=== PATIENT | female | born 1940 | race Two or more races ===

== ENCOUNTER 2020-09-21 07:25 | Outpatient (REF) | payer MEDICARE, SELFPAY ==
[2020-09-21 13:43] LABS: Estimated Average Glucose 189 mg/dL; Hemoglobin A1c % 8.2 %
[2020-09-21 14:14] LABS: Alanine Aminotransferase 15 U/L (0-31); Anion Gap 12 (12-20); Aspartate Amino Transferase 20 U/L (5-31); Blood Urea Nitrogen 10 mg/dL (9-16); Carbon Dioxide 26 mmol/L (22-29); Chloride 103 mmol/L (96-108); Cholesterol 149 mg/dL; Estimated Glomerular Filt Rate > 60; Glucose Fasting 242 mg/dL (60-99); HDL Cholesterol 47 mg/dL; LDL Cholesterol Calculated 88 mg/dl; Potassium 4.1 mmol/l (3.3-5.1); Sodium 137 mmol/L (135-145); Triglycerides 70 mg/dL
[2020-09-21 14:24] LABS: Creatinine Urine 169.16 mg/dL
== END 2020-09-21 07:26 | disposition home or self-care (01) ==
LOC: HO.HMGCLDS 07:25
PROVIDERS: PCP Internal Medicine; Visit Provider Internal Medicine
DX: E11.3293 Type 2 diabetes mellitus with mild nonproliferative diabetic retinopathy without macular edema, bilateral (principal); E78.5 Hyperlipidemia, unspecified; I10 Essential (primary) hypertension
CPT/HCPCS: 80048; 80061; 82043; 83036; 84450; 84460

== ENCOUNTER 2021-01-30 06:21 | Outpatient (REF) | payer MEDICARE, SELFPAY ==
[2021-01-30 11:17] LABS: Estimated Average Glucose 183 mg/dL
[2021-01-30 11:51] LABS: Alanine Aminotransferase 14 U/L (0-31); Anion Gap 10 (12-20); Aspartate Amino Transferase 19 U/L (5-31); Blood Urea Nitrogen 13 mg/dL (9-16); Carbon Dioxide 30 mmol/L (22-29); Chloride 106 mmol/L (96-108); Cholesterol 186 mg/dL; Estimated Glomerular Filt Rate > 60; Glucose Fasting 166 mg/dL (60-99); HDL Cholesterol 68 mg/dL; LDL Cholesterol Calculated 97 mg/dl; Potassium 4.1 mmol/L (3.3-5.1); Sodium 142 mmol/L (135-145); Triglycerides 106 mg/dL
[2021-01-30 11:54] LABS: Creatinine Urine 85.53 mg/dL; Microalbum/Creatinine Ratio Ur 12.8 ug/mg cr
[2021-01-30 11:57] LABS: TSH reflex Free T4 2.41 uIU/mL (0.32-4.0); Vitamin D 25-OH Total 41.9 ng/mL (>30)
[2021-01-30 12:35] LABS: Folate > 20.0 ng/mL (> or = 4.0); Vitamin B12 734 pg/mL (200-900)
== END 2021-01-30 06:22 | disposition home or self-care (01) ==
LOC: HO.HMGCLDS 06:21
PROVIDERS: PCP Internal Medicine; Visit Provider Internal Medicine
DX: M81.0 Age-related osteoporosis without current pathological fracture (principal); E11.65 Type 2 diabetes mellitus with hyperglycemia; E11.3299 Type 2 diabetes mellitus with mild nonproliferative diabetic retinopathy without macular edema, unspecified eye; E11.29 Type 2 diabetes mellitus with other diabetic kidney complication; R80.9 Proteinuria, unspecified; I10 Essential (primary) hypertension; E78.5 Hyperlipidemia, unspecified; G31.84 Mild cognitive impairment of uncertain or unknown etiology; Z78.0 Asymptomatic menopausal state
CPT/HCPCS: 36415; 80048; 80061; 82043; 82306; 82607; 82746; 83036; 84443; 84450; 84460

== ENCOUNTER 2021-01-30 14:35 | Outpatient (REF) | payer MEDICARE, SELFPAY | END 2021-01-30 14:36 | disposition home or self-care (01) | LOC: HO.LAB 14:35 | PROVIDERS: Visit Provider Internal Medicine | DX: Z20.822 Contact with and (suspected) exposure to COVID-19 (principal) | CPT/HCPCS: 36415; C9803; U0003; U0005 ==

== ENCOUNTER 2021-06-05 06:21 | Outpatient (REF) | payer OTHER, SELFPAY ==
[2021-06-05 11:31] LABS: Alanine Aminotransferase 12 U/L (0-31); Anion Gap 12 (12-20); Aspartate Amino Transferase 17 U/L (5-31); Blood Urea Nitrogen 15 mg/dL (9-16); Calcium 9.5 mg/dL (8.4-10.2); Carbon Dioxide 27 mmol/L (22-29); Chloride 107 mmol/L (96-108); Cholesterol 182 mg/dL; Estimated Glomerular Filt Rate > 60; Glucose Fasting 189 mg/dL (60-99); HDL Cholesterol 66 mg/dL; LDL Cholesterol Calculated 95 mg/dl; Potassium 4.7 mmol/L (3.3-5.1); Sodium 141 mmol/L (135-145); Triglycerides 108 mg/dL
[2021-06-05 11:39] LABS: Estimated Average Glucose 174 mg/dL; Hemoglobin A1c % 7.7 %
[2021-06-05 11:51] LABS: Creatinine Urine 108.51 mg/dL
== END 2021-06-05 06:22 | disposition home or self-care (01) ==
LOC: HO.HMGCLDS 06:21
PROVIDERS: PCP Internal Medicine; Visit Provider Internal Medicine
DX: E11.29 Type 2 diabetes mellitus with other diabetic kidney complication (principal); E11.3299 Type 2 diabetes mellitus with mild nonproliferative diabetic retinopathy without macular edema, unspecified eye; E11.65 Type 2 diabetes mellitus with hyperglycemia; E78.5 Hyperlipidemia, unspecified; I10 Essential (primary) hypertension; R80.9 Proteinuria, unspecified
CPT/HCPCS: 36415; 80048; 80061; 82043; 83036; 84450; 84460

== ENCOUNTER 2022-07-19 07:20 | Outpatient (REF) | payer OTHER, SELFPAY ==
[2022-07-19 11:38] LABS: Estimated Average Glucose 183 mg/dL
[2022-07-19 11:52] LABS: Alanine Aminotransferase 13 U/L (0-31); Anion Gap 18 (12-20); Aspartate Amino Transferase 18 U/L (5-31); Blood Urea Nitrogen 15 mg/dL (9-16); Calcium 9.1 mg/dL (8.4-10.2); Carbon Dioxide 21 mmol/L (22-29); Chloride 106 mmol/L (96-108); Cholesterol 185 mg/dL; Estimated Glomerular Filt Rate > 60; Glucose Fasting 205 mg/dL (60-99); HDL Cholesterol 65 mg/dL; LDL Cholesterol Calculated 100 mg/dl; Potassium 4.5 mmol/L (3.3-5.1); Sodium 140 mmol/L (135-145); Triglycerides 104 mg/dL
[2022-07-19 12:00] LABS: Creatinine Urine 109.29 mg/dL; Microalbum/Creatinine Ratio Ur 9.1 ug/mg cr
== END 2022-07-19 07:21 | disposition home or self-care (01) ==
LOC: HO.HMGCLDS 07:20
PROVIDERS: PCP Internal Medicine; Visit Provider Internal Medicine
DX: M81.0 Age-related osteoporosis without current pathological fracture (principal); I10 Essential (primary) hypertension; E78.5 Hyperlipidemia, unspecified; E11.29 Type 2 diabetes mellitus with other diabetic kidney complication; E11.3299 Type 2 diabetes mellitus with mild nonproliferative diabetic retinopathy without macular edema, unspecified eye; E11.65 Type 2 diabetes mellitus with hyperglycemia; R80.9 Proteinuria, unspecified
CPT/HCPCS: 36415; 80048; 80061; 82043; 83036; 84450; 84460

== ENCOUNTER 2022-10-25 08:02 | Outpatient (REF) | payer OTHER, SELFPAY ==
[2022-10-25 12:00] LABS: Estimated Average Glucose 223 mg/dL; Hemoglobin A1c % 9.4 %
[2022-10-25 12:05] LABS: Alanine Aminotransferase 17 U/L (0-31); Anion Gap 12 (12-20); Aspartate Amino Transferase 19 U/L (5-31); Blood Urea Nitrogen 13 mg/dL (9-16); Calcium 9.2 mg/dL (8.4-10.2); Carbon Dioxide 26 mmol/L (22-29); Chloride 106 mmol/L (96-108); Cholesterol 180 mg/dL; Estimated Glomerular Filt Rate > 60; Glucose Fasting 210 mg/dL (60-99); HDL Cholesterol 67 mg/dL; LDL Cholesterol Calculated 92 mg/dl; Potassium 4.1 mmol/L (3.3-5.1); Sodium 140 mmol/L (135-145); Triglycerides 107 mg/dL
== END 2022-10-25 08:03 | disposition home or self-care (01) ==
LOC: HO.HMGCLDS 08:02
PROVIDERS: PCP Internal Medicine; Visit Provider Internal Medicine
DX: E11.65 Type 2 diabetes mellitus with hyperglycemia (principal); E78.5 Hyperlipidemia, unspecified; M81.0 Age-related osteoporosis without current pathological fracture; K21.9 Gastro-esophageal reflux disease without esophagitis; N95.9 Unspecified menopausal and perimenopausal disorder
CPT/HCPCS: 36415; 80048; 80061; 82306; 83036; 84450; 84460

== ENCOUNTER 2023-02-28 06:30 | Outpatient (REF) | payer OTHER, SELFPAY ==
[2023-02-28 12:04] LABS: Estimated Average Glucose 174 mg/dL; Hemoglobin A1c % 7.7 %
[2023-02-28 12:08] LABS: Alanine Aminotransferase 15 U/L (0-31); Anion Gap 13 (12-20); Aspartate Amino Transferase 17 U/L (5-31); Blood Urea Nitrogen 19 mg/dL (9-16); Calcium 9.1 mg/dL (8.4-10.2); Carbon Dioxide 24 mmol/L (22-29); Chloride 108 mmol/L (96-108); Cholesterol 165 mg/dL; Estimated Glomerular Filt Rate > 60; Glucose Fasting 201 mg/dL (60-99); HDL Cholesterol 60 mg/dL; LDL Cholesterol Calculated 90 mg/dl; Potassium 4.1 mmol/L (3.3-5.1); Sodium 141 mmol/L (135-145); Triglycerides 76 mg/dL
[2023-02-28 12:10] LABS: Creatinine Urine 185.92 mg/dL; Microalbum/Creatinine Ratio Ur 11.2 ug/mg cr
== END 2023-02-28 06:31 | disposition home or self-care (01) ==
LOC: HO.HMGCLDS 06:30
PROVIDERS: PCP Internal Medicine; Visit Provider Internal Medicine
DX: E11.3299 Type 2 diabetes mellitus with mild nonproliferative diabetic retinopathy without macular edema, unspecified eye (principal); E11.65 Type 2 diabetes mellitus with hyperglycemia; I10 Essential (primary) hypertension; E78.5 Hyperlipidemia, unspecified
CPT/HCPCS: 36415; 80048; 80061; 82043; 83036; 84450; 84460

== ENCOUNTER 2023-07-25 07:21 | Outpatient (REF) | payer OTHER, SELFPAY ==
[2023-07-25 12:07] LABS: Alanine Aminotransferase 13 U/L (0-31); Anion Gap 12 (12-20); Aspartate Amino Transferase 17 U/L (5-31); Blood Urea Nitrogen 12 mg/dL (9-16); Calcium 9.7 mg/dL (8.4-10.2); Carbon Dioxide 26 mmol/L (22-29); Chloride 106 mmol/L (96-108); Cholesterol 180 mg/dL (<200); Estimated Glomerular Filt Rate > 60; Glucose Fasting 185 mg/dL (60-99); HDL Cholesterol 65 mg/dL (>40); LDL Cholesterol Calculated 96 mg/dL (<100); Potassium 4.3 mmol/L (3.3-5.1); Sodium 140 mmol/L (135-145); Triglycerides 95 mg/dL (<150)
[2023-07-25 12:08] LABS: Estimated Average Glucose 157 mg/dL; Hemoglobin A1c % 7.1 % (<6.0)
[2023-07-25 12:12] LABS: Vitamin D 25-OH Total 69.4 ng/mL (>30)
[2023-07-25 12:20] LABS: Microalbum/Creatinine Ratio Ur 6.4 ug/mg cr (<30)
== END 2023-07-25 07:22 | disposition home or self-care (01) ==
LOC: HO.HMGCLDS 07:21
PROVIDERS: PCP Internal Medicine; Visit Provider Internal Medicine
DX: M81.0 Age-related osteoporosis without current pathological fracture (principal); K21.9 Gastro-esophageal reflux disease without esophagitis; I10 Essential (primary) hypertension; E11.65 Type 2 diabetes mellitus with hyperglycemia; E11.3299 Type 2 diabetes mellitus with mild nonproliferative diabetic retinopathy without macular edema, unspecified eye; E78.5 Hyperlipidemia, unspecified
CPT/HCPCS: 36415; 80048; 80061; 82043; 82306; 82570; 83036; 84450; 84460

== ENCOUNTER 2023-07-30 13:39 | Outpatient (AMB) | payer OTHER, SELFPAY ==
[2023-07-30 13:59] VITALS: BP 158/90; PULSE 78; O2SAT 97; BMI 27.8
--- NOTE | 2023-07-30 13:59 | AM.OFFVISMDC ---
Intake Vital Signs 07/30/23 13:59 Height 4 ft 8 in Intake Visit Reasons: Annual PE Intake Note: pt is here for annual exam Allergies No Known Allergies Allergy (Verified 03/08/23 00:23) PFSH Medical History (Updated 03/08/23 @ 00:30 by Nara Louie MD) Urinary incontinence Muscle strain of left upper back Cough Mild cognitive impairment Tubular adenoma of colon Breast cancer, right Hearing loss Osteoporosis Osteoarthritis GERD (gastroesophageal reflux disease) Dyslipidemia Essential hypertension Type 2 diabetes mellitus with microalbuminuria, without long-term current use of insulin Type 2 diabetes mellitus with hyperglycemia, without long-term current use of insulin Type 2 diabetes mellitus with mild nonproliferative diabetic retinopathy without macular edema Surgical History Hx of mastectomy Family History Father Colon cancer Mother Essential hypertension Sister Pancreatic cancer Son Mental health disorder Substance use disorder Social History Housing: Apartment Alcohol intake: never Patient Tobacco Use Status: Never used Tobacco e-Cigarette/Vaping Use: Never Used Current occupational status: retired Cognitive needs: No Hearing needs: No Vision needs: Yes 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
--- NOTE | 2023-07-30 14:00 | A.OFFPC_ITS ---
Vital Signs 07/30/23 13:59 Height 4 ft 8 in Weight 124 lb 2 oz BMI 27.8 BP 158/90 H Blood Pressure Location Rt brachial Position Sitting Pulse 78 Pulse Source Pulse Oximeter Pulse Oximetry (%) 97 Intake Visit Reasons: Annual PE Intake Note: pt is here for annual exam, concern with memory, and concern with discomfort with right foot and shoulder Curve Cleaner Required: No Accompanied by: Self / Same As Patient Allergies No Known Allergies Allergy (Verified 07/30/23 14:30) Medication List - Last Reconciled 07/30/23 by Nara Louie MD aspirin (Adult Aspirin Regimen) 81 mg PO DAILY atorvastatin 20 mg PO DAILY [baby wipes As directed] blood sugar diagnostic As directed blood sugar diagnostic (FreeStyle Lite Strips) check fasting blood sugar 2 times a day; blood-glucose meter (FreeStyle Calvin Lite kit) As directed diaper,brief,adult,disposable Use as directed twice a day p.r.n. lancets check fasting blood sugar twice a day ac lisinopril 5 mg PO DAILY metformin 1,000 mg PO BIDWMEAL 3 months omega-3 acid ethyl esters 2 caps PO DAILY propylene glycol-glycerin 1-0.3 % 1 drp ophthalmic (eye) QID PRN Tobacco use date assessed: 03/06/23 Fall risk assessment: No Falls in past year Last assessed Fall Risk: 07/30/23 Dental Screening Dental Screen Date: 07/30/23 Did you have a dental visit in the last 12 months?: Yes Did you have a dental problem in the last 6 months where you did not have access to dental care?: No Was dental information given to patient?: Patient has dentist HPI Annual PE HPI Details 83-year-old lady with diabetes mellitus, hypertension, dyslipidemia, and osteoarthritis, presents today for physical exam. She has been feeling well, currently accompanied by daughter. Been compliant with taking her medications and has no complaints at present time. She no longer gets mammogram or colonoscopy ease she has had her COVID vaccine in the past, due for her booster, as well as her flu shot, up-to-date with her pneumonia vaccination and reminded to get Shingrix vaccination [facility] Medical History Urinary incontinence Muscle strain of left upper back Cough Mild cognitive impairment Tubular adenoma of colon Breast cancer, right Hearing loss Osteoporosis Osteoarthritis GERD (gastroesophageal reflux disease) Dyslipidemia Essential hypertension Type 2 diabetes mellitus with microalbuminuria, without long-term current use of insulin Type 2 diabetes mellitus with hyperglycemia, without long-term current use of insulin Type 2 diabetes mellitus with mild nonproliferative diabetic retinopathy without macular edema Surgical History Hx of mastectomy Family History Father Colon cancer Mother Essential hypertension Sister Pancreatic cancer Son Mental health disorder Substance use disorder Social History Housing: Apartment Alcohol intake: never Patient Tobacco Use Status: Never used Tobacco e-Cigarette/Vaping Use: Never Used Current occupational status: retired Cognitive needs: No Hearing needs: No Vision needs: Yes Questionnaire PHQ-9 Over the last 2 weeks, how often have you been bothered by any of the following problems? Depression Screening Interpretation: Negative Source: Developed by Drs. Devon Hatch, Kimi Corrales, Tin Dominguez and colleagues, with an educational darrius from [employer]. Thrive Questionnaire Date Thrive assessed: 07/28/22 CLARK-7 AMB Questionnaire CLARK-7 Date CLARK - 7 assessed: 07/28/22 Source: Developed by Drs. Devon Hatch, Kimi Corrales, Tin Dominguez and colleagues, with an educational darrius from [employer]. Review of Systems Const Denies fatigue, Denies fever(s), Denies headache(s), Denies lethargy, Denies malaise and Denies weakness Eyes Reports no additional complaints ENT Denies headache(s) Card Denies chest pain, Denies rapid heart rate and Denies dyspnea Resp Denies chest congestion, Denies cough and Denies dyspnea GI Denies abdominal pain, Denies melena, Denies bloating, Denies change in bowel habits, Denies GI cramping and Denies nausea Reports no additional complaints Musc Reports stiffness Skin/Breast Denies lesions and Denies rash Neuro Denies headache(s), Denies paresthesias and Denies weakness Psych Reports no additional complaints Endo Denies fatigue Rashawn/Lymph Reports no additional complaints Aller/Immun Reports no additional complaints Physical exam (Primary Care) Vital Signs: Last Vital Signs Pulse 78 07/30/23 13:59 BP 158/90 H 07/30/23 13:59 Pulse Ox 97 07/30/23 13:59 BMI result Body Mass Index 27.8 Tobacco/Smoking Status: Tobacco use Status Tobacco use date assessed 03/06/23 07/30/23 14:00 Patient Tobacco Use Status Never used Tobacco 07/30/23 14:00 e-Cigarette/Vaping Use Never Used 07/30/23 14:00 Depression Screening Interpretation: Negative Thrive Assessment: Date of Thrive Assessment Date Thrive assessed 07/28/22 07/30/23 14:00 Const Other: Alert oriented x3, no acute distress noted ambulatory with normal gait Nutritional Appearance: average body habitus Orientation/consciousness: patient oriented x3 HENMT Mouth: Normal oral and palatal mucosa present and moist mucous membranes Eyes General: appearance normal, both eyes and all related structures Neck Other: Supple no lymphadenopathy, thyroid gland nonpalpable, no carotid bruits Resp Effort & Inspection: normal respiratory effort and able to speak in complete sentences Auscultation: clear to auscultation bilaterally Cardio Other: S1-S2 present regular rate and rhythm GI Other: Normal bowel sounds, soft, nontender with no mass palpated no abdominal bruit Skin General skin exam: no rashes or lesions noted Neuro General: patient oriented x3, gait normal, moves all extremities, Normal light touch and pain sensation, no focal motor deficits, CN's II-XI intact bilaterally and normal sensation to monofilament Extrem Other: Intact. Pedal pulses bilaterally, no gross bone deformity or toe deformity or discoloration in both feet General: Yes full ROM, Yes no joint enlargement, Yes no pedal edema and Yes normal gait Psych Appearance: grossly normal and well kempt Mental Status: mental status grossly normal Speech and movement: Normal speech and movement present Affect: normal affect Attitude: cooperative Immunizations pneumoc 20-jeff conj-dip cr(PF) 0.5 mL IM syringe Performing Provider: Nara Louie MD Performing Location: [facility] Administered by: Derrell Echeverria CMA on 07/30/23 14:47 Dose Route Admin Location Dispensed Lot Number Expiration Date [place] Physical Integration Practitioner 0.5 mL IM Left Deltoid 0.5 mL [id number] 09/15/24 WYETH/PFIZER VIS Given Date VIS Provided VIS Publication Date 07/30/23 Single Vaccine 21 Eligibility Eligibility Date Funding Source Not VFC Eligible 07/30/23 Private Results Reviewed Results Reviewed: ENTERED: 07/25/23-730 ROMEO HELMS: ORDERED: Met Prof Fast, AST, ALT, Lipid Panel, Vitamin D 25-OH Test Result Flag Reference Site Sodium 140 135-145 mmol/L Potassium 4.3 3.3-5.1 mmol/L CL 106 96-108 mmol/L CO2 26 22-29 mmol/L Gap 12 12-20 BUN 12 9-16 mg/dL Creat 0.66 0.5-1.4 mg/dL EGFR > 60 NOTE: For -[place] individuals, multiply the result by 1.210. Chronic Kidney Disease: Estimated GFR < 60 mL/min/1.73m2 Severe Kidney Disease: Estimated GFR < 15 mL/min/1.73m2 FBS 185 H 60-99 mg/dL A fasting glucose of 126 mg/dl or greater on more than one occasion is considered diagnostic of diabetes. CA 9.7 # 8.4-10.2 mg/dL AST (GOT) 17 5-31 U/L ALT (GPT) 13 0-31 U/L Triglyceride 95 <150 mg/dL Desirable Triglyceride: less than 150 mg/dL Borderline High Triglyceride 150-199 mg/dL High Triglyceride: 200-499 mg/dL Very High Triglyceride: greater than or equal to 5OO mg/dL Cholesterol 180 <200 mg/dL Desirable Cholesterol: less than 200 mg/dL Borderline High Cholesterol: 200-239 mg/dL High Cholesterol: greater than 239 mg/dL LDL Calculated 96 <100 mg/dL Desirable LDL: less than 100 mg/dL Near Optimal/Above Optimal LDL: 110-129 mg/dL Borderline High LDL: 130-159 mg/dL High LDL: 160-189 mg/dL Very High LDL: greater than or equal to 190 mg/dL HDL 65 >40 mg/dL Desirable HDL: greater than 40 mg/dL Note: This HDL assay may give artificially low results in patients with liver disease. Vit D 25-OH Tot 69.4 >30 ng/mL Health Based Reference Values* < 20 ng/mL Deficient 20-30 ng/mL Insufficient > 30 ng/mL Sufficient Laboratory Tests 07/25/23 07:31 Estimat Average Glucose 157 Hemoglobin A1c % 7.1 H Assessment and Plan Assessment & Plan (1) Osteoporosis: Code(s): M81.0 - Age-related osteoporosis without current pathological fracture Qualifiers: Osteoporosis type: age-related Presence of current pathological fracture: without current pathological fracture Qualified Code(s): M81.0 - Age- related osteoporosis without current pathological fracture Plan: Ordered a repeat bone density scan, continue taking calcium through dietary sources and 3 2000 units daily, reinforced importance of staying active (2) Osteoarthritis: Code(s): M19.90 - Unspecified osteoarthritis, unspecified site Qualifiers: Laterality: right Osteoarthritis location: shoulder Osteoarthritis type: primary Qualified Code(s): M19.011 - Primary osteoarthritis, right shoulder Plan: Refill prescription sent for ibuprofen 400 as per tablet to take 1 every 12 hours as needed for severe joint pain. Always take with food, and use sparingly (3) Dyslipidemia: Code(s): E78.5 - Hyperlipidemia, unspecified Plan: Fasting lipids are within normal limits, continue with atorvastatin and [place] 3 fatty acid supplements. (4) Essential hypertension: Code(s): I10 - Essential (primary) hypertension Plan: Blood pressure at goal of less than 130/80. Continue with lisinopril . Reinforced importance of following a low sodium diet, getting regular exercise, and lowering stress levels. (5) Type 2 diabetes mellitus with hyperglycemia, without long-term current use of insulin: Code(s): E11.65 - Type 2 diabetes mellitus with hyperglycemia Plan: Hemoglobin A1c now is at 7.1%, improved from last check approximately 3 months ago, goal is to go less than 7%. Continue with metformin and reinforcing creased regular activity and following recommended diet. (6) Annual visit for general adult medical examination with abnormal findings: Code(s): Z00.01 - Encounter for general adult medical examination with abnormal findings Plan: Will check appropriate labs. Recommended dental visit every 6 months and regular eye exams, at least every 2 years. Take adequate calcium in diet and vitamin-D 3 at 2000 IU per cap once a day, in addition to weight-bearing exercises to help maintain good muscle tone and weight control. No longer gets screening mammograms colonoscopy 0 Pap smears but bone density scan ordered today reminded to get her COVID booster and flu shot, up-to-date with her pneumonia vaccination and Tdap. Reminded also to get her 2nd of Shingrix vaccine Orders: Orders XR DEXA axial skeleton 07/30/23 M81.0 - Age-related osteoporosis without current pathological fracture Hemoglobin A1c 01/15/24 E11.65 - Type 2 diabetes mellitus with hyperglycemia, E78.5 - Hyperlipidemia, unspecified, I10 - Essential (primary) hypertension, M81.0 - Age-related osteoporosis without current pathological fracture Alanine Aminotransferase 01/15/24 E11.65 - Type 2 diabetes mellitus with hyperglycemia, E78.5 - Hyperlipidemia, unspecified, I10 - Essential (primary) hypertension, M81.0 - Age-related osteoporosis without current pathological fracture Lipid Panel 01/15/24 E11.65 - Type 2 diabetes mellitus with hyperglycemia, E78.5 - Hyperlipidemia, unspecified, I10 - Essential (primary) hypertension, M81.0 - Age-related osteoporosis without current pathological fracture Pneumococcal 20 Immunization 07/30/23 Z23 - Encounter for immunization Aspartate Amino Transferase 01/15/24 E11.65 - Type 2 diabetes mellitus with hyperglycemia, E78.5 - Hyperlipidemia, unspecified, I10 - Essential (primary) hypertension, M81.0 - Age-related osteoporosis without current pathological fracture Basic Metabolic Panel Fasting 01/15/24 E11.65 - Type 2 diabetes mellitus with hyperglycemia, E78.5 - Hyperlipidemia, unspecified, I10 - Essential (primary) hypertension, M81.0 - Age-related osteoporosis without current pathological fracture Vitamin D 25-OH Total 01/15/24 E11.65 - Type 2 diabetes mellitus with hyperglycemia, E78.5 - Hyperlipidemia, unspecified, I10 - Essential (primary) hypertension, M81.0 - Age-related osteoporosis without current pathological fracture, Z78.0 - Asymptomatic menopausal state Microalbumin, Random (w Creat) 01/15/24 E11.65 - Type 2 diabetes mellitus with hyperglycemia, E78.5 - Hyperlipidemia, unspecified, I10 - Essential (primary) hypertension, M81.0 - Age-related osteoporosis without current pathological fracture Medications: New ibuprofen 400 mg PO Q12H PRN 40 tabs 0RF Right shoulder pain Coding Level of Care Code Est Pt Prev Care >65y(16631) Diagnoses Age-related osteoporosis without current pathological fracture M81.0 Osteoporosis type: age-related Presence of current pathological fracture: without current pathological fracture Primary osteoarthritis of right shoulder M19.011 Laterality: right Osteoarthritis location: shoulder Osteoarthritis type: primary Dyslipidemia E78.5 Essential hypertension I10 Type 2 diabetes mellitus with hyperglycemia, without long-term current use of insulin E11.65 Annual visit for general adult medical examination with abnormal findings Z00.01
== END 2023-07-30 14:49 | disposition home or self-care (01) ==
PROVIDERS: Visit Provider Internal Medicine
DX: Z23 Encounter for immunization (principal)
CPT/HCPCS: 90471; 90677; 99397

== ENCOUNTER 2024-02-16 14:11 | Outpatient (AMB) | payer OTHER, SELFPAY ==
[2024-02-16 14:16] VITALS: BP 138/78; PULSE 81; TEMP 36.6; O2SAT 95; BMI 28.0
--- NOTE | 2024-02-16 14:16 | AM.OFFWIN_ITS ---
Intake Vital Signs 02/16/24 14:16 Height 4 ft 8 in Weight 125 lb BMI 28.0 BP 138/78 Blood Pressure Location Lt brachial Position Sitting Pulse 81 Pulse Source Pulse Oximeter Temp 97.9 F Temp Source Temporal Artery Scan Pulse Oximetry (%) 95 Oxygen Delivery Method Room Air Intake Visit Reasons: EP fell Sat RT side pain (lobby) Intake Note: pt is here for right side pain on thursday she fell at home Patient Tobacco Use Status: Never used Tobacco Allergies No Known Allergies Allergy (Verified 02/16/24 14:17) Do you need a note to return to daycare/school/sports/work: No HPI HPI Comments History of Present Illness Details 84-year-old female fell into a seated po sition and struck her right ribs on her chair at home. She denies shortness breath denies head injury or loss of consciousness. Her only discomfort is in her right lower ribs. Seems as though she has mild pleuritic chest pain PFSH Medical History Urinary incontinence Muscle strain of left upper back Cough Mild cognitive impairment Tubular adenoma of colon Breast cancer, right Hearing loss Osteoporosis Osteoarthritis GERD (gastroesophageal reflux disease) Dyslipidemia Essential hypertension Type 2 diabetes mellitus with microalbuminuria, without long-term current use of insulin Type 2 diabetes mellitus with hyperglycemia, without long-term current use of i nsulin Type 2 diabetes mellitus with mild nonproliferative diabetic retinopathy without macular edema Surgical History Hx of mastectomy Family History Father Colon cancer Mother Essential hypertension Sister Pancreatic cancer Son Mental health disorder Substance use disorder Social History Housing: Apartment Alcohol intake: never Patient Tobacco Use Status: Never used Tobacco e-Cigarette/Vaping Use: Never Used Current occupational status: retired Cognitive needs: No Hearing needs: No Vision needs: Yes Review of Systems Const All systems reviewed & are unremarkable except as noted in HPI and below Eyes Reports no additional complaints ENT Reports no additional complaints Card Reports no additional complaints Resp Reports no additional complaints GI Reports no additional complaints Physical Exam Vital Signs: Last Vital Signs Temp 97.9 F 02/16/24 14:16 Pulse 81 02/16/24 14:16 BP 138/78 02/16/24 14:16 Pulse Ox 95 02/16/24 14:16 Oxygen Delivery Method Room Air 02/16/24 14:16 BMI result Body Mass Index 28.0 Const General: healthy appearing and acute distress mild HEENT Head: Yes normal to inspection, Yes normocephalic and Yes atraumatic Ears: hearing grossly normal bilaterally General nose exam: Normal external nose present Face and sinus: Yes normal facial exam Eyes General: appearance normal, both eyes and all related structures Chest Chest palpation & inspection: localized rib tenderness with anteroposterior compression Resp Effort & Inspection: normal respiratory effort and able to speak in complete sentences Auscultation: clear to auscultation bilaterally Cardio Rate: regular rate Rhythm: regular rhythm Results Reviewed Results Reviewed: Right rib and chest x-ray done today was negative which was reviewed with the patient Assessment & Plan Assessment & Plan (1) Acute costochondritis: Code(s): M94.0 - Chondrocostal junction syndrome [Tietze] Plan: The patient will use Tylenol for pain and activity to tolerance Plan See plan Orders: Orders XR ribs RT min 3V w CXR1V Today R07.81 - Pleurodynia Coding Level of Care Code Est Pt Level 3 (55520) Diagnoses Acute costochondritis M94.0
== END 2024-02-16 15:39 | disposition home or self-care (01) ==
PROVIDERS: PCP Internal Medicine; Visit Provider Physician Assistant Medical
DX: M94.0 Chondrocostal junction syndrome [Tietze] (principal)
CPT/HCPCS: 99213

== ENCOUNTER 2024-02-16 14:47 | Outpatient (REF) | payer OTHER, SELFPAY ==
--- NOTE | ~2024-02-16 | XR_ITS ---
EXAMINATION: XR RIBS, RIGHT and chest PA CLINICAL INFORMATION: Pleurodynia. Status post fall. COMPARISON: None available. TECHNIQUE: 3 views of the right ribs were obtained with a marker placed along the lower ribs. Chest one view FINDINGS: CHEST: Lungs are clear. No consolidation, pneumothorax, or pleural effusion. The cardiomediastinal silhouette and pulmonary vasculature are normal. RIGHT RIBS: Osseous structures are unremarkable. Bilateral ribs are intact with no visible fracture seen. The soft tissues are normal.. XR/XR ribs RT min 3V w CXR1V IMPRESSION: Unremarkable chest and right rib examination.
== END 2024-02-16 14:48 | disposition home or self-care (01) ==
LOC: HO.HMGCX 14:47
PROVIDERS: PCP Internal Medicine; Visit Provider Physician Assistant Medical
DX: R07.81 Pleurodynia (principal); Z91.81 History of falling
CPT/HCPCS: 71101

== ENCOUNTER 2024-03-05 07:13 | Outpatient (REF) | payer OTHER, SELFPAY ==
[2024-03-05 12:09] LABS: Estimated Average Glucose 171 mg/dL; Hemoglobin A1c % 7.6 % (<6.0)
[2024-03-05 12:34] LABS: Alanine Aminotransferase 17 U/L (0-31); Anion Gap 12 (12-20); Aspartate Amino Transferase 19 U/L (5-31); Blood Urea Nitrogen 13 mg/dL (9-16); Calcium 9.4 mg/dL (8.4-10.2); Carbon Dioxide 25 mmol/L (22-29); Chloride 107 mmol/L (96-108); Cholesterol 166 mg/dL (<200); Estimated Glomerular Filt Rate > 60; Glucose Fasting 171 mg/dL (60-99); HDL Cholesterol 56 mg/dL (>40); LDL Cholesterol Calculated 94 mg/dL (<100); Sodium 140 mmol/L (135-145); Triglycerides 83 mg/dL (<150)
[2024-03-05 12:37] LABS: Vitamin D 25-OH Total 82.6 ng/mL (>30)
[2024-03-05 12:51] LABS: Creatinine Urine 96.78 mg/dL; Microalbum/Creatinine Ratio Ur 10.3 ug/mg cr (<30)
== END 2024-03-05 07:14 | disposition home or self-care (01) ==
LOC: HO.HMGCLDS 07:13
PROVIDERS: PCP Internal Medicine; Visit Provider Internal Medicine
DX: M81.0 Age-related osteoporosis without current pathological fracture (principal); E78.5 Hyperlipidemia, unspecified; I10 Essential (primary) hypertension; E11.65 Type 2 diabetes mellitus with hyperglycemia; Z78.0 Asymptomatic menopausal state
CPT/HCPCS: 36415; 80048; 80061; 82043; 82306; 82570; 83036; 84450; 84460

== ENCOUNTER 2024-03-17 13:53 | Outpatient (AMB) | payer OTHER, SELFPAY ==
[2024-03-17 14:25] VITALS: BP 130/72; PULSE 80; O2SAT 97; BMI 27.5
--- NOTE | 2024-03-17 14:25 | MHC.PC.OV ---
Vital Signs 03/17/24 14:25 Height 4 ft 8 in Weight 122 lb 8 oz BMI 27.5 BP 130/72 Blood Pressure Location Lt brachial Position Sitting Pulse 80 Pulse Source Pulse Oximeter Pulse Oximetry (%) 97 Oxygen Delivery Method Room Air Intake Visit Reasons: 6 Month follow up Intake Note: Pt is here today for her 6 month follow up. Allergies No Known Allergies Allergy (Verified 03/21/24 02:37) Medication List - Last Reconciled 03/21/24 by Nara Louie MD alendronate 70 mg PO QWEEK 3 months aspirin (Adult Aspirin Regimen) 81 mg PO DAILY atorvastatin 20 mg PO DAILY [baby wipes As directed] blood sugar diagnostic As directed blood sugar diagnostic (FreeStyle Lite Strips) check fasting blood sugar 2 times a day; blood-glucose meter (FreeStyle [place] Lite kit) As directed diaper,brief,adult,disposable Use as directed twice a day p.r.n. ibuprofen 400 mg PO Q12H PRN lancets check fasting blood sugar twice a day ac lisinopril 5 mg PO DAILY [Medium size Poise Pads Use twice a day ] metformin 1,000 mg PO BIDWMEAL 3 months omega-3 acid ethyl esters 2 caps PO DAILY propylene glycol-glycerin 1-0.3 % 1 drp ophthalmic (eye) QID PRN Tobacco use date assessed: 03/17/24 Fall risk assessment: 1 Fall in past year Last assessed Fall Risk: 03/17/24 Dental Screening Dental Screen Date: 03/17/24 Did you have a dental visit in the last 12 months?: No Did you have a dental problem in the last 6 months where you did not have access to dental care?: No Was dental information given to patient?: Patient has dentist HPI 6 Month follow up HPI Details 84-year-old lady with diabetes mellitus, hypertension hyperlipidemia, here today for follow-up. She has been compliant with her medications, but has not been moving much due to pain on anterior aspect of her right knee which occurs on and off. She has had history of falls recently due to unstable gait. Has been taking Tylenol which affords only temporary relief. She also had a recent bone density scan done has January 2024 which showed presence of osteoporosis in lumbar spine and in her left femoral neck. Has no history of fractures. [facility] Medical History Osteoporosis of lumbar spine Gait instability History of recent fall Right anterior knee pain Urinary incontinence Mild cognitive impairment Tubular adenoma of colon Breast cancer, right Hearing loss Osteoporosis Osteoarthritis GERD (gastroesophageal reflux disease) Dyslipidemia Essential hypertension Type 2 diabetes mellitus with microalbuminuria, without long-term current use of insulin Type 2 diabetes mellitus with hyperglycemia, without long-term current use of insulin Type 2 diabetes mellitus with mild nonproliferative diabetic retinopathy without macular edema Surgical History Hx of mastectomy Family History Father Colon cancer Mother Essential hypertension Sister Pancreatic cancer Son Mental health disorder Substance use disorder Social History Housing: Apartment Alcohol intake: never Patient Tobacco Use Status: Never used Tobacco e-Cigarette/Vaping Use: Never Used service: No Current occupational status: retired Cognitive needs: No Hearing needs: No Vision needs: Yes Questionnaire PHQ-9 Over the last 2 weeks, how often have you been bothered by any of the following problems? 1. Little interest or pleasure in doing things: not at all 2. Feeling down, depressed, or hopeless: not at all 3. Trouble falling or staying asleep, or sleeping too much: not at all 4. Feeling tired or having little energy: not at all 5. Poor appetite or overeating: not at all 6. Feeling bad about yourself - or that you are a failure or have let yourself or your family down: not at all 7. Trouble concentrating on things, such as reading the newspaper or watching television: not at all 8. Moving or speaking so slowly that other people could have noticed. Or the opposite - being so fidgety or restless that you have been moving around a lot more than usual: not at all 9. Thoughts that you would be better off or of hurting yourself in some way: not at all Total score: 0 Depression Screening Interpretation: Negative Depression Screening Done: Yes 65806 - PHQ-9 Billing: Yes Source: Developed by Drs. Devon Hatch, Kimi B.WTin Raya and colleagues, with an educational darrius from [employer]. Thrive Questionnaire Date Thrive assessed: 03/17/24 I am a: Patient What is your living situation today?: I have a steady place to live Within the past 12 months, did the food you bought not last and you didn't have the money to get more?: Never true Within the past 12 months, did you worry whether your food would run out before you got money to buy more?: Never true Do you have trouble paying for medicines?: No Do you have trouble getting transportation to medical appointments?: No Do you have trouble paying your heating and electricity bill?: No Do you have trouble taking care of your child, family member or friend?: No Do you have trouble with day-to-day activities such as bathing, preparing meals, shopping, managing finances, etc.?: No Are you currently unemployed and looking for a job?: No Are you interested in more education?: No THRIVE Score: 0 AUDIT C Alcohol Use Questionnaire (AUDIT-C) 1. How often do you have a drink containing alcohol?: Never 3. How often do you have six or more drinks on one occasion?: Never Total Score: 0 Score Reviewed/Action Taken: Yes CLARK-7 AMB Questionnaire CLARK-7 Date CLARK - 7 assessed: 03/17/24 Feeling nervous, anxious, or on edge: 0 = Not at all Not being able to stop or control worryin = Not at all Worrying too much about different things: 0 = Not at all Trouble relaxin = Not at all Being so restless that it is hard to sit still: 0 = Not at all Becoming easily annoyed or irritable: 0 = Not at all Feeling afraid as if something awful might happen: 0 = Not at all Total CLARK-7 score (0-4 normal; 5-9 mild; 10-14 moderate; 15-21 severe): 0 Source: Developed by Drs. Devon Hatch, Tin Eden and colleagues, with an educational darrius from [employer]. CLARK-7 Assessment Billing CLARK-7 Assessment Tool: CLARK-7 Assessment 96675 Review of Systems Const Denies fatigue, Denies fever(s), Denies headache(s), Denies lethargy, Denies malaise and Denies weakness Eyes Reports no additional complaints ENT Denies headache(s) Card Denies chest pain, Denies rapid heart rate and Denies dyspnea Resp Denies chest congestion, Denies cough and Denies dyspnea GI Denies abdominal pain, Denies melena, Denies bloating, Denies change in bowel habits, Denies GI cramping and Denies nausea Reports no additional complaints Musc Reports as per HPI Skin/Breast Denies lesions and Denies rash Neuro Reports as per HPI, Denies headache(s), Denies paresthesias and Denies weakness Psych Reports no additional complaints Endo Denies fatigue Rashawn/Lymph Reports no additional complaints Aller/Immun Reports no additional complaints Physical exam (Primary Care) Vital Signs: Last Vital Signs Pulse 80 03/17/24 14:25 BP 130/72 03/17/24 14:25 Pulse Ox 97 03/17/24 14:25 Oxygen Delivery Method Room Air 03/17/24 14:25 BMI result Body Mass Index 27.5 Tobacco/Smoking Status: Tobacco use Status Tobacco use date assessed 03/17/24 03/17/24 14:28 Patient Tobacco Use Status Never used Tobacco 03/17/24 14:28 e-Cigarette/Vaping Use Never Used 03/17/24 14:28 Depression Screening Interpretation: Negative Thrive Assessment: Date of Thrive Assessment Date Thrive assessed 07/28/22 03/17/24 14:28 Const Other: Elderly female, ambulatory with assistance of a cane [facility] Mouth: Normal oral and palatal mucosa present and moist mucous membranes Eyes General: appearance normal, both eyes and all related structures Neck Other: Supple no lymphadenopathy, thyroid gland nonpalpable, no carotid bruits Resp Effort & Inspection: normal respiratory effort and able to speak in complete sentences Auscultation: clear to auscultation bilaterally Cardio Other: S1-S2 present regular rate and rhythm GI Other: Normal bowel sounds, soft, nontender with no mass palpated no abdominal bruit Back/Spine/Pelvis Back: No back tenderness Skin General skin exam: no rashes or lesions noted Neuro General: moves all extremities, Normal light touch and pain sensation, no focal motor deficits, CN's II-XI intact bilaterally and normal sensation to monofilament Gait exam (Neuro): Assisted gait required (Cane) Extrem Other: Joint swelling noted over anterior aspect of both knee right more than the left, decreased range of motion due to pain and stiffness Psych Appearance: grossly normal and well kempt Mental Status: mental status grossly normal Speech and movement: Normal speech and movement present Affect: normal affect Attitude: cooperative Results Reviewed Results Reviewed: Laboratory Tests 03/05/24 07:19 Estimat Average Glucose 171 Hemoglobin A1c % 7.6 H Name: Terrie Madden Age/Sex: 84/F : 1940 Unit#: [id number] Attend Dr: Nara Louie MD Re03/05/24 Status: DEP REF Location: [facility] Disch: SPEC : [id number] BOAZ: 03/05/24 STATUS: COMP REQ : [id number] RECD: 03/05/[address]: Nara Louie MD COMP: 03/05/24 ENTERED: 03/05/[address]: ORDERED: Met Prof Fast, AST, ALT, Lipid Panel, Vitamin D 25-OH Test Result Flag Reference Sodium 140 135-145 mmol/L Potassium 4.0 3.3-5.1 mmol/L CL 107 96-108 mmol/L CO2 25 22-29 mmol/L Gap 12 12-20 BUN 13 9-16 mg/dL Creat 0.59 0.5-1.4 mg/dL EGFR > 60 NOTE: For -[place] individuals, multiply the result by 1.210. Chronic Kidney Disease: Estimated GFR < 60 mL/min/1.73m2 Severe Kidney Disease: Estimated GFR < 15 mL/min/1.73m2 FBS 171 H 60-99 mg/dL A fasting glucose of 126 mg/dl or greater on more than one occasion is considered diagnostic of diabetes. CA 9.4 8.4-10.2 mg/dL AST (GOT) 19 5-31 U/L ALT (GPT) 17 0-31 U/L Triglyceride 83 <150 mg/dL Desirable Triglyceride: less than 150 mg/dL Borderline High Triglyceride 150-199 mg/dL High Triglyceride: 200-499 mg/dL Very High Triglyceride: greater than or equal to 5OO mg/dL Cholesterol 166 <200 mg/dL Desirable Cholesterol: less than 200 mg/dL Borderline High Cholesterol: 200-239 mg/dL High Cholesterol: greater than 239 mg/dL LDL Calculated 94 <100 mg/dL Desirable LDL: less than 100 mg/dL Near Optimal/Above Optimal LDL: 110-129 mg/dL Borderline High LDL: 130-159 mg/dL High LDL: 160-189 mg/dL Very High LDL: greater than or equal to 190 mg/dL HDL 56 >40 mg/dL Desirable HDL: greater than 40 mg/dL Note: This HDL assay may give artificially low results in patients with liver disease. Vit D 25-OH Tot 82.6 >30 ng/mL Health Based Reference Values* < 20 ng/mL Deficient 20-30 ng/mL Insufficient > 30 ng/mL Sufficient Assessment and Plan Assessment & Plan (1) Right anterior knee pain: Code(s): M25.561 - Pain in right knee Plan: X-ray of right knee ordered (2) History of recent fall: Code(s): Z91.81 - History of falling Plan: Referred for physical therapy (3) Gait instability: Code(s): R26.81 - Unsteadiness on feet Plan: Referral for physical therapy ordered (4) Osteoporosis of lumbar spine: Code(s): M81.0 - Age-related osteoporosis without current pathological fracture Plan: Reviewed results of recent DEXA scan done January 2024, which showed presence of osteoporosis in lumbar spine and in left femoral neck, no history of fractures, will started on alendronate 70 mg per capsule to take once a week for the next 3 months. Instructed on proper use of medication and possible side effects that may be encountered. Will repeat another bone density exam in a year (5) Type 2 diabetes mellitus with hyperglycemia, without long-term current use of insulin: Code(s): E11.65 - Type 2 diabetes mellitus with hyperglycemia Plan: Hemoglobin A1c on latest labs was higher at 7.6%. Will continue on current medication namely metformin at the same dose , and reinforced importance of following diabetic diet and getting regular exercise. (6) Essential hypertension: Code(s): I10 - Essential (primary) hypertension Plan: Blood pressure at goal of less than 130/80. Continue with current medication. Reinforced importance of following a low sodium diet, getting regular exercise, and lowering stress levels. (7) Dyslipidemia: Code(s): E78.5 - Hyperlipidemia, unspecified Plan: Fasting lipids are within normal limits, continue on atorvastatin 20 mg daily repeat fasting lipid panel in six-month Orders: Orders XR knee RT 4V 03/17/24 M25.561 - Pain in right knee PT Evaluation and Treatment 03/17/24 M25.561 - Pain in right knee, R26.81 - Unsteadiness on feet, Z91.81 - History of falling Basic Metabolic Panel Fasting 07/14/24 E11.65 - Type 2 diabetes mellitus with hyperglycemia, E78.5 - Hyperlipidemia, unspecified, I10 - Essential (primary) hypertension, M81.0 - Age-related osteoporosis without current pathological fracture Aspartate Amino Transferase 07/14/24 E11.65 - Type 2 diabetes mellitus with hyperglycemia, E78.5 - Hyperlipidemia, unspecified, I10 - Essential (primary) hypertension, M81.0 - Age-related osteoporosis without current pathological fracture Alanine Aminotransferase 07/14/24 E11.65 - Type 2 diabetes mellitus with hyperglycemia, E78.5 - Hyperlipidemia, unspecified, I10 - Essential (primary) hypertension, M81.0 - Age-related osteoporosis without current pathological fracture Hemoglobin A1c 07/14/24 E11.65 - Type 2 diabetes mellitus with hyperglycemia, E78.5 - Hyperlipidemia, unspecified, I10 - Essential (primary) hypertension, M81.0 - Age-related osteoporosis without current pathological fracture Lipid Panel 07/14/24 E11.65 - Type 2 diabetes mellitus with hyperglycemia, E78.5 - Hyperlipidemia, unspecified, I10 - Essential (primary) hypertension, M81.0 - Age-related osteoporosis without current pathological fracture Microalbumin, Random (w Creat) 07/14/24 E11.65 - Type 2 diabetes mellitus with hyperglycemia, E78.5 - Hyperlipidemia, unspecified, I10 - Essential (primary) hypertension, M81.0 - Age-related osteoporosis without current pathological fracture Vitamin D 25-OH Total 07/14/24 E11.65 - Type 2 diabetes mellitus with hyperglycemia, E78.5 - Hyperlipidemia, unspecified, I10 - Essential (primary) hypertension, M81.0 - Age-related osteoporosis without current pathological fracture Medications: New alendronate 70 mg PO QWEEK 3 months 13 tabs 3RF M81.0 - Age-related osteoporosis without current pathological fracture Coding Level of Care Code Est Pt Level 4 (35167) Diagnoses Right anterior knee pain M25.561 History of recent fall Z91.81 Gait instability R26.81 Osteoporosis of lumbar spine M81.0 Type 2 diabetes mellitus with hyperglycemia, without long-term current use of insulin E11.65 Essential hypertension I10 Dyslipidemia E78.5 Additional Codes CLARK-7 Assessment Billing - CLARK-7 Assessment Tool: CLARK-7 Assessment 43126 ([id number])
== END 2024-03-17 15:19 | disposition home or self-care (01) ==
LOC: HO.HMGC 13:53
PROVIDERS: PCP Internal Medicine; Visit Provider Internal Medicine
DX: E11.65 Type 2 diabetes mellitus with hyperglycemia (principal); M25.561 Pain in right knee; Z91.81 History of falling; R26.81 Unsteadiness on feet; M81.0 Age-related osteoporosis without current pathological fracture; I10 Essential (primary) hypertension; E78.5 Hyperlipidemia, unspecified
CPT/HCPCS: 99214

== ENCOUNTER 2024-03-17 15:21 | Outpatient (REF) | payer OTHER, SELFPAY ==
--- NOTE | ~2024-03-17 | XR_ITS ---
EXAMINATION: XR KNEE, RIGHT CLINICAL INFORMATION: Right-sided knee pain COMPARISON: None available. TECHNIQUE: Four views of the right knee. FINDINGS: There is advanced medial and lateral joint space meniscal calcification but no fracture, dislocation or destructive lesion or joint effusion. XR/XR knee RT 4V IMPRESSION: Degenerative change noted. No acute findings.
== END 2024-03-17 15:22 | disposition home or self-care (01) ==
LOC: HO.HMGCX 15:21
PROVIDERS: PCP Internal Medicine; Visit Provider Internal Medicine
DX: M25.561 Pain in right knee (principal)
CPT/HCPCS: 73564

== ENCOUNTER 2024-06-22 10:26 | Outpatient (AMB) | payer OTHER, SELFPAY ==
[2024-06-22 11:11] VITALS: BP 116/64; PULSE 77; O2SAT 99; BMI 25.6
--- NOTE | 2024-06-22 11:11 | A.OFFPC_ITS ---
Vital Signs 06/22/24 11:11 Height 4 ft 8 in Weight 114 lb BMI 25.6 BP 116/64 Blood Pressure Location Lt brachial Position Sitting Pulse 77 Pulse Source Pulse Oximeter Pulse Oximetry (%) 99 Oxygen Delivery Method Room Air Intake Visit Reasons: HDF Allergies No Known Allergies Allergy (Verified 06/23/24 16:12) Medication List - Last Reconciled 06/23/24 by Nara Louie MD alendronate 70 mg PO QWEEK 3 months aspirin (Adult Aspirin Regimen) 81 mg PO DAILY atorvastatin 20 mg PO DAILY [baby wipes As directed] blood sugar diagnostic As directed blood sugar diagnostic (FreeStyle Lite Strips) check fasting blood sugar 2 times a day; blood-glucose meter (FreeStyle [place] Lite kit) As directed diaper,brief,adult,disposable Use as directed twice a day p.r.n. ibuprofen 400 mg PO Q12H PRN lancets check fasting blood sugar twice a day ac lisinopril 5 mg PO DAILY [Medium size Poise Pads Use twice a day ] metformin 1,000 mg PO BIDWMEAL 3 months omega-3 acid ethyl esters 2 caps PO DAILY propylene glycol-glycerin 1-0.3 % 1 drp ophthalmic (eye) QID PRN tramadol 50 mg PO BEDTIME PRN Tobacco use date assessed: 06/22/24 Fall risk assessment: 2 + Falls in past year Last assessed Fall Risk: 06/22/24 Dental Screening Dental Screen Date: 06/22/24 Did you have a dental visit in the last 12 months?: Yes Did you have a dental problem in the last 6 months where you did not have access to dental care?: No Was dental information given to patient?: Patient has dentist HPI HDF HPI Details 84-year-old lady with history of diabete s mellitus, hypertension, anemia, here today for follow-up after a recent fall, and sustained a fracture in her right hip, underwent surgery 05/13/2024. She is now back home, ambulating with aid of a walker, receives home PT twice a week. Has been taking Tylenol 500 mg 1 tablet once or twice a day which has been helping but patient complaining of throbbing pain in her right hip when sleeping at night, would like to get something stronger than Tylenol or Motrin to help ease the pain [facility] Medical History Osteoporosis of lumbar spine Gait instability History of recent fall Right anterior knee pain Urinary incontinence Mild cognitive impairment Tubular adenoma of colon Breast cancer, right Hearing loss Osteoporosis Osteoarthritis GERD (gastroesophageal reflux disease) Dyslipidemia Essential hypertension Type 2 diabetes mellitus with microalbuminuria, without long-term current use of insulin Type 2 diabetes mellitus with hyperglycemia, without long-term current use of insulin Type 2 diabetes mellitus with mild nonproliferative diabetic retinopathy without macular edema Surgical History Hx of mastectomy Family History Father Colon cancer Mother Essential hypertension Sister Pancreatic cancer Son Mental health disorder Substance use disorder Social History Housing: Apartment Alcohol intake: never Patient Tobacco Use Status: Never used Tobacco e-Cigarette/Vaping Use: Never Used service: No Current occupational status: retired Cognitive needs: No Hearing needs: No Vision needs: Yes Questionnaire PHQ-9 Over the last 2 weeks, how often have you been bothered by any of the following problems? Depression Screening Interpretation: Negative Depression Screening Done: Yes Source: Developed by Drs. Devon Hatch, Kimi Corrales, Tin Dominguez and colleagues, with an educational darrius from [employer]. Thrive Questionnaire Date Thrive assessed: 03/17/24 CLARK-7 AMB Questionnaire CLARK-7 Date CLARK - 7 assessed: 03/17/24 Source: Developed by Drs. Devon Hatch, Tin Eden and colleagues, with an educational darrius from [employer]. Review of Systems Const Reports no additional complaints, Denies fatigue, Denies headache(s) and Denies weakness Eyes Reports no additional complaints ENT Denies headache(s) Card Denies chest pain, Denies rapid heart rate and Denies dyspnea Resp Denies chest congestion, Denies cough and Denies dyspnea GI Denies abdominal pain, Denies melena, Denies bloating, Denies change in bowel habits, Denies GI cramping and Denies nausea Reports no additional complaints Musc Reports as per HPI Skin/Breast Denies lesions and Denies rash Neuro Reports as per HPI, Denies headache(s), Denies paresthesias and Denies weakness Psych Reports no additional complaints Endo Denies fatigue Rashawn/Lymph Reports no additional complaints Aller/Immun Reports no additional complaints Physical exam (Primary Care) Vital Signs: Last Vital Signs Pulse 77 06/22/24 11:11 BP 116/64 06/22/24 11:11 Pulse Ox 99 06/22/24 11:11 Oxygen Delivery Method Room Air 06/22/24 11:11 BMI result Body Mass Index 25.6 Tobacco/Smoking Status: Tobacco use Status Tobacco use date assessed 06/22/24 06/22/24 11:13 Patient Tobacco Use Status Never used Tobacco 06/22/24 11:13 e-Cigarette/Vaping Use Never Used 06/22/24 11:13 Depression Screening Interpretation: Negative Thrive Assessment: Date of Thrive Assessment Date Thrive assessed 03/17/24 06/22/24 11:13 Const General: cooperative, comfortable, no acute distress and alert Limitations: ambulation with walker HENMT Mouth: Normal oral and palatal mucosa present and moist mucous membranes Eyes General: appearance normal, both eyes and all related structures Neck Other: Supple no lymphadenopathy, thyroid gland nonpalpable, no carotid bruits Resp Effort & Inspection: normal respiratory effort and able to speak in complete sentences Auscultation: clear to auscultation bilaterally Cardio Other: S1-S2 present regular rate and rhythm GI Other: Normal bowel sounds, soft, nontender with no mass palpated no abdominal bruit Back/Spine/Pelvis Back: No back tenderness Skin General skin exam: no rashes or lesions noted Neuro General: moves all extremities, Normal light touch and pain sensation, no focal motor deficits, CN's II-XI intact bilaterally and normal sensation to monofilament Gait exam (Neuro): Assisted gait required (Cane) Extrem Other: Slight tenderness on palpation over right hip joint, well-healed surgical scar noted overlying right hip Assessment and Plan Assessment & Plan (1) History of fracture of right hip: Code(s): Z87.81 - Personal history of (healed) traumatic fracture Plan: Status post surgery, advised to continue with home PT gets it twice a week and continue doing the exercises regularly. Continue taking Tylenol but switched to Tylenol arthritis 650 mg per tablet to take 1 tablet every 8 hours as needed. Prescription sent for tramadol 50 mg per tablet to take half a tablet initially with 1 tablet Tylenol arthritis at night for help with pain relief as needed on Medications: New tramadol 50 mg PO BEDTIME PRN 10 tabs 0RF pain, moderate Coding Level of Care Code Est Pt Level 4 (08193) Diagnoses History of fracture of right hip Z87.81
== END 2024-06-22 12:03 | disposition home or self-care (01) ==
PROVIDERS: PCP Internal Medicine; Visit Provider Internal Medicine
DX: Z87.81 Personal history of (healed) traumatic fracture (principal)
CPT/HCPCS: 99214

== ENCOUNTER 2024-08-06 07:10 | Outpatient (REF) | payer OTHER, SELFPAY ==
[2024-08-06 11:43] LABS: Alanine Aminotransferase 12 U/L (0-31); Anion Gap 12 (12-20); Aspartate Amino Transferase 18 U/L (5-31); Blood Urea Nitrogen 11 mg/dL (9-16); Calcium 9.3 mg/dL (8.4-10.2); Carbon Dioxide 24 mmol/L (22-29); Chloride 108 mmol/L (96-108); Cholesterol 171 mg/dL (<200); Estimated Glomerular Filt Rate > 60; Glucose Fasting 192 mg/dL (60-99); HDL Cholesterol 63 mg/dL (>40); LDL Cholesterol Calculated 91 mg/dL (<100); Sodium 140 mmol/L (135-145); Triglycerides 85 mg/dL (<150)
[2024-08-06 12:04] LABS: Vitamin D 25-OH Total 74.3 ng/mL (>30)
[2024-08-06 12:11] LABS: Creatinine Urine 135.55 mg/dL; Estimated Average Glucose 183 mg/dL; Microalbum/Creatinine Ratio Ur 15.4 ug/mg cr (<30)
== END 2024-08-06 07:11 | disposition home or self-care (01) ==
LOC: HO.HMGCLDS 07:10
PROVIDERS: PCP Internal Medicine; Visit Provider Internal Medicine
DX: M81.0 Age-related osteoporosis without current pathological fracture (principal); E78.5 Hyperlipidemia, unspecified; I10 Essential (primary) hypertension; E11.65 Type 2 diabetes mellitus with hyperglycemia
CPT/HCPCS: 36415; 80048; 80061; 82043; 82306; 82570; 83036; 84450; 84460

== ENCOUNTER 2024-08-11 10:30 | Outpatient (AMB) | payer OTHER, SELFPAY ==
[2024-08-11 11:41] VITALS: BP 120/62; PULSE 88; O2SAT 96; BMI 26.2
--- NOTE | 2024-08-11 11:41 | MHC.PC.OV ---
Vital Signs 08/11/24 11:41 Height 4 ft 8 in Weight 117 lb BMI 26.2 BP 120/62 Blood Pressure Location Lt brachial Position Sitting Pulse 88 Pulse Source Pulse Oximeter Pulse Oximetry (%) 96 Oxygen Delivery Method Room Air Intake Visit Reasons: Annual PE Intake Note: Pt is here today for her PE: Last mammogram 12/05/23, bone density scan 04/08/13 and colonoscopy 09/01/19 Allergies No Known Allergies Allergy (Verified 08/11/24 12:08) Medication List - Last Reconciled 08/11/24 by Nara Louie MD alendronate 70 mg PO QWEEK 3 months aspirin (Adult Aspirin Regimen) 81 mg PO DAILY atorvastatin 20 mg PO DAILY [baby wipes As directed] [basket for a walker As directed] blood sugar diagnostic As directed blood sugar diagnostic (FreeStyle Lite Strips) check fasting blood sugar 2 times a day; blood-glucose meter (FreeStyle [place] Lite kit) As directed diaper,brief,adult,disposable Use as directed twice a day p.r.n. ibuprofen 400 mg PO Q12H PRN lancets check fasting blood sugar twice a day ac lisinopril 5 mg PO DAILY [Long shoe horn As directed] [Medium size Poise Pads Use twice a day ] metformin 1,000 mg PO BIDWMEAL 3 months omega-3 acid ethyl esters 2 caps PO DAILY propylene glycol-glycerin 1-0.3 % 1 drp ophthalmic (eye) QID PRN [rollator walker As directed] [Soft loofah sponge with long handle As directed] Tobacco use date assessed: 08/11/24 Fall risk assessment: No Falls in past year Last assessed Fall Risk: 08/11/24 Dental Screening Dental Screen Date: 08/11/24 Did you have a dental visit in the last 12 months?: Yes Did you have a dental problem in the last 6 months where you did not have access to dental care?: No Was dental information given to patient?: Patient has dentist HPI Annual PE HPI Details 84-year-old lady with history of diabetes mellitus, hypertension, anemia, here today for her physical exam. Last mammogram 12/05/23, bone density scan 01/29/24 done at [facility] which showed presence of osteoporosis in lumbar spine and femoral neck, and colonoscopy 09/01/[address] Osman bonner for recheck this year due to history of adenomatous colon polyp in the past. Has been feeling well, no complaints at present time, takes medicine as directed. [facility] Medical History (Updated 08/14/24 @ 18:47 by Nara Louie MD) History of femur fracture History of adenomatous polyp of colon History of fracture of right hip Gait instability History of recent fall Right anterior knee pain Urinary incontinence Mild cognitive impairment Tubular adenoma of colon Breast cancer, right Hearing loss Osteoporosis Osteoarthritis GERD (gastroesophageal reflux disease) Dyslipidemia Essential hypertension Type 2 diabetes mellitus with microalbuminuria, without long-term current use of insulin Type 2 diabetes mellitus with hyperglycemia, without long-term current use of insulin Type 2 diabetes mellitus with mild nonproliferative diabetic retinopathy without macular edema Surgical History Hx of mastectomy Family History Father Colon cancer Mother Essential hypertension Sister Pancreatic cancer Son Mental health disorder Substance use disorder Social History Housing: Apartment Alcohol intake: never Patient Tobacco Use Status: Never used Tobacco e-Cigarette/Vaping Use: Never Used service: No Current occupational status: retired Cognitive needs: No Hearing needs: No Vision needs: Yes Questionnaire PHQ-9 Over the last 2 weeks, how often have you been bothered by any of the following problems? Depression Screening Interpretation: Negative Depression Screening Done: Yes Source: Developed by Drs. Devon Hatch, Kimi Corrales, Tin Dominguez and colleagues, with an educational darrius from [employer]. Thrive Questionnaire Date Thrive assessed: 03/17/24 I am a: Patient What is your living situation today?: I choose not to answer this question Within the past 12 months, did the food you bought not last and you didn't have the money to get more?: I choose not to answer this question Within the past 12 months, did you worry whether your food would run out before you got money to buy more?: I choose not to answer this question Do you have trouble paying for medicines?: I choose not to answer this question Do you have trouble getting transportation to medical appointments?: I choose not to answer this question Do you have trouble paying your heating and electricity bill?: I choose not to answer this question Do you have trouble taking care of your child, family member or friend?: I choose not to answer this question Do you have trouble with day-to-day activities such as bathing, preparing meals, shopping, managing finances, etc.?: I choose not to answer this question Are you interested in more education?: I choose not to answer this question Please select the resources that you would like help with: None Currently or been in a relationship where the following occur: I choose not to answer THRIVE Score: 0 AUDIT C Alcohol Use Questionnaire (AUDIT-C) 1. How often do you have a drink containing alcohol?: Never Total Score: 0 CLARK-7 AMB Questionnaire CLARK-7 Date CLARK - 7 assessed: 03/17/24 Feeling nervous, anxious, or on edge: 0 = Not at all Not being able to stop or control worryin = Not at all Worrying too much about different things: 0 = Not at all Trouble relaxin = Not at all Being so restless that it is hard to sit still: 0 = Not at all Becoming easily annoyed or irritable: 0 = Not at all Feeling afraid as if something awful might happen: 0 = Not at all Total CLARK-7 score (0-4 normal; 5-9 mild; 10-14 moderate; 15-21 severe): 0 Source: Developed by Drs. Devon Hatch, Kimi Corrales, Tin Dominguez and colleagues, with an educational darrius from [employer]. Review of Systems Const Denies headache(s) and Reports weakness Eyes Reports no additional complaints ENT Denies headache(s) Card Denies chest pain, Denies rapid heart rate and Denies dyspnea Resp Denies chest congestion, Denies cough and Denies dyspnea GI Denies abdominal pain, Denies melena, Denies bloating, Denies change in bowel habits, Denies GI cramping and Denies nausea Reports no additional complaints Musc Reports as per HPI, Reports abnormal gait, Reports arthralgias, Reports muscle weakness and Reports stiffness Skin/Breast Denies lesions and Denies rash Neuro Reports abnormal gait, Denies headache(s), Denies paresthesias and Reports weakness Psych Reports no additional complaints Endo Reports no additional complaints Rashawn/Lymph Reports no additional complaints Aller/Immun Reports no additional complaints Physical exam (Primary Care) Vital Signs: Last Vital Signs Pulse 88 08/11/24 11:41 BP 120/62 08/11/24 11:41 Pulse Ox 96 08/11/24 11:41 Oxygen Delivery Method Room Air 08/11/24 11:41 BMI result Body Mass Index 26.2 Tobacco/Smoking Status: Tobacco use Status Tobacco use date assessed 08/11/24 08/11/24 11:44 Patient Tobacco Use Status Never used Tobacco 08/11/24 11:44 e-Cigarette/Vaping Use Never Used 08/11/24 11:44 Depression Screening Interpretation: Negative Thrive Assessment: Date of Thrive Assessment Date Thrive assessed 03/17/24 08/11/24 11:44 Currently or been in a relationship where the following occur: I choose not to answer Const General: cooperative, comfortable, no acute distress and alert Limitations: ambulation with walker HENMT Mouth: Normal oral and palatal mucosa present and moist mucous membranes Eyes General: appearance normal, both eyes and all related structures Neck Other: Supple no lymphadenopathy, thyroid gland nonpalpable, no carotid bruits Resp Effort & Inspection: normal respiratory effort and able to speak in complete sentences Auscultation: clear to auscultation bilaterally Cardio Other: S1-S2 present regular rate and rhythm GI Other: Normal bowel sounds, soft, nontender with no mass palpated no abdominal bruit Back/Spine/Pelvis Back: No back tenderness Skin General skin exam: no rashes or lesions noted Neuro General: moves all extremities, Normal light touch and pain sensation, no focal motor deficits, CN's II-XI intact bilaterally and normal sensation to monofilament Gait exam (Neuro): Assisted gait required (Cane) Extrem Other: Slight tenderness on palpation over right hip joint, well-healed surgical scar noted overlying right hip Psych Appearance: grossly normal and well kempt Mental Status: mental status grossly normal Speech and movement: Normal speech and movement present Affect: normal affect Results Reviewed Results Reviewed: Name: Terrie Madden Age/Sex: 84/F : 1940 Unit#: [id number] Attend Dr: Nara Louie MD Re08/06/24 Status: DEP REF Location: [facility] Disch: SPEC : [id number] BOAZ: 08/06/24 STATUS: COMP REQ : [id number] RECD: 08/06/[address]: Nara Louie MD COMP: 08/06/24 ENTERED: 08/06/[address] [facility] DR: ORDERED: Met Prof Fast, AST, ALT, Lipid Panel, Vitamin D 25-OH Test Result Flag Reference Sodium 140 135-145 mmol/L Potassium 4.0 3.3-5.1 mmol/L CL 108 96-108 mmol/L CO2 24 22-29 mmol/L Gap 12 12-20 BUN 11 9-16 mg/dL Creat 0.66 0.5-1.4 mg/dL EGFR > 60 NOTE: For -[place] individuals, multiply the result by 1.210. Chronic Kidney Disease: Estimated GFR < 60 mL/min/1.73m2 Severe Kidney Disease: Estimated GFR < 15 mL/min/1.73m2 FBS 192 H 60-99 mg/dL A fasting glucose of 126 mg/dl or greater on more than one occasion is considered diagnostic of diabetes. CA 9.3 8.4-10.2 mg/dL AST (GOT) 18 5-31 U/L ALT (GPT) 12 0-31 U/L Triglyceride 85 <150 mg/dL Desirable Triglyceride: less than 150 mg/dL Borderline High Triglyceride 150-199 mg/dL High Triglyceride: 200-499 mg/dL Very High Triglyceride: greater than or equal to 5OO mg/dL Cholesterol 171 <200 mg/dL Desirable Cholesterol: less than 200 mg/dL Borderline High Cholesterol: 200-239 mg/dL High Cholesterol: greater than 239 mg/dL LDL Calculated 91 <100 mg/dL Desirable LDL: less than 100 mg/dL Near Optimal/Above Optimal LDL: 110-129 mg/dL Borderline High LDL: 130-159 mg/dL High LDL: 160-189 mg/dL Very High LDL: greater than or equal to 190 mg/dL HDL 63 >40 mg/dL Desirable HDL: greater than 40 mg/dL Note: This HDL assay may give artificially low results in patients with liver disease. Vit D 25-OH Tot 74.3 >30 ng/mL Health Based Reference Values* < 20 ng/mL Deficient 20-30 ng/mL Insufficient > 30 ng/mL Sufficient Laboratory Tests 08/06/24 07:13 Estimat Average Glucose 183 Hemoglobin A1c % 8.0 H Urine Creatinine 135.55 Urine Microalbumin 21.0 Microalb/Creat Ratio 15.4 Assessment and Plan Assessment & Plan (1) Annual visit for general adult medical examination with abnormal findings: Code(s): Z00.01 - Encounter for general adult medical examination with abnormal findings Plan: Will check appropriate labs. Recommended dental visit every 6 months and regular eye exams, yearly.. Due for her repeat colonoscopy due to history of adenomatous polyp, referred to GI. Reminded again to get yearly flu vaccine and COVID booster reminded to get her yearly flu shot but does not want to get a COVID booster, up-to-date with her Prevnar 20, has not yet had her shingles vaccine (2) Gait instability: Code(s): R26.81 - Unsteadiness on feet Plan: Prescription sent for walker seat (3) Dyslipidemia: Code(s): E78.5 - Hyperlipidemia, unspecified Plan: Reviewed recent fasting lipid profile with patient with levels within normal limits . Continue atorvastatin 20 mg daily and [place] 3 fatty acid supplements , in addition to adherence to low-cholesterol diet and regular exercise, at least 30 minutes 3 to 4 times a week. Advised patient to make healthy food choices, eat more fruits, vegetables, whole grains, wild caught fish and low-fat dairy. Limit amount of meat and fried or fatty food products, as well as processed foods and fast foods. (4) Essential hypertension: Code(s): I10 - Essential (primary) hypertension Plan: Blood pressure at goal of less than 130/80. Continue lisinopril 5 mg daily Reinforced importance of following a low sodium diet, getting regular exercise, and lowering stress levels. (5) Osteoarthritis: Code(s): M19.90 - Unspecified osteoarthritis, unspecified site Qualifiers: Laterality: right Osteoarthritis location: shoulder Osteoarthritis type: primary Qualified Code(s): M19.011 - Primary osteoarthritis, right shoulder Plan: Takes ibuprofen as needed alternating with Tylenol for joint pain (6) Type 2 diabetes mellitus with hyperglycemia, without long-term current use of insulin: Code(s): E11.65 - Type 2 diabetes mellitus with hyperglycemia Plan: Hemoglobin A1c on latest labs was elevated at 8%. Patient states that she has not really been compliant with her diet and has not been getting any regular exercise due to recent history of fracture of right hip underwent hemiarthroplasty April 2024 at [facility]. Will continue on metformin a 1000 mg 1 tablet twice a day . Reinforced importance of following recommended diet, and getting yearly diabetes retinopathy screening. (7) History of femur fracture: Code(s): Z87.81 - Personal history of (healed) traumatic fracture Plan: Status post right hemiarthroplasty for treatment of right femoral neck fracture 05/09/2024 at [facility] (8) Osteoporosis: Code(s): M81.0 - Age-related osteoporosis without current pathological fracture Qualifiers: Osteoporosis type: age-related Presence of current pathological fracture: without current pathological fracture Qualified Code(s): M81.0 - Age-related osteoporosis without current pathological fracture Plan: Currently on alendronate, referred to endocrine for evaluation management. Orders: Referrals Endocrinology Referral M81.0 - Age-related osteoporosis without current pathological fracture, Z87.81 - Personal history of (healed) traumatic fracture Gastroenterology Referral Z86.010 - Personal history of colonic polyps Medications: New [walker with seat] As directed 1 ea 0RF M81.0 - Age-related osteoporosis without current pathological fracture, R26.81 - Unsteadiness on feet, Z87.81 - Personal history of (healed) traumatic fracture, Z91.81 - History of falling Coding Level of Care Code Est Pt Prev Care >65y(50820) Diagnoses Annual visit for general adult medical examination with abnormal findings Z00.01 Gait instability R26.81 Dyslipidemia E78.5 Essential hypertension I10 Primary osteoarthritis of right shoulder M19.011 Laterality: right Osteoarthritis location: shoulder Osteoarthritis type: primary Type 2 diabetes mellitus with hyperglycemia, without long-term current use of insulin E11.65 History of femur fracture Z87.81 Age-related osteoporosis without current pathological fracture M81.0 Osteoporosis type: age-related Presence of current pathological fracture: without current pathological fracture
== END 2024-08-11 12:45 | disposition home or self-care (01) ==
PROVIDERS: PCP Internal Medicine; Visit Provider Internal Medicine
DX: Z00.00 Encounter for general adult medical examination without abnormal findings (principal); E11.65 Type 2 diabetes mellitus with hyperglycemia; R26.81 Unsteadiness on feet; E78.5 Hyperlipidemia, unspecified; I10 Essential (primary) hypertension; M19.011 Primary osteoarthritis, right shoulder; Z87.81 Personal history of (healed) traumatic fracture; M81.0 Age-related osteoporosis without current pathological fracture

== ENCOUNTER → 2024-08-11 10:30 | Outpatient (BNVA) | payer OTHER, SELFPAY | PROVIDERS: PCP Internal Medicine; Visit Provider Internal Medicine | DX: Z00.01 Encounter for general adult medical examination with abnormal findings (principal); R26.81 Unsteadiness on feet; E78.2 Mixed hyperlipidemia; I10 Essential (primary) hypertension; M19.011 Primary osteoarthritis, right shoulder; E11.65 Type 2 diabetes mellitus with hyperglycemia; M81.0 Age-related osteoporosis without current pathological fracture; Z87.81 Personal history of (healed) traumatic fracture | CPT/HCPCS: 99397 ==

== ENCOUNTER → 2024-08-26 12:58 | Outpatient (AMB) | payer OTHER, SELFPAY ==
--- OUTSIDE RECORDS SUMMARY | 2024-08-26 13:00 | XMS_ITS ---
Author Organization [facility] Address [address] [place] [address] Care Team Providers Care Paper Twister Name Role Phone Liban ROJAS, Nara Londono Primary Care Provider Un available James Zuniga Unavailable [phone] REASON FOR VISIT At Risk Footcare, Painful Nail(s) aggrevated by shoes and causing difficulty standing/walking., ToeIrritation, Ingrown Nail MEDICATIONS Medication SIG (Take, Route, Frequency, Duration) Notes Start Date End Date Status Ammonium Lactate 12 % 1 application to affected area Externally to feet Twice a day for 30 days Not-Taking ibuprofen Active Ranitidine & Diet Manage Prod Active [place] 3 1000 MG 1 capsule Orally Onc e a day Not-Taking Metformin & Diet Manage Prod 1000MG Active Extra Depth Orthopedic Shoes (1 Pair) with Customized Heat Molded Multidensity Innersoles (3 Pair) as directed Dx: NIDDM (E11.9), Hammertoe Foot Deformity (M20.41,M20.42), Preulcerative Skin Lesion(s) (L85.1) Active Aspirin 81 MG 1 tablet Orally Once a day Active Lisinopril 5 MG 1 tablet Orally Once a day Active Atorvastatin Calcium 20 MG 1 tablet Orally Once a day Active SOCIAL HISTORY Tobacco Use: Social History Observation Description Date Details (start date - stop date) Never Smoker NA - NA Sex Assigned At : Social History Observation Description Sex Assigned At Unknown Tobacco Use/Smoking Question Answer Notes Are you a: nonsmoker Additional Findings: Tobacco Non-User Aggressive non-smoker Tobacco use other than smoking: Question Answer Notes Are you an other tobacco user? No VITAL SIGNS Height 5 ft 2 in in 07/27/2024 Weight 124 lbs 07/27/2024 BMI 22.68 kg/m2 07/27/2024 PROCEDURES Procedure Date Ordered Date Performed Result Body Sit e 99568-JLLVQPT NAIL, 6 OR MORE 07/27/2024 N/A 09592-Wjeocwnv Plate 07/27/2024 N/A 93684-XRHO SKIN LESIONS, 2 TO 4 07/27/2024 N/A Encounters Encounter Location Date Provider Diagnosis [facility] [address] [address] 07/27/2024 James Zuniga Pain in right toe(s) M79.674 ; Tinea unguium B35.1 ; Pain in left toe(s) M79.675 ; Type 2 diabetes mellitus without complication E11.9 ; Other hammer toe(s) (acquired), left foot M20.42 ; Other hammer toe(s) (acquired), right foot M20.41 and Ingrown nail L60.0 ASSESSMENTS Encounter Date Diagnosis Assessment Notes Treatment Notes Treatment Clinical Notes 07/27/2024 Pain in right toe(s) (ICD-10 - M79.674) 07/27/2024 Tinea unguium (ICD-10 - B35.1) 07/27/2024 Pain in left toe(s) (ICD-10 - M79.675) 07/27/2024 Type 2 diabetes mellitus without complication (ICD-10 - E11.9) 07/27/2024 Other hammer toe(s) (acquired), left foot (ICD-10 - M20.42) 07/27/2024 Other hammer toe(s) (acquired), right foot (ICD-10 - M20.41) Patient Educated with: DIABETIC FOOT CARE INSTRUCTIONS.pdf (DIABETIC FOOT CARE INSTRUCTIONS.pdf) 07/27/2024 Ingrown nail (ICD-10 - L60.0) PLAN OF TREATMENT Medication Medication Name Sig Start Date Stop Date Notes Extra Depth Orthopedic Shoes (1 Pair) with Customized Heat Molded Multidensity Innersoles (3 Pair) as directed Dx: NIDDM (E11.9), Hammertoe Foot Deformity (M20.41,M20.42), Preulcerative Skin Lesion(s) (L85.1) Treatment Notes Assessment Notes Other hammer toe(s) (acquired), right fo ot Patient Educated with: DIABETIC FOOT CARE INSTRUCTIONS.pdf (DIABETIC FOOT CARE INSTRUCTIONS.pdf) Pending Test Test Name Order Date 26488-CKIHTLG NAIL, 6 OR MORE 07/27/2024 67729-Vkuvaekw Plate 07/27/2024 31285-LXER SKIN LESIONS, 2 TO 4 07/27/20 24 Next Appt Details Follow Up: 2 Months, Reason: Provider Name:James Zuniga , 10/24/2024 02:00:00 PM, [address] , [address], [place], [address], Procedure Notes * Category Sub-Category Detail Notes Nail Avulsion Procedure A fine sterile e levator was placed between the eponychium, nail fold, and nail plate to separate the structures. A sterile nail splitter, and/or sterile 316 blade, was then used to longitudinally section the nail along its entire length through the eponychium to the area under the nail fold. The offending portion of nail was from the nail bed with a rolling action and then removed with a hemostat. No underlying bone was identified. There was minimal bleeding as hemostasis was achieved through the temporary use of either a digital tourniquet or the aforementioned local with epinephrine. A bacitracin sterile dressing was applied. Local wound aftercare instructions were discussed and dispensed. The patient was informed of both conservative and future surgical procedures to prevent recurrence. Tylenol or Motrin was recommended for pain or discomfort (10078) , DIABETES: Pt was advised as to the risk of delayed or nonhealing due to diabetes. Pt is to call the office with any questions, concerns, or complications Anesthesia was accomplished TOP ICALLY with Lidocaine Hydrochloride Jelly 2 percent Location Medial nail border , TA Debride Nail 6-10 Nail debridement Performance o f this nail treatment by a nonprofessional would put this patients foot and overall health at risk. Therefore, nail debridement was performed extensively to reduce/remove overall nail length, girth, thickness, subungual debris, and necrotic tissue, by manual and/or electrical means through the use of a nail nipper and/or dremel-type hand grinder, to a more viable healthy nail plate or bed tissue 6-10. Silver nitrate used for any petechial bleeding as necessary. Definitive antifungal treatment options have been reviewed and discussed with the patient. The patient chooses, no pharmaceutical tx - 06527 Keratoma Treatment Parring or Cutting o f Benign Hyperkeratotic Lesion(s) (-56) 2-4 Lesions - The Benign hyperkeratotic lesions, as described above were pared, and/or cut utilizing a sterile 15 blade, tissue nippers, and/or dremel - 92214 Progress Notes * Examination Category Sub-Category Detail Notes Ingrown Nail INSPECTION: Reveals nail inc urvation, pain on palpation, groove hypertrophy , Medial nail border , TA Neurological SENSORY: Neurological exa m reveals intact sensorium, pain sensation normal, vibration sensation intact, pinprick sensation is normal in the lower extremities, Pt denies, anesthesia, burning, paresthesia, tingling, B/L, 5.07 monofilament test performed at plantar aspects of 5 varied sites per foot shows sensation, normal, B/L Dermatologic SKIN FINDINGS: Skin exam reveal s Keratotic lesion(s) located at, Medial plantar, IPJ, TA, Medial plantar, IPJ, T5 , Heel(s) , B/L Orthopedic GAIT ABNORMALITY: apropulsive , cane-assisted FOOT MORPHOLOGY: Pes Planus structure , No Charcot collapse/destruction noted at MTJ FOOTWEAR: worn, OT were inspec luis alberto and noted to be severely worn , in poor condition not giving proper support at the present time , shoe gear properties exacerbate patients foot/toe deformity DIGITAL DEFORMITIES: Digital contracture , PIPJ, 2-5 B/L, incompl-reducible to push-up test, no over, nor underlapping , with evidence of shoe producing skin irritation MUSCLE STRENGTH: 5/5 all groups in a symmetrical fashion , B/L General Examination GENERAL APPEARANCE: Reveals a pleasant, alert, well nourished, well-developed, well hydrated individual, who demonstrates proper attention to hygiene/body habitus, and is in no acute distress, Pt serves as own historian for office visit today FOOT EXAM: Lower Extremity Neurological Exa m performed:: Yes ORIENTED: person, place, and t felice Footwear Evaluation Footwear Evaluation performe d:: Yes Vascular DP PULSES(B): 2/4, B/L PT PULSES(B): 1/4, B/L CAPILLARY FILL TIME: 3 secs. per digit, B/L TEMPERTURE GRADIENT(C): decreased, cool to cool, proximal to distal, B/L TROPHIC CONDITION-TEXTURE/ELASTICITY/TURGOR/HAIR GROWTH(B): normal, B/L EDEMA(C): absent, B/L PIGMENTATION: mottled, B/L Nails NAILS are: Elongated, overg rown, dystrophic, lytic, greater than 3mm thick, discolored and friable with crumbly malodorous subungual debris, with pain on palpation, 1-5 B/L History and Physical Notes * HPI (History of Present Illness) Category Sub-Category Detail Notes Toe pain Location: B/L feet Duration: several years Course: worse Aggravated by: shoes, any pressure Treatments: change in shoes At Risk footcare Pt States Last PCP Visit: Date: 02/18 States has an appt with PCP soon - 08/11
--- OUTSIDE RECORDS SUMMARY | 2024-08-26 13:00 | XMS_ITS | Patient Health Record ---
Author Organization [facility] Address [address] [place] [address] Care Team Providers Care Copy Technician Name Role Phone Liban ROJAS, Nara Londono Primary Care Provider Un available James Zuniga Unavailable [phone] ALLERGIES No Known Allergies REASON FOR REFERRAL No Information MEDICATIONS Medication SIG (Take, Route, Frequency, Duration) Notes Start Date End Date Status Ammonium Lactate 12 % 1 application to affected area Externally to feet Twice a day for 30 days Not-Taking Extra Depth Orthopedic Shoes (1 Pair) with Customized Heat Molded Multidensity Innersoles (3 Pair) as directed Dx: NIDDM (E11.9), Hammertoe Foot Deformity (M20.41,M20.42), Preulcerative Skin Lesion(s) (L85.1) Active ibuprofen Active Ranitidine & Diet Manage Prod Active Aspirin 81 MG 1 tablet Orally Once a day Active [place] 3 1000 MG 1 capsule Orally Onc e a day Not-Taking Metformin & Diet Manage Prod 1000MG Active Lisinopril 5 MG 1 tablet Orally Once a day Active Atorvastatin Calcium 20 MG 1 tablet Orally Once a day Active IMMUNIZATIONS Vaccine Route Administration Date Status Comme nts COVID-19 Pfizer BioNTech Vaccine Unknown 11/20/2020 Adm inistered COVID-19 Pfizer BioNTech Vaccine Unknown 12/11/2020 Adm inistered Influenza Unknown 01/17/2019 Administered Influenza Unknown 11/16/2019 Administered SOCIAL HISTORY Tobacco Use: Social History Observation Description Date Details (start date - stop date) Never Smoker NA - NA Sex Assigned At : Social History Observation Description Sex Assigned At Unknown Tobacco Use/Smoking Question Answer Notes Are you a: nonsmoker Additional Findings: Tobacco Non-User Aggressive non-smoker Alcohol Screen Question Answer Notes Did you have a drink containing alcohol in the p ast year? No Points 0 Interpretation Negative Tobacco use other than smoking: Question Answer Notes Are you an other tobacco user? No PROBLEMS Problem Type ICD Code Onset Dates Problem Status W/U Status Risk SNOMED Code Notes Problem Other hammer toe(s) (acquired), right foot (M20.41) Active confirmed Acquired hammer toe of right foot (03075017627058 05) Response to treatment,I mprovement Problem Other hammer toe(s) (acquired), left foot (M20.42) Active confirmed Acquired hammer toe of left foot (28788562930149 03) Response to treatment,I mprovement Problem Type 2 diabetes mellitus without complication (E11.9) Active confirmed Type 2 diabetes mellitus without complication (947304510) VITAL SIGNS Height 5 ft 2 in in 07/27/2024 Weight 124 lbs 07/27/2024 BMI 22.68 kg/m2 07/27/2024 PROCEDURES Procedure Date Ordered Date Performed Result Body Sit e 18677-CKYGMFW NAIL, 6 OR MORE 09/10/2023 N/A 85671-UHFMOYN NAIL, 6 OR MORE 01/11/2024 N/A 23972-Grapvkxw Plate 01/11/2024 N/A 80253-AKJH SKIN LESIONS, 2 TO 4 01/11/2024 N/A 05641-XFJDVFA NAIL, 6 OR MORE 03/28/2024 N/A 71525-Drycwqfc Plate 03/28/2024 N/A 24122-MBGL SKIN LESIONS, 2 TO 4 03/28/2024 N/A 20486-MWUQZRV NAIL, 6 OR MORE 07/27/2024 N/A 04168-Kjbzizrn Plate 07/27/2024 N/A 56758-YGEC SKIN LESIONS, 2 TO 4 07/27/2024 N/A Encounters Encounter Location Date Provider Diagnosis [facility] [address] [address] 09/10/2023 James Zuniga Pain in right toe(s) M79.674 ; Tinea unguium B35.1 ; Pain in left toe(s) M79.675 ; Type 2 diabetes mellitus without complication E11.9 ; Other hammer toe(s) (acquired), left foot M20.42 and Other hammer toe(s) (acquired), right foot M20.[address] [address] 11/26/2023 James Zuniga [address] [address] 01/11/2024 James Zuniga Pain in right toe(s) M79.674 ; Tinea unguium B35.1 ; Pain in left toe(s) M79.675 ; Type 2 diabetes mellitus without complication E11.9 ; Other hammer toe(s) (acquired), right foot M20.41 ; Other hammer toe(s) (acquired), left foot M20.42 and Ingrown nail L60.[address] [address] 03/28/2024 James Zuniga Pain in right toe(s) M79.674 ; Tinea unguium B35.1 ; Pain in left toe(s) M79.675 ; Type 2 diabetes mellitus without complication E11.9 and Ingrown nail L60.[address] [address] 06/01/2024 James Zuniga [address] [address] 06/06/2024 James Nadia [address] [address] 07/27/2024 James Zuniga Pain in right toe(s) M79.674 ; Tinea unguium B35.1 ; Pain in left toe(s) M79.675 ; Type 2 diabetes mellitus without complication E11.9 ; Other hammer toe(s) (acquired), left foot M20.42 ; Other hammer toe(s) (acquired), right foot M20.41 and Ingrown nail L60.0 ASSESSMENTS Encounter Date Diagnosis Assessment Notes Treatment Notes Treatment Clinical Notes 09/10/2023 Pain in right toe(s) (ICD-10 - M79.674) 01/11/2024 Tinea unguium (ICD-10 - B35.1) 01/11/2024 Pain in right toe(s) (ICD-10 - M79.674) 03/28/2024 Tinea unguium (ICD-10 - B35.1) 03/28/2024 Pain in right toe(s) (ICD-10 - M79.674) 07/27/2024 Pain in right toe(s) (ICD-10 - M79.674) 07/27/2024 Tinea unguium (ICD-10 - B35.1) 03/28/2024 Pain in left toe(s) (ICD-10 - M79.675) 01/11/2024 Pain in left toe(s) (ICD-10 - M79.675) 09/10/2023 Tinea unguium (ICD-10 - B35.1) 09/10/2023 Pain in left toe(s) (ICD-10 - M79.675) 07/27/2024 Pain in left toe(s) (ICD-10 - M79.675) 01/11/2024 Type 2 diabetes mellitus without complication (ICD-10 - E11.9) 03/28/2024 Type 2 diabetes mellitus without complication (ICD-10 - E11.9) 03/28/2024 Ingrown nail (ICD-10 - L60.0) 09/10/2023 Type 2 diabetes mellitus without complication (ICD-10 - E11.9) 01/11/2024 Other hammer toe(s) (acquired), right foot (ICD-10 - M20.41) Response to treatment,Improve ent 07/27/2024 Type 2 diabetes mellitus without complication (ICD-10 - E11.9) 01/11/2024 Other hammer toe(s) (acquired), left foot (ICD-10 - M20.42) Response to treatment,Improve ent 09/10/2023 Other hammer toe(s) (acquired), left foot (ICD-10 - M20.42) 07/27/2024 Other hammer toe(s) (acquired), left foot (ICD-10 - M20.42) 07/27/2024 Other hammer toe(s) (acquired), right foot (ICD-10 - M20.41) Patient Educated with: DIABETIC FOOT CARE INSTRUCTIONS.pdf (DIABETIC FOOT CARE INSTRUCTIONS.pdf ) 01/11/2024 Ingrown nail (ICD-10 - L60.0) 09/10/2023 Other hammer toe(s) (acquired), right foot (ICD-10 - M20.41) Patient Educated with: DIABETIC FOOT CARE INSTRUCTIONS.pdf (DIABETIC FOOT CARE INSTRUCTIONS.pdf ) 07/27/2024 Ingrown nail (ICD-10 - L60.0) PLAN OF TREATMENT Pending Test Test Name Order Date 08017-FKSNNBJ NAIL, 6 OR MORE 08/11/2019 48374-NQWJMDB NAIL, 6 OR MORE 11/24/2019 05497-DTUYFHO NAIL, 6 OR MORE 03/08/2020 58255-BQJZPZM NAIL, 6 OR MORE 05/31/2020 35729-NCULSFK NAIL, 6 OR MORE 08/15/2020 76521-PIOIZKC NAIL, 6 OR MORE 10/24/2020 98611-GHTHLEM NAIL, 6 OR MORE 01/09/2021 40506-ELNXXUX NAIL, 6 OR MORE 03/20/2021 30849-TXNZDVS NAIL, 6 OR MORE 06/12/2021 85430-LRIWKWE NAIL, 6 OR MORE 08/21/2021 81512-JSWPYNC NAIL, 6 OR MORE 10/31/2021 23678-MZWDMZX NAIL, 6 OR MORE 01/09/2022 08148-CRGMLQR NAIL, 6 OR MORE 03/20/2022 75602-FIPTLGO NAIL, 6 OR MORE 05/29/2022 94540-LIGOHTU NAIL, 6 OR MORE 09/03/2022 35365-RWUHTGK NAIL, 6 OR MORE 11/19/2022 67212-VWIRROS NAIL, 6 OR MORE 02/11/2023 50163-GFMSWHD NAIL, 6 OR MORE 04/22/2023 69378-BRHDRCE NAIL, 6 OR MORE 07/01/2023 88760-EAKKXQL NAIL, 6 OR MORE 09/10/2023 02356-JMDKWHP NAIL, 6 OR MORE 01/11/2024 65345-MYVQJVN NAIL, 6 OR MORE 03/28/2024 30236-XAMEBOF NAIL, 6 OR MORE 07/27/2024 23264-HQVZWVM NAIL, 6 OR MORE 05/12/2019 92139-Fzkjnrtv Plate 07/27/2024 30263-Tsfoobbt Plate 03/28/2024 06170-Ksjlptov Plate 09/03/2022 80592-Dlcttwjm Plate 01/11/2024 98611-Grawlcpr Plate 11/19/2022 44733-Aqrclegd Plate 10/31/2021 04138-GOPY SKIN LESIONS, 2 TO 4 10/31/20 67302-VSEV SKIN LESIONS, 2 TO 4 01/09/20 99859-BRBT SKIN LESIONS, 2 TO 4 08/21/20 81306-CGRI SKIN LESIONS, 2 TO 4 06/12/20 10777-YLYT SKIN LESIONS, 2 TO 4 11/19/19 28849-PUGB SKIN LESIONS, 2 TO 4 09/03/20 85182-MLWX SKIN LESIONS, 2 TO 4 05/29/20 10997-CEHP SKIN LESIONS, 2 TO 4 03/20/20 13519-QBXT SKIN LESIONS, 2 TO 4 03/20/20 09068-NNMC SKIN LESIONS, 2 TO 4 01/09/20 39332-CQAW SKIN LESIONS, 2 TO 4 10/24/20 18034-JSZG SKIN LESIONS, 2 TO 4 08/15/20 92881-EBLI SKIN LESIONS, 2 TO 4 05/31/20 64335-CIMG SKIN LESIONS, 2 TO 4 03/08/20 77339-CSVJ SKIN LESIONS, 2 TO 4 11/24/19 83267-OBON SKIN LESIONS, 2 TO 4 08/11/20 19 08481-WWYK SKIN LESIONS, 2 TO 4 03/28/20 03273-VNBY SKIN LESIONS, 2 TO 4 07/27/20 34987-GADK SKIN LESIONS, 2 TO 4 05/12/20 12543-ISVG SKIN LESIONS, 2 TO 4 01/11/20 10420-ADCU SKIN LESIONS, 2 TO 4 07/01/20 07997-PRDB SKIN LESIONS, 2 TO 4 04/22/20 42736-FWAV SKIN LESIONS, 2 TO 4 02/12/20 Next Appt Details Provider Name:James Morillo Nadia , 10/24/2024 02:00:00 PM, [address] [facility], [facility] [address], [place], [address], Insurance Providers Payer Name Payer Address Payer Phone Subscriber Number Group Number Insured Name Patient Relationship to Insured Coverage Start Date Coverage End Date [facility] [employer] Claims [address] [place] [address] [phone] [id number] Terrie Noriega Self - patient is the insured MEDICAL (GENERAL) HISTORY Medical History History ICD Code Arthritis Back,Hip,and Knee pain CAD (Cholesterol) Diabetic Osteoporosis Measles HTN Surgical History Surgery Date(Month/Year) cancer surgery right hip replacement 05/09/24 Hospitalization History Reason Date(Month/Year) [facility] Right hip replacement 05/09/24
--- OUTSIDE RECORDS SUMMARY | 2024-08-26 13:00 | XMS_ITS | Continuity of Care Document ---
Author Organization [facility] ter Address [address] [place] [id number]- Care Team Providers Care Disabilities Services Officer Name Role Phone Liban ROJAS, Nara Browning Primary Care Phys[place] [facility] [place]): [place] 05/13/[address] [id number] Encounter Diagnosis Fracture of femoral neck, right(Final) - 05/07/24 Fracture of femoral neck, right(Final) - 05/11/24 Discharge Disposition: A-Transfer SNF Attending Physician: John ROJAS, Amaris Admitting Physician: Sri Maza MD, Isaias Mckeon Referring Physician: Not on Staff, Referring MD Allergies, Adverse Reactions, Alerts No Known Allergies Medications aspirin 81 mg oral delayed release tablet 81 mg, 1, tablet, By Mouth, 2 times a day, DVT PROPHYLAXIS POST ORTHOPEDIC SURGERY, # 60 tablet, Refills 0, Tot. Refills 0, Maintenance, 05/11/24 9:55:00 EDT, Do Not Route, Partial fill upon patient request if the prescription is for a schedule II opi... Start Date: 05/11/24 Stop Date: 06/10/24 Status: Ordered Lipitor Tablet = 20 mg, By Mouth, Daily at bedtime, 0 Refills, Maintenance Start Date: 04/26/14 Status: Ordered lisinopril 5 mg oral tablet 1 tablet, By Mouth, Daily, # 30 tablet, 0 Refills, Maintenance, Tablet Start Date: 07/25/11 Status: Ordered Mastectomy Bra See Instructions, # 3 each, Refills 0, Tot. Refills 0, Maintenance, Right breast cancer Asymmetry due to surgery Diagnosis: 50.911, 07/05/20 11:39:00 EDT, Compound Start Date: 07/05/20 Status: Ordered Mastectomy Bra See Instructions, # 3 each, Refills 0, Tot. Refills 0, Maintenance, History of right breast cancer.Lumpectomy, 07/29/18 14:54:33 EDT, Compound Start Date: 07/29/18 Status: Ordered Mastectomy Bra See Instructions, # 6 each, Refills 1, Tot. Refills 1, Maintenance, right lumpectomy, 03/24/23 15:37:00 EDT, Supply Start Date: 03/24/23 Status: Ordered Mastectomy Bra See Instructions, # 3 each, Refills 0, Tot. Refills 0, Maintenance, History of breast cancer, 06/23/17 11:11:14, Compound Start Date: 06/23/17 Status: Ordered Mastectomy Bra See Instructions, # 3 each, Refills 1, Tot. Refills 1, Maintenance, History of breast cancer, 10/16/16 10:02:27, Compound Start Date: 10/16/16 Status: Ordered Mastectomy Prosthesis See Instructions, # 1 each, Refills 0, Tot. Refills 0, Maintenance, Filler due to asymmetry. History of right breast cancer. Lumpectomy, 06/24/18 11:15:12 EDT, Compound Start Date: 06/24/18 Status: Ordered Mastectomy Prosthesis See Instructions, # 1 each, Maintenance, right lumpectomy, 03/24/23 15:38:00 EDT, Supply Start Date: 03/24/23 Status: Ordered Mastectomy Prosthesis See Instructions, # 1 each, Refills 0, Tot. Refills 0, Maintenance, History of breast cancer, 06/23/17 11:11:12, Compound Start Date: 06/23/17 Status: Ordered Mastectomy Prosthesis See Instructions, # 1 each, Refills 1, Tot. Refills 1, Maintenance, History of breast cancer, 10/16/16 10:02:22, Compound Start Date: 10/16/16 Status: Ordered Mastectomy Prosthesis See Instructions, # 1 each, Refills 0, Tot. Refills 0, Maintenance, Right breast cancer Asymmetry due to surgery Diagnosis: 50.911, 06/30/19 10:06:35 EDT, Compound Start Date: 06/30/19 Status: Ordered Mastectomy Supplies See Instructions, # 1 each, Maintenance, Please dispense one right breast filler, patient asymmetrical s/p breast cancer surgery, please dispense up to 3 mastectomy bras, 05/01/15 9:40:55, Compound Start Date: 05/01/15 Status: Ordered metformin 500 mg oral tablet 1 tablet, By Mouth, 2 times a day, # 180 tablet, 0 Refills, Maintenance, Tablet Start Date: 07/25/11 Status: Ordered oxyCODONE 5 mg oral tablet 5 mg, By Mouth, Every 6 hours, PRN, for 5 days, # 20 tablet, Refills 0, Tot. Refills 0, Acute 05/16/24 9:51:00 EDT, Pain , Moderate, 05/11/24 9:51:00 EDT, Print Requisition, Partial fill upon patientrequest if the prescription is for a schedule II op... Start Date: 05/11/24 Stop Date: 05/16/24 Status: Ordered oxyCODONE 5 mg oral tablet 5 mg, Tablet, By Mouth, Every 6 hours, Hold for: sedation, rr<12, hypotension, PRN for Pain , Moderate, Routine, 05/08/24 13:50:00 EDT Start Date: 05/08/24 Stop Date: 05/14/24 Status: Discontinued ranitidine 150 mg oral capsule 1 capsule = 150 mg, By Mouth, 2 times a day, 0 Refills, Maintenance, 04/26/14 11:03:42 Start Date: 04/26/14 Status: Ordered Problem List Condition Confirmation Course Effective Dates Status [facility] Informant Malignant Neoplasm of Breast, Right breast cancer, pT1c, pN0, ER positive, diagnosed in 2001. Confirmed 07/29/02 Active Results Radiology Reports * Exam Date Time Procedure Performing Provider Status 05/07/24 5:35 PM Chest 2 Views Frontal and Lat Cal Shields; Auth (Verified) Notes: (Chest 2 Views Frontal and Lat) Reason For Exam: Shortness of Breath, Fever;Other: RESULT: Chest 2 Views Frontal and Lat Chest 2 Views Frontal and Lat Reason: Other:; Shortness of Breath, Fever; Clinical Question(s): Pneumonia COMPARISON: None. FINDINGS: LINES AND TUBES: None. LUNGS AND PLEURA: Clear lungs. Normal pulmonary vascularity. No pleural effusion. No pneumothorax. HEART, MEDIASTINUM AND JOJO: Heart is normal in size. Normal mediastinal and hilar contour. BONES AND SOFT TISSUES: No acute abnormality. IMPRESSION: No acute abnormality. WSN: [id number] Ordering Physician: Bong Kaiser Dictated By: James Benjamin MD Dictated Date/Time: 05/07/24 6:03 pm Reviewed By: James Benjamin MD Signed By: James Benjamin MD Signed Date/Time: 05/07/24 6:03 pm Transcribed By: GENE Transcribed Date/Time: 05/07/24 6:00 pm * Exam Date Time Procedure Performing Provider Status 05/07/24 5:35 PM XR Femur 1 View Right Cyndi Shields (Verified) Notes: (XR Femur 1 View Right) Reason For Exam: Follow-Up Fracture RESULT: XR Femur 1 View Right Single lateral view of right hip. Femoral neck fracture that are visualized on the AP view. WSN: [id number] Ordering Physician: Cresencio Davalos Dictated By: James Benjamin MD Dictated Date/Time: 05/07/24 5:51 pm Reviewed By: James Benjamin MD Signed By: James Benjamin MD Signed Date/Time: 05/07/24 5:51 pm Transcribed By: GENE Transcribed Date/Time: 05/07/24 5:50 pm * Exam Date Time Procedure Performing Provider Status 05/07/24 1:54 PM Tibia/Fibula 2 Views Right Meredith Anand (Verified) Notes: (Tibia/Fibula 2 Views Right) Reason For Exam: fall;Pain RESULT: Tibia/Fibula 2 Views Right XR Hip w/Pelvis 2-3 View Right, Femur 2 Views Right, Tibia/Fibula 2 Views Right Hx of Present Illness: patient was brought past fall and pain right hip; Reason: Pain; fall; Clinical Question(s): Fracture COMPARISON: None. FINDINGS: There is an acute RIGHT subcapital femoral neck fracture with an oblique irregular linear lucency and cortical discontinuity seen. No significant angulation. There is foreshortening of the femoral neck. No dislocation of the femoral head. Additional images of the more distal femur demonstrates no additional fractures. There is extensivechondrocalcinosis in the medial and lateral compartments of the knee and chondrocalcinosis of the medial collateral ligament. No knee joint effusion. Images of the tibia and fibula demonstrate no acute fracture or dislocation. Ankle mortise appears intact. There is degenerative calcaneal enthesopathy. IMPRESSION: Acute RIGHT subcapital femoral neck fracture with foreshortening of the femoral neck. No significant angulation. No additional fractures of the more distal femur or of the tibia and fibula. WSN: [id number] Ordering Physician: Bong Kaiser Dictated By: Sharona Hernandez MD Dictated Date/Time: 05/07/24 2:00 pm Reviewed By: Sharona Hernandez MD Signed By: Sharona Hernandez MD Signed Date/Time: 05/07/24 2:00 pm Transcribed By: GENE Transcribed Date/Time: 05/07/24 1:56 pm * Exam Date Time Procedure Performing Provider Status 05/07/24 1:54 PM XR Femur 2 Views Right Nishi Anand ; Heidi (Verified) Notes: (XR Femur 2 Views Right) Reason For Exam: fall;Pain RESULT: Femur 2 Views Right XR Hip w/Pelvis 2-3 View Right, Femur 2 Views Right, Tibia/Fibula 2 Views Right Hx of Present Illness: patient was brought past fall and pain right hip; Reason: Pain; fall; Clinical Question(s): Fracture COMPARISON: None. FINDINGS: There is an acute RIGHT subcapital femoral neck fracture with an oblique irregular linear lucency and cortical discontinuity seen. No significant angulation. There is foreshortening of the femoral neck. No dislocation of the femoral head. Additional images of the more distal femur demonstrates no additional fractures. There is extensivechondrocalcinosis in the medial and lateral compartments of the knee and chondrocalcinosis of the medial collateral ligament. No knee joint effusion. Images of the tibia and fibula demonstrate no acute fracture or dislocation. Ankle mortise appears intact. There is degenerative calcaneal enthesopathy. IMPRESSION: Acute RIGHT subcapital femoral neck fracture with foreshortening of the femoral neck. No significant angulation. No additional fractures of the more distal femur or of the tibia and fibula. WSN: [id number] Ordering Physician: Bong Kaiser Dictated By: Sharona Hernandez MD Dictated Date/Time: 05/07/24 2:00 pm Reviewed By: Sharona Hernandez MD Signed By: Sharona Hernandez MD Signed Date/Time: 05/07/24 2:00 pm Transcribed By: GENE Transcribed Date/Time: 05/07/24 1:56 pm * Exam Date Time Procedure Performing Provider Status 05/07/24 1:54 PM XR Hip w/Pelvis 2-3 View Right Meredith Anandelizabeth Gordon (Verified) Notes: (XR Hip w/Pelvis 2-3 View Right) Reason For Exam: fall;Pain RESULT: XR Hip w/Pelvis 2-3 View Right XR Hip w/Pelvis 2-3 View Right, Femur 2 Views Right, Tibia/Fibula 2 Views Right Hx of Present Illness: patient was brought past fall and pain right hip; Reason: Pain; fall; Clinical Question(s): Fracture COMPARISON: None. FINDINGS: There is an acute RIGHT subcapital femoral neck fracture with an oblique irregular linear lucency and cortical discontinuity seen. No significant angulation. There is foreshortening of the femoral neck. No dislocation of the femoral head. Additional images of the more distal femur demonstrates no additional fractures. There is extensivechondrocalcinosis in the medial and lateral compartments of the knee and chondrocalcinosis of the medial collateral ligament. No knee joint effusion. Images of the tibia and fibula demonstrate no acute fracture or dislocation. Ankle mortise appears intact. There is degenerative calcaneal enthesopathy. IMPRESSION: Acute RIGHT subcapital femoral neck fracture with foreshortening of the femoral neck. No significant angulation. No additional fractures of the more distal femur or of the tibia and fibula. WSN: [id number] Ordering Physician: Bong Kaiser Dictated By: Sharona Hernandez MD Dictated Date/Time: 05/07/24 2:00 pm Reviewed By: Sharona Hernandez MD Signed By: Sharona Hernandez MD Signed Date/Time: 05/07/24 2:00 pm Transcribed By: GENE Transcribed Date/Time: 05/07/24 1:56 pm Vital Signs Most recent to oldest [Reference Range]: 1 2 3 Height 142 cm (05/13/24 2:23 PM) 142 cm (05/13/24 6:53 AM) 142 cm (05/13/24 3:19 AM) Weight 58 kg (05/09/24 7:15 AM) 58 kg (05/07/24 6:09 PM) Oxygen Saturation [94-100 %] 100 % (05/13/24 2:23 PM) 65 % *L* (05/13/24 6:53 AM) 100 % (05/13/24 3:19 AM) Pulse Rate [55-90 bpm] 90 bpm (05/13/24 2:23 PM) 95 bpm *H* (05/13/24 6:53 AM) 91 bpm *H* (05/13/24 3:19 AM) Body Mass Index [18.5-24.99 kg/m2] 28.76 kg/m2 *H* (05/09/24 7:15 AM) 28.76 kg/m2 *H* (05/07/24 6:09 PM) Blood Pressure [90-138/55-84 mm Hg] 147/61mm Hg *H* (05/13/24 2:23 PM) 147/56mm Hg *H* (05/13/24 6:53 AM) 149/58mm Hg *H* (05/13/24 3:19 AM) Respiratory Rate [16-30 br/min] 17 br/min (05/13/24 4:25 PM) 16 br/min (05/13/24 2:23 PM) 17 br/min (05/13/24 10:10 AM) Temperature [96.8-100.4 DegF] 99.0 DegF (05/13/24 2:23 PM) 98.9 DegF (05/13/24 6:53 AM) 98.0 DegF (05/13/24 3:19 AM) Liters per Minute 2 L/min (05/09/24 2:46 PM) 2 L/min (05/09/24 11:28 AM) 2 L/min (05/09/24 10:45 AM) Mode of Delivery (Oxygen) Room air (05/13/24 2:23 PM) Room air (05/13/24 6:53 AM) Room air (05/13/24 3:19 AM) Blood pressure sites Arm, left (05/13/24 2:23 PM) Arm, left (05/13/24 6:53 AM) Arm, right (05/13/24 3:19 AM) Temperature Route Oral (05/13/24 2:23 PM) Oral (05/13/24 6:53 AM) Oral (05/13/24 3:19 AM) Dry Weight 58 kg (05/07/24 6:09 PM) Social History Social History Type Response Smoking Status Never smoker entered on: 05/01/15 Sex Implantable Device List Procedure Provider Procedure Date Device Type Site Hemiarthroplasty Hip Jose E ROJAS, Mekhi Castillo 05/09/24 Un known Hip Device Identifier Serial Number Lot or Batch Number Manufacturing Date Expiration Date Distinct Identification Code MRI Safety Implantable Status Assigning Authority Unknown Unknown [id number] Unknown 04/21/28 Unknown Unknown Active Unkno wn Admission evaluation note * Danae ROJAS, Juanjo Magana A: PERFORM, MODIFY Event Display: Admission Note Authored Date: Patient: ??TERRIE FARRELL ? Age:??84 Years?Sex:??Female?:??1940?? 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 ?? She was walking outside without a cane??and her leg gave out and fell onto her right side. No head strike or LOC. She has been having right hip pain since. ?? In the emergency department she has been afebrile, hemodynamic stable, on room air with good oxygen saturation.?? Labs including complete blood cell count, and basic metabolic panel were largely unremarkable.?? Imaging for her right lower extremity showed right hip fracture. Review of Systems Constitutional:?No weight loss, fever, chills, weakness or fatigue. Cardiovascular:??No chest pain,pressure or discomfort. No palpitations or pedal edema. Respiratory:??No shortness of breath, cough or sputum production. Gastrointestinal:?No anorexia, nausea, vomiting or diarrhea. No abdominal pain or blood in stool. Genitourinary: No burning micturition. No urinary frequency or incontinence. Neurologic: No headache, dizziness, syncope, unilateral weakness, ataxia, numbness or tingling in the extremities. No change in bowel or bladder control. Musculoskeletal: right hip pain. Hematologic: No bleeding or bruising. Lymphatics: No enlarged lymph nodes. Psychiatric: No depression or anxiety. Endocrine: No reports of sweating. No cold or heat intolerance. No polyuria or polydipsia. All other systems were reviewed and are negative.?? Objective Vital Signs?? Temperature: 98 DegF (05/07/24 18:09:00) Temperature Route: Oral (05/07/24 18:09:00) Pulse Rate: 83 bpm (05/07/24 18:09:00) Respiratory Rate: 18 br/min (05/07/24 18:09:00) Systolic Blood Pressure: 130 mm Hg (05/07/24 18:09:00) Diastolic Blood Pressure: 67 mm Hg (05/07/24 18:09:00) Blood pressure sites: Arm, right (05/07/24 18:09:00) Mean Arterial Pressure: 88 mm Hg (05/07/24 18:09:00) Pulse Pressure: 63 mm Hg (05/07/24 18:09:00) Oxygen Saturation:??93 %??Low (05/07/24 18:09:00) Mode of Delivery (Oxygen): Room air (05/07/24 17:44:00) Early Warning Score: 2 (05/07/24 18:13:09) ? Physical Exam Constitutional: Alert, in no acute distress. Head: Normocephalic. Eyes: Pupils are equal, round and reactive to light. Extraocular muscles intact. No pallor or scleral icterus Ear, Nose and Throat: mucous membranes moist. Ears and nose - no obvious deformities. T. Neck: Supple, Full range of motion.No JVD or bruits. Respiratory:??Clear to auscultation. No wheezing or rhonchi.??No use of accessory muscles. Cardiovascular:??S2 regular. No murmurs, rubs or gallops. Gastrointestinal:??Abdomen soft, non-tender, non-distended. Genitourinary:??No costovertebral angle tenderness. Extremities: No lower extremity pitting edema. Neurologic:??AAOx3, Cranial nerves II-XII grossly intact. Speech normal, no facial droop. No focal neurological deficits. Moves all extremities spontaneously. Psychiatric: Normal mood and affect. ? 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 ?? Diagnoses 1. ??Fracture of femoral neck, right ??(S72.001A) 2. ??Hypertension ??(I10) 3. ??Hyperlipidemia ??(E78.5) 4. ??Diabetes mellitus ??(E11.9) ?? Fracture of femoral neck, right (S72.001A):?? Patient presented after mechanical fall and was found to??Right hip??fracture.??She is planned for??potential operative intervention tomorrow morning??with??low to intermediate??risk for postoperative cardiac event.??She has no??chest pain??or shortness of breath.??She is not in acute coronary syndr ome or acute heart failure. Her risk factors for coronary artery disease are age, HTN, HLD, and DM.Her RICI score is 0 with put her in class I with 3.9% risk for major post operative cardiovascular events in 30 days.??Her METs is above 4. No further cardiac testing is required. - Dilaudid for pain.?? - NPO after midnight, IV fluid.? Hypertension (I10):??hold lisinopril in day of surgery.? Hyperlipidemia (E78.5):??continue home statin.? Diabetes mellitus (E11.9):??hold metformin and keep on ISS.? VTE Prophylaxis:??Lovenox.?? Code Status:??full code- confirmed with the patient.? Histories Allergies Allergies ?(Active and Proposed Allergies Only) NKA? (Severity: Unknown severity, Onset: Unknown) ? Past Medical History/Problem List Active Problems(1) Malignant Neoplasm of Breast, Right breast cancer, pT1c, pN0, ER positive, diagnosed in 2001. ? Past Surgical History Lumpectomy, right: 2001 ? Social History Alcohol Details:??Use: Never. Exercise Details:??Regular exercise: Yes. ??Exercise frequency: Daily. ??Exercise type: Walking. Nutrition/Health Details:??Diet: Calorie restricted. ??Caffeine intake amount: decaf coffee only. Substance Abuse Details:??Use: Never. Tobacco Details:??Never smoker ? Family History Sister: Pancreatic cancer Other??(Niece x 2): Cancer of breast ? Medications Home Medications Atorvastatin (Lipitor Tablet)?By Mouth?Daily at bedtime Durable Medical Equipment (Mastectomy Supplies)?See Instructions?Please dispense one right breast filler, patient asymmetrical s/p breast cancer surgery, please dispense up to 3 mastectomy bras Durable Medical Equipment (Mastectomy Prosthesis)?See Instructions?History of breast cancer Durable Medical Equipment (Mastectomy Bra)?See Instructions?History of breast cancer Durable Medical Equipment (Mastectomy Prosthesis)?See Instructions?History of breast cancer Durable Medical Equipment (Mastectomy Bra)?See Instructions?History of breast cancer Durable Medical Equipment (Mastectomy Prosthesis)?See Instructions?Filler due to asymmetry. History of right breast cancer. ??Lumpectomy Durable Medical Equipment (Mastectomy Bra)?See Instructions?History of right breast cancer. ??Lumpectomy Durable Medical Equipment (Mastectomy Prosthesis)?See Instructions?Right breast cancerAsymmetry due to surgeryDiagnosis: 50.911 Durable Medical Equipment (Mastectomy Bra)?See Instructions?Right breast cancerAsymmetry due to surgeryDiagnosis: 50.911 Durable Medical Equipment (Mastectomy Bra)?See Instructions?right lumpectomy Durable Medical Equipment (Mastectomy Prosthesis)?See Instructions?right lumpectomy Lisinopril (lisinopril 5 mg oral tablet)?1?tab(s)?By Mouth?Daily Metformin (metformin 500 mg oral tablet)?1?tab(s)?By Mouth?2 times a day Ranitidine (ranitidine 150 mg oral capsule)?1?capsule?150?Milligram?By Mouth?2 times a day Simvastatin (simvastatin 40 mg oral tablet)?1?tab(s)?By Mouth?Daily at bedtime ? Results Recent Labs BLOOD BANK Blood Type O Positive ()?? 05/07/2024 14:50 Antibody Screen Negative ()?? 05/07/2024 14:50 ?? BLOOD COUNT & DIFF WBC 10.9 k/mm3 ()?? 05/07/2024 14:51 RBC 3.93 m/mm3 (Low)?? 05/07/2024 14:51 Hgb 12.1 Gm/dL ()?? 05/07/2024 14:51 Hct 35.8 % ()?? 05/07/2024 14:51 MCV 91.1 femtoliters ()?? 05/07/2024 14:51 MCH 30.8 pg ()?? 05/07/2024 14:51 MCHC 33.8 g/dL ()?? 05/07/2024 14:51 Platelet Count 178 k/mm3 ()?? 05/07/2024 14:51 RDW-SD 42.1 femtoliters ()?? 05/07/2024 14:51 MPV 10.0 femtoliters ()?? 05/07/2024 14:51 Nucleated RBC (Automated) 0.0 #/100 WBC'S ()?? 05/07/2024 14:51 Abs. NRBC 0.0 k/mm3 ()?? 05/07/2024 14:51 Abs. Neut 9.6 k/mm3 (High)?? 05/07/2024 14:51 Abs. Lymph 0.7 k/mm3 (Low)?? 05/07/2024 14:51 Abs. [place] 0.5 k/mm3 ()?? 05/07/2024 14:51 Abs. Eo 0.0 k/mm3 ()?? 05/07/2024 14:51 Abs. Baso 0.0 k/mm3 ()?? 05/07/2024 14:51 Neut % 87.8 % (High)?? 05/07/2024 14:51 Lymph % 6.4 % (Low)?? 05/07/2024 14:51 [place] % 5.0 % ()?? 05/07/2024 14:51 Eos % 0.0 % ()?? 05/07/2024 14:51 Baso % 0.2 % ()?? 05/07/2024 14:51 Imm Gran 0.6 % ()?? 05/07/2024 14:51 Abs. Imm Gran 0.1 k/mm3 ()?? 05/07/2024 14:51 ?? CHEM GENERAL Sodium 137 mmol/L ()?? 05/07/2024 14:51 Potassium 4.6 mmol/L ()?? 05/07/2024 14:51 Chloride 102 mmol/L ()?? 05/07/2024 14:51 Bicarbonate Level 21 mmol/L (Low)?? 05/07/2024 14:51 Anion Gap 14 ()?? 05/07/2024 14:51 Glucose Level 146 mg/dL (High)?? 05/07/2024 14:51 Glucose, POC 208 mg/dL (High)?? 05/07/2024 17:34 BUN 12 mg/dL ()?? 05/07/2024 14:51 Creatinine-Blood 0.40 mg/dL (Low)?? 05/07/2024 14:51 Estimated GFR Creatinine 99 ML/MIN/1.73 M2 ()?? 05/07/2024 14:51 Calcium 9.1 mg/dL ()?? 05/07/2024 14:51 ?? URINE OTHER Est Creatinine Clearance 61.77 mL/min ()?? 05/07/2024 18:13 ?? VIROLOGY COVID-19 by RT-PCR NEGATIVE ()?? 05/07/2024 16:15 ? Hospital Progress note * Meena Main RN: VERIFY, PERFORM, SIGN Event Display: Progress Note Hospital Authored Date: Patient: TERRIE FARRELL Age: 84 years Sex: Female : 1940 Associated Diagnoses: None Author: Meena Main RN Findings Problem Related to Alteration in Comfort : Alteration in Comfort/new 05/13/2024 16:00 EDT Alteration in Comfort Related to Injury, Other: R subcapital femoral neck fx-s/p-R hip hemiarthroplasty-05/09 Goals & Outcomes: Comfort Pt will report acceptable level of comfort & pain control, Pt will state importance of adhering to pain strategy regime, Pt will demonstrate necessary skills to manage pain, Non-verbal indicators will indicate comfort/pain control, Resolved problem, Goals/Outcomes met Interventions Implemented: Comfort Assess pain using appropriate pain scale/tools, Assess aggravating factors & prevent them accordingly, Assess alleviating factors & promote them accordingly Goals/Interventions, Comfort Yes Comfort, Problem Start 05/08/2024 7:25 Reviewed plan with, Comfort Patient Patient Progression, Comfort Resolved problem Comfort, Problem Ongoing Yes Comfort, Problem Resolved 05/13/2024 16:39 . Alteration in Musculoskeletal : Alteration in Musculoskeletal Func/new 05/13/2024 16:00 EDT Alteration in Musculoskeletal Related to Fracture, Mobility, Orthopedic Procedure, Other: R subcapital femoral neck fx-s/p-R hip hemiarthroplasty-05/09 Goals & Outcomes, Musculoskeletal Affected extremity will maintain color/motion/sensation, Pt able to perform ADL's to best of ability, Pt demonstrates precautions/exercise/ transfers per protocol, Pt will ambulate safely with assistive device, Pt will be free from complications of immobility, Pt will demonstrate ability to participate in ADL's, Pt will report acceptable level of comfort/painrelief Interventions, Musculoskeletal Resolved problem, Interventions no longer in effect Goals/Interventions, Musculoskeletal Yes Musculoskeletal, Problem Start 05/08/2024 2:11 Reviewed Plan with, Musculoskeletal Patient Patient Progression, Musculoskeletal Resolved problem Musculoskeletal, Problem Resolved 05/13/2024 16:39 . Nursing Data Cardiac Data. : Cardiac Data. 05/13/2024 14:03 EDT Cardiovascular Symptoms None Nail Bed Color, Fingers Elias-Fela Solis Nail Bed Color, Toes Elias-Fela Solis Skin Temperature Upper Extremities Warm Skin Temperature Lower Extremities Warm Heart Sounds S1, S2 Heart Rhythm Regular Capillary Refill < 3 seconds Dorsalis Pedis Pulse, Left Normal Dorsalis Pedis Pulse, Right Normal disassembler product No Cardiovascular WNL except . Gastrointestinal Data. : Gastrointestinal Data. 05/13/2024 14:03 EDT Abdomen Soft, Non-tender, Round Bowel Sounds LUQ Present Bowel Sounds RUQ Present Bowel Sounds LLQ Present Bowel Sounds RLQ Present Last Bowel Movement 05/11/2024 GI WNL except Normal Bowel Pattern Daily . Genitourinary Data. : Genitourinary Data. 05/13/2024 14:03 EDT Genitourinary Symptoms Incontinent Bladder distention Absent Urinary catheter type Female External Urine Collection Device WNL except . Integumentary Data. : Integumentary Data. 05/13/2024 14:07 EDT Integumentary WNL except Hip Right Skin Abnormality Type: Surgical incision Wound Assessment Activity: Reassessment Incision Surgical Detail: Closed Wound Dressing: Hydrophilic Wound Dressing Wound Dressing Assessment: Clean, Dry, Intact Wound Dressing Activity: Intact . Musculoskeletal Data. : Musculoskeletal Data. 05/13/2024 14:03 EDT Musculoskeletal Symptoms Fracture, Weakness Musculoskeletal WNL except . Neurological Data. : Neurological Data. 05/13/2024 14:03 EDT Neurological Symptoms Weakness or loss of muscle strength Level of Consciousness Full Consciousness Orientated to person, place, time Person, Place, Time, Event Gait Short steps, Unsteady 1 - 10 Pain Scale Score 4 Neuro WNL except . Respiratory/Pulmonary Data. 05/13/2024 14:03 EDT Respiratory Symptoms None Respiratory effort Unlabored Chest expansion Symmetrical Accessory Muscles use No Respiratory pattern Regular Left Upper Lobe Breath Sounds Clear Right Upper Lobe Breath Sounds Clear Right Middle Lobe Breath Sounds Clear Left Lower Lobe Breath Sounds Clear Right Lower Lobe Breath Sounds Clear Respiratory distress None Respiratory Treatment(s) Cough and deep breathe Respiratory WNL except . Vital Signs : VITAL SIGNS SECTION 05/13/2024 14:23 EDT Temperature 99.0 DegF Temperature Route Oral Pulse Rate 90 bpm Respiratory Rate 16 br/min Systolic Blood Pressure 147 mm Hg H Diastolic Blood Pressure 61 mm Hg Blood pressure sites Arm, left Mean Arterial Pressure 90 mm Hg Pulse Pressure 86 mm Hg Oxygen Saturation 100 % Mode of Delivery (Oxygen) Room air . Narrative/Incidental Patient alert and oriented x4 pleasant and cooperative. VSS. Patient complains of mild pain in right hip d/t right hemiarthroplasty and nailing on 05/09. PRN Oxycodone administered with good effect. LS are clear throughout all lobes and respirations are even and unlabored on room air. +CMS to all extremities. Aquacel dressing intact to left hip CDI. Voiding large amounts without difficulty. BSx4 abdomen SNT last BM 05/10, bowel regimen administered. POC obtained and covered with SS per JAN. Patient worked with PT and up to chair with walker and assist for a few hours this afternoon. Patient medically cleared for discharge, IV removed with catheter tip intact. Discharge instructions completed.Patient awaiting [facility] ambulance to [facility] at 1700. Daughter at bedside and aware of plan. . Discharge Information Case Management Discharge Plan : Case Management Discharge Plan Data 05/13/2024 15:21 EDT Discharge Level of Care at Discharge jail facility Discharge Nursing [facility] Dis[facility] Transportation Arranged [facility] [address] [place] [address] Discharge Arranged Transport Date/Time 05/13/2024 17:00 Mode of Transportation Arranged Ambulance Service Categories #1 Occupational Therapy, Physical Therapy, Prison Service Start Date and Time #1 05/13/2024 17:00 Service Comments #1 You are going to rehab today. Rehabilitation Discharge : Rehab Discharge Index 05/13/2024 8:54 EDT Walker: distance 10-20 05/12/2024 8:39 EDT Walker: distance < 10 05/11/2024 16:13 EDT Walker: distance < 10 05/11/2024 8:40 EDT Walker: distance < 10 05/10/2024 8:46 EDT Walker: distance < 10 05/09/2024 14:55 EDT Comments on treatment indicated adls funclt mob safety pt edu endurance Full chart review completed Yes 05/09/2024 13:21 EDT Comments on treatment indicated 89 Sudanese speaking F fall and R hip fx, s/p R hemiarthroplasty on 05/[address] Dorantes. WBAT. PT for strength, bed mobility, transfers, ambulation, balance. Rec rehab Distance pt will ambulate 30 ft Full chart review completed Yes Hospital course Hospital course Other findings see comment Plan of care PT Gait training, Transfer training, Therapeutic exercise, Functional Activities, Balance training * Mary PANDEY, Tri: SIGN, VERIFY, PERFORM Event Display: Progress Note Hospital Authored Date: [id number] Patient: TERRIE FARRELL Age: 84 years Sex: Female : 1940 Associated Diagnoses: None Author: Mary PANDEY, Tri Findings Narrative/Incidental P: 84F w/ PMHx of HTN and diabetes( on insulin). Admitted for Rt hip replacement(05/09). Primarily malay speaking- using interpreter and translator for communication. I: (+)dp/df and pulses present. Aquacell in place- C/D/I. C/o moderate pain to RLE. Given PO Q4H PRN Oxycodone 5mg w/ good effect. LBM 05/11.Voiding in commode. OOB x1 w/ walker very unsteady gait. Purewick in place overnight per pt request. LS diminished- using incentive spirometer at bedside. QACHS fingersticks w/ sliding scale. On Lovenox for DVT prophylaxis. Gait not witnessed this shift. A+Ox3. Frequent safety checks made and call crockett within reach. E:Plan to work w/ PT today and possible d/c. . Discharge Information Rehabilitation Discharge : Rehab Discharge Index 05/12/2024 8:39 EDT Walker: distance < 10 05/11/2024 16:13 EDT Walker: distance < 10 05/11/2024 8:40 EDT Walker: distance < 10 05/10/2024 8:46 EDT Walker: distance < 10 05/09/2024 14:55 EDT Comments on treatment indicated adls funclt mob safety pt edu endurance Full chart review completed Yes 05/09/2024 13:21 EDT Comments on treatment indicated 89 Sudanese speaking F fall and R hip fx, s/p R hemiarthroplasty on 05/[address] Dorantes. WBAT. PT for strength, bed mobility, transfers, ambulation, balance. Rec rehab Distance pt will ambulate 30 ft Full chart review completed Yes Hospital course Hospital course Other findings see comment Plan of care PT Gait training, Transfer training, Therapeutic exercise, Functional Activities, Balance training * Jose PANDEY, Geraldine: VERIFY, PERFORM, MODIFY, SIGN Event Display: Progress Note Hospital Authored Date: Patient: TERRIE FARRELL Age: 84 years Sex: Female : 1940 Associated Diagnoses: None Author: Geraldine Garcia RN Findings Problem Related to Alteration in Comfort : Alteration in Comfort/new 05/12/2024 9:00 EDT Alteration in Comfort Related to Injury, Other: R subcapital femoral neck fx-s/p-R hip hemiarthroplasty-05/09 Goals & Outcomes: Comfort Pt will report acceptable level of comfort & pain control, Pt will state importance of adhering to pain strategy regime, Pt will demonstrate necessary skills to manage pain, Non-verbal indicators will indicate comfort/pain control Interventions Implemented: Comfort Assess pain using appropriate pain scale/tools, Assess aggravating factors & prevent them accordingly, Assess alleviating factors & promote them accordingly Goals/Interventions, Comfort Yes Comfort, Problem Start 05/08/2024 7:25 Reviewed plan with, Comfort Patient Patient Progression, Comfort Pt progressing according to plan Comfort, Problem Ongoing Yes . Alteration in Musculoskeletal : Alteration in Musculoskeletal Func/new 05/12/2024 9:00 EDT Alteration in Musculoskeletal Related to Fracture, Mobility, Orthopedic Procedure, Other: R subcapital femoral neck fx-s/p-R hip hemiarthroplasty-05/09 Goals & Outcomes, Musculoskeletal Affected extremity will maintain color/motion/sensation, Pt able to perform ADL's to best of ability, Pt demonstrates precautions/exercise/ transfers per protocol, Pt will ambulate safely with assistive device, Pt will be free from complications of immobility, Pt will demonstrate ability to participate in ADL's, Pt will report acceptable level of comfort/painrelief Interventions, Musculoskeletal Monitor patients ambulation status, monitor Color/Motion/Sensation, Assist with repositioning, Encourage deep breathing & coughing exercises, Notify MD immediately if tissue perfusion deteriorates, Obtain assistive devices as needed, Teach & Encourage use of Incentive spirometer, Teach Pt/caregiver on ADL's & adaptive equipment, Teach Pt/caregiver on exercises, Teach pt/caregiver on use of pain scale, Teach Pt/caregiver complications of immobility, Teach Pt/caregiver techniques to increase mobility, Teach Pt/caregiver on safety precautions, Incision care as ordered Goals/Interventions, Musculoskeletal Yes Musculoskeletal, Problem Start 05/08/2024 2:11 Reviewed Plan with, Musculoskeletal Patient Patient Progression, Musculoskeletal Pt progressing according to plan . Nursing Data Vital Signs : VITAL SIGNS SECTION 05/12/2024 16:36 EDT Early Warning Score 0.00 05/12/2024 14:39 EDT Early Warning Score 0.00 05/12/2024 14:38 EDT Temperature 98.0 DegF Temperature Route Oral Pulse Rate 95 bpm H Respiratory Rate 16 br/min Systolic Blood Pressure 150 mm Hg H Diastolic Blood Pressure 57 mm Hg Blood pressure sites Arm, right Mean Arterial Pressure 88 mm Hg Pulse Pressure 93 mm Hg Oxygen Saturation 98 % Mode of Delivery (Oxygen) Room air 05/12/2024 11:01 EDT Early Warning Score 0.00 05/12/2024 10:35 EDT Early Warning Score 0.00 05/12/2024 10:35 EDT Respiratory Rate 18 br/min 05/12/2024 7:25 EDT Early Warning Score 0.00 05/12/2024 6:35 EDT Early Warning Score 0.00 05/12/2024 6:35 EDT Temperature 98.4 DegF Temperature Route Oral Pulse Rate 86 bpm Respiratory Rate 16 br/min Systolic Blood Pressure 132 mm Hg Diastolic Blood Pressure 51 mm Hg L Blood pressure sites Arm, right Mean Arterial Pressure 78 mm Hg Pulse Pressure 81 mm Hg Oxygen Saturation 100 % Mode of Delivery (Oxygen) Room air . Narrative/Incidental Patient A & O x 4. VSS. R subcapital femoral neck fx-s/p-R hip hemiarthroplasty- 05/09. Aquacel CDI. +PP, +DF, +PF, +CMS to R LE. Lovenox and C-Boots for DVT prophylaxis. C/o pain 5/10 with prn pain meds given with + effect. Participated in PT/OT. Rehab recommended. Denies CP, SOB, N/V. LS CTA. Inc leisa encouraged to be used, 10x/hr. Abd SRNT, +BS. LBM 05/11/24. Voiding. Diab diet maintained. POC's monitored and covered per sliding scale. Centrella bed maintained. Safety checks completed. Bed in lowest locked position with call crockett within reach. Alarm on for safety. Up to recliner chair during the day. Call crockett within reach. Hourly rounding.. Evaluation P:Alteration in Musculoskeletal I: Interventions per Plan E:R subcapital femoral neck fx-s/p-R hip hemiarthroplasty-05/09. Aquacel CDI. +PP, +DF, +PF, +CMS toR LE. Lovenox and C-Boots for DVT prophylaxis. C/o pain 5/10 with prn pain meds given with + effect. Participated in PT/OT. Rehab recommended. Awaiting ins auth per Liz CRESPO RN.. P:Alteration in Comfort I: Interventions per Plan E:R subcapital femoral neck fx-s/p-R hip hemiarthroplasty-05/09. C/o pain 5/10 with prn pain meds given with + effect. . Discharge Information Rehabilitation Discharge : Rehab Discharge Index 05/12/2024 8:39 EDT Walker: distance < 10 05/11/2024 16:13 EDT Walker: distance < 10 05/11/2024 8:40 EDT Walker: distance < 10 05/10/2024 8:46 EDT Walker: distance < 10 05/09/2024 14:55 EDT Comments on treatment indicated adls funclt mob safety pt edu endurance Full chart review completed Yes 05/09/2024 13:21 EDT Comments on treatment indicated 89 Sudanese speaking F fall and R hip fx, s/p R hemiarthroplasty on 05/[address] Dorantes. WBAT. PT for strength, bed mobility, transfers, ambulation, balance. Rec rehab Distance pt will ambulate 30 ft Full chart review completed Yes Hospital course Hospital course Other findings see comment Plan of care PT Gait training, Transfer training, Therapeutic exercise, Functional Activities, Balance training Consult note * Cresencio Whitmore: PERFORM, MODIFY Event Display: Consultation Note Authored Date: [id number] Patient: ??TERRIE FARRELL ? Age:??84 Years?Sex:??Female?:??1940?? Chief Complaint/Reason for Consult Right hip pain History of Present Illness Orthopedic consultation was requested by?Awilda??in [facility] emergency department under supervision of ??Rocky ?? Terrie is an 84 year old female with past medical history of HTN, HLD, DM2 who presented to [facility] emergency department today after having a mechanical fall at her house earlier in the day. Patient is primary Sudanese??speaking and an interpreter and translator was used for the duration of the examination. Patients daughter is also at bedside and helps??provides history.?Patient states that she was walking outside of her house earlier today when she excellently??tripped and fell onto the??right hip.?? Per daughter she has been to be using a cane??at all times for ambulation??however??does not??utilize??the cane??at all??due to her not thinking she needs it.?? Presented to the emergency department for further evaluation of the right hip pain as she was unable to ambulate afterwards.?? Imaging in the ED showed a right??femoral neck fracture.?? Orthopedics was consulted for further recommendations. Review of Systems Denies fevers, chills or sweats. ??Denies shortness of breath and chest pain. ??Denies other injuries or painful joints. Physical Exam Vitals & Measurements T:??99.8?F?? HR:??89??(Peripheral)?? RR:??20?? BP:??132/89?? SpO2:??93%?? Patient is well-developed and in no acute distress. ??Alert and cooperative with examination. ??Mood and affect appropriate. ??Examined on a stretcher in the emergency department.? HEENT: Atraumatic and normocephalic Cardiac: Per ED provider Pulmonary: Per ED provider Abdomen: Soft, nontender, nondistended. ?? Right upper extremity: Full, supple, nonpainful range of motion of shoulder, elbow, wrist and digits. ??No tenderness to palpation. ??Small ecchymosis area noted to the dorsal hand. ??Grossly neurovascularly intact radial, median, ulnar nerve distributions. ?? Left upper extremity: Full, supple, nonpainful range of motion of shoulder, elbow, wrist and digits. ??No tenderness to palpation. Grossly neurovascularly intact radial, median, ulnar nerve distributions. ?? Right lower extremity:??Examination reveals??no significant external rotation at the hip. ??No significant shortening is noted as compared to contralateral lower extremity examination. ??Patient is mildly tender tender to palpation about the hip and is unable to tolerate range of motion of same. ??Moderate edema noted about the hip,??lidocaine patch??in place. No discomfort about the femur distall y. ??No discomfort about the knee, foot or ankle. ??Range of motion of the knee is nonpainful but decreased due aggravation of proximal hip pain. ??Patient has active dorsiflexion and plantar flexionstrength. ??Palpable DP and PT pulses. ??Grossly intact sensation to light touch. ??Compartments are soft. ??Calf supple and nontender. ?? Left lower extremity: [Full, supple, non-painful range of motion of the hip, knee, foot and ankle. ??No tenderness to palpation. ??Calf supple and nontender. Active dorsiflexion and plantar flexion strength. ??Grossly neurovascularly intact.] Assessment/Plan Right subcapital femoral neck fracture ?? Plan: Patient is admitted to the medical service. ??Orthopedics will follow. ??Preoperative medical optimization is requested. ??Patient will be made n.p.o. after midnight tonight for possible surgery tomorrow. ??Recommend strict nonweightbearing status RLE, elevation, pain control and DVT prophylaxis. Patient is added to the orthopedic trauma surgery OR add on list with plan for surgical fixation once medically??optimized and when OR schedule allows. ??This was discussed with the patient who voiced understanding. ??Questions are asked and answered.? Case discussed with Dr. Dorantes Problem List/Past Medical History Hypertension Hyperlipidemia Diabetes Breast cancer Procedure/Surgical History Lumpectomy, right: 2001 Right foot surgery -unknown date??or surgeon Home Medications Atorvastatin: By Mouth, Daily at bedtime Durable Medical Equipment: See Instructions, Please dispense one right breast filler, patient asymmetrical s/p breast cancer surgery, please dispense up to 3 mastectomy bras Durable Medical Equipment: See Instructions, History of breast cancer Durable Medical Equipment: See Instructions, History of breast cancer Durable Medical Equipment: See Instructions, History of breast cancer Durable Medical Equipment: See Instructions, History of breast cancer Durable Medical Equipment: See Instructions, Filler due to asymmetry. History of right breast cancer. ??Lumpectomy Durable Medical Equipment: See Instructions, History of right breast cancer. ??Lumpectomy Durable Medical Equipment: See Instructions, Right breast cancerAsymmetry due to surgeryDiagnosis: 50.911 Durable Medical Equipment: See Instructions, Right breast cancerAsymmetry due to surgeryDiagnosis: 50.911 Durable Medical Equipment: See Instructions, right lumpectomy Durable Medical Equipment: See Instructions, right lumpectomy Lisinopril: 1 tablet, By Mouth, Daily Metformin: 1 tablet, By Mouth, 2 times a day Ranitidine: 150 mg = 1 capsule, By Mouth, 2 times a day Simvastatin: 1 tablet, By Mouth, Daily at bedtime Allergies NKDA Social History Currently lives alone Retired Denies any alcohol use Denies any tobacco use Denies any illicit drug use Family History Denies history of adverse reaction to anesthesia, bleeding dyscrasias, DVT. Radiology 2 view x-ray of the right femur was reviewed by myself which shows a minimally displaced and slightly varus impacted subcapital femoral neck fracture.?? No significant displacement or angulation can be seen at this time.?? No other acute fractures or dislocations can be appreciated about the midshaft or distal femur. ?? 2 view x-ray of the right hip with pelvis was reviewed by myself which shows the above-mentioned subcapital femoral neck fracture.?? Limited examination of the lateral view secondary to suboptimal positioning of the x-ray film.?? No other acute fractures or dislocations can be seen at this time. ?? 2 view x-ray of the right tib-fib was reviewed by myself which shows no acute fractures or dislocations. Lab Results Labs Last 24 Hours BLOOD COUNT & DIFF ? Event Name?? Event Result?? Date/Time?? WBC 10.9 k/mm3 05/07/24 14:51:00 RBC 3.93 m/mm3??Low 05/07/24 14:51:00 Hgb 12.1 Gm/dL 05/07/24 14:51:00 Hct 35.8 % 05/07/24 14:51:00 MCV 91.1 femtoliters 05/07/24 14:51:00 MCH 30.8 pg 05/07/24 14:51:00 MCHC 33.8 g/dL 05/07/24 14:51:00 Platelet Count 178 k/mm3 05/07/24 14:51:00 MPV 10 femtoliters 05/07/24 14:51:00 Nucleated RBC (Automated) 0 #/100 WBC'S 05/07/24 14:51:00 ? CHEM GENERAL ? Event Name?? Event Result?? Date/Time?? Sodium 137 mmol/L 05/07/24 14:51:00 Chloride 102 mmol/L 05/07/24 14:51:00 Bicarbonate Level 21 mmol/L??Low 05/07/24 14:51:00 Anion Gap 14 05/07/24 14:51:00 Glucose Level 146 mg/dL??High 05/07/24 14:51:00 BUN 12 mg/dL 05/07/24 14:51:00 Creatinine-Blood 0.4 mg/dL??Low 05/07/24 14:51:00 ? Note * Meena Main RN: PERFORM Event Display: Discharge/Transfer Note Hospital Authored Date: Nursing Discharge Note Entered On: 05/13/2024 17:43 EDT Performed On: 05/13/2024 17:42 EDT by Meena Main RN Nursing Discharge Note 2 Discharge Time : 05/13/2024 17:40 EDT Discharge Level of Care at Discharge : jail facility Discharge [facility] Patient Left Unit Via : Ambulance Patient Accompanied Off Unit with : Ambulance/Chair Van Personnel Handover Given to Transport Personnel : Yes DC Instructions Provided & Signed by Pt : Yes Patient Understands D/C Instructions : Yes Patient Instructions Discharge Signed : Yes Did Pt have Specialty Bed or Wound Vac : Yes Meena Main RN - 05/13/2024 17:42 EDT * John ROJAS, Amaris: PERFORM, MODIFY Event Display: Discharge/Transfer Note Hospital Authored Date: Patient: ??TERRIE FARRELL ? Age:??84 Years?Sex:??Female?:??1940?? Patient Information Discharge Location: [facility] Primary Care Physician: Liban ROJAS , Nara Browning Admit Date/Time: 05/07/24 16:54 Discharge Date:??05/13/2024 14:21 Discharge Disposition Discharge Disposition: Prison Facility/Rehab Discharge Diagnosis Fracture of femoral neck, right (S72.001A) Hypertension (I10) Hyperlipidemia (E78.5) Diabetes mellitus (E11.9) Fracture of femoral neck, right (S72.001A) _ Discharge Medications Aspirin (aspirin 81 mg oral delayed release tablet)?81?Milligram?1?tablet?By Mouth?2 times a day?for 30?Days?DVT PROPHYLAXIS POST ORTHOPEDIC SURGERY Atorvastatin (Lipitor Tablet)?20?Milligram?By Mouth?Daily at bedtime Durable Medical Equipment (Mastectomy Supplies)?See Instructions?Please dispense one right breast filler, patient asymmetrical s/p breast cancer surgery, please dispense up to 3 mastectomy bras Durable Medical Equipment (Mastectomy Prosthesis)?See Instructions?History of breast cancer Durable Medical Equipment (Mastectomy Bra)?See Instructions?History of breast cancer Durable Medical Equipment (Mastectomy Prosthesis)?See Instructions?History of breast cancer Durable Medical Equipment (Mastectomy Bra)?See Instructions?History of breast cancer Durable Medical Equipment (Mastectomy Prosthesis)?See Instructions?Filler due to asymmetry. History of right breast cancer. ??Lumpectomy Durable Medical Equipment (Mastectomy Bra)?See Instructions?History of right breast cancer. ??Lumpectomy Durable Medical Equipment (Mastectomy Prosthesis)?See Instructions?Right breast cancer Asymmetry due to surgery Diagnosis: 50.911 Durable Medical Equipment (Mastectomy Bra)?See Instructions?Right breast cancer Asymmetry dueto surgery Diagnosis: 50.911 Durable Medical Equipment (Mastectomy Bra)?See Instructions?right lumpectomy Durable Medical Equipment (Mastectomy Prosthesis)?See Instructions?right lumpectomy Lisinopril (lisinopril 5 mg oral tablet)?1?tab(s)?By Mouth?Daily Metformin (metformin 500 mg oral tablet)?1?tab(s)?By Mouth?2 times a day Oxycodone (oxyCODONE 5 mg oral tablet)?5?Milligram?By Mouth?Every 6 hours?as needed?for 5?Days?Pain , Moderate Ranitidine (ranitidine 150 mg oral capsule)?1?capsule?150?Milligram?By Mouth?2 times a day ? Medications Started Oxycodone PRN for pain control Aspirin 81mg BID for 30 days Medications Discontinued None Doses Changed None Allergies Allergies ?(Active and Proposed Allergies Only) NKA? (Severity: Unknown severity, Onset: Unknown) ? PCP Follow-Up/Heads-Up Follow up clinically post hospitalization Future Appointments Thursday 8:00 AM EST ?? Where: [facility] Radiology [facility] [address], [address] [place] [address]- Status: Pending Objective 89-year-old Sudanese speaking (video interpreter and translator Madiha [id number]) female patient??with a medical history significant for??hypertension, hyperlipidemia,??and diabetes mellitus??who presented to the emergency department after??a mechanical fall and being admitted with??right hip??fracture.??S/p Hemiarthroplasty Hip, Right (06130) on 05/09/2024.??Post op care based on orthopedic team evaluation. Hospital course complicated with post op urinary retention requiring straight cath. Encourage OOB to chair. PT/OT recommended rehab ?? Fracture of femoral neck, right (S72.001A):??Patient presented after mechanical fall and was found to??Right hip??fracture.??She is planned for??OR Tylenol for mild pain, oxycodone 2.5 mg for moderate pain and Dilaudid as needed for??severe pain.?? S/p Hemiarthroplasty Hip, Right (40047) on 05/09/2024. POD#2 Post op care based on orthopedic team evaluation. OOB with PT/OT; WBAT RLE Continue aquacel dressing until follow up appointment unless soiled/saturated DVT prophylaxis: to??be??discharged on asa??81mg BID from ortho standpoint Ice encouraged to thigh for pain/swelling Encourage IS/deep breathing D/C??okay from an ortho standpoint POD#2/3?? Follow up at [facility] with Dr. Dorantes in 2 weeks.?? Call [phone] for an appointment ?? Hypertension (I10):??resume lisinopril? Hyperlipidemia (E78.5):??continue home statin.? Diabetes mellitus type II(E11.9): resume??metformin? Patient seen and examined at bedside Interview conducted with the assistance??of??automotive parts interpreter. Denies any acute complaints. Post op pain adequately controlled with medications Constipation resolved Patient to go to rehab once insurance auth is obtained ?? Gen: AAO*3; RS: CTA b/l; CVS: regular; Abd: Soft Non tender, non distended; Neuro AAO*3, ambulatorywith assistance Measurements?? Height: 142 cm (05/13/24) Weight: 58 kg (05/09/24) Dry Weight: 58 kg (05/07/24) Body Mass Index:??28.76 kg/m2??High (05/09/24) ? Vital Signs?? Temperature: 98.9 DegF (05/13/24 06:53:00) Temperature Route: Oral (05/13/24 06:53:00) Pulse Rate:??95 bpm??High (05/13/24 06:53:00) Respiratory Rate: 17 br/min (05/13/24 10:10:00) Systolic Blood Pressure:??147 mm Hg??High (05/13/24 06:53:00) Diastolic Blood Pressure: 56 mm Hg (05/13/24 06:53:00) Blood pressure sites: Arm, left (05/13/24 06:53:00) Mean Arterial Pressure: 86 mm Hg (05/13/24 06:53:00) Pulse Pressure: 91 mm Hg (05/13/24 06:53:00) ? Surgical Procedures Hemiarthroplasty Hip 05/09/2024 08:25 Consultants Jose E ROJAS, Mekhi Castillo Follow-Up Appointments Added Follow Up ?Time Frame ?Comments [facility]?1 to 2 weeks Nara Louie MD?4 to 5 weeks Post Discharge Care Diet: ??Cardiac diet ?? Activity: ??OOB as Neli With Assistance Weight Bearing as Tolerated Operative ?? Wound Care: ??- ?? Code Status: ??Full Resuscitation ?? Condition: ??Fair ?? Prognosis: ??Good ?? Discharge Prescriptions ?Written, 05/11/24 9:56:00 EDT 34??minutes spent on discharge * Evangelina Ling RN: VERIFY, PERFORM, SIGN Event Display: Case Management Discharge Plan Authored Date: [id number] Patient: TERRIE FARRELL Age: 84 years Sex: Female : 1940 Associated Diagnoses: None Author: Evangelina Ling RN Discharge Plan Case Management Discharge Plan : Case Management Discharge Plan Data 05/13/2024 15:21 EDT Discharge Level of Care at Discharge jail facility Discharge [facility] Transportation [facility]ranged [facility] [address] [place] [address] Discharge Arranged Transport Date/Time 05/13/2024 17:00 Mode of Transportation Arranged Ambulance Service Categories #1 Occupational Therapy, Physical Therapy, Prison Service Start Date and Time #1 05/13/2024 17:00 Service Comments #1 You are going to rehab today. * Meena Main RN: PERFORM Event Display: Patient Education/Instruction Authored Date: [id number] Inpatient Adult Discharge Instructions. [address] [address] Name: TERRIE FARRELL : 1940?? Visit: 05/07/2024 16:54?? Current Date: 05/13/2024 15:49 ?? Account: [id number]?? Inpatient Adult Discharge Instructions We would like to thank you for allowing us to assist you with your healthcare needs. The following includes patient education materials and information regarding your injury/illness. Our entire staffstrives to provide an excellent experience for our patients and their families. PLEASE ENSURE YOU FOLLOW-UP PER THE INSTRUCTIONS BELOW! ?? YOUR OPINION IS IMPORTANT TO US! Please complete the survey you may receive by mail or email. Your feedback will be used to make improvements to the healthcare experiences of our patients and their families. Surveys are administered by [employer]. ?? If further treatment with your primary care physician or another doctor is recommended, it is important for you to keep the appointment. Call your primary care physician or return to the Emergency Department immediately if your condition worsens, fails to improve, or new symptoms develop. If you need to find a doctor, you can call [facility] for a referral at [phone] or toll free at [phone]) or log in to [email or web address].. ?? [facility], in keeping with [facility] guidance, no longer requires face masks for staff, patientsor visitors in most situations. Similiar to time spent indoors at other locations, there is the chance that you were exposed to repiratory viruses during your time with us (such as flu or COVID-19). If you develop symptoms concerning for a viral respiratory infection, please seek testing (and treatment if indicated) from your medical provider or home test kit. ?? You can view and manage your care through the patient portal or by using a health care edison of your choosing. [employer] is a website that allows you to securely view your medical information including your hospital discharge summary, office visit summaries, medications and follow-up visits. You can also request appointments, renew medications, and request access to your medical information using a health care edison of your choosing, or just ask a question. You can enroll at [email or web address] or register during your next office visit. You have been discharged from [facility], Patient Care Unit: SW7??. If you have any questions regarding these instructions, including results of studies pending, afteryou leave, please call us and we will be happy to assist you 08/06. [facility] Your Care Team Attending Physician Amaris Lopez MD?? Consulting Providers Amaris Lopez MD?? Discharging Providers Amaris Lopez MD Reason for Your Visit pt presenting to the ED from home, was taking a walk and had a mechanical fall. on the ground for 30 minutes. 10/ pain. R knee swelling.?? Your Diagnosis Hypertension Hyperlipidemia Diabetes mellitus Tests Performed Below is a partial list of the tests performed during your hospitalization. You may have had other tests and procedures not included in this list. Please discuss all test results with your provider. Basic Metabolic Panel CBC CBC w/ Differential COVID-19 (Novel Coronavirus), Rapid PCR GLUCOSE POC HEMOGLOBIN A1C Magnesium Level Type and Screen Femur 1 View Right XR Chest 2 Views Frontal and Lat XR Femur 2 Views Right XR Hip w/Pelvis 2-3 View Right XR Tibia/Fibula 2 Views Right Add On Lab Order?? Primary Care Provider Liban RJOAS , Nara Browning? Advance Directive Health Care Proxy on File Yes - Health Care Proxy Discharge Vitals Temperature: 99 DegF Height: 142 cm Pulse Rate: 90 bpm Weight: 58 kg Respiratory Rate: 16 br/min Body Mass Index:??28.76 kg/m2??High Systolic Blood Pressure:??147 mm Hg??High Body surface area: 1.51 Diastolic Blood Pressure: 61 mm Hg ?? Oxygen Saturation: 100 % ?? Studies Pending All studies ordered during this hospital stay have been completed unless listed below. Please discuss all pending results with your provider listed above in these instructions. ?? Add On Lab Order?? What to do next Instructions From Your Doctor ?? Orders??:Cardiac diet :OOB as Neli ??With Assistance ??Weight Bearing as Tolerated ??Operative Care:- Status: ??Full Resuscitation :Fair :Good? 05/13/24 15:31:00 EDT?? Prescriptions??, ??05/13/24 15:31:00 EDT , ??05/11/24 9:56:00 EDT?? Scheduled Follow-Up Appointments Thursday 8:00 AM EST ?? Where: [facility] Radiology [facility] [address], [address] [place] [address]- Status: Pending You Need to Schedule the Following Appointments Follow Up with??[facility] When:??Within 1 to 2 weeks Where: [address] [facility] [address] [place] [address]- Business (1) Follow Up with??Nara Louie MD When:??Within 4 to 5 weeks Where: [address] [place] [address]- Business (1) Discharge Medications TERRIE FARRELL :1940 Visit Date:05/07/2024 Medications: Please continue your medications until treatment is completed or stopped by your provider. Medications not listed below should be discontinued. Discuss any questions related to medications with your provider. What How Much When Why Instructions Next Dose New Aspirin (aspirin 81 mg oral delayed release tablet) 1 tab(s) Oral Twice a day Duration: 30 Days DVT PROPHYLAXIS POST ORTHOPEDIC SURGERY ?? Tonight 05/13 at 9 PM New Oxycodone (oxyCODONE 5 mg oral tablet) 5 Milligram Oral Every 6 hours as needed for Pain , Moderate Duration: 5 Days Printed Prescription Every six hours last dose 05/13 at 4:30 PM Changed Atorvastatin (Lipitor Tablet) 20 Milligram Oral Daily at Bedtime Tonight 05/13 ay 9 PM Unchanged Durable Medical Equipment (Mastectomy Bra) See instructions History of breast cancer ?? Unchanged Durable Medical Equipment (Mastectomy Bra) See instructions History of right breast cancer. ??Lumpectomy ?? Unchanged Durable Medical Equipment (Mastectomy Bra) See instructions History of breast cancer ?? Unchanged Durable Medical Equipment (Mastectomy Bra) See instructions H/O lumpectomy right lumpectomy ?? Unchanged Durable Medical Equipment (Mastectomy Bra) See instructions Right breast cancer Asymmetry due to surgery Diagnosis: 50.911 ?? Unchanged Durable Medical Equipment (Mastectomy Prosthesis) See instructions H/O lumpectomy right lumpectomy ?? Unchanged Durable Medical Equipment (Mastectomy Prosthesis) See instructions History of breast cancer ?? Unchanged Durable Medical Equipment (Mastectomy Prosthesis) See instructions Right breast cancer Asymmetry due to surgery Diagnosis: 50.911 ?? Unchanged Durable Medical Equipment (Mastectomy Prosthesis) See instructions Filler due to asymmetry. History of right breast cancer. ??Lumpectomy ?? Unchanged Durable Medical Equipment (Mastectomy Prosthesis) See instructions History of breast cancer ?? Unchanged Durable Medical Equipment (Mastectomy Supplies) See instructions Please dispense one right breast filler, patient asymmetrical s/ p breast cancer surgery, please dispense up to 3 mastectomy bras ?? Unchanged Lisinopril (lisinopril 5 mg oral tablet) 1 tab(s) Oral Daily Tommorrow 05/14 at 9 AM Unchanged Metformin (metformin 500 mg oral tablet) 1 tab(s) Oral Twice a day Tonight 05/13 ay 9 PM Unchanged Ranitidine (ranitidine 150 mg oral capsule) 1 capsule Oral Twice a day Tonight 05/13 ay 9 PM ?? What How Much When Comments Stop Taking Simvastatin (simvastatin 40 mg oral tablet) 1 tab(s) Oral Daily at Bedtime Prescription Given During Visit Aspirin (aspirin 81 mg oral delayed release tablet) - 1 tablet = 81 mg, By Mouth, 2 times a day, # 60 tablet, 0 Refills, DVT PROPHYLAXIS POST ORTHOPEDIC SURGERY?? Oxycodone (oxyCODONE 5 mg oral tablet) - 5 mg, By Mouth, Every 6 hours, # 20 tablet, 0 Refills?? Laboratory Results Below is a partial list of the most recent Laboratory test results done prior to this discharge. You may have had other tests and procedures not included in this list. Please discuss all test resultswith your provider. Est Creatinine Clearance - 63.35 mL/min (05/10/2024) Basic Metabolic Panel (05/10/2024) ???Sodium - 134 mmol/L???Potassium - 3.9 mmol/L???Chloride - 100 mmol/L???Bicarbonate Level - 18 mmol/L???Anion Gap - 16???Glucose Level - 205 mg/dL???BUN - 9 mg/dL???Creatinine-Blood - 0.39 mg/dL???Estimated GFR Creatinine - 99 ML/MIN/1.73 M2???Calcium - 8.4 mg/dL CBC (05/09/2024) ???WBC - 6.4 k/mm3???RBC - 4.00 m/mm3???Hgb - 12.3 Gm/dL???Hct - 35.4 %???MCV - 88.5 femtoliters???MCH - 30.8 pg???MCHC - 34.7 g/dL???Platelet Count - 147 k/mm3???RDW-SD - 41.2 femtoliters???MPV - 10.3 femtoliters???Nucleated RBC (Automated) - 0.0 #/100 WBC'S???Abs. NRBC - 0.0 k/mm3 CBC w/ Differential (05/10/2024) ???WBC - 9.1 k/mm3???RBC - 3.26 m/mm3???Hgb - 10.2 Gm/dL???Hct - 29.7 %???MCV - 91.1 femtoliters???MCH - 31.3 pg???MCHC - 34.3 g/dL???Platelet Count - 152 k/mm3???RDW-SD - 42.6 femtoliters???MPV - 10.4 femtoliters???Nucleated RBC (Automated) - 0.0 #/100 WBC'S???Abs. NRBC - 0.0 k/mm3???Abs. Neut - 7.4 k/mm3???Abs. Lymph - 0.8 k/mm3???Abs. [place] - 0.8 k/mm3???Abs. Eo - 0.0 k/mm3???Abs. Baso - 0.0 k/mm3???Neut % - 81.3 %???Lymph % - 8.7 %???[place] % - 9.0 %???Eos % - 0.4 %???Baso % - 0.1 %???Imm Gran- 0.5 %???Abs. Imm Gran - 0.1 k/mm3 COVID-19 (Novel Coronavirus), Rapid PCR (05/07/2024) ???COVID-19 by RT-PCR - NEGATIVE GLUCOSE POC (05/13/2024) ???Glucose, POC - 276 mg/dL HEMOGLOBIN A1C (05/10/2024) ???Hemoglobin A1C (Monitoring) - 7.0 % Magnesium Level (05/10/2024) ???Magnesium - 1.7 mg/dL Type and Screen (05/07/2024) ???Blood Type - O Positive???Antibody Screen - Negative Allergies (NKA means No Known Allergies) NKA Problems Active Problems??(1) Malignant Neoplasm of Breast, Right breast cancer, pT1c, pN0, ER positive, diagnosed in 2001.?? Education Materials Below is the list of Educational Leaflet Providered with your Discharge Instructions. [employer] Patient Education - Leg Fracture?? Valuables and Belongings I fully understand and agree that [facility] accepts no responsibility for all my personal property including clothing, toilet articles, radios, jewelry, dentures, hearing aids, rings, money, or any other property that is in my possession or is brought to me after admission. I understand certain valuables may be placed in a hospital safe for a short period of time. I understand that the hospital is not liable for loss or damage due to accident, fire, or other natural occurrence while said property is in the safe. I accept full responsibility for any personal property that I keep with me, and will not hold the hospital responsible in case of loss or disappearance. I acknowledge that i have been encouraged to send valuables and belongings home. ?? No Valuables/Belongings: No valuables/belongings present Review of Valuable and Belonging List: With patient Possessions released to: No valuables in preop Date for Pt to Sign Valuables/Belongings: 05/09/24 07:19:00 ?? Valuables & Belongings ?? Clothes Electronic devices Jewelry Monetary Items Personal devices Miscellaneous Medications (Valuables) Valuables at Bedside ? Glasses ? Valuables Sent Home ? Valuables Sent to Security ? Other Discharge Information ? Case Management Discharge Plan?? Discharge Plan?? Discharge Agency Information?? Discharge Level of Care at Discharge: jail facility Service Start Date and Time #1: 05/13/24 17:00:00 Discharge Transportation Arranged: [facility] [address] [facility] ??[phone] Service Categories #1: Occupational Therapy, Physical Therapy, Prison Mode of Transportation Arranged: Ambulance Service Comments #1: You are going to rehab today. Discharge Arranged Transport Date/Time: 05/13/24 17:00:00 ?? Discharge [facility] ? Pulmonary Rehab Status?? Pulmonary Rehab Discharge Status?? Respiratory Rate: 16 br/min ? Common Emergency Awareness Tips IS IT A STROKE? Act FAST and Check for these signs: FACE Does the face look uneven? ARM Does one arm drift down? SPEECH Does their speech sound strange? TIME Call at any sign of stroke ?? Heart Attack Signs Chest discomfort: Most heart attacks involve discomfort in the center of the chest and lasts more than a few minutes, or goes away and comes back. It can feel like uncomfortable pressure, squeezing, fullness or pain. Discomfort in upper body: Symptoms can include pain or discomfort in one or both arms, back, neck, jaw or stomach. Shortness of breath: With or without discomfort. Other signs: Breaking out in a cold sweat, nausea, or lightheaded. Remember, MINUTES DO MATTER. If you experience any of these heart attack warning signs, call to get immediate medical attention! ?? Smoking can increase your chances of developing chronic health problems and can cause harmful effects to other family members in your house. If you smoke, you are strongly encouraged to quit. Please call [facility] [employer] [facility] at [phone] or [phone] ([phone]) or log in to [email or web address] for referrals to smoking cessation programs. ?? 546 Suicide & Crisis Lifeline is available 08/06 if you or someone you know needs to find a reason to keep living. By calling 326 you'll be connected to a skilled, trained counselor at a crisis center in your area. INPATIENT DISCHARGE INSTRUCTIONS SIGNATURE PAGE TERRIE FARRELL Location:[facility] Registration Date and Time:05/07/2024 16:54 EDT Primary Care Physician: Liban ROJAS , Nara Browning, Attending Physician: John ROJAS, Amaris, I TERRIE FARRELL, have received the above patient education materials/instructions and have verbalized understanding. If ambulance or transport services are being used I further acknowledgebeing given a choice of service. ?? If you need to contact me, please call me at this number: . Patient/Disease Case Manager Name: Patient/Disease Case Manager Signature: Relationship to Patient: Witness Name/Signature: Date: * Meena Main RN: PERFORM Event Display: Patient Education Leaflets Authored Date: [id number] Leg Fracture ?? [id number] Fractura en la pierna Usted parmar tenido andrew rotura (fractura) en la pierna. La fractura se trata con un yeso, andrew f??wei ouna bota especial. Por lo general, tarda unas 8??a 12??semanas en sanar, jo en algunos casos puede tardar m??s. Si tuvo andrew lesi??n grave, podr??a necesitar cirug??a para arreglarla. Cuidados en el hogar Siga estas recomendaciones para cuidarse en yeung casa: ??? Es posible que le den andrew f??wei, un yeso, andrew bota u otro aparato ortop??dico para evitar que se mueva la jamin de la lesi??n. A menos que leindiquen otra cosa, use muletas o un andador. No ponga peso sobre la pierna lesionada hasta que yeung proveedor de atenci??n m??dica le diga que puede hacerlo. Puede alquilar muletas y andrew andadera en muchas farmacias y tiendas de insumos quir??rgicos u ortop??dicos. ??? Mantenga la pierna elevada para reducir el dolor y la hinchaz??n. Para dormir, coloque andrew almohada debajo de la pierna afectada. Al sentarse, apoye la pierna lesionada de manera mega que quede por encima de la altura del coraz??n.Es muy importante que libby eso alessia los primeros dos d??as (48??horas). ??? Coloque andrew compresafr??a sobre la jamin lesionada. H??mattie alessia 20??minutos cada 1??o 2??horas el primer d??a para aliviar el dolor. Puede preparar andrew compresa fr??a colocando cubos de hielo en andrew bolsa de pl??stico envuelta en andrew toalla delgada. Tenga cuidado de que el yeso, la f??wei o la bota no se mojen a medida que se derrite el hielo. Puede colocar la compresa de hielo directamente sobre la f??wei o elyeso. Siga usando la compresa fr??a 3 o 4??veces al d??a en los 2??d??as siguientes. Luego, ??crys cuando lo necesite para aliviar el dolor y la hinchaz??n. ??? Mantenga la f??wei, el yeso o la botacompletamente secos en todo momento. Cuando se duche o se ba??e, proteja la f??wei, el yeso o la bota para que no se mojen. Para ello, coloque 2??capas de pl??stico, junie 2??bolsas pl??sticas y bandas el??sticas o cinta adhesiva en la parte superior. Tambi??n puede usar un protector a prueba de agua. Si la bota, la f??wei o el yeso de fibra de jesus se humedecen, puede secarlos con un secador para el brijesh en modo de aire fr??o. ??? Puede usar paracetamol o ibuprofeno para controlar el dolor, a menos que le hayan recetado otro analg??sico. Si tiene andrew enfermedad cr??sly del h??gado o de los ri??ones, consulte al proveedor de atenci??n m??dica antes de usar estos medicamentos. Tambi??n hable con el proveedor si alguna vez tuvo andrew ??lcera estomacal o andrew hemorragia gastrointestinal,o si sj anticoagulantes. ??? No ponga cremas ni objetos dentro del yeso si le pica. ?? Atenci??n de seguimiento Asista a las citas de seguimiento con el proveedor de atenci??n m??dica seg??n le hayan indicado. As?? podr?? asegurarse de que el hueso est?? recuper??ndose jb. Si le pusieron andrew f??wei, es posible que se la cambien por un yeso en la siguiente visita de control. Podr??an hacerle andrew radiograf??a. Le informar??n de los nuevos resultados que puedan afectar la atenci??n m??dica que necesita. ?? Cu??ndo buscar atenci??n m??dica Llame al proveedor de atenci??n m??dica de inmediato ante cualquiera de los siguientes signos o s??ntomas: ??? El yeso o la f??wei se agrietan ??? El yeso o la f??wei se humedecen o se ablandan ???La f??wei o el yeso de fibra de jesus permanecen h??medos por m??s de 24??horas ??? Siente mal olor que viene del yeso o el l??quido de la herida greta el yeso ??? Siente dolor debajo del yeso o la f??wei, o siente que el yeso o la f??wei le quedan m??s ajustados ??? Se le hinchan los dedos, olos siente fr??os o entumecidos, se irma azulados, o siente cosquilleo en renetta jamin ??? No puede international first officer los dedos de los pies ??? La piel alrededor del yeso o la f??wei se ve enrojecida o irritada ??? Fiebre de 100.4?F (38?C) o superior, o seg??n le indique el proveedor de atenci??n m??dica ???Escalofr??os con temblores ?? Last Reviewed Date: 2022 ?? [id number] [employer]. Todos los derechos reservados. Esta informaci??n no pretende sustituir la atenci??n m??dica profesional. S??lo yeung m??dico puede diagnosticar y tratar un problema de mahin. ?? * John ROJAS, Amaris: PERFORM, MODIFY Event Display: Discharge/Transfer Note Hospital Authored Date: [id number] Patient: ??TERRIE FARRELL ? Age:??84 Years?Sex:??Female?:??1940?? Patient Information Discharge Location: [facility] Primary Care Physician: Liban ROJAS , Nara Browning Admit Date/Time: 05/07/24 16:54 Discharge Date:??05/12/2024 15:15 Discharge Disposition Discharge Disposition: Prison Facility/Rehab Discharge Diagnosis Fracture of femoral neck, right (S72.001A) Hypertension (I10) Hyperlipidemia (E78.5) Diabetes mellitus (E11.9) Fracture of femoral neck, right (S72.001A) _ Discharge Medications Aspirin (aspirin 81 mg oral delayed release tablet)?81?Milligram?1?tablet?By Mouth?2 times a day?for 30?Days?DVT PROPHYLAXIS POST ORTHOPEDIC SURGERY Atorvastatin (Lipitor Tablet)?20?Milligram?By Mouth?Daily at bedtime Durable Medical Equipment (Mastectomy Supplies)?See Instructions?Please dispense one right breast filler, patient asymmetrical s/p breast cancer surgery, please dispense up to 3 mastectomy bras Durable Medical Equipment (Mastectomy Prosthesis)?See Instructions?History of breast cancer Durable Medical Equipment (Mastectomy Bra)?See Instructions?History of breast cancer Durable Medical Equipment (Mastectomy Prosthesis)?See Instructions?History of breast cancer Durable Medical Equipment (Mastectomy Bra)?See Instructions?History of breast cancer Durable Medical Equipment (Mastectomy Prosthesis)?See Instructions?Filler due to asymmetry. History of right breast cancer. ??Lumpectomy Durable Medical Equipment (Mastectomy Bra)?See Instructions?History of right breast cancer. ??Lumpectomy Durable Medical Equipment (Mastectomy Prosthesis)?See Instructions?Right breast cancerAsymmetry due to surgeryDiagnosis: 50.911 Durable Medical Equipment (Mastectomy Bra)?See Instructions?Right breast cancerAsymmetry due to surgeryDiagnosis: 50.911 Durable Medical Equipment (Mastectomy Bra)?See Instructions?right lumpectomy Durable Medical Equipment (Mastectomy Prosthesis)?See Instructions?right lumpectomy Lisinopril (lisinopril 5 mg oral tablet)?1?tab(s)?By Mouth?Daily Metformin (metformin 500 mg oral tablet)?1?tab(s)?By Mouth?2 times a day Oxycodone (oxyCODONE 5 mg oral tablet)?5?Milligram?By Mouth?Every 6 hours?as needed?for 5?Days?Pain , Moderate Ranitidine (ranitidine 150 mg oral capsule)?1?capsule?150?Milligram?By Mouth?2 times a day ? Medications Started Oxycodone PRN for pain control Aspirin 81mg BID for 30 days Medications Discontinued None Doses Changed None Allergies Allergies ?(Active and Proposed Allergies Only) NKA? (Severity: Unknown severity, Onset: Unknown) ? PCP Follow-Up/Heads-Up Follow up clinically post hospitalization Future Appointments Thursday 8:00 AM EST ?? 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 Hospital course complicated with post op urinary retention requiring straight cath. Encourage OOB to chair. PT/OT recommended rehab ?? Fracture of femoral neck, right (S72.001A):??Patient presented after mechanical fall and was found to??Right hip??fracture.??She is planned for??OR Tylenol for mild pain, oxycodone 2.5 mg for moderate pain and Dilaudid as needed for??severe pain.?? S/p Hemiarthroplasty Hip, Right ([id number]) on 05/09/2024. POD#2 Post op care based on orthopedic team evaluation. OOB with PT/OT; WBAT RLE Continue aquacel dressing until follow up appointment unless soiled/saturated DVT prophylaxis: to??be??discharged on asa??81mg BID from ortho standpoint Ice encouraged to thigh for pain/swelling Encourage IS/deep breathing D/C??okay from an ortho standpoint POD#2/3?? Follow up at [facility] with Dr. Dorantes in 2 weeks.?? Call [phone] for an appointment ?? Hypertension (I10):??resume lisinopril? Hyperlipidemia (E78.5):??continue home statin.? Diabetes mellitus type II(E11.9): resume??metformin? Patient seen and examined at bedside Interview conducted with the assistance??of??automotive parts interpreter. Denies any acute complaints. Post op pain adequately controlled with medications Constipation resolved Patient to go to rehab once insurance auth is obtained ? Gen: AAO*3; RS: CTA b/l; CVS: regular; Abd: Soft Non tender, non distended; Neuro AAO*3, ambulatorywith assistance ?? Measurements?? Height: 142 cm (05/12/24) Weight: 58 kg (05/09/24) Dry Weight: 58 kg (05/07/24) Body Mass Index:??28.76 kg/m2??High (05/09/24) ? Vital Signs?? Temperature: 98 DegF (05/12/24 14:38:00) Temperature Route: Oral (05/12/24 14:38:00) Pulse Rate:??95 bpm??High (05/12/24 14:38:00) Respiratory Rate: 16 br/min (05/12/24 14:38:00) Systolic Blood Pressure:??150 mm Hg??High (05/12/24 14:38:00) Diastolic Blood Pressure: 57 mm Hg (05/12/24 14:38:00) Blood pressure sites: Arm, right (05/12/24 14:38:00) Mean Arterial Pressure: 88 mm Hg (05/12/24 14:38:00) Pulse Pressure: 93 mm Hg (05/12/24 14:38:00) Oxygen Saturation: 98 % (05/12/24 14:38:00) Mode of Delivery (Oxygen): Room air (05/12/24 14:38:00) Early Warning Score: 0 (05/12/24 14:39:10) ? Surgical Procedures Hemiarthroplasty Hip 05/09/2024 08:25 Consultants Jose E ROJAS, Mekhi Castillo Follow-Up Appointments Added Follow Up ?Time Frame ?Comments [facility]?1 to 2 weeks Nara Louie MD?4 to 5 weeks Post Discharge Care Diet: ??Cardiac diet ?? Activity: ??OOB as Neli With Assistance Weight Bearing as Tolerated Operative ?? Wound Care: ??- ?? Code Status: ??Full Resuscitation ?? Condition: ??Fair ?? Prognosis: ??Good ?? Discharge Prescriptions ?Written, 05/11/24 9:56:00 EDT 34??minutes spent on discharge * John ROJAS, Aseesh: PERFORM Event Display: Discharge/Transfer Note Hospital Authored Date: Patient is medically stable for transfer to rehab. Await insurance authorization. Please consider this as the progress note for DOS 05/12/2024 * John ROJAS, Aseesh: PERFORM, SIGN, VERIFY Event Display: Patient Education Handout Authored Date: [id number] Patient Care team information Care Team Personnel Name: Liban ROJAS , Nara Browning Position: Reference Physician Member Role: PCP Address: Address: [address] [place] [address]- Name: Lissett Tsai RN Position: [facility] RN Member Role: Primary Care Nurse Name: Ling Soares RN Position: S RN Member Role: Primary Care Nurse Name: Nkechi Graves RN Position: [facility] RN Member Role: Primary Care Nurse Name: Tri Hernandez RN Position: [facility] RN Member Role: Primary Care Nurse Name: Anna Marie Fung RN Position: [facility] RN Member Role: Primary Care Nurse Name: Alaina Lozada RN Position: S RN Member Role: Primary Care Nurse Name: Lewis Pierre Position: S Outreach Member Role: Lifetime Consulting Physician Name: Pratima Johnson RN Position: [facility] RN Member Role: Primary Care Nurse Care Team Related Persons Name: TERRIE REBOLLAR Address: home [address] [address] Name: JORGE LUIS RASHEED Address: home [address]
--- OUTSIDE RECORDS SUMMARY | 2024-08-26 13:00 | XMS_ITS ---
Author Organization [facility] Address [address] [facility] [place] [address] Care Team Providers Care Farm Worker Name Role Phone Liban ROJAS, Nara Londono Primary Care Provider Un available James Zuniga Unavailable [phone] Encounters Encounter [facility] Date [facility] [address] [facility] James Zuniga PLAN OF TREATMENT Next Appt Details Provider Name:James Zuniga , 10/24/2024 02:00:00 PM, [address] [place] [address], [place], [address],
--- OUTSIDE RECORDS SUMMARY | 2024-08-26 13:00 | XMS_ITS | Continuity of Care Document ---
Author Organization [facility] Address [address] [place] [address]- Care Team Providers Care Gauger Delivery Name Role Phone Keri Greenberg MD Primary Care Physician Encounter [facility] Date(s): 06/09/24 - 07/15/24 Wound Care [address] [place] [address]- Attending Physician: Dariel Benavidez MD Admitting Physician: Dariel Benavidez MD Referring Physician: Keri Greenberg MD Medications Basaglar KwikPen 100 units/mL subcutaneous solution = 70 units, Subcutaneous Infusion, Daily, # 30 mL, 3 Refills, Maintenance, 09/09/18 8:41:35 EDT Start Date: 09/09/18 Stop Date: 01/07/19 Status: Ordered Levemir FlexTouch 100 units/mL subcutaneous solution = 35 units, Subcutaneous Infusion, 2 times a day, # 30 mL, 6 Refills, Maintenance, 09/23/18 8:39:02EST Start Date: 09/23/18 Stop Date: 04/21/19 Status: Ordered Tresiba FlexTouch 100 units/mL subcutaneous solution = 70 units, Subcutaneous Infusion, Daily, 70 unidades por la tarde. E11.65, # 30 mL, 5 Refills, Maintenance, 09/08/18 9:33:15 EDT Start Date: 09/08/18 Status: Ordered Patient Care team information Care Team Personnel Name: Keri Greenberg MD Position: S Outreach Member Role: PCP Address: Address: [address] [place] [id number]- Care Team Related Persons Name: JEFFRY YU Address: home [address] [place] [address]
--- OUTSIDE RECORDS SUMMARY | 2024-08-26 13:00 | XMS_ITS ---
Author Organization [facility] Address [address] [facility] [place] [address] Care Team Providers Care Tube Cleaning Operator Name Role Phone Liban ROJAS, Nara Londono Primary Care Provider Un available James Zuniga Unavailable [phone] REASON FOR VISIT cx appt 06/06/24 Encounters Encounter Location Date Provider Diagnosis [facility] [address] [place] [address] 06/01/2024 James Zuniga PLAN OF TREATMENT Next Appt Details Provider Name:James Zuniga , 10/24/2024 02:00:00 PM, [address] [facility], [address], [place], [address],
--- OUTSIDE RECORDS SUMMARY | 2024-08-26 13:00 | XMS_ITS | Continuity of Care Document ---
Author Organization [facility] Address [address] [place] [address]- Care Team Providers Care Admissions Gate Attendant Name Role Phone Keri Greenberg MD Primary Care Physician [phone] Encounter [facility] Date(s): 06/15/24 - 07/15/24 Wound Care [address] [place] [address]- Attending Physician: Brent Hurd Admitting Physician: AdmBrent darby Referring Physician: AdmtrBrent Medications Basaglar KwikPen 100 units/mL subcutaneous solution [...] S Outreach Member Role: PCP Address: Address: [address] [place] [address]- Care Team Related Persons Name: JEFFRY YU Address: home [address] [place] [address]
[2024-08-26 14:14] VITALS: BP 110/58; PULSE 89; O2SAT 96; BMI 38.1
--- NOTE | 2024-08-26 14:14 | AM.OFFWIN_ITS ---
Intake Vital Signs 08/26/24 14:14 Height 4 ft 8 in Weight 170 lb BMI 38.1 BP 110/58 L Blood Pressure Location Rt brachial Position Sitting Pulse 89 Pulse Source Pulse Oximeter Pulse Oximetry (%) 96 Oxygen Delivery Method Room Air Intake Visit Reasons: EP-rt knee pain, swollen & warm knee feeling Intake Note: Patient here for right knee pain, it gets swollen,hot and red since being back from rehab in May. Patient Tobacco Use Status: Never used Tobacco Allergies No Known Allergies Allergy (Verified 08/26/24 14:16) Do you need a note to return to daycare/school/sports/work: No HPI HPI Comments History of Present Illness Details This is an 84-year-old female who presented to the walk-in clinic with her daughter complaining of right knee pain/swelling. Patient's daughter states this has been intermittent over the past several months being discharged from a short-term rehab in May 2024. Patient underwent right hip surgery prior to short-term rehab stay. There has been no new trauma or injury to the right knee. She occasionally has swelling of the right knee and she occasionally has swelling of the right ankle. Patient's daughter states that the right knee was significantly swollen, erythematous, and painful several days ago; however, the erythema has resolved but the knee is still painful and swollen. Patient denies any chest pain or shortness of breath. [facility] Medical History (Updated 08/14/24 @ 18:47 by Nara Louie MD) History of femur fracture History of adenomatous polyp of colon History of fracture of right hip Gait instability History of recent fall Right anterior knee pain Urinary incontinence Mild cognitive impairment Tubular adenoma of colon Breast cancer, right Hearing loss Osteoporosis Osteoarthritis GERD (gastroesophageal reflux disease) Dyslipidemia Essential hypertension Type 2 diabetes mellitus with microalbuminuria, without long-term current use of insulin Type 2 diabetes mellitus with hyperglycemia, without long-term current use of insulin Type 2 diabetes mellitus with mild nonproliferative diabetic retinopathy without macular edema Surgical History Hx of mastectomy Family History Father Colon cancer Mother Essential hypertension Sister Pancreatic cancer Son Mental health disorder Substance use disorder Social History Housing: Apartment Alcohol intake: never Patient Tobacco Use Status: Never used Tobacco e-Cigarette/Vaping Use: Never Used service: No Current occupational status: retired Cognitive needs: No Hearing needs: No Vision needs: Yes Review of Systems Const All systems reviewed & are unremarkable except as noted in HPI and below Reports no additional complaints Eyes Reports no additional complaints ENT Reports no additional complaints Card Reports no additional complaints Resp Reports no additional complaints GI Reports no additional complaints Reports no additional complaints Musc Reports no additional complaints Skin/Breast Reports system reviewed and no additional complaints, except as documented Neuro Reports no additional complaints Psych Reports no additional complaints Endo Reports no additional complaints Rashawn/Lymph Reports no additional complaints Aller/Immun Reports no additional complaints Physical Exam Vital Signs: Last Vital Signs Pulse 89 08/26/24 14:14 BP 110/58 L 08/26/24 14:14 Pulse Ox 96 08/26/24 14:14 Oxygen Delivery Method Room Air 08/26/24 14:14 BMI result Body Mass Index 38.1 Const Other: Vital signs reviewed. Constitutional: Non-toxic appearing. No acute distress. Well-developed and well-nourished. HEENT: Normocephalic and atraumatic. Skin: Warm and dry. No rashes or lesions noted. Neck: Full and painless range of motion. No cervical lymphadenopathy. Cardio: Regular rate. No lower extremity edema. Pulmonary: No respiratory distress. No accessory muscle usage. Musculoskeletal: There is mild swelling of the right knee with diffuse tenderness to palpation of the right knee. She has full range of motion of the right knee. There is no calf swelling or edema or tenderness to palpation. Neuro: Alert and oriented x4. Cranial nerves 2-12 grossly intact. No focal deficits appreciated. Psych: Normal mood and affect. Assessment & Plan Assessment & Plan (1) Pain and swelling of right knee: Code(s): M25.561 - Pain in right knee; M25.461 - Effusion, right knee Plan: This is an 84-year-old female who presented to the walk-in clinic complaining of intermittent pain/swelling of the right knee since May of 2024 following right hip surgery. On physical examination, there is mild swelling of the right knee with diffuse tenderness to palpation. An x-ray of the right knee was obtained, which showed chronic age-related changes without acute fracture or dislocation. An ultrasound venous duplex of the right lower extremity was obtained given her symptoms started after orthopedic surgery to rule out DVT. Recommended rest/activity modification, ice to the area, elevation of the extremity, and continue with acetaminophen/naproxen for pain management as long as patient has no medical contraindications. Patient and her daughter were advised to follow- up here if she were to develop persistent or worsening symptoms. Patient verbalized understanding and is agreeable with the plan. Orders: Orders US venous duplex LE RT Today M25.461 - Effusion, right knee, M25.561 - Pain in right knee Medications: New naproxen 500 mg PO BID PRN 20 tabs 0RF pain Coding Level of Care Code Est Pt Level 3 (02647) Diagnoses Pain and swelling of right knee M25.561; M25.461
== END ==
PROVIDERS: PCP Internal Medicine; Visit Provider Physician Assistant Medical
DX: M25.561 Pain in right knee (principal); M25.461 Effusion, right knee

== ENCOUNTER → 2024-08-26 12:58 | Outpatient (BNVA) | payer OTHER, SELFPAY | PROVIDERS: PCP Internal Medicine; Visit Provider Physician Assistant Medical | DX: M25.561 Pain in right knee (principal); M25.461 Effusion, right knee | CPT/HCPCS: 99212 ==

== ENCOUNTER 2024-08-26 14:32 | Outpatient (REF) | payer OTHER, SELFPAY ==
--- NOTE | ~2024-08-26 | XR_ITS ---
EXAMINATION: XR KNEE, RIGHT CLINICAL INFORMATION: Pain and right knee. COMPARISON: Right knee films dated 03/17/2024. TECHNIQUE: Four views of the right knee. FINDINGS: Diffuse osteopenia. No acute fracture or dislocation. No significant knee joint effusion. There is moderate tricompartmental joint space narrowing seen. Prominent chondrocalcinosis in the medial and lateral femoral compartments and in the posterior soft tissues of the knee noted. Similar findings were noted previously. XR/XR knee RT 4V IMPRESSION: 1. Diffuse osteopenia. No acute fracture or dislocation. 2. Moderate tricompartmental degenerative changes in the knee with associated chondrocalcinosis. 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 Electronically signed by: Lakesha Barnhart MD 08/26/2024 05:24 PM EDT
--- NOTE | ~2024-08-26 | US_ITS ---
EXAMINATION: US TRIPLEX LOWER EXTREMITY, RIGHT CLINICAL INFORMATION: Pain in the right knee COMPARISON: None available. TECHNIQUE: Color-flow triplex imaging with spectral analysis and compression Doppler were performed on the right lower extremity. FINDINGS: Respiratory variation, normal compression and augmented flow are noted throughout the right lower extremity. The visualized common femoral vein, superficial femoral vein, profunda femoral vein, popliteal vein and midcalf peroneal and posterior tibial venous segments show no evidence of deep venous thrombosis. There is a 3.3 x 0.7 x 2.6 cm. US/US venous duplex LE RT IMPRESSION: No evidence of deep venous thrombosis involving the right lower extremity. Electronically signed by: Katie Thomas MD 08/26/2024 04:24 PM EDT
== END 2024-08-26 14:33 | disposition home or self-care (01) ==
LOC: HO.HMGCX 14:32
PROVIDERS: PCP Internal Medicine; Visit Provider Physician Assistant Medical
DX: M25.561 Pain in right knee (principal); M25.461 Effusion, right knee
CPT/HCPCS: 73564; 93971

== ENCOUNTER 2024-08-30 14:53 | Outpatient (AMB) | payer OTHER, SELFPAY ==
--- NOTE | 2024-08-30 14:58 | MHC.OFFVIS ---
Vital Signs 08/30/24 14:59 Height 4 ft 8 in Weight 121 lb 7.595 oz BMI 27.2 BP 114/60 Blood Pressure Location Lt brachial Position Sitting Pulse 80 Pulse Source Pulse Oximeter Intake Visit Reasons: Age-related osteoporosis-conf Intake Note: Patient present today for age-related osteoporosis follow up visit. Fly Finisher Required: Yes Fly Finisher Language: Business Technology Teacher Services: Fly Finisher Offered & Declined Accompanied by: Daughter Allergies No Known Allergies Allergy (Verified 08/30/24 15:03) Medication List - Last Reconciled 08/30/24 by Devon Baltazar MD alendronate 70 mg PO QWEEK 3 months aspirin (Adult Aspirin Regimen) 81 mg PO DAILY atorvastatin 20 mg PO DAILY [baby wipes As directed] [basket for a walker As directed] blood sugar diagnostic As directed blood sugar diagnostic (FreeStyle Lite Strips) check fasting blood sugar 2 times a day; blood-glucose meter (FreeStyle [place] Lite kit) As directed diaper,brief,adult,disposable Use as directed twice a day p.r.n. ibuprofen 400 mg PO Q12H PRN lancets check fasting blood sugar twice a day ac lisinopril 5 mg PO DAILY [Long shoe horn As directed] [Medium size Poise Pads Use twice a day ] metformin 1,000 mg PO BIDWMEAL 3 months naproxen 500 mg PO BID PRN omega-3 acid ethyl esters 2 caps PO DAILY propylene glycol-glycerin 1-0.3 % 1 drp ophthalmic (eye) QID PRN [rollator walker As directed] [Soft loofah sponge with long handle As directed] [walker with seat As directed] HPI Comments Details: 84 YO Female is seen in consultation at the request of PCP for Osteoporosis. First diagnosed in last yr . Received treatment in the past with alendronate , from 6 mos to present . Tolerated treatment well without complication. history of pathologic fracture of hip right in 04/2024 Had a fall outside or [facility]. Has few servings of dietary calcium per day in the form of milk, salmon and ice cream . Takes Calcium supplement ? mg daily in divided doses. Takes ? IU of Vitamin D daily. Denies ever using PPI, anticoagulant, antiepileptic or glucocorticoid medication. 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 UTD on dental cleanings and sees dentist every 6 months. No planned upcoming dental work or extractions. DXA dated 01/29/24: T-score in the lumbar spine-3.7 Labs: [facility] Medical History (Updated 08/14/24 @ 18:47 by Nara Louie MD) History of femur fracture History of adenomatous polyp of colon History of fracture of right hip Gait instability History of recent fall Right anterior knee pain Urinary incontinence Mild cognitive impairment Tubular adenoma of colon Breast cancer, right Hearing loss Osteoporosis Osteoarthritis GERD (gastroesophageal reflux disease) Dyslipidemia Essential hypertension Type 2 diabetes mellitus with microalbuminuria, without long-term current use of insulin Type 2 diabetes mellitus with hyperglycemia, without long-term current use of insulin Type 2 diabetes mellitus with mild nonproliferative diabetic retinopathy without macular edema Surgical History Hx of mastectomy Family History Father Colon cancer Mother Essential hypertension Sister Pancreatic cancer Son Mental health disorder Substance use disorder Social History Housing: Apartment Alcohol intake: never Patient Tobacco Use Status: Never used Tobacco e-Cigarette/Vaping Use: Never Used service: No Current occupational status: retired Cognitive needs: No Hearing needs: No Vision needs: Yes Physical Exam Vital Signs: Last Vital Signs Pulse 80 08/30/24 14:59 BP 114/60 08/30/24 14:59 BMI result Body Mass Index 27.2 There are no Cushingoid features. Absence of blue sclera. Absence of kyphosis. Thyroid gland is of nl size and weighs 15 gms. There are no thyroid nodules palpated. Lungs CTA. Heart S1 S2 Reg R/R Abdominal exam benign. Muscle strength 5/5 . Examination of spine reveals absence of tenderness on palpation Assessment & Plan Assessment & Plan (1) Osteoporosis: Code(s): M81.0 - Age-related osteoporosis without current pathological fracture Category: Medical Qualifiers: Osteoporosis type: age-related Presence of current pathological fracture: without current pathological fracture Qualified Code(s): M81.0 - Age-related osteoporosis without current pathological fracture Plan: This 84-year-old female with a history of severe osteoporosis and previous femur fracture. Rule out secondary causes. Plan is to check a phosphorus, TSH, free T4, 24 hour urine for calcium and creatinine, SPEP, urine immunofixation. Was ensure 1200 mg of calcium and current vitamin-D intake. Assuming secondary workup is negative would strongly consider use of a anabolic agent like Evenity, in that patient is a very high risk for a subsequent fracture considering previous fracture and very low bone density. Patient is not a candidate for Tymlos or Forteo considering history of radiation in the past. Hold alendronate for now Orders: Orders Phosphorus Today M81.0 - Age-related osteoporosis without current pathological fracture Free T4 (Free Thyroxine) Today M81.0 - Age-related osteoporosis without current pathological fracture Thyroid Stimulating Hormone Today M81.0 - Age-related osteoporosis without current pathological fracture Calcium, 24 Hr Ur Today M81.0 - Age-related osteoporosis without current pathological fracture Creatinine, 24 Hr Group Today M81.0 - Age-related osteoporosis without current pathological fracture Protein Electrophoresis, Serum Today M81.0 - Age-related osteoporosis without current pathological fracture Immunofixation, Random Urine Today M81.0 - Age-related osteoporosis without current pathological fracture Medications: Discontinued alendronate Discontinued Reason: Doctor's Order 70 mg PO QWEEK 3 months 13 tabs 3RF M81.0 - Age-related osteoporosis without current pathological fracture Coding Level of Care Code New Pt Level 4 (69766) Diagnoses Age-related osteoporosis without current pathological fracture M81.0 Osteoporosis type: age-related Presence of current pathological fracture: without current pathological fracture
[2024-08-30 14:59] VITALS: BP 114/60; PULSE 80; BMI 27.2
== END 2024-08-30 15:35 | disposition home or self-care (01) ==
PROVIDERS: PCP Internal Medicine; Visit Provider Internal Medicine Endocrinology, Diabetes & Metabolism
DX: M81.0 Age-related osteoporosis without current pathological fracture (principal)
CPT/HCPCS: 99204

== ENCOUNTER → 2024-08-30 14:53 | Outpatient (BNVA) | payer OTHER, SELFPAY | LOC: CF 16:22 | PROVIDERS: PCP Internal Medicine; Visit Provider Internal Medicine Endocrinology, Diabetes & Metabolism | DX: M81.0 Age-related osteoporosis without current pathological fracture (principal) | CPT/HCPCS: 99202 ==

== ENCOUNTER 2024-09-01 14:11 | Outpatient (REF) | payer OTHER, SELFPAY ==
[2024-09-01 15:36] LABS: Creatinine, mg/dL 22.36
[2024-09-01 15:39] LABS: Phosphorus 3.1 mg/dL (2.7-4.5)
[2024-09-01 15:47] LABS: Free T4 (Free Thyroxine) 1.07 ng/dL (0.71-1.85); Thyroid Stimulating Hormone 1.27 uIU/mL (0.32-4.0)
[2024-09-01 16:54] LABS: Creatinine, 24Hr Urine 0.2 G/Day (1.0-2.0); Total Volume 24 Hour Urine 1100 mL
[2024-09-02 18:18] LABS: Calcium, 24 Hr Urine 190 mg/24 h; Calcium/Creatinine Ratio 721 mg/g creat (30-275); Creatinine 24Hr Urine 0.26 g/24 h (0.50-2.15)
[2024-09-05 22:12] LABS: Prot Elec - Albumin 3.8 g/dL (3.8-4.8); Prot Elec - Alpha1 0.3 g/dL (0.2-0.3); Prot Elec - Alpha2 0.6 g/dL (0.5-0.9); Prot Elec - Beta 1 0.4 g/dL (0.4-0.6); Prot Elec - Beta 2 0.4 g/dL (0.2-0.5); Prot Elec - Gamma 0.9 g/dL (0.8-1.7); Prot Elec - Total Protein 6.3 g/dL (6.1-8.1)
== END 2024-09-01 14:12 | disposition home or self-care (01) ==
LOC: HO.LAB 14:11
PROVIDERS: PCP Internal Medicine; Visit Provider Internal Medicine Endocrinology, Diabetes & Metabolism
DX: M81.0 Age-related osteoporosis without current pathological fracture (principal)
CPT/HCPCS: 82340; 82570; 84100; 84165; 84439; 84443; 86335

== ENCOUNTER 2024-11-04 13:53 | Outpatient (AMB) | payer OTHER, SELFPAY ==
--- NOTE | 2024-11-04 14:08 | MHC.OFFWIV ---
Intake Vital Signs 11/04/24 14:11 Height 4 ft 8 in Weight 123 lb BMI 27.6 BP 122/70 Blood Pressure Location Lt brachial Position Sitting Pulse 95 Pulse Source Pulse Oximeter Temp 98.1 F Temp Source Oral Pulse Oximetry (%) 96 Oxygen Delivery Method Room Air Intake Visit Reasons: EP dry cough & pain on RT side of hip Intake Note: Patient here for cough that started Thursday Patient Tobacco Use Status: Never used Tobacco Allergies No Known Allergies Allergy (Verified 11/04/24 14:12) Do you need a note to return to daycare/school/sports/work: No HPI HPI Comments History of Present Illness Details Daughter brought her in for cough Daughter said cough x 3 days with associated R hip ache (hx of hop replacement in April) No medicine for symptoms Cough produces no phlegm No fever or chills + congestion No ST or ear pain She denies SOB now; sometimes with movement She said body aches are only located in R hip Pain occurs mostly at night and during day No recent falls No numbness, tingling or weakness in legs No urine or bowel complaints or dysuria. Intermittent pain in R hip that she said can be an 06/25 [facility] Medical History (Updated 11/04/24 @ 14:33 by Yana Nunn PA-C) History of femur fracture History of adenomatous polyp of colon History of fracture of right hip Gait instability History of recent fall Right anterior knee pain Urinary incontinence Mild cognitive impairment Tubular adenoma of colon Breast cancer, right Hearing loss Osteoporosis Osteoarthritis GERD (gastroesophageal reflux disease) Dyslipidemia Essential hypertension Type 2 diabetes mellitus with microalbuminuria, without long-term current use of insulin Type 2 diabetes mellitus with hyperglycemia, without long-term current use of insulin Type 2 diabetes mellitus with mild nonproliferative diabetic retinopathy without macular edema Surgical History (Updated 08/30/24 @ 15:04 by JAMI Monsivais) History of left hip replacement Hx of mastectomy Family History Father Colon cancer Mother Essential hypertension Sister Pancreatic cancer Son Mental health disorder Substance use disorder Social History Housing: Apartment Alcohol intake: never Patient Tobacco Use Status: Never used Tobacco e-Cigarette/Vaping Use: Never Used service: No Current occupational status: retired Cognitive needs: No Hearing needs: No Vision needs: Yes Review of Systems Const Denies chills, Denies fever(s) and Denies frequent falls Eyes Denies change in vision ENT Denies otalgia, Reports nasal discharge and Denies sore throat Card Denies chest pain Resp Reports cough, Denies hemoptysis, Denies excessive phlegm production and Denies pain with cough GI Denies abdominal pain Denies dysuria Musc Denies back pain, Reports arthralgias (R hip pain), Denies numbness and Denies tingling Skin/Breast Denies rash Neuro Denies frequent falls, Denies numbness and Denies tingling Physical Exam Vital Signs: Last Vital Signs Temp 98.1 F 11/04/24 14:11 Pulse 95 11/04/24 14:11 BP 122/70 11/04/24 14:11 Pulse Ox 96 11/04/24 14:11 Oxygen Delivery Method Room Air 11/04/24 14:11 BMI result Body Mass Index 27.6 General: Non-toxic, NAD. Speaking full sentences. Skin: Warm dry throughout. No rashes or skin discoloration to posterior back HENT: Airway patent. Uvula midline. No pharyngeal erythema or edema. No HUMAN RESOURCES RECEPTIONIST. Bilateral canals clear. TM non-erythematous, non-bulging. No TM perforation or hemotympanum noted. Respiratory: CTA bilaterally. No wheezes, rales or rhonchi Cardiac: RRR. No murmur MSK: Minimal midline lumbar spinal tenderness. + ttp R lumbar paravertebral muscles and lateral hip. Gait stable. Neurology: Alert. No aphasia or facial droop. Psych: Good mood and affect Assessment & Plan Assessment & Plan (1) Cough: Code(s): R05 - Cough Qualifiers: Cough type: acute Qualified Code(s): R05.1 - Acute cough Plan: Lungs CTA COVID/RSV and flu swab obtained Symptoms consistent with URI Discussed tessalon for cough and symptomatic management at home If worse like SOB CP etc go to ER Daughter and pt expressed understanding (2) Hip pain: Code(s): M25.559 - Pain in unspecified hip Qualifiers: Laterality: right Qualified Code(s): M25.551 - Pain in right hip Plan: Although pt denies hx of falls; will order xray of R hip due to replacement within 6 months Xray hip: I viewed no acute abnormality. + osteoarthritis but hardware seemed in proper placement Will f/U with PCP and trial Tylenol Any worse, go to ED Orders: Orders XR hip RT min 2V Today M25.551 - Pain in right hip SARS-CoV2/FLU/RSV Today R05 - Cough Medications: New acetaminophen (Tylenol Extra Strength) 500 mg PO Q6H PRN 14 tabs 0RF fever benzonatate 100 mg PO BID PRN 14 caps 0RF cough Coding Level of Care Code Est Pt Level 3 (34237) Diagnoses Acute cough R05.1 Cough type: acute Pain of right hip M25.551 Laterality: right
[2024-11-04 14:11] VITALS: BP 122/70; PULSE 95; TEMP 36.7; O2SAT 96; BMI 27.6
== END 2024-11-04 15:36 | disposition home or self-care (01) ==
PROVIDERS: PCP Internal Medicine; Visit Provider Physician Assistant
DX: R05.1 Acute cough (principal); M25.551 Pain in right hip

== ENCOUNTER 2024-11-04 13:53 | Outpatient (REF) | payer OTHER, SELFPAY ==
--- NOTE | ~2024-11-04 | XR_ITS ---
EXAMINATION: XR HIP, RIGHT CLINICAL INFORMATION: M25.551 - Pain in right hip COMPARISON: None available. TECHNIQUE: Two views of the right hip. FINDINGS: Prosthetic components of the right total hip arthroplasty are appropriately aligned without periprosthetic fracture or abnormal lucency. No component migration. Heterotopic ossification is seen adjacent to the greater trochanter. Soft tissues are normal. XR/XR hip RT min 2V IMPRESSION: Appropriate alignment of the total hip arthroplasty without evidence of complications. Electronically signed by: Luke Contreras MD 11/06/2024 11:02 AM CHELSEY EMMANUEL
[2024-11-04 17:53] LABS: Influenza A PCR NEGATIVE (Negative); Influenza B PCR NEGATIVE (Negative); Resp Syncy Virus RNA Qual PCR NEGATIVE (Negative); SARS COV2 PCR INHOUSE NEGATIVE (Negative)
== END 2024-11-04 13:54 | disposition home or self-care (01) ==
LOC: HO.HMGCX 13:53
PROVIDERS: PCP Internal Medicine; Visit Provider Physician Assistant
DX: M25.551 Pain in right hip (principal); R05.1 Acute cough
CPT/HCPCS: 0241U; 73502; 99212

== ENCOUNTER 2024-12-01 15:04 | Outpatient (AMB) | payer OTHER, SELFPAY ==
--- NOTE | 2024-12-01 15:15 | A.OFFVIS_ITS ---
Vital Signs 12/01/24 15:18 Height 4 ft 10.5 in Weight 122 lb 12.76 oz BMI 25.2 BP 130/58 L Blood Pressure Location Rt brachial Position Sitting Pulse 83 Pulse Source Pulse Oximeter Intake Visit Reasons: Age-related osteoporosis Intake Note: Patient present today for age-related osteoporosis follow up visit. Kettle Skimmer Required: Yes Kettle Skimmer Language: Supply Chain Project Manager Services: Kettle Skimmer Present Kettle Skimmer Name: Chon Information Interpreted: non-clinical & clinical Accompanied by: Daughter Allergies No Known Allergies Allergy (Verified 12/01/24 15:19) HPI Comments Details: 84 YO Female is seen in consultation at the request of PCP for Osteoporosis. First diagnosed in last yr . Received treatment in the past with alendronate , from 6 mos to present . Tolerated treatment well without complication. history of pathologic fracture of hip right in 04/2024 Had a fall outside or [facility]. Has few servings of dietary calcium per day in the form of milk, salmon and ice cream . Takes Calcium supplement ? mg daily in divided doses. Takes ? IU of Vitamin D daily. Denies ever using PPI, anticoagulant, antiepileptic or glucocorticoid medication. 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 UTD on dental cleanings and sees dentist every 6 months. No planned upcoming dental work or extractions. DXA dated 01/29/24: T-score in the lumbar spine-3.7 Labs: Secondary workup negative [facility] Medical History (Updated 11/04/24 @ 14:33 by Yana Nunn PA-C) History of femur fracture History of adenomatous polyp of colon History of fracture of right hip Gait instability History of recent fall Right anterior knee pain Urinary incontinence Mild cognitive impairment Tubular adenoma of colon Breast cancer, right Hearing loss Osteoporosis Osteoarthritis GERD (gastroesophageal reflux disease) Dyslipidemia Essential hypertension Type 2 diabetes mellitus with microalbuminuria, without long-term current use of insulin Type 2 diabetes mellitus with hyperglycemia, without long-term current use of insulin Type 2 diabetes mellitus with mild nonproliferative diabetic retinopathy without macular edema Surgical History (Updated 08/30/24 @ 15:04 by JAMI Monsivais) History of left hip replacement Hx of mastectomy Family History Father Colon cancer Mother Essential hypertension Sister Pancreatic cancer Son Mental health disorder Substance use disorder Social History Housing: Apartment Alcohol intake: never Patient Tobacco Use Status: Never used Tobacco e-Cigarette/Vaping Use: Never Used service: No Current occupational status: retired Cognitive needs: No Hearing needs: No Vision needs: Yes Assessment & Plan Assessment & Plan (1) Osteoporosis: Code(s): M81.0 - Age-related osteoporosis without current pathological fracture Category: Medical Qualifiers: Osteoporosis type: age-related Presence of current pathological fracture: without current pathological fracture Qualified Code(s): M81.0 - Age- related osteoporosis without current pathological fracture Plan: This 84-year-old female with a history of severe osteoporosis and previous femur fracture. Secondary workup negative heck a phosphorus, TSH, free T4, 24 hour urine for calcium and creatinine, SPEP, urine immunofixation. Was ensure 1200 mg of calcium and current vitamin-D intake. Assuming secondary workup is negative would strongly consider use of a anabolic agent like Evenity, in that patient is a very high risk for a subsequent fracture considering previous fracture and very low bone density. Patient is not a candidate for Tymlos or Forteo considering history of radiation in the past. Medications: New romosozumab-aqqg (Evenity) inject in office 210 mg (2.34 mL) subcut .qmonthly 2.34 mL 11RF Coding Level of Care Code Est Pt Level 3 (12120) Diagnoses Age-related osteoporosis without current pathological fracture M81.0 Osteoporosis type: age-related Presence of current pathological fracture: without current pathological fracture
[2024-12-01 15:18] VITALS: BP 130/58; PULSE 83; BMI 25.2
== END 2024-12-01 15:38 | disposition home or self-care (01) ==
PROVIDERS: PCP Internal Medicine; Visit Provider Internal Medicine Endocrinology, Diabetes & Metabolism
DX: M81.0 Age-related osteoporosis without current pathological fracture (principal)
CPT/HCPCS: 99213

== ENCOUNTER → 2024-12-01 15:04 | Outpatient (BNVA) | payer OTHER, SELFPAY | PROVIDERS: PCP Internal Medicine; Visit Provider Internal Medicine Endocrinology, Diabetes & Metabolism | DX: M81.0 Age-related osteoporosis without current pathological fracture (principal) | CPT/HCPCS: 99212 ==

== ENCOUNTER 2024-12-13 13:38 | Outpatient (AMB) | payer OTHER, SELFPAY ==
--- OUTSIDE RECORDS SUMMARY | 2024-12-13 14:38 | XMS_ITS ---
Author Organization [facility] Address [address] [place] [address] Care Team Providers Care Power Plant Supervisor Name Role Phone Liban ROJAS, Nara Londono Primary Care Provider Un available James Zuniga Unavailable [phone] REASON FOR VISIT At Risk Footcare, Painful Nail(s) aggrevated by shoes and causing difficulty standing/walking., ToeIrritation, Ingrown Nail Medications Medication SIG (Take, Route, Frequency, Duration) Notes Start Date End Date Status Ammonium Lactate 12 % 1 application to affected area Externally to feet Twice a day for 30 days Not-Taking [place] 3 1000 MG 1 capsule Orally Onc e a day Not-Taking ibuprofen Active Metformin & Diet Manage Prod 1000MG Active Ranitidine & Diet Manage Prod Active Extra Depth Orthopedic Shoes (1 Pair) with Customized Heat Molded Multidensity Innersoles (3 Pair) as directed Dx: NIDDM (E11.9), Hammertoe Foot Deformity (M20.41,M20.42), Preulcerative Skin Lesion(s) (L85.1) Active Lisinopril 5 MG 1 tablet Orally Once a day Active Aspirin 81 MG 1 tablet Orally Once a day Active Atorvastatin Calcium 20 MG 1 tablet Orally Once a day Active Social History Tobacco Use: Social History Observation Description Date Details (start date - stop date) Never Smoker NA - NA Tobacco Use/Smoking Question Answer Notes Are you a: nonsmoker Additional Findings: Tobacco Non-User Aggressive non-smoker Tobacco use other than smoking: Question Answer Notes Are you an other tobacco user? No Vital Signs Height 5 ft 2 in in 07/27/2024 Weight 124 lbs 07/27/2024 BMI 22.68 kg/m2 07/27/2024 Procedures Procedure Date Ordered Date Performed Result Body Sit e 08219-SXQSEYW NAIL, 6 OR MORE 07/27/2024 N/A 79136-Zlygrcoi Plate 07/27/2024 N/A 46580-UJMS SKIN LESIONS, 2 TO 4 07/27/2024 N/A Encounters Encounter Location Date Provider Diagnosis [facility] [place] [address] [address] 07/27/2024 James Zuniga Pain in right toe(s) M79.674 ; Tinea unguium B35.1 ; Pain in left toe(s) M79.675 ; Type 2 diabetes mellitus without complication E11.9 ; Other hammer toe(s) (acquired), left foot M20.42 ; Other hammer toe(s) (acquired), right foot M20.41 and Ingrown nail L60.0 Assessments Encounter Date Diagnosis (ICD Code) Assessment Notes Treatment Notes Treatment Clinical Notes Section Notes 07/27/2024 Pain in right toe(s) (ICD-10 - M79.674) 07/27/2024 Tinea unguium (ICD-10 - B35.1) 07/27/2024 Pain in left toe(s) (ICD-10 - M79.675) 07/27/2024 Type 2 diabetes mellitus without complication (ICD-10 - E11.9) 07/27/2024 Other hammer toe(s) (acquired), left foot (ICD-10 - M20.42) 07/27/2024 Other hammer toe(s) (acquired), right foot (ICD-10 - M20.41) Patient Educated with: DIABETIC FOOT CARE INSTRUCTIONS.p df (DIABETIC FOOT CARE INSTRUCTIONS.p df) 07/27/2024 Ingrown nail (ICD-10 - L60.0) Plan Of Treatment Medication Medication Name Sig Start Date Stop [...] INSTRUCTIONS.pdf) Pending Test Test Name Order Date 68002-FEEZSUX NAIL, 6 OR MORE 07/27/2024 80777-Ynztnfox Plate 07/27/2024 09066-ZSIA SKIN LESIONS, 2 TO 4 07/27/20 24 Next Appt Details Follow Up: 2 Months, Reason: Provider Name:James Zuniga , 01/30/2025 10:45:00 AM, [address], [place], [address], Procedure Notes * Category Sub-Category Detail Notes [...] Motrin was recommended for pain or discomfort (14581) , DIABETES: Pt was advised as to [...] use of a nail nipper and/or dremel-type stopper grinder, to a more viable healthy nail plate or bed tissue 6-10. Silver nitrate used for any petechial bleeding as necessary. Definitive antifungal treatment options have been reviewed and discussed with the patient. The patient chooses, no pharmaceutical tx - 42316 Keratoma Treatment Parring or Cutting o f Benign Hyperkeratotic Lesion(s) (-56) 2-4 Lesions - The Benign hyperkeratotic lesions, as described above were pared, and/or cut utilizing a sterile 15 blade, tissue nippers, and/or dremel - 84296 Progress Notes * Terrie MADDEN MDOB:1939 (84 yo F)Acc No.[id number]:07/27/2024 Progress Note Patient:?Gabby MADDENdia Nafisa Provider:?James Zuniga DPM :1940???Age:84 Y???Sex:Female D ate:07/27/2024 Address:[address] [place], [place] [id number] Pcp:Nafisa Walton Subjective: * Chief Complaints: * ???At Risk FootcarePainful N ail(s) aggrevated by shoes and causing difficulty standing/walking.Toe IrritationIngrown Nail * HPI: ???At Risk footcare:?Pt States Last PCP Visit:?Date?02/19/2024 States has an appt with PCP soon - 08/11 ???Toe pain:?Location:?B/L feet.?Duration:?several years.?Course:?worse.?Aggravated by:?shoes, any pressure.?Treatments:?change in shoes.? * ROS:?General/Constitutional:?Nausea?denies.?Vomiting?denies.?Hunger Thirst?denies.?Loss appetite?denies.?Chills?denies.?Fatigue?denies.?Fever?denies.?Night Sweats?denies.?Unexplained weight loss?denies.?Unexplained weight gain?denies.?HEENTM:?Dentures?denies.?Dizziness?denies.?Glasses/contacts?admits.?Retinopathy?de nies.?Blurred/double vision?denies.?TMJ?denies.?Discharge/drainage?denies.?Implants?denies.?Sore throat?denies.?Dental implants?denies.?Hard of hearing ?denies.?Difficulty chewing/swallowing/speaking?denies.?Nose bleeds?denies.?Sore mouth?denies.?Respiratory:?On Oxygen?denies.?Pneumonia/pleurisy?denies.?Bronchitis?denies.?Emphysema?denies.?C oughing?denies.?Cough blood?denies.?Shortness of breath?denies.?Wheezing?denies.?Cardiovascular:?Pacemaker?denies.?MVP?denies.?WPW?denies.?CHF?denies.?Heart attack?denies.?Septal defect?denies.?Rapid beat?denies.?Chest pain ?denies.?Atrial Fib.?denies.?Murmur/Palpitations?denies.?Gastrointestinal:?Hemorrhoids?denies.?Stomach/Abdominal pain?denies.?Dark blood stool?denies.?Irritable bowel ?denies.?Constipation?denies.?Diarrhea?denies.?Hematology:?Swelling?denies.?Clots?denies.?Varicose Veins?denies.?Bruising?denies.?Bleeding problem?denies.?Genitourinary:?Blood urine?denies.?Frequent/Painfu/urination/bladder control?denies.?Kidney stones?denies.?Infection (UTI)?denies.?Nephropathy?denies.?sex trans dis (STD)?denies.?Prostate?denies.?Musculoskeletal:?Hammertoes?admits.?Bunions?admits.?Back Pain?denies.?Muscle Cramps/ Resting?denies.?Muscle cramps / walking?denies.?Generalized aches and pains?denies.?Weakness?denies.?Integ.:?Ayala?denies.?Scars?denies.?Corns/calluses?admits.?Ingrown nails?admits.?Painful nails?admits.?Open Sores?denies.?Rashes?denies.?Neurologic:?Difficulty sleeping?denies.?Brain disorder?denies.?Numbness?denies.?Balance trouble?denies.?Confusion?denies.?Fainting/blackouts?denies.?Tingling?denies.?Tr emors?denies.? * Medical History:? 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 * Social History:?Tobacco Use:?Tobacco Use/Smoking?Are you a:?nonsmoker ?Additional Findings: Tobacco Non-User?Aggressive non-smoker ?Tobacco use other than smoking?Are you an other tobacco user??No ???Miscellaneous:?Caffeine: yes, 1-2 cups per day. ?Children: yes, 6 but 5 alive. ?Exercise: yes, walking. ?Marital status: . 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 * Medications:?TakingAspirin 8 1 MG Tablet Delayed Release 1 tablet Orally Once a day Atorvastatin Calcium 20 MG Tablet 1 tablet Orally Once a day Lisinopril 5 MG Tablet 1 tablet Orally Once a day Metformin & Diet Manage Prod , Notes to Pharmacist: 1000MGRanitidine & Diet Manage Prod ibuprofen Extra Depth Orthopedic Shoes (1 Pair) with Customized Heat Molded Multidensity Innersoles (3 Pair) as directed Dx: NIDDM (E11.9), Hammertoe Foot Deformity (M20.41,M20.42), Preulcerative Skin Lesion(s) (L85.1) Taking Aspirin 81 MG Tablet Delayed Release 1 tablet Orally Once a day Taking Atorvastatin Calcium 20 MG Tablet 1 tablet Orally Once a day Taking Lisinopril 5 MG Tablet 1 tablet Orally Once a day Taking Metformin & Diet Manage Prod , Notes to Pharmacist: 1000MGTaking Ranitidine & Diet Manage Prod Taking ibuprofen Taking Extra Depth Orthopedic Shoes (1 Pair) with Customized Heat Molded Multidensity Innersoles (3 Pair) as directed Dx: NIDDM (E11.9), Hammertoe Foot Deformity (M20.41,M20.42), Preulcerative Skin Lesion(s) (L85.1) Not-Taking/PRNAmmonium Lactate 12 % Cream 1 application to affected area Externally to feet Twice a day Seattle 3 1000 MG Capsule 1 capsule Orally Once a day Medication List reviewed and reconciled with the patientNot-Taking/PRN Ammonium Lactate 12 % Cream 1 application to affected area Externally to feet Twice a day Not-Taking/PRN Seattle 3 1000 MG Capsule 1 capsule Orally Once a day Medication List reviewed and reconciled with the patient * Allergies:?yes[Allergies Agustin ified] Objective: * Vitals:?Ht: 5 ft 2 in, Wt:12 4, BMI: 22.68, Shoe size:5.5, BS:196, Wt-k.25 kg. * Examination: ???Nails: ?NAILS are:?Elongated, overgrown, dystrophic, lytic, greater than 3mm thick, discolored and friable with crumbly malodorous subungual debris, with pain on palpation, 1-5 B/L.?Dermatologic: ?SKIN FINDINGS:?Skin exam reveals Keratotic lesion(s) located at, Medial plantar, IPJ, TA, Medial plantar, IPJ, T5 , Heel(s) , B/L.?Ingrown Nail: ?INSPECTION:?Reveals nail incurvation, pain on palpation, groove hypertrophy , Medial nail border , TA.?Orthopedic: ?MUSCLE STRENGTH:?5/5 all groups in a symmetrical fashion , B/L.?GAIT ABNORMALITY:?apropulsive , cane-assisted.?FOOT MORPHOLOGY:? Pes Planus structure, No Charcot collapse/destruction noted at MTJ.?DIGITAL DEFORMITIES:?Digital contracture, PIPJ, 2-5 B/L, incompl-reducible to push-up test, no over, nor underlapping , with evidence of shoe producing skin irritation.?FOOTWEAR:?worn, OT were inspected and noted to be severely worn , in poor condition not giving proper support at the present time , shoe gear properties exacerbate patients foot/toe deformity.?Vascular: ?DP PULSES (B):? 12/20, B/L.?PT PULSES (B):?11/19, B/L.?CAPILLARY FILL TIME:? 3 secs. per digit, B/L.?TROPHIC CONDITION-TEXTURE/ELASTICITY/TURGOR/HAIR GROWTH (B):?normal, B/L.?TEMPERTURE GRADIENT (C):?decreased, cool to cool, proximal to distal, B/L.?PIGMENTATION:?mottled, B/L.?EDEMA (C):?absent, B/L.?Neurological: ?SENSORY:?Neurological exam reveals intact sensorium, pain sensation normal, vibration sensation intact, pinprick sensation is normal in the lower extremities, Pt denies, anesthesia, burning, paresthesia, tingling, B/L, 5.07 monofilament test performed at plantar aspects of 5 varied sites per foot shows sensation, normal, B/L.?General Examination: ?GENERAL APPEARANCE:?Reveals a pleasant, alert, well nourished, well- developed, well hydrated individual, who demonstrates proper attention to hygiene/body habitus, and is in no acute distress, Pt serves as own historian for office visit today.?ORIENTED:?person, place, and time.?FOOT EXAM:?Footwear Evaluation? Assessment: * Assessment: 1.?Pain in right toe(s) - M7 9.674???2.?Tinea unguium - B35.1???3.?Pain in left toe(s) - M79.675???4.?Type 2 diabetes mellitus without complication - E11.9???5.?Other hammer toe(s) (acquired), left foot - M20.42???Specify :Chronic problem, Worse (4),Rx Management (4)???6.?Other hammer toe(s) (acquired), right foot - M20.41 (Primary)???Specify :Chronic problem, Worse (4),Rx Management (4)???7.?Ingrown nail - L60.0???Specify :Medial nail border , TA??? Plan: * Treatment: 2.?Tinea unguium?Procedure: 58819-UZDLMPH NAIL, 6 OR MORE 3.?Type 2 diabetes mellitus without complication?Procedure: 45904-VEXW SKIN LESIONS, 2 TO 4 4.?Ingrown nail?Procedure: 55141-Zwaovoxe Plate * Procedures:?Debride Nail 6-10:?Nail debridement?Performance of this nail treatment by a nonprofessional would put this patients foot and overall health at risk. Therefore, nail debridement was performed extensively to reduce/remove overall nail length, girth, thickness, subungual debris, and necrotic tissue, by manual and/or electrical means through the use of a nail nipper and/or dremel-type stopper grinder, to a more viable healthy nail plate or bed tissue 6-10. Silver nitrate used for any petechial bleeding as necessary. Definitive antifungal treatment options have been reviewed and discussed with the patient. The patient chooses, no pharmaceutical tx - 94758.?Keratoma Treatment:?Parring or Cutting of Benign Hyperkeratotic Lesion(s)?(-56) 2-4 Lesions - The Benign hyperkeratotic lesions, as described above were pared, and/or cut utilizing a sterile 15 blade, tissue nippers, and/or dremel - 46843.?Nail Avulsion:?Location?Medial nail border?,?TA.?Anesthesia?was accomplished TOPICALLY with Lidocaine Hydrochloride Jelly 2 percent.?Procedure?A fine sterile elevator was placed between the eponychium, nail fold, [...] Motrin was recommended for pain or discomfort (81049) , DIABETES: Pt was advised as to the risk of delayed or nonhealing due to diabetes. Pt is to call the office with any questions, concerns, or complications.? * Procedure Codes:?31422 DEBRI DE NAIL, 6 OR MORE, Modifiers: XS 70489 Avulsion Plate, Modifiers: XS , [id number] TRIM SKIN LESIONS, 2 TO 4, Modifiers: XS * Preventive Medicine:? ??Counseling:?Discussion:?-14: Office or other outpatient visit for the evaluation and management of an established patient, which required a medically appropriate history and/or examination and MODERATE level of DECISION MAKING for: 1 OR MORE CHRONIC PROBLEM(S) THATS WORSENING, 2 STABLE CHRONIC PROBLEMS, A NEWLY DIAGNOSED PROBLEM WITH UNCERTAIN PROGNOSIS, AN ACUTE COMPLICATED INJURY WITH MULTIPLE TREATMENT OPTIONS, OR AN ACUTE PROBLEM WITH ACCOMPANYING SYSTEMIC SYMPTOMS, THAT POSE(S) A MODERATE RISK OF MORBIDITY. THIS CONDITION MAY ALSO INCLUDE RX DRUG MANAGEMENT, OR A DECISON FOR MINOR SURGERY. The visit on the day of the encounter encompassed interpreting the data and educating the patient as to the nature of their condition, treatment options available according to their individual PMH, meds, allergies, and overall health/living conditions, as well as any potential risks or complications that may occur from a failure to adhere to, and participate in, the recommended course of therapy. The discussion included a complete verbal, and/or written explanation of the examination results, any x-rays taken, the proposed diagnosis, and outline of the treatment plan. A schedule for future care needs was also explained. The patient verbalized an understanding of the instructions at this time and agreed to be an active participant in their treatment. If the patient should think of any questions or concerns after the visit, I have encouraged the patient to call the office.?Digital Surgery:?Digital surgery was discussed with the patient, We elected to try conservative treatment at the present time, due to the patients medical history and increased asssociated post-operative risks.?Digital Treatment:?HT- I explained to the patient the possible etiologies of Hammertoes, including genetics/foot type/shoegear/activity level/exercise routine and the risks/benefits of all the different treatment options for their pain including: No treatment at all, Rest, Ice, New/supportive/wider/deeper Shoegear, Digital Padding/Strapping/Taping/Bracing/Gel protective sleeves, Foot/Ankle AFO Bracing, Stretching exercises, Deep Tissue Massage, Arch support/shoe inserts with splay metatarsal padding, and Custom orthoses. I insisted that any digital devices be removed daily and not worn overnight for safety. The patient is to carefully examine the toes daily for any skin irritation while using any splinting or padding device. The advantages and disadvantages of each option were discussed and the patients questions re: shoegear, padding, custom vs prefabricated inserts, activity level, and consistency in home treatment regimens for optimal success were answered to their verbally confirmed satisfaction.?Shoe Gear Counseling:?SHOE Rx - The patient was counseled in great detail on their muscoloskeletal foot and toe deformities which coincided with the dermatological presentations visualized on exam. We discussed how their deformities put the integrity of their feet at risk for potential pedal complications which makes the accomidative diabetic shoes and cutomizable inserts medically necessary. We discussed the different shoe and insert treatment types and options, as well as the important advantages for adhering to regularly wearing these accomidative devices daily. The patient was made aware of the fact that a failure to abide by these recommedations may be deleterious to their foot health as they are able to prevent many pedal complications such as skin irritation, skin ulceration, infection, and even loss of toe/foot/leg/or life. Time was also spent with the patient dispensing and discussing proper diabetic footcare techniques including daily skin moisturization, daily foot inspection for any interruption in skin integrity including open lesions, or sign of infection such as redness/malodor/drainage/swelling. Also discussed and recommended were procedures regarding daily shoe inspection for the presence of internal foreign bodies as well as any visualized irregular shoe or insert wear. Patient questions re: shoes, inserts, and self foot inspections were answered to their satisfaction as the patient verbally confirmed a full understanding of the above information. A Rx for Extra Depth Orthopedic Shoes with 3 pair of custom heat-molded inserts was dispensed.? ??Screening/Special Tests:?Fall Risk?Assessment:?Performed ?Plan of Care:?Documented ?Screening:?One fall with injury in the past year Required hip replacement ?FALLS: Screening for Future Fall Risk?Have you had two or more falls in the past year??No ?Have you had any falls with injury in the past year??Yes * Follow Up:?2 Months * Images: * Sign off status: Completed true * Provider:?James Zuniga DPM Date:?2023 Generated for Juan Jose de la cruz/Brandon/Mini on:?12/13/2024 02:38 PM EST History and Physical Notes * HPI (History of Present Illness) Category Sub-Category Detail Notes Category Not es Toe pain Location: B/L feet Duration: several years Course: worse Aggravated by: shoes, any pressure Treatments: change in shoes At Risk footcare Pt [facility] Last PCP Visit: Date: 02/18 States has an appt with PCP - 08/11 Examination Category Sub-Category Detail Notes Category Not es Ingrown Nail INSPECTION: Reveals nail inc urvation, [...] , B/L Orthopedic GAIT ABNORMALITY: apropulsive , cane-assi sted FOOT MORPHOLOGY: Pes Planus structure , No [...] Footwear Evaluation performe d:: Yes Vascular DP PULSES (B): 2/4, B/L PT PULSES (B): 1/4, B/L CAPILLARY FILL TIME: 3 secs. per digit, B/L TEMPERTURE GRADIENT (C): decreased, cool to cool, proximal to distal, B/L TROPHIC CONDITION-TEXTURE/ELASTICITY/TURGOR/HAIR GROWTH (B): normal, B/L EDEMA (C): absent, B/L PIGMENTATION: mottled, B/L Nails NAILS are: Elongated, overg rown, dystrophic, lytic, greater than 3mm thick, discolored and friable with crumbly malodorous subungual debris, with pain on palpation, 1-5 B/L
--- OUTSIDE RECORDS SUMMARY | 2024-12-13 14:38 | XMS_ITS | Clinical Summary ---
Author Organization [facility] Address [address] [place] [address] Care Team Providers Care Nurse Liaison Name Role Phone Unavailable Primary Care Provider Unavailabl e Social History Tobacco Use Types Packs/Day Years Used Date Smoking Tobacco: Never Assessed Comments Unknown Sex and Gender Information Value Date Recorded Sex Assigned at Female 09/15/2022 10:36 AM EDT Legal Sex Female 10:36 AM EDT Gender Identity Female 09/15/2022 10:36 AM EDT Sexual Orientation Straight 09/15/2022 10 :36 AM EDT Plan of Treatment Health Maintenance Due Date Last Done Comments Depression Screening 1940 Alcohol/Substance Use Screening 1954 Tobacco Screening 1952 DTaP/Tdap/Td Vaccines (1 - Tdap) 1961 Zoster Vaccines (1 of 2) 02/15/1992 Pneumococcal Vaccine: 65+ Ye ars (1 of 1 - PCV) 2007 RSV Patients and Pa tients Aged 60 years or older (1 - 1-dose 75+ series) 2017 COVID-19 Vaccine ( - 2023-2 5 season) 2024 Influenza Vaccine (#1) 2024 HIB Vaccines Aged Out No longer eligi ble based on patient's age to complete this topic HPV Vaccines Aged Out No longer eligi ble based on patient's age to complete this topic Hepatitis A Vaccines Aged Out No long er eligible based on patient's age to complete this topic Hepatitis B Vaccines Aged Out No long er eligible based on patient's age to complete this topic IPV Vaccines Aged Out No longer eligi ble based on patient's age to complete this topic Meningococcal Vaccine Aged Out No nae amadou eligible based on patient's age to complete this topic RSV under 20 months Aged Out No longe r eligible based on patient's age to complete this topic Rotavirus Vaccines Aged Out No longer eligible based on patient's age to complete this topic
--- OUTSIDE RECORDS SUMMARY | 2024-12-13 14:38 | XMS_ITS ---
Author Organization [facility] Address [address] [place] [address] Care Team Providers Care Rn Clinical Research Name Role Phone Liban ROJAS, Nara Londono Primary Care Provider Un available James Zuniga Unavailable [phone] Allergies No Known Allergies REASON FOR VISIT At Risk Footcare, Painful Nail(s) aggrevated by shoes and causing difficulty standing/walking., ToeIrritation Medications Medication SIG (Take, Route, Frequency, Duration) Notes Start Date End Date Status Lisinopril 5 MG 1 tablet Orally Once a day Active Atorvastatin Calcium 20 MG 1 tablet Orally Once a day Active ibuprofen Active Ranitidine & Diet Manage Prod Active Metformin & Diet Manage Prod 1000MG Active York 3 1000 MG 1 capsule Orally Onc e a day Not-Taking Aspirin 81 MG 1 tablet Orally Once a day Active Extra Depth Orthopedic Shoes (1 Pair) with Customized Heat Molded Multidensity Innersoles (3 Pair) as directed Dx: NIDDM (E11.9), Hammertoe Foot Deformity (M20.41,M20.42), Preulcerative Skin Lesion(s) (L85.1) Active Ammonium Lactate 12 % 1 application to affected area Externally to feet Twice a day for 30 days Not-Taking Social History Tobacco Use: Social History Observation Description Date Details (start date - stop date) Never Smoker NA - NA Tobacco Use/Smoking Question Answer Notes Are you a: nonsmoker Additional Findings: Tobacco Non-User Aggressive non-smoker Tobacco use other than smoking: Question Answer Notes Are you an other tobacco user? No Vital Signs Height 5 ft 2 in in 10/24/2024 Weight 128 lbs 10/24/2024 BMI 23.41 kg/m2 10/24/2024 Blood pressure systolic 120 mm Hg 10/24/20 Blood pressure diastolic 80 mm Hg 024 Procedures Procedure Date Ordered Date Performed Result Body Sit e 02247-MQIFJQR NAIL, 6 OR MORE 10/24/2024 N/A 65530-WZBT SKIN LESIONS, 2 TO 4 10/24/2024 N/A Encounters Encounter Location Date Provider Diagnosis [facility] [place] [address] [place] [phone] 10/24/2024 James Zuniga Pain in right toe(s) M79.674 ; Tinea unguium B35.1 ; Pain in left toe(s) M79.675 and Type 2 diabetes mellitus without complication E11.9 Assessments Encounter Date Diagnosis (ICD Code) Assessment Notes Treatment Notes Treatment Clinical Notes Section Notes 10/24/2024 Pain in right toe(s) (ICD-10 - M79.674) 10/24/2024 Tinea unguium (ICD-10 - B35.1) 10/24/2024 Pain in left toe(s) (ICD-10 - M79.675) 10/24/2024 Type 2 diabetes mellitus without complication (ICD-10 - E11.9) 10/24/2024 Other Plan Of Treatment Pending Test Test Name Order Date 94939-WTMMUYL NAIL, 6 OR MORE 10/24/2024 94647-JLOL SKIN LESIONS, 2 TO 4 10/24/20 24 Next Appt Details Follow Up: 2 Months, Reason: Provider Name:James Zuniga , 01/30/2025 10:45:00 AM, [address] [facility], [place] [address], [place], [address], Procedure Notes * Category Sub-Category Detail Notes Debride Nail 6-10 Nail debridement Due to the cl inical pathology outlined in the exam findings, performance of this nail treatment is medically necessary as its management by an unskilled/untrained nonprofessional would put this patients foot and overall health at risk. Therefore, debridement to affected nail(s), as described in exam, was performed extensively to reduce/remove overall nail length, girth, thickness, subungual debris, and necrotic tissue, by manual and/or electrical means through the use of a nail nipper and/or dremel-type tool grinder, to a more viable healthy nail plate or bed tissue 6-10 nails in total. Silver nitrate was used for any petechial bleeding as necessary. Definitive antifungal treatment options, both pharmaceutical and surgical, have been reviewed and discussed with the patient. The patient solely prefers the use of intermittent/as needed professional debridement services for their nail condition and understands the need for additional periodic treatments to maintain effectiveness in symptomatic relief - 34832 Keratoma Treatment Parring or Cutting o f Benign Hyperkeratotic Lesion(s) (-56) 2-4 Lesions - Due to the at risk nature of the patients medical condition as documented in the exam findings, performance of this keratoderma treatment is medically necessary as its management by an unskilled/untrained nonprofessional would put this patients foot and overall health at risk. Therefore, the benign hyperkeratotic lesions, ( 4) in total, locations as stated and described in the exam, were pared, and/or cut utilizing a sterile 15 blade, tissue nippers, and/or power dremel instrumentation - 48465 Progress Notes * Terrie MADDEN MDOB:1939 (84 yo F)Acc No.[id number]:10/24/2024 Progress Note Patient:?Terrie MADDEN Provider:?James Zuniga DPM :1940???Age:84 Y???Sex:Female D ate:10/24/2024 Address:[address] [place], [place] [id number] Pcp:Nafisa Walton Subjective: * Chief Complaints: * ???At Risk FootcarePainful N ail(s) aggrevated by shoes and causing difficulty standing/walking.Toe Irritation * HPI: ???At Risk footcare:?Pt States Last PCP Visit:?Date?08/11/2024 ???Toe pain:?Treatments:?Rx shoes, states still needs.? * ROS:?General/Constitutional:?Nausea?denies.?Vomiting?denies.?Hunger Thirst?denies.?Loss appetite?denies.?Chills?denies.?Fatigue?denies.?Fever?denies.?Night Sweats?denies.?Unexplained weight loss?denies.?Unexplained [...] than smoking?Are you an other tobacco user??No * Medications:?TakingAspirin 8 1 MG Tablet Delayed [...] area Externally to feet Twice a day York 3 1000 MG Capsule 1 capsule Orally Once a day Medication List reviewed and reconciled with the patientNot-Taking/PRN Ammonium Lactate 12 % Cream 1 application to affected area Externally to feet Twice a day Not-Taking/PRN York 3 1000 MG Capsule 1 capsule Orally Once a day Medication List reviewed and reconciled with the patient * Allergies:?N.K.D.A.yes[Aller steph Verified] Objective: * Vitals:?Ht: 5 ft 2 in, Wt: 1 28, BMI: 23.41, Shoe size: 5.5, BP: 120/80 mm Hg, BS: 160, Wt-k.06 kg. * Examination: ???Nails: ?NAILS are:?Elongated, overgrown, dystrophic, lytic, greater than 3mm thick, discolored and friable with crumbly malodorous subungual debris, with pain on palpation, 1-5 B/L.?Dermatologic: ?SKIN FINDINGS:?Skin exam reveals Keratotic lesion(s) located at, Medial plantar, IPJ, TA, Medial plantar, IPJ, T5 , Plantar, Heel(s) , B/L.? Assessment: * Assessment: 1.?Tinea unguium - B35.1 (Pr imary)???2.?Pain in right toe(s) - M79.674???3.?Pain in left toe(s) - M79.675???4.?Type 2 diabetes mellitus without complication - E11.9??? Plan: * Treatment: 2.?Type 2 diabetes mellitus without complication?Procedure: 10308-CPUZ SKIN LESIONS, 2 TO 4 * Procedures:?Debride Nail 6-10:?Nail debridement?Due to the clinical pathology outlined in the exam findings, performance of this nail treatment is medically necessary as its management by an unskilled/untrained nonprofessional would put this patients foot and overall health at risk. Therefore, debridement to affected nail(s), as described in exam, was performed extensively to reduce/remove overall nail length, girth, thickness, subungual debris, and necrotic tissue, by manual and/or electrical means through the use of a nail nipper and/or dremel-type tool grinder, to a more viable healthy nail plate or bed tissue 6-10 nails in total. Silver nitrate was used for any petechial bleeding as necessary. Definitive antifungal treatment options, both pharmaceutical and surgical, have been reviewed and discussed with the patient. The patient solely prefers the use of intermittent/as needed professional debridement services for their nail condition and understands the need for additional periodic treatments to maintain effectiveness in symptomatic relief - 91515.?Keratoma Treatment:?Parring or Cutting of Benign Hyperkeratotic Lesion(s)?(-56) 2-4 Lesions - Due to the at risk nature of the patients medical condition as documented in the exam findings, performance of this keratoderma treatment is medically necessary as its management by an unskilled/untrained nonprofessional would put this patients foot and overall health at risk. Therefore, the benign hyperkeratotic lesions, ( 4) in total, locations as stated and described in the exam, were pared, and/or cut utilizing a sterile 15 blade, tissue nippers, and/or power dremel instrumentation - 18000.? * Procedure Codes:?26982 DEBRI DE NAIL, 6 OR MORE, Modifiers: XS 18711 TRIM SKIN LESIONS, 2 TO 4, Modifiers: XS * Follow Up:?2 Months * Images: * Sign off status: Completed true * Provider:?James Zuniga DPM Date:?2023 Generated for Juan Jose de la cruz/Brandon/Mini on:?12/13/2024 02:38 PM EST History and Physical Notes * HPI (History of Present Illness) Category Sub-Category Detail Notes Category Not es Toe pain Treatments: Rx shoes, states still needs At Risk footcare Pt States Last PCP Visit: Date: 4 Examination Category Sub-Category Detail Notes Category Not es Dermatologic SKIN FINDINGS: Skin exam reveal s Keratotic lesion(s) located at, Medial plantar, IPJ, TA, Medial plantar, IPJ, T5 , Plantar, Heel(s) , B/L Nails NAILS are: Elongated, overg rown, dystrophic, lytic, greater than 3mm thick, discolored and friable with crumbly malodorous subungual debris, with pain on palpation, 1-5 B/L
--- OUTSIDE RECORDS SUMMARY | 2024-12-13 14:38 | XMS_ITS | Patient Health Record ---
Author Organization [facility] Address [address] [place] [address] Care Team Providers Care Gis Developer Name Role Phone ANNE-MARIE REYNOSO MD Primary Care Provider Unav ailable JAIMIE KIMBLE Unavailable [phone] Allergies No Known Allergies Reason For Referral No Information Medications Medication SIG (Take, Route, Frequency, Duration) Notes Start Date End Date Status Clotrimazole-Betamethasone 1-0.05 % 1 application Externally Twice a day for 10 days 07/15/2022 Active Lisinopril 5 MG 1 tablet Orally Once a day Active Ranitidine HCl 150 MG 1 capsule at bedti me Orally Once a day Active metFORMIN HCl ER 500 MG 1 tablet with ev ening meal Orally Once a day Active Ibuprofen 400 MG 1 tablet with food o r milk as needed Orally daily Active Centrum Active Atorvastatin Calcium 20 MG 1 tablet Oral ly Once a day Active Social History Tobacco Use: Social History Observation Description Date Details (start date - stop date) Never Smoker NA - NA Tobacco Use/Smoking Question Answer Notes Are you a nonsmoker Alcohol Screen (Audit-C) Question Answer Notes Did you have a drink containing alcohol in the p ast year? No Points 0 Interpretation Negative Sexual History Question Answer Notes Had sex in the past 12 months (vaginal, oral, or anal)? No Problems Problem Type SNOMED Code ICD Code Onset Dates Problem Status W/U Status Risk Notes Problem Age-related osteoporosis (030718498) Age-related osteoporosis without current pathological fracture (M81.0) Active confirmed Problem Essential hypertension (02745911) Essential (primary) hypertension (I10) Active confirmed Problem Malignant neoplasm of overlapping sites of right female breast (C50.811) Active confirmed Problem Type II diabetes mellitus without complication (751965607) Type 2 diabetes mellitus without complications (E11.9) Active confirmed Problem Hyperlipidemia (61997394) Hyperlipidemia, unspecified (E78.5) Active confirmed Problem Gastro-esophageal reflux disease with esophagitis (479006944) Gastro-esophagea l reflux disease with esophagitis (K21.0) Active confirmed Problem Osteoarthritis (647668620) Unspecified osteoarthritis, unspecified site (M19.90) Active confirmed Plan Of Treatment Pending Test Test Name Order Date Urinalysis 07/15/2022 MM Digital Screening Mammogram 3D 2021 Insurance Providers Payer Name Payer Address Payer Phone Subscriber Number Group Number Insured Name Patient Relationship to Insured Coverage Start Date Coverage End Date [facility] [address] [address] [place] [phone] [id number] CHANDLER GARG Self - patient is the insured Medical (General) History Medical History History ICD Code Type 2 diabetes mellitus without complic ations E11.9 Essential (primary) hypertension I10 Age-related osteoporosis without current pathological fracture M81.0 Unspecified osteoarthritis, unspecified site M19.90 Malignant neoplasm of overlapping sites of right female breast C50.811 Surgical History Surgery Date(Month/Year) Breast Biopsy Colonoscopy R breast lumpectomy (invasive CA) 2002 [facility] for post infection ?40? Hospitalization History Reason Date(Month/Year) 6 Vaginal Deliveries
--- OUTSIDE RECORDS SUMMARY | 2024-12-13 14:38 | XMS_ITS | Encounter Summary ---
Author Organization [facility] Address [address] 7[address] [place] [address] Care Team Providers Care Chief Compressor Station Engineer Name Role Phone Unavailable Primary Care Provider Unavailabl e Encounter Details Date Type Department Care Team (Latest Contact Info) Description 08/22/2019 Abstract C CONVERSIONS Dental, Provider, DDS Social History Tobacco Use Types Packs/Day Years Used Date Smoking Tobacco: Never Assessed Comments Unknown Sex and Gender Information Value Date Recorded Sex Assigned at Female 09/15/2022 10:36 AM EDT Legal Sex Female 10:36 AM EDT Gender Identity Female 09/15/2022 10:36 AM EDT Sexual Orientation Straight 09/15/2022 10 :36 AM EDT documented as of this encounter Plan of Treatment Not on file documented as of this encounter Visit Diagnoses Not on filedocumented in this encounter
--- OUTSIDE RECORDS SUMMARY | 2024-12-13 14:38 | XMS_ITS ---
Author Organization [facility] Address [address] [facility] [place] [address] Care Team Providers Care Food Safety Coordinator Name Role Phone Liban ROJAS, Nara Londono Primary Care Provider Un available James Zuniga Unavailable [phone] Encounters Encounter Location Date Provider Diagnosis [address] [address] 06/06/2024 James Zuniga Plan Of Treatment Next Appt Details Provider Name:James Zuniga , 01/30/2025 10:45:00 AM, [address] [place] [address], [phone], Progress Notes * Terrie MADDEN MDOB:1939 (84 yo F)Acc No.[id number]:06/06/2024 Progress Note Patient:?Terrie MADDEN Provider:?James Zuniga DPM :1940???Age:84 Y???Sex:Female D ate:06/06/2024 Address:[address] [place] [address] [address] [phone] Pcp:Nafisa Walton Subjective: * Chief Complaints: * ??? * Medical History:? Objective: * Vitals:? Assessment: Plan: * Treatment: * Images: * The named appointment provid er may or may not be the originator of this progress note, and it is not deemed complete until electronically signed by the appointment provider. Sign off status: Pending * Provider:?James Zuniga DPM Date:?2023 Generated for Juan Jose de la cruz/Brandon/Mini on:?12/13/2024 02:38 PM EST
--- OUTSIDE RECORDS SUMMARY | 2024-12-13 14:38 | XMS_ITS | Patient Health Record ---
Author Organization [facility] Address [address] [place] [address] Care Team Providers Care Fluid Pump Operator Name Role Phone Liban ROJAS, Nara Londono Primary Care Provider Un available James Zuniga Unavailable [phone] Allergies No Known Allergies Reason For Referral No Information Medications Medication SIG (Take, Route, Frequency, Duration) Notes Start Date End Date Status [place] 3 1000 MG 1 capsule Orally Onc e a day Not-Taking Lisinopril 5 MG 1 tablet Orally Once [...] Metformin & Diet Manage Prod 1000MG Active Ammonium Lactate 12 % 1 application to affected area Externally to feet Twice a day for 30 days Not-Taking Immunizations Vaccine Route Administration Date Status Comme nts COVID-19 Pfizer BioNTech Vaccine Unknown 11/20/2020 Adm inistered COVID-19 Pfizer BioNTech Vaccine Unknown 12/11/2020 Adm inistered Influenza Unknown 01/17/2019 Administered Influenza Unknown 11/16/2019 Administered Social History Tobacco Use: Social History Observation [...] Are you an other tobacco user? No Problems Problem Type SNOMED Code ICD Code Onset Dates Problem Status W/U Status Risk Notes Problem Acquired hammer toe of right foot (93918368061983 05) Other hammer toe(s) (acquired), right foot (M20.41) Active confirmed Response to treatment,I mprovement Problem Acquired hammer toe of left foot (74624442025165 03) Other hammer toe(s) (acquired), left foot (M20.42) Active confirmed Response to treatment,I mprovement Problem Type 2 diabetes mellitus without complication (182819226) Type 2 diabetes mellitus without complication (E11.9) Active confirmed Vital Signs Blood pressure diastolic 80 mm Hg 10/24/2024 Height 5 ft 2 in in 10/24/2024 Blood pressure systolic 120 mm Hg 10/24/2024 Weight 128 lbs 10/24/2024 BMI 23.41 kg/m2 10/24/2024 Procedures Procedure Date Ordered Date Performed Result Body Sit e 86779-GKHPIRC NAIL, 6 OR MORE 01/11/2024 N/A 56907-Oygrshzq Plate 01/11/2024 N/A 91330-RDYZ SKIN LESIONS, 2 TO 4 01/11/2024 N/A 81920-LMEELRQ NAIL, 6 OR MORE 03/28/2024 N/A 40663-Dzduhntx Plate 03/28/2024 N/A 50597-CUPW SKIN LESIONS, 2 TO 4 03/28/2024 N/A 14371-ZIOUVHD NAIL, 6 OR MORE 07/27/2024 N/A 34454-Bmtncbdg Plate 07/27/2024 N/A 17726-WDTI SKIN LESIONS, 2 TO 4 07/27/2024 N/A 11920-AGYELTF NAIL, 6 OR MORE 10/24/2024 N/A 42776-SWBC SKIN LESIONS, 2 TO 4 10/24/2024 N/A Encounters Encounter Location Date Provider Diagnosis [facility] [address] [address] 01/11/2024 James Nadia Pain in right toe(s) M79.674 ; Tinea unguium B35.1 ; Pain in left toe(s) M79.675 ; Type 2 diabetes mellitus without complication E11.9 ; Other hammer toe(s) (acquired), right foot M20.41 ; Other hammer toe(s) (acquired), left foot M20.42 and Ingrown nail L60.[address] [address] 03/28/2024 James Nadia Pain in right toe(s) M79.674 ; Tinea unguium B35.1 ; Pain in left toe(s) M79.675 ; Type 2 diabetes mellitus without complication E11.9 and Ingrown nail L60.[address] [address] 07/27/2024 James Nadia Pain in right toe(s) M79.674 ; Tinea unguium B35.1 ; Pain in left toe(s) M79.675 ; Type 2 diabetes mellitus without complication E11.9 ; Other hammer toe(s) (acquired), left foot M20.42 ; Other hammer toe(s) (acquired), right foot M20.41 and Ingrown nail L60.[address] [address] 10/24/2024 James Nadia Pain in right toe(s) M79.674 ; Tinea unguium B35.1 ; Pain in left toe(s) M79.675 and Type 2 diabetes mellitus without complication E11.[address] [address] 06/01/2024 James Nadia Assessments Encounter Date Diagnosis (ICD Code) Assessment Notes Treatment Notes Treatment Clinical Notes Section Notes 01/11/2024 Tinea unguium (ICD-10 - B35.1) 01/11/2024 Pain in right toe(s) (ICD-10 - M79.674) 03/28/2024 Tinea unguium (ICD-10 - B35.1) 03/28/2024 Pain in right toe(s) (ICD-10 - M79.674) 07/27/2024 Pain in right toe(s) (ICD-10 - M79.674) 10/24/2024 Tinea unguium (ICD-10 - B35.1) 10/24/2024 Pain in right toe(s) (ICD-10 - M79.674) 10/24/2024 Pain in left toe(s) (ICD-10 - M79.675) 07/27/2024 Tinea unguium (ICD-10 - B35.1) 03/28/2024 Pain in left toe(s) (ICD-10 - M79.675) 01/11/2024 Pain in left toe(s) (ICD-10 - M79.675) 07/27/2024 Pain in left toe(s) (ICD-10 - M79.675) 01/11/2024 Type 2 diabetes mellitus without complication (ICD-10 - E11.9) 03/28/2024 Type 2 diabetes mellitus without complication (ICD-10 - E11.9) 10/24/2024 Type 2 diabetes mellitus without complication (ICD-10 - E11.9) 07/27/2024 Type 2 diabetes mellitus without complication (ICD-10 - E11.9) 03/28/2024 Ingrown nail (ICD-10 - L60.0) 01/11/2024 Other hammer toe(s) (acquired), right foot (ICD-10 - M20.41) Response to treatment,Impro vement 01/11/2024 Other hammer toe(s) (acquired), left foot (ICD-10 - M20.42) Response to treatment,Impro vement 07/27/2024 Other hammer toe(s) (acquired), left foot (ICD-10 - M20.42) 07/27/2024 Other hammer toe(s) (acquired), right foot (ICD-10 - M20.41) Patient Educated with: DIABETIC FOOT CARE INSTRUCTIONS.p df (DIABETIC FOOT CARE INSTRUCTIONS.p df) 01/11/2024 Ingrown nail (ICD-10 - L60.0) 07/27/2024 Ingrown nail (ICD-10 - L60.0) 10/24/2024 Other Plan Of Treatment Pending Test Test Name Order Date 02352-AZWPLYG NAIL, 6 OR MORE 05/12/2019 08004-BCNPQBY NAIL, 6 OR MORE 08/11/2019 10306-LHTHYUD NAIL, 6 OR MORE 11/24/2019 40782-CCACVOS NAIL, 6 OR MORE 03/08/2020 49328-SLAQMVS NAIL, 6 OR MORE 05/31/2020 41197-FKHJIAF NAIL, 6 OR MORE 08/15/2020 91498-ZXGINWZ NAIL, 6 OR MORE 10/24/2020 73361-ODCIKQZ NAIL, 6 OR MORE 01/09/2021 48379-SBZQXLD NAIL, 6 OR MORE 03/20/2021 39498-NSONKTB NAIL, 6 OR MORE 06/12/2021 08084-FLPDRDX NAIL, 6 OR MORE 08/21/2021 19282-FYLSEVS NAIL, 6 OR MORE 10/31/2021 53263-FADWQHN NAIL, 6 OR MORE 01/09/2022 59850-HLYCYEX NAIL, 6 OR MORE 03/20/2022 40115-TRYQFTD NAIL, 6 OR MORE 05/29/2022 44190-RHRPPFX NAIL, 6 OR MORE 09/03/2022 75524-YJSBBBS NAIL, 6 OR MORE 11/19/2022 88921-PASQAQK NAIL, 6 OR MORE 02/11/2023 64892-OPNEWUO NAIL, 6 OR MORE 04/22/2023 61224-TOEWILP NAIL, 6 OR MORE 07/01/2023 96411-YOFXZFU NAIL, 6 OR MORE 09/10/2023 53749-IEPGIEF NAIL, 6 OR MORE 01/11/2024 98650-QZLLGIX NAIL, 6 OR MORE 03/28/2024 13732-FOPUJAQ NAIL, 6 OR MORE 07/27/2024 00774-YBJVGYT NAIL, 6 OR MORE 10/24/2024 54082-Nbvazvzu Plate 07/27/2024 57346-Qagdiwio Plate 03/28/2024 51682-Arutvbjj Plate 09/03/2022 66245-Ossudjea Plate 01/11/2024 29998-Dsmoqkxk Plate 11/19/2022 44499-Xvvrxvfx Plate 10/31/2021 01642-EHVU SKIN LESIONS, 2 TO 4 10/31/20 08045-MOJF SKIN LESIONS, 2 TO 4 08/21/20 09715-ONWN SKIN LESIONS, 2 TO 4 06/12/20 16171-KFMJ SKIN LESIONS, 2 TO 4 03/20/20 90950-UUMV SKIN LESIONS, 2 TO 4 09/03/20 60559-OIRB SKIN LESIONS, 2 TO 4 05/29/20 42892-BPPW SKIN LESIONS, 2 TO 4 03/20/20 95801-VKBJ SKIN LESIONS, 2 TO 4 01/09/20 63875-SXQK SKIN LESIONS, 2 TO 4 01/09/20 96863-SWNY SKIN LESIONS, 2 TO 4 10/24/20 68910-GGSF SKIN LESIONS, 2 TO 4 08/15/20 69002-IOMH SKIN LESIONS, 2 TO 4 05/31/20 97207-OJTI SKIN LESIONS, 2 TO 4 03/08/20 01685-YQHM SKIN LESIONS, 2 TO 4 11/24/19 89013-PKNE SKIN LESIONS, 2 TO 4 08/11/20 13933-KDPZ SKIN LESIONS, 2 TO 4 05/12/20 45181-NRGW SKIN LESIONS, 2 TO 4 11/19/19 23402-RMGM SKIN LESIONS, 2 TO 4 02/12/20 54964-IVJE SKIN LESIONS, 2 TO 4 07/01/20 89045-HIME SKIN LESIONS, 2 TO 4 04/22/20 59759-IKDC SKIN LESIONS, 2 TO 4 01/11/20 35573-SFFL SKIN LESIONS, 2 TO 4 03/28/20 77296-OSDC SKIN LESIONS, 2 TO 4 07/27/20 05030-XYQQ SKIN LESIONS, 2 TO 4 10/24/20 Next Appt Details Provider Name:James Zuniga , 01/30/2025 10:45:00 AM, [address] [facility], [facility] [address], [place], [address], Insurance Providers Payer Name Payer Address Payer Phone Subscriber Number Group Number Insured Name Patient Relationship to Insured Coverage Start Date Coverage End Date [facility] [employer] Claims [address] [place] [id number] Terrie Noriega Self - patient is the insured Medical (General) History Medical History History ICD Code Arthritis Back,Hip,and Knee pain CAD (Cholesterol) Diabetic Osteoporosis Measles HTN Surgical History Surgery Date(Month/Year) cancer surgery right hip replacement 05/09/24 Hospitalization History Reason Date(Month/Year) [facility] Right hip replacement 05/09/24
--- OUTSIDE RECORDS SUMMARY | 2024-12-13 14:38 | XMS_ITS ---
Author Name [facility] Organization Unknown Problems Problem Status Onset Date Problem Type Date of Resoluti on Source Hyperlipidemia (disorder) active ProblemAct [facility] Hypertensive disorder, systemic arterial (disorder) active ProblemAct [facility] Diabetes mellitus type 2 (disorder) active ProblemAct [facility]
--- NOTE | 2024-12-13 15:02 | AM.OFFVISNUR ---
Intake Visit Reasons: Evenity #1 Allergies No Known Allergies Allergy (Verified 12/01/24 15:19) Office Meds romosozumab-aqqg 210 mg/2.34 mL(105 mg/1.17 mL x2)subcutaneous syringe Performing Provider: Devon Baltazar MD [place] [facility] [place] Administered by: Ludivina Parra RN on 12/13/24 15:02 Dose Route Admin Location Dispensed Lot Number Expiration Date NDC Dead Mail Checker 210 mg subcut bilateral upper arms 2.34 mL [id number] 02/13/27 30499-603-86 AMGEN Comments: Visit was interpreted by Maria De Jesus Rodriguez I discussed with pt that she will not be responsible for bringing this medication in. I advised her to keep this in the office for her. Discussed that this medication is given every 4 weeks for 1 year. Advised that the evenity is two separate injections that we give in the back of the arm if we are medically able. Advised that given this is her first injection we will have her stay for 15 minutes following injection per protocol. I advised pt she will remain on vitamin D and calcium while on this medication and to let her dentist know she is on this medication. All questions were answered and pt is agreeable to plan. Pt tolerated injection well and was observed for 15 minutes following injection without incident. Pt was accompanied by daughter. Assessment & Plan Assessment & Plan Orders: Orders AMB Romosozumab Injection Patient Supplied Today M81.0 - Age-related osteoporosis without current pathological fracture Medications: New romosozumab-aqqg 210 mg (2.34 mL) subcut ONCE 2.34 mL 0RF M81.0 - Age-related osteoporosis without current pathological fracture Coding
== END 2024-12-13 14:35 | disposition home or self-care (01) ==
PROVIDERS: PCP Internal Medicine
DX: M81.0 Age-related osteoporosis without current pathological fracture (principal)

== ENCOUNTER → 2024-12-13 13:38 | Outpatient (BNVA) | payer OTHER, SELFPAY | PROVIDERS: PCP Internal Medicine | DX: M81.0 Age-related osteoporosis without current pathological fracture (principal) | CPT/HCPCS: 96372; J3111 ==

== ENCOUNTER 2024-12-15 14:49 | Outpatient (AMB) | payer OTHER, SELFPAY ==
--- NOTE | 2024-12-15 15:02 | A.OFFPC_ITS ---
Vital Signs 12/15/24 15:07 Height 4 ft 10.5 in Weight 122 lb BMI 25.1 BP 124/70 Blood Pressure Location Lt brachial Position Sitting Pulse 83 Pulse Source Pulse Oximeter Temp 97.8 F Pulse Oximetry (%) 97 Oxygen Delivery Method Room Air Intake Visit Reasons: 4m f/u DM, lipids, HTN Intake Note: Pt is here today for her 4mo. f/u HTN and DM Allergies No Known Allergies Allergy (Verified 12/15/24 15:18) Medication List - Last Reconciled 12/15/24 by Nara Louie MD acetaminophen (Tylenol Extra Strength) 500 mg PO Q6H PRN aspirin (Adult Aspirin Regimen) 81 mg PO DAILY atorvastatin 20 mg PO DAILY [baby wipes As directed] [basket for a walker As directed] blood sugar diagnostic As directed blood sugar diagnostic (FreeStyle Lite Strips) check fasting blood sugar 2 times a day; blood-glucose meter (FreeStyle [place] Lite kit) As directed diaper,brief,adult,disposable Use as directed twice a day p.r.n. ibuprofen 400 mg PO Q12H PRN lancets check fasting blood sugar twice a day ac lisinopril 5 mg PO DAILY [Long shoe horn As directed] [Medium size Poise Pads Use twice a day ] metformin 1,000 mg PO BIDWMEAL 3 months naproxen 500 mg PO BID PRN omega-3 acid ethyl esters 2 caps PO DAILY propylene glycol-glycerin 1-0.3 % 1 drp ophthalmic (eye) QID PRN [rollator walker As directed] romosozumab-aqqg (Evenity) 210 mg (2.34 mL) subcut .qmonthly [Soft loofah sponge with long handle As directed] [walker with seat As directed] Tobacco use date assessed: 12/15/24 Fall risk assessment: 1 Fall in past year Last assessed Fall Risk: 12/15/24 Dental Screening Dental Screen Date: 12/15/24 Did you have a dental visit in the last 12 months?: No Did you have a dental problem in the last 6 months where you did not have access to dental care?: No Was dental information given to patient?: Patient has dentist HPI 4m f/u DM, lipids, HTN HPI Details 84-year-old lady with history of diabete s mellitus, hypertension, anemia, here today for her follow-up. Blood pressure stable and controlled on present treatment with lisinopril 5 mg once a day. She is currently being followed by endocrine clinic for treatment of severe osteoporosis, started on Evenity by Dr. Baltazar this month. Diabetes mellitus not well controlled, with hemoglobin A1c now at 9.2% . Patient however, has only been mistakenly taking metformin once a day in a.m. instead of twice a day as prescribed. She also has been under a lot of stressors this past few months, having had right hemiarthroplasty , has been sedentary, and not been compliant with her diet . She is up-to-date with her diabetes retinopathy screening, [facility] in [place]. Still having intermittent episodes of pain in her right knee , but right hip feels fine. She had does not want to get any vaccines. [facility] Medical History (Updated 12/15/24 @ 15:45 by Nara Louie MD) History of femur fracture History of adenomatous polyp of colon History of fracture of right hip Gait instability History of recent fall Right anterior knee pain Urinary incontinence Mild cognitive impairment Tubular adenoma of colon Breast cancer, right Hearing loss Osteoporosis Osteoarthritis GERD (gastroesophageal reflux disease) Dyslipidemia Essential hypertension Type 2 diabetes mellitus with microalbuminuria, without long-term current use of insulin Type 2 diabetes mellitus with hyperglycemia, without long-term current use of insulin Type 2 diabetes mellitus with mild nonproliferative diabetic retinopathy without macular edema Surgical History History of right hip hemiarthroplasty History of left hip replacement Hx of mastectomy Family History Father Colon cancer Mother Essential hypertension Sister Pancreatic cancer Son Mental health disorder Substance use disorder Social History Housing: Apartment Alcohol intake: never Patient Tobacco Use Status: Never used Tobacco e-Cigarette/Vaping Use: Never Used service: No Current occupational status: retired Cognitive needs: No Hearing needs: No Vision needs: Yes Questionnaire PHQ-9 Over the last 2 weeks, how often have you been bothered by any of the following problems? 1. Little interest or pleasure in doing things: not at all 2. Feeling down, depressed, or hopeless: not at all 3. Trouble falling or staying asleep, or sleeping too much: not at all 4. Feeling tired or having little energy: not at all 5. Poor appetite or overeating: not at all 6. Feeling bad about yourself - or that you are a failure or have let yourself or your family down: not at all 7. Trouble concentrating on things, such as reading the newspaper or watching television: not at all 8. Moving or speaking so slowly that other people could have noticed. Or the opposite - being so fidgety or restless that you have been moving around a lot more than usual: not at all 9. Thoughts that you would be better off or of hurting yourself in some way: not at all Total score: 0 Depression Screening Interpretation: Negative Depression Screening Done: Yes 78963 - PHQ-9 Billing: Yes Source: Developed by Drs. Devon Hatch, Kimi Corrales, Tin Dominguez and colleagues, with an educational darrius from [employer]. Thrive Questionnaire Date Thrive assessed: 12/15/24 I am a: Patient What is your living situation today?: I choose not to answer this question Within the past 12 months, did the food you bought not last and you didn't have the money to get more?: I choose not to answer this question Within the past 12 months, did you worry whether your food would run out before you got money to buy more?: I choose not to answer this question Do you have trouble paying for medicines?: I choose not to answer this question Do you have trouble getting transportation to medical appointments?: I choose not to answer this question Do you have trouble paying your heating and electricity bill?: I choose not to answer this question Do you have trouble taking care of your child, family member or friend?: I choose not to answer this question Do you have trouble with day-to-day activities such as bathing, preparing meals, shopping, managing finances, etc.?: I choose not to answer this question Are you interested in more education?: I choose not to answer this question Please select the resources that you would like help with: None Currently or been in a relationship where the following occur: I choose not to answer THRIVE Score: 0 AUDIT C Alcohol Use Questionnaire (AUDIT-C) 1. How often do you have a drink containing alcohol?: Never Total Score: 0 CLARK-7 AMB Questionnaire CLARK-7 Date CLARK - 7 assessed: 12/15/24 Feeling nervous, anxious, or on edge: 0 = Not at all Not being able to stop or control worryin = Not at all Worrying too much about different things: 0 = Not at all Trouble relaxin = Not at all Being so restless that it is hard to sit still: 0 = Not at all Becoming easily annoyed or irritable: 0 = Not at all Feeling afraid as if something awful might happen: 0 = Not at all Total CLARK-7 score (0-4 normal; 5-9 mild; 10-14 moderate; 15-21 severe): 0 Source: Developed by Drs. Devon Hatch, Kimi Corrales, Tin Dominguez and colleagues, with an educational darrius from [employer]. CLARK-7 Assessment Billing CLARK-7 Assessment Tool: CLARK-7 Assessment 62342 Review of Systems Const Reports no additional complaints Eyes Reports no additional complaints ENT Reports no additional complaints Card Denies chest pain, Denies rapid heart rate and Denies dyspnea Resp Denies chest congestion, Denies cough and Denies dyspnea GI Denies abdominal pain, Denies melena, Denies bloating, Denies change in bowel habits, Denies GI cramping and Denies nausea Reports no additional complaints Musc Reports as per HPI, Reports arthralgias and Reports stiffness Skin/Breast Denies lesions and Denies rash Neuro Denies paresthesias Psych Reports no additional complaints Endo Reports no additional complaints Rashawn/Lymph Reports no additional complaints Aller/Immun Reports no additional complaints Physical exam (Primary Care) Vital Signs: Last Vital Signs Temp 97.8 F 12/15/24 15:07 Pulse 83 12/15/24 15:07 BP 124/70 12/15/24 15:07 Pulse Ox 97 12/15/24 15:07 Oxygen Delivery Method Room Air 12/15/24 15:07 BMI result Body Mass Index 25.1 Tobacco/Smoking Status: Tobacco use Status Tobacco use date assessed 12/15/24 12/15/24 15:05 Patient Tobacco Use Status Never used Tobacco 12/15/24 15:02 e-Cigarette/Vaping Use Never Used 12/15/24 15:02 PHQ-9: PHQ-9 Score PHQ-9: Total score 0 12/15/24 15:28 Depression Screening Interpretation: Negative Thrive Assessment: Date of Thrive Assessment Date Thrive assessed 12/15/24 12/15/24 15:11 Currently or been in a relationship where the following occur: I choose not to answer Const General: cooperative, comfortable, no acute distress and alert Nutritional Appearance: average body habitus Orientation/consciousness: patient oriented x3 HENMT Mouth: Normal oral and palatal mucosa present and moist mucous membranes Eyes General: appearance normal, both eyes and all related structures Neck Other: Supple no lymphadenopathy, thyroid gland nonpalpable, no carotid bruits Resp Effort & Inspection: normal respiratory effort and able to speak in complete sentences Auscultation: clear to auscultation bilaterally Cardio Other: S1-S2 present regular rate and rhythm GI Other: Normal bowel sounds, soft, nontender with no mass palpated no abdominal bruit Back/Spine/Pelvis Back: No back tenderness Skin General skin exam: no rashes or lesions noted Neuro General: patient oriented x3, moves all extremities, Normal light touch and pain sensation, no focal motor deficits, CN's II-XI intact bilaterally and normal sensation to monofilament Gait exam (Neuro): Assisted gait required (Cane) Extrem Other: Slight tenderness on palpation over right knee, full range of motion, no swelling or effusion seen Psych Appearance: grossly normal and well kempt Mental Status: mental status grossly normal Speech and movement: Normal speech and movement present Affect: normal affect Results AMB Hemoglobin A1c AMB Hemoglobin A1c 9.2 % Last Edit by Dixie Jones CMA on 12/15/24 15:28 Results Reviewed Results Reviewed: Laboratory Last Values Hgb A1c (Clinic) 9.2 % (4.0-6.0) H 12/15/24 15:21 Coding Level of Care Code Est Pt Level 4 (12776) Complex EM visit Add On G2211 Diagnoses Type 2 diabetes mellitus with mild nonproliferative diabetic retinopathy without macular edema E11.3299 Type 2 diabetes mellitus with hyperglycemia, without long-term current use of insulin E11.65 Essential hypertension I10 Dyslipidemia E78.5 Age-related osteoporosis without current pathological fracture M81.0 Osteoporosis type: age-related Presence of current pathological fracture: without current pathological fracture Right anterior knee pain M25.561 Additional Codes PHQ-9 - 29329 - PHQ-9 Billing: Yes ([id number]) CLARK-7 Assessment Billing - CLARK-7 Assessment Tool: CLARK-7 Assessment 81618 ([id number]) Assessment & Plan Assessment & Plan (1) Type 2 diabetes mellitus with mild nonproliferative diabetic retinopathy without macular edema: Code(s): E11.3299 - Type 2 diabetes mellitus with mild nonproliferative diabetic retinopathy without macular edema, unspecified eye Category: Medical Plan: Patient has only been taking metformin a 1000 mg once tab day in a.m., advised to start taking it twice a day with meals. Reinforced importance of following recommended diet and get at least 15 minutes of regular exercise daily. Up-to-date with diabetes retinopathy screening. Declines offers for flu vaccine, pneumonia vaccine or COVID vaccination (2) Type 2 diabetes mellitus with hyperglycemia, without long-term current use of insulin: Code(s): E11.65 - Type 2 diabetes mellitus with hyperglycemia Category: Medical Plan: Patient has only been taking metformin a 1000 mg once tab day in a.m., advised to start taking it twice a day with meals. Reinforced importance of following recommended diet and get at least 15 minutes of regular exercise daily. Up-to-date with diabetes retinopathy screening. Declines offers for flu vaccine, pneumonia vaccine or COVID vaccination. Will serum back for follow-up in 3 months, reminded to get fasting labs done prior to visit (3) Essential hypertension: Code(s): I10 - Essential (primary) hypertension Category: Medical Plan: Blood pressure at goal of less than 130/80. Continue with current medication. Reinforced importance of following a low sodium diet, getting regular exercise, and lowering stress levels. (4) Dyslipidemia: Code(s): E78.5 - Hyperlipidemia, unspecified Category: Medical Plan: Fasting lipid panel ordered, will continue on current dose of atorvastatin 20 mg daily and [place] 3 fatty acid supplements, 2 capsules daily (5) Osteoporosis: Code(s): M81.0 - Age-related osteoporosis without current pathological fracture Category: Medical Qualifiers: Osteoporosis type: age-related Presence of current pathological fracture: without current pathological fracture Qualified Code(s): M81.0 - Age- related osteoporosis without current pathological fracture Plan: Currently followed by endocrine clinic at [facility] [place], started on Evenity this month (6) Right anterior knee pain: Code(s): M25.561 - Pain in right knee Category: Medical Plan: Prescription sent for diclofenac gel 1% massaged to affected joint 4 times a day as needed for pain Orders: Orders Lipid Panel 03/11/25 E11.3299 - Type 2 diabetes mellitus with mild nonproliferative diabetic retinopathy without macular edema, unspecified eye, E11.65 - Type 2 diabetes mellitus with hyperglycemia, E78.5 - Hyperlipidemia, unspecified, I10 - Essential (primary) hypertension, M81.0 - Age-related osteoporosis without current pathological fracture Alanine Aminotransferase 03/11/25 E11.3299 - Type 2 diabetes mellitus with mild nonproliferative diabetic retinopathy without macular edema, unspecified eye, E11.65 - Type 2 diabetes mellitus with hyperglycemia, E78.5 - Hyperlipidemia, unspecified, I10 - Essential (primary) hypertension, M81.0 - Age-related osteoporosis without current pathological fracture Basic Metabolic Panel Fasting 03/11/25.3299 - Type 2 diabetes mellitus with mild nonproliferative diabetic retinopathy without macular edema, unspecified eye, E11.65 - Type 2 diabetes mellitus with hyperglycemia, E78.5 - Hyperlipidemia, unspecified, I10 - Essential (primary) hypertension, M81.0 - Age-related osteoporosis without current pathological fracture AMB Hemoglobin A1c Today E11.65 - Type 2 diabetes mellitus with hyperglycemia Hemoglobin A1c 03/11/25 E11.3299 - Type 2 diabetes mellitus with mild nonproliferative diabetic retinopathy without macular edema, unspecified eye, E11.65 - Type 2 diabetes mellitus with hyperglycemia, E78.5 - Hyperlipidemia, unspecified, I10 - Essential (primary) hypertension, M81.0 - Age-related osteoporosis without current pathological fracture Aspartate Amino Transferase 03/11/25 E11.3299 - Type 2 diabetes mellitus with mild nonproliferative diabetic retinopathy without macular edema, unspecified eye, E11.65 - Type 2 diabetes mellitus with hyperglycemia, E78.5 - Hyperlipidemia, unspecified, I10 - Essential (primary) hypertension, M81.0 - Age-related osteoporosis without current pathological fracture XR DEXA axial skeleton 03/11/25 E11.3299 - Type 2 diabetes mellitus with mild nonproliferative diabetic retinopathy without macular edema, unspecified eye, E11.65 - Type 2 diabetes mellitus with hyperglycemia, E78.5 - Hyperlipidemia, unspecified, I10 - Essential (primary) hypertension, M81.0 - Age-related osteoporosis without current pathological fracture Microalbumin, Random (w Creat) 03/11/25 E11.3299 - Type 2 diabetes mellitus with mild nonproliferative diabetic retinopathy without macular edema, unspecified eye, E11.65 - Type 2 diabetes mellitus with hyperglycemia, E78.5 - Hyperlipidemia, unspecified, I10 - Essential (primary) hypertension, M81.0 - Age-related osteoporosis without current pathological fracture Medications: New diclofenac sodium 1% apply to single knee, ankle, foot; for foot includes sole/toes/top of foot 4 grams topical QID PRN 100 grams 1RF Knee pain
[2024-12-15 15:07] VITALS: BP 124/70; PULSE 83; TEMP 36.6; O2SAT 97; BMI 25.1
--- OUTSIDE RECORDS SUMMARY | 2024-12-15 18:42 | XMS_ITS | Patient Health Record ---
Author Organization [facility] Address [address] [place] [address] Care Team Providers Care Chief Clinical Dietitian Name Role Phone ANNE-MARIE REYNOSO MD Primary Care Provider Unav ailable JAIMIE KIMBLE Unavailable [phone] Allergies No Known Allergies Reason For Referral [...] W/U Status Risk Notes Problem Age-related osteoporosis (280959370) Age-related osteoporosis without current pathological fracture (M81.0) Active confirmed Problem Essential hypertension (78710811) Essential (primary) hypertension (I10) Active confirmed Problem Malignant neoplasm of overlapping sites of right female breast (C50.811) Active confirmed Problem Type II diabetes mellitus without complication (225246569) Type 2 diabetes mellitus without complications (E11.9) Active confirmed Problem Hyperlipidemia (84050967) Hyperlipidemia, unspecified (E78.5) Active confirmed Problem Gastro-esophageal reflux disease with esophagitis (062508800) Gastro-esophagea l reflux disease with esophagitis (K21.0) Active confirmed Problem Osteoarthritis (372618943) Unspecified osteoarthritis, unspecified site (M19.90) Active confirmed Plan Of Treatment Pending Test Test Name Order Date Urinalysis 07/15/2022 MM Digital Screening Mammogram 3D 2021 Insurance Providers Payer Name Payer Address Payer Phone Subscriber Number Group Number Insured Name Patient Relationship to Insured Coverage Start Date Coverage End Date [facility] [address] [address] [place] [phone] [id number] CHANDLER GARG Self - patient is the [...]
--- OUTSIDE RECORDS SUMMARY | 2024-12-15 18:42 | XMS_ITS ---
Author Organization [facility] Address [address] [place] [address] Care Team Providers Care Rn Flight Name Role Phone Liban ROJAS, Nara Londono Primary Care Provider Un available James Zuniga Unavailable [phone] Allergies No Known Allergies REASON FOR VISIT [...] Metformin & Diet Manage Prod 1000MG Active [place] 3 1000 MG 1 capsule Orally Onc [...] Ordered Date Performed Result Body Sit e 27794-ZOHNJSR NAIL, 6 OR MORE 10/24/2024 N/A 23302-ZFJS SKIN LESIONS, 2 TO 4 10/24/2024 N/A Encounters Encounter Location Date Provider Diagnosis [facility] [place] [address] [place] [id number] 10/24/2024 James Zuniga Pain in right toe(s) [...] Treatment Pending Test Test Name Order Date 21881-NOQAAEP NAIL, 6 OR MORE 10/24/2024 48347-EGFC SKIN LESIONS, 2 TO 4 10/24/20 24 Next Appt Details Follow Up: 2 Months, Reason: Provider Name:James Zuniga , 01/30/2025 10:45:00 AM, [address] [place] [address], [place], [address], Procedure Notes * Category Sub-Category Detail Notes [...] use of a nail nipper and/or dremel-type concrete wall grinder operator, to a more viable healthy nail plate [...] to maintain effectiveness in symptomatic relief - 28683 Keratoma Treatment Parring or Cutting o f [...] tissue nippers, and/or power dremel instrumentation - 96600 Progress Notes * Terrie MADDEN MDOB:1939 (84 yo F)Acc No.[id number]:10/24/2024 Progress Note Patient:?Terrie MADDEN Provider:?James Zuniga DPM :1940???Age:84 Y???Sex:Female D ate:10/24/2024 Address:[address] [place], [place] [id number] Pcp:Nafisa Walton Subjective: * Chief Complaints: * [...] area Externally to feet Twice a day [place] 3 1000 MG Capsule 1 capsule Orally Once a day Medication List reviewed and reconciled with the patientNot-Taking/PRN Ammonium Lactate 12 % Cream 1 application to affected area Externally to feet Twice a day Not-Taking/PRN [place] 3 1000 MG Capsule 1 capsule Orally [...] Treatment: 2.?Type 2 diabetes mellitus without complication?Procedure: 01864-RZRL SKIN LESIONS, 2 TO 4 * Procedures:?Debride [...] use of a nail nipper and/or dremel-type concrete wall grinder operator, to a more viable healthy nail plate [...] to maintain effectiveness in symptomatic relief - 44239.?Keratoma Treatment:?Parring or Cutting of Benign Hyperkeratotic Lesion(s)?(-56) [...] tissue nippers, and/or power dremel instrumentation - 85903.? * Procedure Codes:?02203 DEBRI DE NAIL, 6 OR MORE, Modifiers: XS 96611 TRIM SKIN LESIONS, 2 TO 4, Modifiers: XS * Follow Up:?2 Months * Images: * Sign off status: Completed true * Provider:?James Zuniga DPM Date:?2023 Generated for Juan Jose de la cruz/Brandon/Mini on:?12/15/2024 06:42 PM EST History and Physical Notes * [...]
--- OUTSIDE RECORDS SUMMARY | 2024-12-15 18:43 | XMS_ITS | Clinical Summary ---
Author Organization [employer] Address [address] [place] [address] Care Team Providers Care Welding Pantograph Machine Operator Name Role Phone Unavailable Primary Care Provider [...] Vaccines (1 of 2) 02/15/1992 Pneumococcal Vaccine: 50+ Ye ars (1 of 1 - PCV) [...]
--- OUTSIDE RECORDS SUMMARY | 2024-12-15 18:43 | XMS_ITS ---
Author Organization [facility] Address [address] [place] [address] Care Team Providers Care Pointer Helper Name Role Phone Liban ROJAS, Nara Londono Primary Care Provider Un available James Zuniga Unavailable [phone] REASON FOR VISIT At Risk Footcare, Painful Nail(s) aggrevated by shoes and causing difficulty standing/walking., ToeIrritation, Ingrown Nail Medications Medication SIG (Take, Route, Frequency, Duration) Notes Start Date End Date Status Ammonium Lactate 12 % 1 application to affected area Externally to feet Twice a day for 30 days Not-Taking [place] 3 1000 MG 1 capsule Orally Onc [...] Ordered Date Performed Result Body Sit e 40054-MQREJZA NAIL, 6 OR MORE 07/27/2024 N/A 02301-Ciesxdtt Plate 07/27/2024 N/A 06357-MRNG SKIN LESIONS, 2 TO 4 07/27/2024 N/A Encounters Encounter Location Date Provider Diagnosis [facility] [place] [address] [address] 07/27/2024 James Zuniga Pain in right toe(s) [...] INSTRUCTIONS.pdf) Pending Test Test Name Order Date 59708-FVHMWII NAIL, 6 OR MORE 07/27/2024 33262-Lplxqxho Plate 07/27/2024 70015-NEEE SKIN LESIONS, 2 TO 4 07/27/20 24 Next Appt Details Follow Up: 2 Months, Reason: Provider Name:James Zuniga , 01/30/2025 10:45:00 AM, [address] , [address], [place], [address], Procedure Notes * Category Sub-Category Detail Notes [...] Motrin was recommended for pain or discomfort (27715) , DIABETES: Pt was advised as to [...] use of a nail nipper and/or dremel-type needle grinder, to a more viable healthy nail plate or bed tissue 6-10. Silver nitrate used for any petechial bleeding as necessary. Definitive antifungal treatment options have been reviewed and discussed with the patient. The patient chooses, no pharmaceutical tx - 44333 Keratoma Treatment Parring or Cutting o f Benign Hyperkeratotic Lesion(s) (-56) 2-4 Lesions - The Benign hyperkeratotic lesions, as described above were pared, and/or cut utilizing a sterile 15 blade, tissue nippers, and/or dremel - 30610 Progress Notes * Terrie MADDEN MDOB:1939 (84 yo F)Acc No.[id number]:07/27/2024 Progress Note Patient:?Gabby MADDENdia Nafisa Provider:?James Zuniga DPM :1940???Age:84 Y???Sex:Female D ate:07/27/2024 Address:[address] [place], [place] [address] Pcp:Nafisa Walton Subjective: * Chief Complaints: * [...] ?Exercise: yes, walking. ?Marital status: . 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 * Medications:?TakingAspirin 8 1 MG Tablet [...] area Externally to feet Twice a day [place] 3 1000 MG Capsule 1 capsule Orally Once a day Medication List reviewed and reconciled with the patientNot-Taking/PRN Ammonium Lactate 12 % Cream 1 application to affected area Externally to feet Twice a day Not-Taking/PRN [place] 3 1000 MG Capsule 1 capsule Orally [...] , TA??? Plan: * Treatment: 2.?Tinea unguium?Procedure: 21997-KGIKXRR NAIL, 6 OR MORE 3.?Type 2 diabetes mellitus without complication?Procedure: 18345-NJMT SKIN LESIONS, 2 TO 4 4.?Ingrown nail?Procedure: 63001-Cnunrkhx Plate * Procedures:?Debride Nail 6-10:?Nail debridement?Performance of this nail treatment by a nonprofessional would put this patients foot and overall health at risk. Therefore, nail debridement was performed extensively to reduce/remove overall nail length, girth, thickness, subungual debris, and necrotic tissue, by manual and/or electrical means through the use of a nail nipper and/or dremel-type needle grinder, to a more viable healthy nail plate or bed tissue 6-10. Silver nitrate used for any petechial bleeding as necessary. Definitive antifungal treatment options have been reviewed and discussed with the patient. The patient chooses, no pharmaceutical tx - 92276.?Keratoma Treatment:?Parring or Cutting of Benign Hyperkeratotic Lesion(s)?(-56) 2-4 Lesions - The Benign hyperkeratotic lesions, as described above were pared, and/or cut utilizing a sterile 15 blade, tissue nippers, and/or dremel - 06549.?Nail Avulsion:?Location?Medial nail border?,?TA.?Anesthesia?was accomplished TOPICALLY with Lidocaine [...] Motrin was recommended for pain or discomfort (92453) , DIABETES: Pt was advised as to the risk of delayed or nonhealing due to diabetes. Pt is to call the office with any questions, concerns, or complications.? * Procedure Codes:?08740 DEBRI DE NAIL, 6 OR MORE, Modifiers: XS 69483 Avulsion Plate, Modifiers: XS , [id number] TRIM SKIN LESIONS, 2 TO 4, Modifiers: [...] for Juan Jose de la cruz/Brandon/Mini on:?12/15/2024 06:43 PM EST History and Physical Notes * HPI (History of Present Illness) Category Sub-Category Detail Notes Category Not es Toe pain Location: B/L feet Duration: several years Course: worse Aggravated by: shoes, any pressure Treatments: change in shoes At Risk footcare Pt [facility] Last PCP Visit: Date: 02/18 States [...]
--- OUTSIDE RECORDS SUMMARY | 2024-12-15 18:43 | XMS_ITS ---
Author Organization [facility] Address [address] [facility] [place] [address] Care Team Providers Care Clothes Presser Name Role Phone Liban ROJAS, Nara Londono Primary Care Provider Un available James Zuniga Unavailable [phone] Encounters Encounter Location Date Provider Diagnosis [address] [address] 06/06/2024 James Zuniga Plan Of Treatment Next Appt Details Provider Name:James Zuniga , 01/30/2025 10:45:00 AM, [address] [place] [address], [address], Progress Notes * Terrie MADDEN MDOB:1939 (84 yo F)Acc No.[id number]:06/06/2024 Progress Note Patient:?Terrie MADDEN Provider:?James Zuniga DPM :1940???Age:84 Y???Sex:Female D ate:06/06/2024 Address:[address] [place] [address] [address] , [id number] Pcp:Nafisa Walton Subjective: * Chief Complaints: * [...]
--- OUTSIDE RECORDS SUMMARY | 2024-12-15 18:43 | XMS_ITS | Patient Health Record ---
Author Organization [facility] Address [address] [place] [address] Care Team Providers Care Band Shover Name Role Phone Liban ROJAS, Nara Londono Primary Care Provider Un available James Zuniga Unavailable [phone] Allergies No Known Allergies Reason For Referral No Information Medications Medication SIG (Take, Route, Frequency, Duration) Notes Start Date End Date Status [place] 3 1000 MG 1 capsule Orally Onc [...] Problem Acquired hammer toe of right foot (59494655098866 05) Other hammer toe(s) (acquired), right foot (M20.41) Active confirmed Response to treatment,I mprovement Problem Acquired hammer toe of left foot (10944242201815 03) Other hammer toe(s) (acquired), left foot (M20.42) Active confirmed Response to treatment,I mprovement Problem Type 2 diabetes mellitus without complication (302835708) Type 2 diabetes mellitus without complication (E11.9) Active confirmed Vital Signs Blood pressure diastolic 80 mm Hg 10/24/2024 Height 5 ft 2 in in 10/24/2024 Blood pressure systolic 120 mm Hg 10/24/2024 Weight 128 lbs 10/24/2024 BMI 23.41 kg/m2 10/24/2024 Procedures Procedure Date Ordered Date Performed Result Body Sit e 84765-ZMSPPKJ NAIL, 6 OR MORE 01/11/2024 N/A 06134-Fkqkaqco Plate 01/11/2024 N/A 09119-IDYL SKIN LESIONS, 2 TO 4 01/11/2024 N/A 12440-FDZYINQ NAIL, 6 OR MORE 07/27/2024 N/A 79053-Matgvgwg Plate 07/27/2024 N/A 11351-FNTS SKIN LESIONS, 2 TO 4 07/27/2024 N/A 60169-HQIFBEU NAIL, 6 OR MORE 10/24/2024 N/A 77955-PKMT SKIN LESIONS, 2 TO 4 10/24/2024 N/A 04567-FQHT SKIN LESIONS, 2 TO 4 03/28/2024 N/A 70364-Vxifihww Plate 03/28/2024 N/A 27491-LYQRDTS NAIL, 6 OR MORE 03/28/2024 N/A Encounters Encounter Location Date Provider Diagnosis [facility] [address] [address] 01/11/2024 James Nadia Pain in right toe(s) M79.674 ; Tinea unguium B35.1 ; Pain in left toe(s) M79.675 ; Type 2 diabetes mellitus without complication E11.9 ; Other hammer toe(s) (acquired), right foot M20.41 ; Other hammer toe(s) (acquired), left foot M20.42 and Ingrown nail L60.[address] [address] 03/28/2024 James Nadia Pain in right toe(s) M79.674 ; Tinea unguium B35.1 ; Pain in left toe(s) M79.675 ; Type 2 diabetes mellitus without complication E11.9 and Ingrown nail L60.[address] [address] 07/27/2024 James Nadia Pain in right toe(s) M79.674 ; Tinea unguium B35.1 ; Pain in left toe(s) M79.675 ; Type 2 diabetes mellitus without complication E11.9 ; Other hammer toe(s) (acquired), left foot M20.42 ; Other hammer toe(s) (acquired), right foot M20.41 and Ingrown nail L60.[address] [address] 10/24/2024 James Nadia Pain in right toe(s) M79.674 ; Tinea unguium B35.1 ; Pain in left toe(s) M79.675 and Type 2 diabetes mellitus without complication E11.[address] [address] 06/01/2024 James Nadia Assessments Encounter Date Diagnosis [...] Treatment Pending Test Test Name Order Date 26124-HDFXSMP NAIL, 6 OR MORE 05/12/2019 44927-FCQADIA NAIL, 6 OR MORE 08/11/2019 65360-YUSFRWF NAIL, 6 OR MORE 11/24/2019 72411-IWHEKCM NAIL, 6 OR MORE 03/08/2020 82875-HDUSFSE NAIL, 6 OR MORE 05/31/2020 78948-MALMKVO NAIL, 6 OR MORE 08/15/2020 48917-BPSFHDB NAIL, 6 OR MORE 10/24/2020 66599-OXKDRPM NAIL, 6 OR MORE 01/09/2021 82368-PDBZFBB NAIL, 6 OR MORE 03/20/2021 77501-TVICWMK NAIL, 6 OR MORE 06/12/2021 97649-CUNMZEW NAIL, 6 OR MORE 08/21/2021 18023-ZNCARXH NAIL, 6 OR MORE 10/31/2021 62590-JTPCUIZ NAIL, 6 OR MORE 01/09/2022 96368-SJGTGVY NAIL, 6 OR MORE 03/20/2022 54121-GGNUGFL NAIL, 6 OR MORE 05/29/2022 91490-VLBADUL NAIL, 6 OR MORE 09/03/2022 83690-TFGTLJG NAIL, 6 OR MORE 11/19/2022 67757-IXVOFLP NAIL, 6 OR MORE 02/11/2023 98351-XEIQKNU NAIL, 6 OR MORE 04/22/2023 81708-VLMLIWM NAIL, 6 OR MORE 07/01/2023 57364-JIDOIJX NAIL, 6 OR MORE 09/10/2023 44405-TXZAAUC NAIL, 6 OR MORE 01/11/2024 43601-JHSJCPL NAIL, 6 OR MORE 03/28/2024 26496-ZFPMLKV NAIL, 6 OR MORE 07/27/2024 72336-OWDYHUH NAIL, 6 OR MORE 10/24/2024 52239-Nwpynwnq Plate 07/27/2024 83494-Cklxkgdr Plate 03/28/2024 90277-Fkqfhwrf Plate 09/03/2022 28086-Kxkmzbnq Plate 01/11/2024 83319-Znggchbs Plate 11/19/2022 04912-Jsacmkyp Plate 10/31/2021 70424-URTX SKIN LESIONS, 2 TO 4 10/31/20 03233-UBVS SKIN LESIONS, 2 TO 4 08/21/20 49730-JINX SKIN LESIONS, 2 TO 4 06/12/20 81116-IDTG SKIN LESIONS, 2 TO 4 03/20/20 68421-QBOL SKIN LESIONS, 2 TO 4 09/03/20 48085-THMD SKIN LESIONS, 2 TO 4 05/29/20 57413-XTYB SKIN LESIONS, 2 TO 4 03/20/20 76636-DOFB SKIN LESIONS, 2 TO 4 01/09/20 03067-HQSX SKIN LESIONS, 2 TO 4 01/09/20 87002-CPQP SKIN LESIONS, 2 TO 4 10/24/20 45471-VINI SKIN LESIONS, 2 TO 4 08/15/20 45367-LOYN SKIN LESIONS, 2 TO 4 05/31/20 97308-AWLD SKIN LESIONS, 2 TO 4 03/08/20 29469-MXQO SKIN LESIONS, 2 TO 4 11/24/19 52246-YQYK SKIN LESIONS, 2 TO 4 08/11/20 50197-COQX SKIN LESIONS, 2 TO 4 05/12/20 71027-XHBG SKIN LESIONS, 2 TO 4 11/19/19 76079-YIGT SKIN LESIONS, 2 TO 4 02/12/20 55087-TSLB SKIN LESIONS, 2 TO 4 07/01/20 34892-NYDP SKIN LESIONS, 2 TO 4 04/22/20 30474-SWGU SKIN LESIONS, 2 TO 4 01/11/20 79227-CXIB SKIN LESIONS, 2 TO 4 03/28/20 44856-MHRV SKIN LESIONS, 2 TO 4 07/27/20 99213-WORA SKIN LESIONS, 2 TO 4 10/24/20 Next Appt Details Provider Name:James Zuniga , 01/30/2025 10:45:00 AM, [address] [facility] [facility] [address], [place], [address], Insurance Providers Payer Name Payer Address Payer Phone Subscriber Number Group Number Insured Name Patient Relationship to Insured Coverage Start Date Coverage End Date [facility] [employer] Claims [address] [place] [id number] Terrie Noriega Self - patient is the insured Medical (General) History Medical History History ICD Code Arthritis Back,Hip,and Knee pain CAD (Cholesterol) Diabetic Osteoporosis Measles HTN Surgical History Surgery Date(Month/Year) cancer surgery right hip replacement 05/09/24 Hospitalization History Reason Date(Month/Year) [facility] Right hip replacement 05/09/24
--- OUTSIDE RECORDS SUMMARY | 2024-12-15 18:43 | XMS_ITS | Encounter Summary ---
Author Organization [facility] Address [address] [facility] 7t [place] [address] Care Team Providers Care Railway Head Tender Name Role Phone Unavailable Primary Care Provider [...]
--- OUTSIDE RECORDS SUMMARY | 2024-12-15 18:43 | XMS_ITS | Encounter Summary ---
Author Organization [facility] Address [address] [place] [address] Care Team Providers Care Manager Risk Management Name Role Phone Nara Louie Md, MD Primary Care Provider Unavailable Encounter Details Date Type Department Care Team Description 01/31/2016 Business Doc Medical Records [address] [place] [address] Abstract, Provider Social History Tobacco Use Types Packs/Day Years Used Date Smoking Tobacco: Never Smokeless Tobacco: Never Alcohol Use Standard Drinks/Week Comments No 0 (1 standard drink = 0.6 oz pur e alcohol) Sex Assigned at Date Recorded Not on file documented as of this encounter Plan of Treatment Not on file documented as of this encounter Visit Diagnoses Not on filedocumented in this encounter Care Teams Manager Risk Management Relationship Specialty Start Date End Date Nara Louie MD, MD PCP - General Internal Medicine 10/26/15 documented as of this encounter
--- OUTSIDE RECORDS SUMMARY | 2024-12-15 18:43 | XMS_ITS | Encounter Summary ---
Author Organization [facility] Address [address] [place] [address] Care Team Providers Care Receipt And Report Clerk Name Role Phone Nara Louie Md, MD Primary Care Provider Unavailable Encounter Details Date Type Department Care Team Description 02/01/2016 Transfer Records Medical Records [address] [place] [address] Abstract, Provider Social History Tobacco Use Types [...] on filedocumented in this encounter Care Teams Receipt And Report Clerk Relationship Specialty Start Date End Date Nara Louie MD, MD PCP - General Internal Medicine 10/26/15 documented as of this encounter
== END 2024-12-15 15:38 | disposition home or self-care (01) ==
PROVIDERS: PCP Internal Medicine; Visit Provider Internal Medicine
DX: E11.3299 Type 2 diabetes mellitus with mild nonproliferative diabetic retinopathy without macular edema, unspecified eye (principal); E11.65 Type 2 diabetes mellitus with hyperglycemia; I10 Essential (primary) hypertension; E78.5 Hyperlipidemia, unspecified; M81.0 Age-related osteoporosis without current pathological fracture; M25.561 Pain in right knee

== ENCOUNTER → 2024-12-15 14:49 | Outpatient (BNVA) | payer OTHER, SELFPAY | PROVIDERS: PCP Internal Medicine; Visit Provider Internal Medicine | DX: E11.3299 Type 2 diabetes mellitus with mild nonproliferative diabetic retinopathy without macular edema, unspecified eye (principal); E11.65 Type 2 diabetes mellitus with hyperglycemia; E78.5 Hyperlipidemia, unspecified; I10 Essential (primary) hypertension; M81.0 Age-related osteoporosis without current pathological fracture; M25.561 Pain in right knee | CPT/HCPCS: 83036; 96127; 99212 ==

== ENCOUNTER 2025-01-10 09:45 | Outpatient (AMB) | payer OTHER, SELFPAY ==
--- NOTE | 2025-01-10 10:12 | AM.OFFVISNUR ---
Intake Visit Reasons: Evenity #2 Allergies No Known Allergies Allergy (Verified 12/15/24 15:18) Office Meds romosozumab-aqqg 210 mg/2.34 mL(105 mg/1.17 mL x2)subcutaneous syringe Performing Provider: Devon Baltazar MD [place] [facility] Administered by: Ludivina Parra RN on 01/10/25 10:13 Dose Route Admin Location Dispensed Lot Number Expiration Date [facility] House Worker 210 mg subcut bilateral upper arms 2.34 mL [id number] 02/13/27 22315-289-55 AMGEN Comments: Pan Shaker declined, daughter Terrie provided interpretation. Consent form signed by patient. Pt tolerated injection well. Daughter denied any adverse reactions with previous injections. Assessment & Plan Assessment & Plan Orders: Orders AMB Romosozumab Injection Patient Supplied Today M81.0 - Age-related osteoporosis without current pathological fracture Medications: New romosozumab-aqqg 210 mg (2.34 mL) subcut ONCE 2.34 mL 0RF M81.0 - Age-related osteoporosis without current pathological fracture Coding
--- OUTSIDE RECORDS SUMMARY | 2025-01-10 11:04 | XMS_ITS | Encounter Summary ---
Author Organization [facility] Address [address] [facility] 7t [place] [address] Care Team Providers Care Retail Equipment Associate Name Role Phone Unavailable Primary Care Provider [...]
--- OUTSIDE RECORDS SUMMARY | 2025-01-10 11:04 | XMS_ITS ---
Author Organization [facility] Address [address] [facility] [place] [address] Care Team Providers Care Lubricating Machine Tender Name Role Phone Liban ROJAS, Nara Londono Primary Care Provider Un available James Zuniga Unavailable [phone] Encounters Encounter Location Date Provider Diagnosis [address] [address] 06/06/2024 James Zuniga Plan Of Treatment Next Appt Details Provider Name:James Zuniga , 01/30/2025 10:45:00 AM, [address] [place] [address], [address], Progress Notes * Terrie MADDEN MDOB:1939 (84 yo F)Acc No.[id number]:06/06/2024 Progress Note Patient:?Terrie MADDEN Provider:?James Zuniga DPM :1940???Age:84 Y???Sex:Female D ate:06/06/2024 Address:[address] [place] [address] [address] , [id number] Pcp:Nafisa Walton Subjective: * Chief Complaints: * [...] Generated for Juan Jose de la cruz/Brandon/Mini on:?01/10/2025 11:04 AM EST
--- OUTSIDE RECORDS SUMMARY | 2025-01-10 11:04 | XMS_ITS ---
Author Organization [facility] Address [address] [facility] [place] [address] Care Team Providers Care Dietitian Research Name Role Phone Liban ROJAS, Nara Londono Primary Care Provider Un available James Zuniga Unavailable [phone] REASON FOR VISIT At Risk Footcare, Painful Nail(s) aggrevated by shoes and causing difficulty standing/walking., ToeIrritation, Ingrown Nail Medications Medication SIG (Take, Route, Frequency, Duration) Notes Start Date End Date Status Ammonium Lactate 12 % 1 application to affected area Externally to feet Twice a day for 30 days Not-Taking [place] 3 1000 MG 1 capsule Orally Onc [...] Ordered Date Performed Result Body Sit e 86627-DOTYTZW NAIL, 6 OR MORE 07/27/2024 N/A 87594-Fkobkdiz Plate 07/27/2024 N/A 57129-IRUE SKIN LESIONS, 2 TO 4 07/27/2024 N/A Encounters Encounter Location Date Provider Diagnosis [facility] [place] [address] [address] 07/27/2024 James Zuniga Pain in right toe(s) [...] INSTRUCTIONS.pdf) Pending Test Test Name Order Date 55512-RQIMLEV NAIL, 6 OR MORE 07/27/2024 39509-Xuuagcyf Plate 07/27/2024 34794-IWSJ SKIN LESIONS, 2 TO 4 07/27/20 24 Next Appt Details Follow Up: 2 Months, Reason: Provider Name:James Zuniga , 01/30/2025 10:45:00 AM, [address] , [address], [place], [address], Procedure Notes * Category Sub-Category Detail Notes [...] Motrin was recommended for pain or discomfort (56484) , DIABETES: Pt was advised as to [...] use of a nail nipper and/or dremel-type blanchard grinder operator, to a more viable healthy nail plate or bed tissue 6-10. Silver nitrate used for any petechial bleeding as necessary. Definitive antifungal treatment options have been reviewed and discussed with the patient. The patient chooses, no pharmaceutical tx - 21738 Keratoma Treatment Parring or Cutting o f Benign Hyperkeratotic Lesion(s) (-56) 2-4 Lesions - The Benign hyperkeratotic lesions, as described above were pared, and/or cut utilizing a sterile 15 blade, tissue nippers, and/or dremel - 45727 Progress Notes * Terrie MADDEN MDOB:1939 (84 yo F)Acc No.[id number]:07/27/2024 Progress Note Patient:?Gabby MADDENdia Nafisa Provider:?James Zuniga DPM :1940???Age:84 Y???Sex:Female D ate:07/27/2024 Address:[address] [place], [place] [phone] Pcp:Nafisa Walton Subjective: * Chief Complaints: * [...] ?Exercise: yes, walking. ?Marital status: . 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 * Medications:?TakingAspirin 8 1 MG Tablet [...] area Externally to feet Twice a day [place] 3 1000 MG Capsule 1 capsule Orally Once a day Medication List reviewed and reconciled with the patientNot-Taking/PRN Ammonium Lactate 12 % Cream 1 application to affected area Externally to feet Twice a day Not-Taking/PRN [place] 3 1000 MG Capsule 1 capsule Orally [...] , TA??? Plan: * Treatment: 2.?Tinea unguium?Procedure: 56162-VLYIUNQ NAIL, 6 OR MORE 3.?Type 2 diabetes mellitus without complication?Procedure: 18030-BYBX SKIN LESIONS, 2 TO 4 4.?Ingrown nail?Procedure: 79728-Kxixlbcv Plate * Procedures:?Debride Nail 6-10:?Nail debridement?Performance of this nail treatment by a nonprofessional would put this patients foot and overall health at risk. Therefore, nail debridement was performed extensively to reduce/remove overall nail length, girth, thickness, subungual debris, and necrotic tissue, by manual and/or electrical means through the use of a nail nipper and/or dremel-type blanchard grinder operator, to a more viable healthy nail plate or bed tissue 6-10. Silver nitrate used for any petechial bleeding as necessary. Definitive antifungal treatment options have been reviewed and discussed with the patient. The patient chooses, no pharmaceutical tx - 81549.?Keratoma Treatment:?Parring or Cutting of Benign Hyperkeratotic Lesion(s)?(-56) 2-4 Lesions - The Benign hyperkeratotic lesions, as described above were pared, and/or cut utilizing a sterile 15 blade, tissue nippers, and/or dremel - 70440.?Nail Avulsion:?Location?Medial nail border?,?TA.?Anesthesia?was accomplished TOPICALLY with Lidocaine [...] Motrin was recommended for pain or discomfort (24360) , DIABETES: Pt was advised as to the risk of delayed or nonhealing due to diabetes. Pt is to call the office with any questions, concerns, or complications.? * Procedure Codes:?02233 DEBRI DE NAIL, 6 OR MORE, Modifiers: XS 92887 Avulsion Plate, Modifiers: XS , [id number] TRIM SKIN LESIONS, 2 TO 4, Modifiers: [...] de la cruz/Brandon/Mini on:?01/10/2025 11:04 AM EST History and Physical Notes * HPI (History of Present Illness) Category Sub-Category Detail Notes Category Not es Toe pain Location: B/L feet Duration: several years Course: worse Aggravated by: shoes, any pressure Treatments: change in shoes At Risk footcare Pt [facility] Last PCP Visit: Date: 02/18 States [...]
--- OUTSIDE RECORDS SUMMARY | 2025-01-10 11:04 | XMS_ITS ---
Author Organization [facility] Address [address] [facility] [place] [address] Care Team Providers Care Quantometer Operator Name Role Phone Liban ROJAS, Nara Londono Primary Care Provider Un available James Zuniga Unavailable [phone] Allergies No Known Allergies REASON FOR VISIT [...] Metformin & Diet Manage Prod 1000MG Active [place] 3 1000 MG 1 capsule Orally Onc [...] Ordered Date Performed Result Body Sit e 47374-FDEBNLT NAIL, 6 OR MORE 10/24/2024 N/A 95690-RIGX SKIN LESIONS, 2 TO 4 10/24/2024 N/A Encounters Encounter Location Date Provider Diagnosis [facility] [place] [address] [place] [address] 10/24/2024 James Zuniga Pain in right toe(s) [...] Treatment Pending Test Test Name Order Date 36120-NOONTEF NAIL, 6 OR MORE 10/24/2024 83245-TNUS SKIN LESIONS, 2 TO 4 10/24/20 24 Next Appt Details Follow Up: 2 Months, Reason: Provider Name:James Zuniga , 01/30/2025 10:45:00 AM, [address] [facility], [place] [address], [place], [address], Procedure Notes * Category Sub-Category Detail Notes [...] to maintain effectiveness in symptomatic relief - 80410 Keratoma Treatment Parring or Cutting o f [...] tissue nippers, and/or power dremel instrumentation - 91591 Progress Notes * Terrie MADDEN MDOB:1939 (84 yo F)Acc No.[id number]:10/24/2024 Progress Note Patient:?Terrie MADDEN Provider:?James Zuniga DPM :1940???Age:84 Y???Sex:Female D ate:10/24/2024 Address:[address] [place], [place] [phone] Pcp:Nafisa Walton Subjective: * Chief Complaints: * [...] area Externally to feet Twice a day [place] 3 1000 MG Capsule 1 capsule Orally Once a day Medication List reviewed and reconciled with the patientNot-Taking/PRN Ammonium Lactate 12 % Cream 1 application to affected area Externally to feet Twice a day Not-Taking/PRN [place] 3 1000 MG Capsule 1 capsule Orally [...] Treatment: 2.?Type 2 diabetes mellitus without complication?Procedure: 03013-DYAE SKIN LESIONS, 2 TO 4 * Procedures:?Debride [...] to maintain effectiveness in symptomatic relief - 25024.?Keratoma Treatment:?Parring or Cutting of Benign Hyperkeratotic Lesion(s)?(-56) [...] tissue nippers, and/or power dremel instrumentation - 87817.? * Procedure Codes:?03687 DEBRI DE NAIL, 6 OR MORE, Modifiers: XS 96876 TRIM SKIN LESIONS, 2 TO 4, Modifiers: XS * Follow Up:?2 Months * Images: * Sign off status: Completed true * Provider:?James Zuniga DPM Date:?2023 Generated for Juan Jose de la cruz/Brandon/Mini on:?01/10/2025 11:03 AM EST History and Physical Notes * [...]
--- OUTSIDE RECORDS SUMMARY | 2025-01-10 11:04 | XMS_ITS | Clinical Summary ---
Author Organization [employer] Address [address] [facility] 7t [place] [address] Care Team Providers Care Simulation Engineer Name Role Phone Unavailable Primary Care [...] 1954 DTaP/Tdap/Td Vaccines (1 - Tdap) 1961 Pneumococcal Vaccine: 50+ Ye ars (1 of 1 - PCV) 02/15/1992 Zoster Vaccines (1 of 2) 02/15/1992 RSV Patients and Pa tients Aged 60 [...]
--- OUTSIDE RECORDS SUMMARY | 2025-01-10 11:04 | XMS_ITS | Encounter Summary ---
Author Organization [facility] Address [address] [place] [address] Care Team Providers Care Barrel Driller Name Role Phone Nara Louie Md, MD Primary Care Provider Unavailable Encounter Details Date Type Department Care Team Description 01/31/2016 Business Doc Medical Records [address] [place] [address] Abstract, Provider Social History Tobacco Use Types [...] on filedocumented in this encounter Care Teams Barrel Driller Relationship Specialty Start Date End Date Nara Louie MD, MD PCP - General Internal Medicine 10/26/15 documented as of this encounter
--- OUTSIDE RECORDS SUMMARY | 2025-01-10 11:04 | XMS_ITS | Patient Health Record ---
Author Organization [facility] Address [address] [facility] [place] [address] Care Team Providers Care Adz Worker Name Role Phone Liban ROJAS, Nara Londono Primary Care Provider Un available James Zuniga Unavailable [phone] Allergies No Known Allergies Reason For Referral No Information Medications Medication SIG (Take, Route, Frequency, Duration) Notes Start Date End Date Status [place] 3 1000 MG 1 capsule Orally Onc [...] Problem Acquired hammer toe of right foot (62685683133166 05) Other hammer toe(s) (acquired), right foot (M20.41) Active confirmed Response to treatment,I mprovement Problem Acquired hammer toe of left foot (57589514949316 03) Other hammer toe(s) (acquired), left foot (M20.42) Active confirmed Response to treatment,I mprovement Problem Type 2 diabetes mellitus without complication (521560235) Type 2 diabetes mellitus without complication (E11.9) Active confirmed Vital Signs Blood pressure diastolic 80 mm Hg 10/24/2024 Height 5 ft 2 in in 10/24/2024 Blood pressure systolic 120 mm Hg 10/24/2024 Weight 128 lbs 10/24/2024 BMI 23.41 kg/m2 10/24/2024 Procedures Procedure Date Ordered Date Performed Result Body Sit e 16107-SDTYRDN NAIL, 6 OR MORE 01/11/2024 N/A 68993-Rlouleco Plate 01/11/2024 N/A 65849-AYJV SKIN LESIONS, 2 TO 4 01/11/2024 N/A 59909-CQPBGQK NAIL, 6 OR MORE 03/28/2024 N/A 80255-Tartizxt Plate 03/28/2024 N/A 80752-ZNUX SKIN LESIONS, 2 TO 4 03/28/2024 N/A 79776-HFFRFFO NAIL, 6 OR MORE 07/27/2024 N/A 61357-Kshyyrom Plate 07/27/2024 N/A 29908-IPTL SKIN LESIONS, 2 TO 4 07/27/2024 N/A 50430-SXXNAZZ NAIL, 6 OR MORE 10/24/2024 N/A 38767-GLRK SKIN LESIONS, 2 TO 4 10/24/2024 N/A Encounters Encounter Location Date Provider Diagnosis [facility] [address] [address] 01/11/2024 James Nadia Pain in right toe(s) M79.674 ; Tinea unguium B35.1 ; Pain in left toe(s) M79.675 ; Type 2 diabetes mellitus without complication E11.9 ; Other hammer toe(s) (acquired), right foot M20.41 ; Other hammer toe(s) (acquired), left foot M20.42 and Ingrown nail L60.[address] [address] 03/28/2024 James Nadia Pain in right toe(s) M79.674 ; Tinea unguium B35.1 ; Pain in left toe(s) M79.675 ; Type 2 diabetes mellitus without complication E11.9 and Ingrown nail L60.[address] [address] 07/27/2024 James Nadia Pain in right toe(s) M79.674 ; Tinea unguium B35.1 ; Pain in left toe(s) M79.675 ; Type 2 diabetes mellitus without complication E11.9 ; Other hammer toe(s) (acquired), left foot M20.42 ; Other hammer toe(s) (acquired), right foot M20.41 and Ingrown nail L60.[address] [address] 10/24/2024 James Nadia Pain in right toe(s) M79.674 ; Tinea unguium B35.1 ; Pain in left toe(s) M79.675 and Type 2 diabetes mellitus without complication E11.[address] [address] 06/01/2024 James Nadia Assessments Encounter Date Diagnosis [...] Treatment Pending Test Test Name Order Date 54388-BSUSHCK NAIL, 6 OR MORE 05/12/2019 16398-ICURMIT NAIL, 6 OR MORE 08/11/2019 86346-CLAJIXH NAIL, 6 OR MORE 11/24/2019 71948-AUWGQGL NAIL, 6 OR MORE 03/08/2020 46116-VRGDTHX NAIL, 6 OR MORE 05/31/2020 33041-CJUPPDD NAIL, 6 OR MORE 08/15/2020 83758-NAHYIIN NAIL, 6 OR MORE 10/24/2020 62430-DHNLZIJ NAIL, 6 OR MORE 01/09/2021 06924-ASUHXMC NAIL, 6 OR MORE 03/20/2021 21599-YGQCUKZ NAIL, 6 OR MORE 06/12/2021 29651-YDBPBXO NAIL, 6 OR MORE 08/21/2021 68213-AUHFTEW NAIL, 6 OR MORE 10/31/2021 92247-HUOMPZQ NAIL, 6 OR MORE 01/09/2022 38993-PEZODIS NAIL, 6 OR MORE 03/20/2022 22012-AZBOXKF NAIL, 6 OR MORE 05/29/2022 45197-YELPHQZ NAIL, 6 OR MORE 09/03/2022 32375-BRPJECS NAIL, 6 OR MORE 11/19/2022 69193-PAGJBKT NAIL, 6 OR MORE 02/11/2023 95688-VNNCARC NAIL, 6 OR MORE 04/22/2023 03524-XPCDGTJ NAIL, 6 OR MORE 07/01/2023 58157-COAMSMN NAIL, 6 OR MORE 09/10/2023 52398-IHSWINB NAIL, 6 OR MORE 01/11/2024 40348-XLYNSQB NAIL, 6 OR MORE 03/28/2024 68640-BJZGNFN NAIL, 6 OR MORE 07/27/2024 97824-BXWQSDL NAIL, 6 OR MORE 10/24/2024 78993-Qpdjwjvb Plate 07/27/2024 11000-Evzoqvpc Plate 03/28/2024 04465-Tkaqbfio Plate 09/03/2022 90580-Ojrxdvcs Plate 01/11/2024 82194-Hlmqsbfm Plate 11/19/2022 36722-Lfmoscjd Plate 10/31/2021 63658-EPBJ SKIN LESIONS, 2 TO 4 10/31/20 55120-WBLB SKIN LESIONS, 2 TO 4 08/21/20 45507-JOWY SKIN LESIONS, 2 TO 4 06/12/20 40132-HQZU SKIN LESIONS, 2 TO 4 03/20/20 73742-TOSZ SKIN LESIONS, 2 TO 4 09/03/20 52327-BACA SKIN LESIONS, 2 TO 4 05/29/20 10689-DBUM SKIN LESIONS, 2 TO 4 03/20/20 05442-IEIO SKIN LESIONS, 2 TO 4 01/09/20 63457-GXTS SKIN LESIONS, 2 TO 4 01/09/20 88081-ZGDA SKIN LESIONS, 2 TO 4 10/24/20 70228-JUNS SKIN LESIONS, 2 TO 4 08/15/20 14254-NCER SKIN LESIONS, 2 TO 4 05/31/20 53875-HGML SKIN LESIONS, 2 TO 4 03/08/20 68451-OECC SKIN LESIONS, 2 TO 4 11/24/19 25566-PUKZ SKIN LESIONS, 2 TO 4 08/11/20 18260-TJZB SKIN LESIONS, 2 TO 4 05/12/20 06050-MWBJ SKIN LESIONS, 2 TO 4 11/19/19 18000-IIKY SKIN LESIONS, 2 TO 4 02/12/20 47524-YXWU SKIN LESIONS, 2 TO 4 07/01/20 88108-FUFI SKIN LESIONS, 2 TO 4 04/22/20 88477-DJSJ SKIN LESIONS, 2 TO 4 01/11/20 42837-ISSY SKIN LESIONS, 2 TO 4 03/28/20 09128-QOOX SKIN LESIONS, 2 TO 4 07/27/20 25863-MLBI SKIN LESIONS, 2 TO 4 10/24/20 Next Appt Details Provider Name:James Zuniga , 01/30/2025 10:45:00 AM, [address] [facility] [address], [place], [address], Insurance Providers Payer Name Payer Address Payer Phone Subscriber Number Group Number Insured Name Patient Relationship to Insured Coverage Start Date Coverage End Date [facility] [employer] Claims [address] [place] [id number] Terrie Noriega Self - patient is the insured Medical (General) History Medical History History ICD Code Arthritis Back,Hip,and Knee pain CAD (Cholesterol) Diabetic Osteoporosis Measles HTN Surgical History Surgery Date(Month/Year) cancer surgery right hip replacement 05/09/24 Hospitalization History Reason Date(Month/Year) [facility] Right hip replacement 05/09/24
--- OUTSIDE RECORDS SUMMARY | 2025-01-10 11:04 | XMS_ITS | Patient Health Record ---
Author Organization [facility] Address [address] [facility] [address] [place] [address] Care Team Providers Care Desk Clerks Supervisor Name Role Phone ANNE-MARIE REYNOSO MD Primary Care Provider Unav ailable JAIMIE KIMBLE Unavailable [phone] Allergies No Known Allergies Reason For Referral [...] W/U Status Risk Notes Problem Age-related osteoporosis (883347443) Age-related osteoporosis without current pathological fracture (M81.0) Active confirmed Problem Essential hypertension (04357754) Essential (primary) hypertension (I10) Active confirmed Problem Malignant neoplasm of overlapping sites of right female breast (C50.811) Active confirmed Problem Type II diabetes mellitus without complication (117811115) Type 2 diabetes mellitus without complications (E11.9) Active confirmed Problem Hyperlipidemia (09560448) Hyperlipidemia, unspecified (E78.5) Active confirmed Problem Gastro-esophageal reflux disease with esophagitis (457404375) Gastro-esophagea l reflux disease with esophagitis (K21.0) Active confirmed Problem Osteoarthritis (210065538) Unspecified osteoarthritis, unspecified site (M19.90) Active confirmed Plan Of Treatment Pending Test Test Name Order Date Urinalysis 07/15/2022 MM Digital Screening Mammogram 3D 2021 Insurance Providers Payer Name Payer Address Payer Phone Subscriber Number Group Number Insured Name Patient Relationship to Insured Coverage Start Date Coverage End Date [facility] [address] [address] [place] [address] [id number] CHANDLER GARG Self - patient is the [...]
== END 2025-01-10 10:10 | disposition home or self-care (01) ==
PROVIDERS: PCP Internal Medicine
DX: M81.0 Age-related osteoporosis without current pathological fracture (principal)

== ENCOUNTER → 2025-01-10 09:45 | Outpatient (BNVA) | payer OTHER, SELFPAY | PROVIDERS: PCP Internal Medicine | DX: M81.0 Age-related osteoporosis without current pathological fracture (principal) | CPT/HCPCS: 96372; J3111 ==

== ENCOUNTER 2025-02-07 13:35 | Outpatient (AMB) | payer OTHER, SELFPAY ==
--- NOTE | 2025-02-07 14:35 | AM.OFFVISNUR ---
Intake Visit Reasons: Evenity #3 Allergies No Known Allergies Allergy (Verified 12/15/24 15:18) Office Meds romosozumab-aqqg 210 mg/2.34 mL(105 mg/1.17 mL x2)subcutaneous syringe Performing Provider: Devon Baltazar MD Performing [place] [facility] Administered by: Ludivina Parra RN on 02/07/25 14:35 Dose Route Admin Location Dispensed Lot Number Expiration Date [facility] Chemistry Intern 210 mg subcut bilateral upper arms 2.34 mL [id number] 02/13/27 [id number] AMGEN Comments: Patient accompanied by daughter, child protective investigator declined. Patient signed consent form. Pt tolerated injection well and denied any adverse reactions to previous injections. Assessment & Plan Assessment & Plan Orders: Orders AMB Romosozumab Injection Patient Supplied Today M81.0 - Age-related osteoporosis without current pathological fracture Medications: New romosozumab-aqqg 210 mg (2.34 mL) subcut ONCE 2.34 mL 0RF M81.0 - Age-related osteoporosis without current pathological fracture Coding
--- OUTSIDE RECORDS SUMMARY | 2025-02-07 16:43 | XMS_ITS | Encounter Summary ---
Author Organization [employer] [facility] Address [address] [facility] 7t [place] [address] Care Team Providers Care Actuarial Science Teacher Name Role Phone Unavailable Primary Care Provider [...]
--- OUTSIDE RECORDS SUMMARY | 2025-02-07 16:43 | XMS_ITS ---
Author Organization [facility] Address [address] [facility] [place] [address] Care Team Providers Care Financial Analyst Accountant Name Role Phone Liban ROJAS, Nara Londono Primary Care Provider Un available James Zuniga Unavailable [phone] Allergies No Known Allergies REASON FOR VISIT [...] Metformin & Diet Manage Prod 1000MG Active Oakwood 3 1000 MG 1 capsule Orally Onc [...] Ordered Date Performed Result Body Sit e 86879-GRLBRBC NAIL, 6 OR MORE 10/24/2024 N/A 69968-TCYO SKIN LESIONS, 2 TO 4 10/24/2024 N/A Encounters Encounter Location Date Provider Diagnosis [facility] [place] [address] [place] [address] 10/24/2024 James Morganier Pain in right toe(s) M79.674 ; Tinea [...] Treatment Pending Test Test Name Order Date 80226-IFGTJPS NAIL, 6 OR MORE 10/24/2024 08938-LQWJ SKIN LESIONS, 2 TO 4 10/24/20 24 Next Appt Details Follow Up: 2 Months, Reason: Provider Name:James Zuniga , 04/12/2025 03:45:00 PM, [address] [facility], [place] [address], [place], [address], Procedure Notes * Category Sub-Category Detail Notes [...] use of a nail nipper and/or dremel-type universal grinder operator, to a more viable healthy [...] to maintain effectiveness in symptomatic relief - 36317 Keratoma Treatment Parring or Cutting o f [...] tissue nippers, and/or power dremel instrumentation - 86801 Progress Notes * Terrie MADDEN MDOB:1939 (84 yo F)Acc No.[id number]:10/24/2024 Progress Note Patient:?Terrie MADDEN Provider:?James Zuniga DPM :1940???Age:84 Y???Sex:Female D ate:10/24/2024 Address:[address] [place], [place] [address] Pcp:Nafisa Walton Subjective: * Chief Complaints: * [...] area Externally to feet Twice a day Oakwood 3 1000 MG Capsule 1 capsule Orally Once a day Medication List reviewed and reconciled with the patientNot-Taking/PRN Ammonium Lactate 12 % Cream 1 application to affected area Externally to feet Twice a day Not-Taking/PRN Oakwood 3 1000 MG Capsule 1 capsule Orally [...] Treatment: 2.?Type 2 diabetes mellitus without complication?Procedure: 37245-HCSG SKIN LESIONS, 2 TO 4 * Procedures:?Debride [...] use of a nail nipper and/or dremel-type universal grinder operator, to a more viable healthy [...] to maintain effectiveness in symptomatic relief - 51531.?Keratoma Treatment:?Parring or Cutting of Benign Hyperkeratotic Lesion(s)?(-56) [...] tissue nippers, and/or power dremel instrumentation - 57650.? * Procedure Codes:?35841 DEBRI DE NAIL, 6 OR MORE, Modifiers: XS 16804 TRIM SKIN LESIONS, 2 TO 4, Modifiers: XS * Follow Up:?2 Months * Images: * Sign off status: Completed true * Provider:?James Zuniga DPM Date:?2023 Generated for Juan Jose de la cruz/Brandon/Mini on:?02/07/2025 04:42 PM EDT History and Physical Notes * HPI (History [...]
--- OUTSIDE RECORDS SUMMARY | 2025-02-07 16:43 | XMS_ITS ---
Author Organization [facility] Address [address] [place] [address] Care Team Providers Care Tube Puller Name Role Phone Liban ROJAS, Nara Londono Primary Care Provider Un available James Zuniga Unavailable [phone] Encounters Encounter Location Date Provider Diagnosis [address] [address] 01/30/2025 James Zuniga Plan Of Treatment Next Appt Details Provider Name:James Zuniga , 04/12/2025 03:45:00 PM, [address] [place] [address], [phone], Progress Notes * Terrie MADDEN MDOB:1939 (84 yo F)Acc No.[id number]:01/30/2025 Progress Note Patient:?Terrie MADDEN Provider:?James Zuniga DPM :1940???Age:84 Y???Sex:Female D ate:01/30/2025 Address:[address] [place] [address] , [place] [id number] Pcp:Nafisa Walton Subjective: * Chief Complaints: * ??? * Medical History:? Objective: * Vitals:? Assessment: Plan: * Treatment: * Images: * The named appointment provid er may or may not be the originator of this progress note, and it is not deemed complete until electronically signed by the appointment provider. Sign off status: Pending * Provider:?James Zuniga DPM Date:?2024 Generated for Juan Jose de la cruz/Brandon/Mini on:?02/07/2025 04:43 PM EDT
--- OUTSIDE RECORDS SUMMARY | 2025-02-07 16:43 | XMS_ITS ---
Author Organization [facility] Address [address] [place] [address] Care Team Providers Care Fraud Manager Name Role Phone Liban ROJAS, Nara Londono Primary Care Provider Un available James Zuniga Unavailable [phone] REASON FOR VISIT At Risk Footcare, Painful Nail(s) aggrevated by shoes and causing difficulty standing/walking., ToeIrritation, Ingrown Nail Medications Medication SIG (Take, Route, Frequency, Duration) Notes Start Date End Date Status Ammonium Lactate 12 % 1 application to affected area Externally to feet Twice a day for 30 days Not-Taking Castalia 3 1000 MG 1 capsule Orally Onc [...] Ordered Date Performed Result Body Sit e 63001-FUJLKAD NAIL, 6 OR MORE 07/27/2024 N/A 73483-Faaroatl Plate 07/27/2024 N/A 45976-BLYA SKIN LESIONS, 2 TO 4 07/27/2024 N/A Encounters Encounter Location Date Provider Diagnosis [facility] [place] [address] [address] 07/27/2024 James Zuniga Pain in right toe(s) [...] INSTRUCTIONS.pdf) Pending Test Test Name Order Date 67259-MRKABXP NAIL, 6 OR MORE 07/27/2024 46830-Gjqvqfcj Plate 07/27/2024 94479-HKSS SKIN LESIONS, 2 TO 4 07/27/20 24 Next Appt Details Follow Up: 2 Months, Reason: Provider Name:James Zuniga , 04/12/2025 03:45:00 PM, [address] , [address], [place], [address], Procedure Notes * Category Sub-Category Detail Notes [...] Motrin was recommended for pain or discomfort (46027) , DIABETES: Pt was advised as to [...] use of a nail nipper and/or dremel-type grinder machine knife setter, to a more viable healthy nail plate or bed tissue 6-10. Silver nitrate used for any petechial bleeding as necessary. Definitive antifungal treatment options have been reviewed and discussed with the patient. The patient chooses, no pharmaceutical tx - 74960 Keratoma Treatment Parring or Cutting o f Benign Hyperkeratotic Lesion(s) (-56) 2-4 Lesions - The Benign hyperkeratotic lesions, as described above were pared, and/or cut utilizing a sterile 15 blade, tissue nippers, and/or dremel - 86589 Progress Notes * Terrie MADDEN MDOB:1939 (84 yo F)Acc No.[id number]:07/27/2024 Progress Note Patient:?Gabby MADDENdia Nafisa Provider:?James Zuniga DPM :1940???Age:84 Y???Sex:Female D ate:07/27/2024 Address:[address] [place], [place] [id number] Pcp:Nafisa Walton Subjective: * Chief Complaints: * [...] emors?denies.? * Medical History:? 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 ?Marital status: . 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 * Medications:?TakingAspirin 8 1 MG Tablet Delayed [...] area Externally to feet Twice a day Castalia 3 1000 MG Capsule 1 capsule Orally Once a day Medication List reviewed and reconciled with the patientNot-Taking/PRN Ammonium Lactate 12 % Cream 1 application to affected area Externally to feet Twice a day Not-Taking/PRN Castalia 3 1000 MG Capsule 1 capsule Orally [...] for office visit today.?ORIENTED:?person, place, and time.?FOOT EXAM:?Lower Extremity Neurological Exam performed:?Yes ?Footwear Evaluation?Footwear Evaluation performed:?Yes??? Assessment: * Assessment: 1.?Pain in right toe(s) [...] , TA??? Plan: * Treatment: 2.?Tinea unguium?Procedure: 37526-GCGOPBW NAIL, 6 OR MORE 3.?Type 2 diabetes mellitus without complication?Procedure: 48123-PRAU SKIN LESIONS, 2 TO 4 4.?Ingrown nail?Procedure: 85239-Dzkvcfqg Plate * Procedures:?Debride Nail 6-10:?Nail debridement?Performance of this nail treatment by a nonprofessional would put this patients foot and overall health at risk. Therefore, nail debridement was performed extensively to reduce/remove overall nail length, girth, thickness, subungual debris, and necrotic tissue, by manual and/or electrical means through the use of a nail nipper and/or dremel-type grinder machine knife setter, to a more viable healthy nail plate or bed tissue 6-10. Silver nitrate used for any petechial bleeding as necessary. Definitive antifungal treatment options have been reviewed and discussed with the patient. The patient chooses, no pharmaceutical tx - 41442.?Keratoma Treatment:?Parring or Cutting of Benign Hyperkeratotic Lesion(s)?(-56) 2-4 Lesions - The Benign hyperkeratotic lesions, as described above were pared, and/or cut utilizing a sterile 15 blade, tissue nippers, and/or dremel - 65112.?Nail Avulsion:?Location?Medial nail border?,?TA.?Anesthesia?was accomplished TOPICALLY with Lidocaine [...] Motrin was recommended for pain or discomfort (17027) , DIABETES: Pt was advised as to the risk of delayed or nonhealing due to diabetes. Pt is to call the office with any questions, concerns, or complications.? * Procedure Codes:?33012 DEBRI DE NAIL, 6 OR MORE, Modifiers: XS 81365 Avulsion Plate, Modifiers: XS , [id number] TRIM SKIN LESIONS, 2 TO 4, Modifiers: [...] de la cruz/Brandon/Mini on:?02/07/2025 04:43 PM EDT History and Physical Notes * HPI (History of Present Illness) Category Sub-Category Detail Notes Category Not es Toe pain Location: B/L feet Duration: several years Course: worse Aggravated by: shoes, any pressure Treatments: change in shoes At Risk footcare Pt States Last PCP Visit: Date: 02/18 States has an appt with PCP soon - 08/11 Examination Category Sub-Category Detail Notes [...]
--- OUTSIDE RECORDS SUMMARY | 2025-02-07 16:43 | XMS_ITS | Patient Health Record ---
Author Organization [employer] [facility] Address [address] [facility] [address] [facility] [address] [place] [address] Care Team Providers Care Support Merchandiser Name Role Phone ANNE-MARIE REYNOSO MD Primary Care Provider Unav ailable JAIMIE KIMBLE Unavailable [phone] Allergies No Known Allergies Reason For Referral [...] W/U Status Risk Notes Problem Age-related osteoporosis (452634833) Age-related osteoporosis without current pathological fracture (M81.0) Active confirmed Problem Essential hypertension (21777681) Essential (primary) hypertension (I10) Active confirmed Problem Malignant neoplasm of overlapping sites of right female breast (C50.811) Active confirmed Problem Type II diabetes mellitus without complication (166909478) Type 2 diabetes mellitus without complications (E11.9) Active confirmed Problem Hyperlipidemia (19379601) Hyperlipidemia, unspecified (E78.5) Active confirmed Problem Gastro-esophageal reflux disease with esophagitis (531965043) Gastro-esophagea l reflux disease with esophagitis (K21.0) Active confirmed Problem Osteoarthritis (029018822) Unspecified osteoarthritis, unspecified site (M19.90) Active confirmed Plan Of Treatment Pending Test Test Name Order Date Urinalysis 07/15/2022 MM Digital Screening Mammogram 3D 2021 Insurance Providers Payer Name Payer Address Payer Phone Subscriber Number Group Number Insured Name Patient Relationship to Insured Coverage Start Date Coverage End Date [facility] [address] [address] [place] [address] [id number] CHANDLER GARG Self - patient is the [...]
--- OUTSIDE RECORDS SUMMARY | 2025-02-07 16:43 | XMS_ITS | Clinical Summary ---
Author Organization [facility] [employer] Address [address] [facility] [address] [facility] 7[address] [place] [address] Care Team Providers Care Hematology Technologist Name Role Phone Unavailable Primary Care Provider [...]
--- OUTSIDE RECORDS SUMMARY | 2025-02-07 16:43 | XMS_ITS | Patient Health Record ---
Author Organization [facility] Address [address] [place] [address] Care Team Providers Care Emergency Response Technician Name Role Phone Liban ROJAS, Nara Londono Primary Care Provider Un available James Zuniga Unavailable [phone] Allergies No Known Allergies Reason For Referral No Information Medications Medication SIG (Take, Route, Frequency, Duration) Notes Start Date End Date Status Oceano 3 1000 MG 1 capsule Orally Onc [...] Problem Acquired hammer toe of right foot (90476933831749 05) Other hammer toe(s) (acquired), right foot (M20.41) Active confirmed Response to treatment,I mprovement Problem Acquired hammer toe of left foot (10561727431433 03) Other hammer toe(s) (acquired), left foot (M20.42) Active confirmed Response to treatment,I mprovement Problem Type 2 diabetes mellitus without complication (186314775) Type 2 diabetes mellitus without complication (E11.9) Active confirmed Vital Signs Blood pressure diastolic 80 mm Hg 10/24/2024 Height 5 ft 2 in in 10/24/2024 Blood pressure systolic 120 mm Hg 10/24/2024 Weight 128 lbs 10/24/2024 BMI 23.41 kg/m2 10/24/2024 Procedures Procedure Date Ordered Date Performed Result Body Sit e 51372-CWRBCPW NAIL, 6 OR MORE 03/28/2024 N/A 86438-Miziozro Plate 03/28/2024 N/A 40929-XBZB SKIN LESIONS, 2 TO 4 03/28/2024 N/A 35156-RTROETA NAIL, 6 OR MORE 07/27/2024 N/A 35578-Gvfgwadp Plate 07/27/2024 N/A 13940-OAZD SKIN LESIONS, 2 TO 4 07/27/2024 N/A 33668-FXSENCB NAIL, 6 OR MORE 10/24/2024 N/A 94832-IXSF SKIN LESIONS, 2 TO 4 10/24/2024 N/A Encounters Encounter [facility] Date [facility] [address] [facility]/28/[facility]24 Jameslewis RecinosNadia Pain in right toe(s) M79.674 ; Tinea unguium B35.1 ; Pain in left toe(s) M79.675 ; Type 2 diabetes mellitus without complication E11.9 and Ingrown nail L60.[address] [facility] [address] 07/27/2024 James Nadia Pain in right toe(s) M79.674 ; Tinea unguium B35.1 ; Pain in left toe(s) M79.675 ; Type 2 diabetes mellitus without complication E11.9 ; Other hammer toe(s) (acquired), left foot M20.42 ; Other hammer toe(s) (acquired), right foot M20.41 and Ingrown nail L60.0 [facility] [address] [facility] [address] [place] [address] 10/24/2024 James Nadia Pain in right toe(s) M79.674 ; Tinea unguium B35.1 ; Pain in left toe(s) M79.675 and Type 2 diabetes mellitus without complication E11.9 [facility] [address] [place] [address] 06/01/2024 James Zuniga Assessments Encounter Date Diagnosis (ICD Code) Assessment Notes Treatment Notes Treatment Clinical Notes Section Notes 03/28/2024 Tinea unguium (ICD-10 - B35.1) 03/28/2024 [...] Pain in left toe(s) (ICD-10 - M79.675) 03/28/2024 Type 2 diabetes mellitus without complication (ICD-10 - E11.9) 10/24/2024 Type 2 diabetes mellitus without complication (ICD-10 - E11.9) 07/27/2024 Type 2 diabetes mellitus without complication (ICD-10 - E11.9) 03/28/2024 Ingrown nail (ICD-10 - L60.0) 07/27/2024 Other hammer toe(s) (acquired), left foot (ICD-10 - M20.42) 07/27/2024 Other hammer toe(s) (acquired), right foot (ICD-10 - M20.41) Patient Educated with: DIABETIC FOOT CARE INSTRUCTIONS.p df (DIABETIC FOOT CARE INSTRUCTIONS.p df) 07/27/2024 Ingrown nail (ICD-10 - L60.0) 10/24/2024 Other Plan Of Treatment Pending Test Test Name Order Date 14847-ZQLHSBK NAIL, 6 OR MORE 05/12/2019 77499-DUPSWJQ NAIL, 6 OR MORE 08/11/2019 60403-KERZUMY NAIL, 6 OR MORE 11/24/2019 61457-LZHALFR NAIL, 6 OR MORE 03/08/2020 70740-CHWLDRK NAIL, 6 OR MORE 05/31/2020 54926-MFGHDTL NAIL, 6 OR MORE 08/15/2020 09129-EBUQFCC NAIL, 6 OR MORE 10/24/2020 21041-NZKUPMY NAIL, 6 OR MORE 01/09/2021 98942-EUETJRV NAIL, 6 OR MORE 03/20/2021 47950-NTYANZI NAIL, 6 OR MORE 06/12/2021 89484-ZJPDMLT NAIL, 6 OR MORE 08/21/2021 52699-TYWELMA NAIL, 6 OR MORE 10/31/2021 18249-RCARFYH NAIL, 6 OR MORE 01/09/2022 63437-CXGRJWW NAIL, 6 OR MORE 03/20/2022 42149-QHUFRBX NAIL, 6 OR MORE 05/29/2022 51196-VOREDEW NAIL, 6 OR MORE 09/03/2022 03252-LIESZPA NAIL, 6 OR MORE 11/19/2022 39458-DBLHFCG NAIL, 6 OR MORE 02/11/2023 03682-UHYUEIT NAIL, 6 OR MORE 04/22/2023 34959-RPNDNDN NAIL, 6 OR MORE 07/01/2023 93553-AOTPDDX NAIL, 6 OR MORE 09/10/2023 17815-TUUDLCD NAIL, 6 OR MORE 01/11/2024 09828-AVGZTZE NAIL, 6 OR MORE 03/28/2024 49694-BAAHNTJ NAIL, 6 OR MORE 07/27/2024 96889-TFGQQGK NAIL, 6 OR MORE 10/24/2024 65921-Pgvnvcaa Plate 07/27/2024 07465-Ldhlegkf Plate 03/28/2024 33943-Adokyypf Plate 09/03/2022 06978-Ghhezgti Plate 01/11/2024 13494-Zpvfavxf Plate 11/19/2022 89708-Gyrtfovo Plate 10/31/2021 65869-VPFC SKIN LESIONS, 2 TO 4 10/31/20 16078-DSGI SKIN LESIONS, 2 TO 4 08/21/20 99440-WEIP SKIN LESIONS, 2 TO 4 06/12/20 49599-GLBV SKIN LESIONS, 2 TO 4 03/20/20 62982-PMAK SKIN LESIONS, 2 TO 4 09/03/20 96508-GTWD SKIN LESIONS, 2 TO 4 05/29/20 90454-AGOJ SKIN LESIONS, 2 TO 4 03/20/20 11109-ZGOU SKIN LESIONS, 2 TO 4 01/09/20 35714-YSXW SKIN LESIONS, 2 TO 4 01/09/20 22098-XZPN SKIN LESIONS, 2 TO 4 10/24/20 67305-EMUQ SKIN LESIONS, 2 TO 4 08/15/20 96016-ZJIP SKIN LESIONS, 2 TO 4 05/31/20 56282-INTN SKIN LESIONS, 2 TO 4 03/08/20 98931-PKCV SKIN LESIONS, 2 TO 4 11/24/19 91296-XMGT SKIN LESIONS, 2 TO 4 08/11/20 83193-YNAL SKIN LESIONS, 2 TO 4 05/12/20 61073-NWCD SKIN LESIONS, 2 TO 4 11/19/19 46819-FYSK SKIN LESIONS, 2 TO 4 02/12/20 04345-CUVK SKIN LESIONS, 2 TO 4 07/01/20 81987-LASA SKIN LESIONS, 2 TO 4 04/22/20 62123-RHQH SKIN LESIONS, 2 TO 4 01/11/20 09330-OWYM SKIN LESIONS, 2 TO 4 03/28/20 62747-ROQP SKIN LESIONS, 2 TO 4 07/27/20 39732-ARRG SKIN LESIONS, 2 TO 4 10/24/20 Next Appt Details Provider Name:James Zuniga , 04/12/2025 03:45:00 PM, [address] [facility], [address], [place], [address], Insurance Providers Payer Name Payer Address Payer Phone Subscriber Number Group Number Insured Name Patient Relationship to Insured Coverage Start Date Coverage End Date [facility] [employer] Claims [address] [place] [address] [phone] [id number] Terrie Noriega Self - patient is the insured Medical (General) History Medical History History ICD Code Arthritis Back,Hip,and Knee pain CAD (Cholesterol) Diabetic Osteoporosis Measles HTN Surgical History Surgery Date(Month/Year) cancer surgery right hip replacement 05/09/24 Hospitalization History Reason Date(Month/Year) [facility] Right hip replacement 05/09/24
== END 2025-02-07 14:34 | disposition home or self-care (01) ==
LOC: HO.ENCR 13:35
PROVIDERS: PCP Internal Medicine
DX: M81.0 Age-related osteoporosis without current pathological fracture (principal)

== ENCOUNTER → 2025-02-07 13:35 | Outpatient (BNVA) | payer OTHER, SELFPAY | PROVIDERS: PCP Internal Medicine | DX: M81.0 Age-related osteoporosis without current pathological fracture (principal) | CPT/HCPCS: 96372; J3111 ==

== ENCOUNTER 2025-03-07 13:38 | Outpatient (AMB) | payer OTHER, SELFPAY ==
--- NOTE | 2025-03-07 14:07 | AM.OFFVISNUR ---
Intake Visit Reasons: Evenity #4 (nurse visit Allergies No Known Allergies Allergy (Verified 12/15/24 15:18) Office Meds romosozumab-aqqg 210 mg/2.34 mL(105 mg/1.17 mL x2)subcutaneous syringe Performing Provider: Devon Baltazar MD Performing Location: [facility] Administered by: Ludivina Ba RN on 03/07/25 14:07 Dose Route Admin Location Dispensed Lot Number Expiration Date [facility] Imp[employer]rier 210 mg subcut bilateral upper arms 2.34 mL [id number] 03/15/27 77028-253-19 AMGEN Comments: Visit interpreted by daughter, elza. Patient signed consent form. Pt denied having any adverse reactions to previous injections. Pt tolerated injection well. Assessment & Plan Assessment & Plan Orders: Orders AMB Romosozumab Injection Patient Supplied Today M81.0 - Age-related osteoporosis without current pathological fracture Medications: New romosozumab-aqqg 210 mg (2.34 mL) subcut ONCE 2.34 mL 0RF M81.0 - Age-related osteoporosis without current pathological fracture Coding
--- OUTSIDE RECORDS SUMMARY | 2025-03-07 16:09 | XMS_ITS | Patient Health Record ---
Author Organization [employer] [facility] Address [address] [place] [address] Care Team Providers Care Regional Airline Pilot Name Role Phone ANNE-MARIE REYNOSO MD Primary Care Provider Unav ailable JAIMIE KIMBLE Unavailable [phone] Allergies No Known Allergies Reason For Referral [...] W/U Status Risk Notes Problem Age-related osteoporosis (837305896) Age-related osteoporosis without current pathological fracture (M81.0) Active confirmed Problem Essential hypertension (59811452) Essential (primary) hypertension (I10) Active confirmed Problem Malignant neoplasm of overlapping sites of right female breast (C50.811) Active confirmed Problem Type II diabetes mellitus without complication (173154360) Type 2 diabetes mellitus without complications (E11.9) Active confirmed Problem Hyperlipidemia (57546543) Hyperlipidemia, unspecified (E78.5) Active confirmed Problem Gastro-esophageal reflux disease with esophagitis (882194213) Gastro-esophagea l reflux disease with esophagitis (K21.0) Active confirmed Problem Osteoarthritis (219059214) Unspecified osteoarthritis, unspecified site (M19.90) Active confirmed Plan Of Treatment Pending Test Test Name Order Date Urinalysis 07/15/2022 MM Digital Screening Mammogram 3D 2021 Insurance Providers Payer Name Payer Address Payer Phone Subscriber Number Group Number Insured Name Patient Relationship to Insured Coverage Start Date Coverage End Date [facility] [address] [address] [place] [address] [id number] CHANDLER GARG Self - patient is the [...]
--- OUTSIDE RECORDS SUMMARY | 2025-03-07 16:10 | XMS_ITS | Patient Health Record ---
Author Organization [facility] Address [address] [place] [address] Care Team Providers Care Tile Power Shear Operator Name Role Phone Liban ROJAS, Nara Londono Primary Care Provider Un available James Zuniga Unavailable [phone] Allergies No Known Allergies Reason For Referral No Information Medications Medication SIG (Take, Route, Frequency, Duration) Notes Start Date End Date Status Quak[place] 3 1000 MG 1 capsule Orally Onc [...] Problem Acquired hammer toe of right foot (60817186374223 05) Other hammer toe(s) (acquired), right foot (M20.41) Active confirmed Response to treatment,I mprovement Problem Acquired hammer toe of left foot (56304393913027 03) Other hammer toe(s) (acquired), left foot (M20.42) Active confirmed Response to treatment,I mprovement Problem Type 2 diabetes mellitus without complication (147933481) Type 2 diabetes mellitus without complication (E11.9) Active confirmed Vital Signs Blood pressure diastolic 80 mm Hg 10/24/2024 Height 5 ft 2 in in 10/24/2024 Blood pressure systolic 120 mm Hg 10/24/2024 Weight 128 lbs 10/24/2024 BMI 23.41 kg/m2 10/24/2024 Procedures Procedure Date Ordered Date Performed Result Body Sit e 12093-ADSIQSM NAIL, 6 OR MORE 03/28/2024 N/A 11176-Cfadugcn Plate 03/28/2024 N/A 32234-FOIE SKIN LESIONS, 2 TO 4 03/28/2024 N/A 99991-NJVWQGG NAIL, 6 OR MORE 07/27/2024 N/A 42648-Antonjgr Plate 07/27/2024 N/A 19594-JPVT SKIN LESIONS, 2 TO 4 07/27/2024 N/A 14761-TMGDZZW NAIL, 6 OR MORE 10/24/2024 N/A 14083-JNCH SKIN LESIONS, 2 TO 4 10/24/2024 N/A Encounters Encounter [facility] [address] [facility]28[facility] Jameslewis RecinosNadia Pain in right toe(s) M79.674 ; Tinea unguium B35.1 ; Pain in left toe(s) M79.675 ; Type 2 diabetes mellitus without complication E11.9 and Ingrown nail L60.[address] [facility] [address] 07/27/2024 James Nadia Pain in right toe(s) M79.674 ; Tinea unguium B35.1 ; Pain in left toe(s) M79.675 ; Type 2 diabetes mellitus without complication E11.9 ; Other hammer toe(s) (acquired), left foot M20.42 ; Other hammer toe(s) (acquired), right foot M20.41 and Ingrown nail L60.0 [facility] [address] [facility] [address] [place] [address] 10/24/2024 James Nadia Pain in right toe(s) M79.674 ; Tinea unguium B35.1 ; Pain in left toe(s) M79.675 and Type 2 diabetes mellitus without complication E11.9 [facility] [address] [place] [address] 06/01/2024 James Zuniga Assessments Encounter Date Diagnosis [...] Treatment Pending Test Test Name Order Date 39229-NXZOGCH NAIL, 6 OR MORE 05/12/2019 29304-MJZLMRU NAIL, 6 OR MORE 08/11/2019 49187-NDATNOP NAIL, 6 OR MORE 11/24/2019 56358-VRJBKJQ NAIL, 6 OR MORE 03/08/2020 92796-OAARNQZ NAIL, 6 OR MORE 05/31/2020 03477-BMSVBVP NAIL, 6 OR MORE 08/15/2020 67389-UPDXBOS NAIL, 6 OR MORE 10/24/2020 51732-WRZRDZA NAIL, 6 OR MORE 01/09/2021 02123-XBYTCNN NAIL, 6 OR MORE 03/20/2021 99006-YRFBCAX NAIL, 6 OR MORE 06/12/2021 68415-IEZXNXD NAIL, 6 OR MORE 08/21/2021 12968-JYKGBWC NAIL, 6 OR MORE 10/31/2021 06661-TIVKDYL NAIL, 6 OR MORE 01/09/2022 95222-DXALDXY NAIL, 6 OR MORE 03/20/2022 85586-NOXSDRI NAIL, 6 OR MORE 05/29/2022 72400-DRQUXWJ NAIL, 6 OR MORE 09/03/2022 40635-UKBXWBJ NAIL, 6 OR MORE 11/19/2022 37605-AJRXJBM NAIL, 6 OR MORE 02/11/2023 14081-FEEUDOF NAIL, 6 OR MORE 04/22/2023 55102-ZNVHCLR NAIL, 6 OR MORE 07/01/2023 27144-SFCFVUN NAIL, 6 OR MORE 09/10/2023 16413-WQCTHRE NAIL, 6 OR MORE 01/11/2024 88477-MWYZLWD NAIL, 6 OR MORE 03/28/2024 81892-JOUGETM NAIL, 6 OR MORE 07/27/2024 04182-ZUWDQXT NAIL, 6 OR MORE 10/24/2024 41967-Crvkswmz Plate 07/27/2024 61013-Nuivylrk Plate 03/28/2024 47723-Inzqwuqo Plate 09/03/2022 46454-Ipijyudr Plate 01/11/2024 60857-Shfoemqy Plate 11/19/2022 00946-Nsfjmkqm Plate 10/31/2021 26523-NAHI SKIN LESIONS, 2 TO 4 10/31/20 73519-NOPY SKIN LESIONS, 2 TO 4 08/21/20 81226-PMDI SKIN LESIONS, 2 TO 4 06/12/20 76886-HUDW SKIN LESIONS, 2 TO 4 03/20/20 31087-PBWZ SKIN LESIONS, 2 TO 4 09/03/20 21122-WNFG SKIN LESIONS, 2 TO 4 05/29/20 19381-VTGD SKIN LESIONS, 2 TO 4 03/20/20 88074-MCGA SKIN LESIONS, 2 TO 4 01/09/20 71160-XENF SKIN LESIONS, 2 TO 4 01/09/20 81557-IGNG SKIN LESIONS, 2 TO 4 10/24/20 77249-VZBL SKIN LESIONS, 2 TO 4 08/15/20 61518-LEOC SKIN LESIONS, 2 TO 4 05/31/20 49999-NYRM SKIN LESIONS, 2 TO 4 03/08/20 64587-MSAN SKIN LESIONS, 2 TO 4 11/24/19 44415-BJZL SKIN LESIONS, 2 TO 4 08/11/20 06174-BNVN SKIN LESIONS, 2 TO 4 05/12/20 39074-AGKW SKIN LESIONS, 2 TO 4 11/19/19 09564-ZPTQ SKIN LESIONS, 2 TO 4 02/12/20 81518-WTZC SKIN LESIONS, 2 TO 4 07/01/20 97198-HNCM SKIN LESIONS, 2 TO 4 04/22/20 65097-HGVW SKIN LESIONS, 2 TO 4 01/11/20 67123-MZHX SKIN LESIONS, 2 TO 4 03/28/20 32900-ODUI SKIN LESIONS, 2 TO 4 07/27/20 56152-BRDK SKIN LESIONS, 2 TO 4 10/24/20 Next Appt Details Provider Name:James Zuniga , 04/12/2025 03:45:00 PM, [address] [facility], [address], [place], [address], Insurance Providers Payer Name Payer Address Payer Phone Subscriber Number Group Number Insured Name Patient Relationship to Insured Coverage Start Date Coverage End Date [facility] [employer] Claims [address] [place] [address] [phone] [id number] Terrie Noriega Self - patient is the insured Medical (General) History Medical History History ICD Code Arthritis Back,Hip,and Knee pain CAD (Cholesterol) Diabetic Osteoporosis Measles HTN Surgical History Surgery Date(Month/Year) cancer surgery right hip replacement 05/09/24 Hospitalization History Reason Date(Month/Year) [facility] Right hip replacement 05/09/24
--- OUTSIDE RECORDS SUMMARY | 2025-03-07 16:10 | XMS_ITS ---
Author Organization [facility] Address [address] [place] [address] Care Team Providers Care Rehabilitation Counselor Name Role Phone Liban ROJAS, Nara Londono Primary Care Provider Un available James Zuniga Unavailable [phone] Allergies No Known Allergies REASON FOR VISIT [...] Metformin & Diet Manage Prod 1000MG Active Tipton 3 1000 MG 1 capsule Orally Onc [...] Ordered Date Performed Result Body Sit e 39414-ICRQCQE NAIL, 6 OR MORE 10/24/2024 N/A 86161-AEYN SKIN LESIONS, 2 TO 4 10/24/2024 N/A Encounters Encounter Location Date Provider Diagnosis [facility] [place] [address] [place] [phone] 10/24/2024 James Morganier Pain in right toe(s) [...] Treatment Pending Test Test Name Order Date 29569-ZRGOLPD NAIL, 6 OR MORE 10/24/2024 82939-WJDI SKIN LESIONS, 2 TO 4 10/24/20 24 Next Appt Details Follow Up: 2 Months, Reason: Provider Name:James Zuniga , 04/12/2025 03:45:00 PM, [address] [facility], [place] [address], [place], [address], Procedure Notes * Category Sub-Category Detail Notes [...] use of a nail nipper and/or dremel-type internal grinder set up operator, to a more viable healthy nail [...] to maintain effectiveness in symptomatic relief - 18369 Keratoma Treatment Parring or Cutting o f [...] tissue nippers, and/or power dremel instrumentation - 92299 Progress Notes * Terrie MADDEN MDOB:1939 (84 yo F)Acc No.[id number]:10/24/2024 Progress Note Patient:?Terrie MADDEN Provider:?James Zuniga DPM :1940???Age:84 Y???Sex:Female D ate:10/24/2024 Address:[address] [place], [place] [phone] Pcp:Nafisa Walton Subjective: * Chief Complaints: * [...] area Externally to feet Twice a day Tipton 3 1000 MG Capsule 1 capsule Orally Once a day Medication List reviewed and reconciled with the patientNot-Taking/PRN Ammonium Lactate 12 % Cream 1 application to affected area Externally to feet Twice a day Not-Taking/PRN Tipton 3 1000 MG Capsule 1 capsule Orally [...] Treatment: 2.?Type 2 diabetes mellitus without complication?Procedure: 73088-XWVY SKIN LESIONS, 2 TO 4 * Procedures:?Debride [...] use of a nail nipper and/or dremel-type internal grinder set up operator, to a more viable healthy nail [...] to maintain effectiveness in symptomatic relief - 64594.?Keratoma Treatment:?Parring or Cutting of Benign Hyperkeratotic Lesion(s)?(-56) [...] tissue nippers, and/or power dremel instrumentation - 02008.? * Procedure Codes:?67645 DEBRI DE NAIL, 6 OR MORE, Modifiers: XS 95105 TRIM SKIN LESIONS, 2 TO 4, Modifiers: XS * Follow Up:?2 Months * Images: * Sign off status: Completed true * Provider:?James Zuniga DPM Date:?2023 Generated for Juan Jose de la cruz/Brandon/Mini on:?03/07/2025 04:09 PM EDT History and Physical Notes * [...]
--- OUTSIDE RECORDS SUMMARY | 2025-03-07 16:10 | XMS_ITS ---
Author Organization [facility] Address [address] [facility] [place] [place] [address] Care Team Providers Care Head Mixer Name Role Phone Liban ROJAS, Nara Londono Primary Care Provider Un available James Zuniga Unavailable [phone] Encounters Encounter Location Date Provider Diagnosis [address] [address] 01/30/2025 James Zuniga Plan Of Treatment Next Appt Details Provider Name:James Zuniga , 04/12/2025 03:45:00 PM, [address] [place] [address], [phone], Progress Notes * Terrie MADDEN MDOB:1939 (85 yo F)Acc No.[id number]:01/30/2025 Progress Note Patient:?Terrie MADDEN Provider:?James Zuniga DPM :1940???Age:84 Y???Sex:Female D ate:01/30/2025 Address:[address] [place] [address] [address] , [place] [id number] Pcp:Nafisa Walton Subjective: * Chief Complaints: * [...]
--- OUTSIDE RECORDS SUMMARY | 2025-03-07 16:10 | XMS_ITS | Clinical Summary ---
Author Organization [employer] Address [address] [facility] 7t [place] [address] Care Team Providers Care Power Generating Plant Operator Name Role Phone Unavailable Primary Care [...]
--- OUTSIDE RECORDS SUMMARY | 2025-03-07 16:10 | XMS_ITS ---
Author Organization [facility] Address [address] [facility] [place] [address] Care Team Providers Care Plate Mounter Name Role Phone Liban ROJAS, Nara Londono Primary Care Provider Un available James Zuniga Unavailable [phone] REASON FOR VISIT At Risk Footcare, Painful Nail(s) aggrevated by shoes and causing difficulty standing/walking., ToeIrritation, Ingrown Nail Medications Medication SIG (Take, Route, Frequency, Duration) Notes Start Date End Date Status Ammonium Lactate 12 % 1 application to affected area Externally to feet Twice a day for 30 days Not-Taking Sanders 3 1000 MG 1 capsule Orally Onc [...] Ordered Date Performed Result Body Sit e 24452-OVKINOB NAIL, 6 OR MORE 07/27/2024 N/A 11504-Pectrrvh Plate 07/27/2024 N/A 92658-XALM SKIN LESIONS, 2 TO 4 07/27/2024 N/A Encounters Encounter Location Date Provider Diagnosis [facility] [place] [address] [address] 07/27/2024 James Zuniga Pain in right toe(s) [...] INSTRUCTIONS.pdf) Pending Test Test Name Order Date 26572-JCNLTWX NAIL, 6 OR MORE 07/27/2024 43523-Qzadjtvr Plate 07/27/2024 53574-XVUP SKIN LESIONS, 2 TO 4 07/27/20 24 Next Appt Details Follow Up: 2 Months, Reason: Provider Name:James Zuniga , 04/12/2025 03:45:00 PM, [address], [place], [address], Procedure Notes * Category Sub-Category Detail Notes [...] Motrin was recommended for pain or discomfort (52850) , DIABETES: Pt was advised as to [...] use of a nail nipper and/or dremel-type external grinder, to a more viable healthy nail plate or bed tissue 6-10. Silver nitrate used for any petechial bleeding as necessary. Definitive antifungal treatment options have been reviewed and discussed with the patient. The patient chooses, no pharmaceutical tx - 07718 Keratoma Treatment Parring or Cutting o f Benign Hyperkeratotic Lesion(s) (-56) 2-4 Lesions - The Benign hyperkeratotic lesions, as described above were pared, and/or cut utilizing a sterile 15 blade, tissue nippers, and/or dremel - 15981 Progress Notes * Terrie MADDEN MDOB:1939 (84 yo F)Acc No.[id number]:07/27/2024 Progress Note Patient:?Gabby MADDENdia Nafisa Provider:?James Zuniga DPM :1940???Age:84 Y???Sex:Female D ate:07/27/2024 Address:[address] [place], [place] [phone] Pcp:Nafisa Walton Subjective: * Chief Complaints: * [...] ?Exercise: yes, walking. ?Marital status: . 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 * Medications:?TakingAspirin 8 1 MG Tablet [...] area Externally to feet Twice a day Sanders 3 1000 MG Capsule 1 capsule Orally Once a day Medication List reviewed and reconciled with the patientNot-Taking/PRN Ammonium Lactate 12 % Cream 1 application to affected area Externally to feet Twice a day Not-Taking/PRN Sanders 3 1000 MG Capsule 1 capsule Orally [...] , TA??? Plan: * Treatment: 2.?Tinea unguium?Procedure: 36770-CARDZLP NAIL, 6 OR MORE 3.?Type 2 diabetes mellitus without complication?Procedure: 54730-CWSE SKIN LESIONS, 2 TO 4 4.?Ingrown nail?Procedure: 80142-Wynrhxrn Plate * Procedures:?Debride Nail 6-10:?Nail debridement?Performance of this nail treatment by a nonprofessional would put this patients foot and overall health at risk. Therefore, nail debridement was performed extensively to reduce/remove overall nail length, girth, thickness, subungual debris, and necrotic tissue, by manual and/or electrical means through the use of a nail nipper and/or dremel-type external grinder, to a more viable healthy nail plate or bed tissue 6-10. Silver nitrate used for any petechial bleeding as necessary. Definitive antifungal treatment options have been reviewed and discussed with the patient. The patient chooses, no pharmaceutical tx - 51474.?Keratoma Treatment:?Parring or Cutting of Benign Hyperkeratotic Lesion(s)?(-56) 2-4 Lesions - The Benign hyperkeratotic lesions, as described above were pared, and/or cut utilizing a sterile 15 blade, tissue nippers, and/or dremel - 22917.?Nail Avulsion:?Location?Medial nail border?,?TA.?Anesthesia?was accomplished TOPICALLY with Lidocaine [...] Motrin was recommended for pain or discomfort (45856) , DIABETES: Pt was advised as to the risk of delayed or nonhealing due to diabetes. Pt is to call the office with any questions, concerns, or complications.? * Procedure Codes:?49125 DEBRI DE NAIL, 6 OR MORE, Modifiers: XS 61992 Avulsion Plate, Modifiers: XS , [id number] TRIM SKIN LESIONS, 2 TO 4, Modifiers: [...] for Juan Jose de la cruz/Brandon/Mini on:?03/07/2025 04:10 PM EDT History and Physical Notes * [...] , No Charcot collapse/destruction noted at [facility] FOOTWEAR EVALUATION: worn, OT were inspe cted and noted to be severely worn , [...]
--- OUTSIDE RECORDS SUMMARY | 2025-03-07 16:10 | XMS_ITS | Encounter Summary ---
Author Organization [employer] [facility] Address [address] [facility] 7t [place] [address] Care Team Providers Care Machine Stonecutter Name Role Phone Unavailable Primary Care Provider [...]
== END 2025-03-07 14:06 | disposition home or self-care (01) ==
LOC: HO.ENCR 13:39
PROVIDERS: PCP Internal Medicine; Visit Provider Internal Medicine Endocrinology, Diabetes & Metabolism
DX: M81.0 Age-related osteoporosis without current pathological fracture (principal)

== ENCOUNTER → 2025-03-07 13:38 | Outpatient (BNVA) | payer OTHER, SELFPAY | PROVIDERS: PCP Internal Medicine; Visit Provider Internal Medicine Endocrinology, Diabetes & Metabolism | DX: M81.0 Age-related osteoporosis without current pathological fracture (principal) | CPT/HCPCS: 96372; J3111 ==

== ENCOUNTER 2025-03-14 13:56 | Outpatient (REF) | payer OTHER, SELFPAY ==
--- NOTE | ~2025-03-14 | MM_ITS ---
EXAMINATION: DXA BONE DENSITY AXIAL HISTORY: M81.0 - Age-related osteoporosis without current pathological fracture TECHNIQUE: [employer] Dual energy absorptiometry (DEXA) of the lumbar spine, total left hip, and femoral neck was performed. COMPARISON: There are no prior studies for comparison. FINDINGS: The bone mineral density of the lumbar spine is 0.610 with a T-score of -4.9, and a Z-score of -2.9. This is indicative of osteoporosis. The bone mineral density of the left total hip is 0.742 with a T-score of -2.1, and a Z-score of 0.1. This is indicative of osteopenia. The bone mineral density of the left femoral neck is 0.660 with a T-score of -2.7, and a Z-score of -0.4. This is indicative of osteoporosis. MM/XR DEXA axial skeleton IMPRESSION: Based on bone mineral density, and according to World Health Organization (WHO) criteria, the diagnosis is consistent with osteoporosis. All bone density values are in grams per centimeter squared (g/cm2). Statistically, 68% of repeat scans fall within 1 SD (+/- 0.010 g/cm2 for AP spine L1-L4) and 1 SD (+/- 0.012 g/cm2 for femur total) FRAX is a trademark of the [employer]'s [place] for Metabolic Bone Disease, a World Health Organization (WHO) Collaborating Center. Electronically signed by: Devon Portillo MD 03/15/2025 10:34 AM EDT
--- OUTSIDE RECORDS SUMMARY | 2025-03-14 16:06 | XMS_ITS | Encounter Summary ---
Author Organization [employer] [facility] Address [address] [facility] 7t [place] [address] Care Team Providers Care Cloth Winding Supervisor Name Role Phone Unavailable Primary Care Provider [...]
--- OUTSIDE RECORDS SUMMARY | 2025-03-14 16:06 | XMS_ITS | Clinical Summary ---
Author Organization [employer] Address [address] [facility] 7t [place] [address] Care Team Providers Care Gas Pumper Name Role Phone Unavailable Primary Care Provider [...]
== END 2025-03-14 13:57 | disposition home or self-care (01) ==
LOC: HO.MAMMO 13:56
PROVIDERS: PCP Internal Medicine; Visit Provider Internal Medicine
DX: M81.0 Age-related osteoporosis without current pathological fracture (principal)
CPT/HCPCS: 77080

== ENCOUNTER → 2025-03-14 14:30 | Outpatient (BNV) | payer OTHER, SELFPAY | PROVIDERS: PCP Internal Medicine; Visit Provider Radiology Diagnostic Radiology | DX: E28.39 Other primary ovarian failure (principal) | CPT/HCPCS: 77080 ==

== ENCOUNTER 2025-03-18 07:39 | Outpatient (REF) | payer OTHER, SELFPAY ==
--- OUTSIDE RECORDS SUMMARY | 2025-03-18 07:41 | XMS_ITS | Encounter Summary ---
Author Organization [facility] Address [address] [place] [address] Care Team Providers Care Weapons Engineer Name Role Phone Nara Louie Md, MD Primary Care Provider Unavailable Encounter Details Date Type Department Care Team Description 01/31/2016 Business Doc Medical Records [address] [place] [address] Abstract, Provider Social History Tobacco Use Types [...] on filedocumented in this encounter Care Teams Weapons Engineer Relationship Specialty Start Date End Date Nara Louie MD, MD PCP - General Internal Medicine 10/26/15 documented as of this encounter
--- OUTSIDE RECORDS SUMMARY | 2025-03-18 07:41 | XMS_ITS ---
Author Organization [facility] Address [address] [facility] [address] Care Team Providers Care Ventilator Specialist Name Role Phone Liban ROJAS, Nara Londono Primary Care Provider Un available James Zuniga Unavailable [phone] Encounters Encounter Location Date Provider Diagnosis [address] [address] 01/30/2025 James Zuniga Plan Of Treatment Next Appt Details Provider Name:James Zuniga , 04/12/2025 03:45:00 PM, [address] [place] [address], [phone], Progress Notes * Terrie MADDEN MDOB:1939 (85 yo F)Acc No.[id number]:01/30/2025 Progress Note Patient:?Terrie MADDEN Provider:?James Zuniga DPM :1940???Age:84 Y???Sex:Female D ate:01/30/2025 Address:[address] [place] [address] [address] , [place] [id number] Pcp:Nafisa Walton Subjective: * Chief Complaints: * [...] Generated for Juan Jose de la cruz/Brandon/Mini on:?03/18/2025 07:41 AM EDT
--- OUTSIDE RECORDS SUMMARY | 2025-03-18 07:41 | XMS_ITS | Clinical Summary ---
Author Organization [employer] Address [address] [facility] 7t [place] [address] Care Team Providers Care Grocery Worker Name Role Phone Unavailable Primary Care Provider [...]
--- OUTSIDE RECORDS SUMMARY | 2025-03-18 07:41 | XMS_ITS ---
Author Organization [facility] Address [address] [place] [address] Care Team Providers Care Tax Technician Name Role Phone Liban ROJAS, Nara Londono Primary Care Provider Un available James Zuniga Unavailable [phone] Allergies No Known Allergies REASON FOR VISIT [...] Metformin & Diet Manage Prod 1000MG Active Fairland 3 1000 MG 1 capsule Orally Onc [...] Ordered Date Performed Result Body Sit e 67509-XMEVJCZ NAIL, 6 OR MORE 10/24/2024 N/A 73390-DNOU SKIN LESIONS, 2 TO 4 10/24/2024 N/A Encounters Encounter Location Date Provider Diagnosis [facility] [place] [address] [place] [phone] 10/24/2024 James Morganier Pain in right toe(s) [...] Treatment Pending Test Test Name Order Date 26782-HONQHMW NAIL, 6 OR MORE 10/24/2024 34509-YKTI SKIN LESIONS, 2 TO 4 10/24/20 24 Next Appt Details Follow Up: 2 Months, Reason: Provider Name:James Zuniga , 04/12/2025 03:45:00 PM, [address] [facility], [place] [address], [place], [address], Procedure Notes * Category Sub-Category Detail Notes [...] use of a nail nipper and/or dremel-type cinnamon grinder, to a more viable healthy nail [...] to maintain effectiveness in symptomatic relief - 19234 Keratoma Treatment Parring or Cutting o f [...] tissue nippers, and/or power dremel instrumentation - 04123 Progress Notes * Terrie MADDEN MDOB:1939 (84 yo F)Acc No.[id number]:10/24/2024 Progress Note Patient:?Terrie MADDEN Provider:?James Zuniga DPM :1940???Age:84 Y???Sex:Female D ate:10/24/2024 Address:[address] [place], [place] [phone] Pcp:Nafisa Walton Subjective: * Chief Complaints: * [...] area Externally to feet Twice a day Fairland 3 1000 MG Capsule 1 capsule Orally Once a day Medication List reviewed and reconciled with the patientNot-Taking/PRN Ammonium Lactate 12 % Cream 1 application to affected area Externally to feet Twice a day Not-Taking/PRN Fairland 3 1000 MG Capsule 1 capsule Orally [...] Treatment: 2.?Type 2 diabetes mellitus without complication?Procedure: 82622-MMQY SKIN LESIONS, 2 TO 4 * Procedures:?Debride [...] use of a nail nipper and/or dremel-type cinnamon grinder, to a more viable healthy nail [...] to maintain effectiveness in symptomatic relief - 06828.?Keratoma Treatment:?Parring or Cutting of Benign Hyperkeratotic Lesion(s)?(-56) [...] tissue nippers, and/or power dremel instrumentation - 11181.? * Procedure Codes:?28608 DEBRI DE NAIL, 6 OR MORE, Modifiers: XS 52169 TRIM SKIN LESIONS, 2 TO 4, Modifiers: XS * Follow Up:?2 Months * Images: * Sign off status: Completed true * Provider:?James Zuniga DPM Date:?2023 Generated for Juan Jose de la cruz/Brandon/Mini on:?03/18/2025 07:41 AM EDT History and Physical Notes * HPI [...]
--- OUTSIDE RECORDS SUMMARY | 2025-03-18 07:41 | XMS_ITS | Encounter Summary ---
Author Organization [employer] [facility] Address [address] [facility] 7t [place] [address] Care Team Providers Care Potato Sorter Name Role Phone Unavailable Primary Care Provider [...]
--- OUTSIDE RECORDS SUMMARY | 2025-03-18 07:41 | XMS_ITS | Encounter Summary ---
Author Organization [facility] Address [address] [place] [address] Care Team Providers Care Human Services Supervisor Name Role Phone Nara Louie Md, MD Primary Care Provider Unavailable Encounter Details Date Type Department Care Team Description 02/01/2016 Transfer Records Medical Records [address] [place] [address] Abstract, Provider Social History Tobacco Use Types [...] on filedocumented in this encounter Care Teams Human Services Supervisor Relationship Specialty Start Date End Date Nara Louie MD, MD PCP - General Internal Medicine 10/26/15 documented as of this encounter
--- OUTSIDE RECORDS SUMMARY | 2025-03-18 07:42 | XMS_ITS ---
Author Organization [facility] Address [address] [facility] [place] [address] Care Team Providers Care Tornado Chaser Name Role Phone Liban ROJAS, Nara Londono Primary Care Provider Un available James Zuniga Unavailable [phone] REASON FOR VISIT At Risk Footcare, Painful Nail(s) aggrevated by shoes and causing difficulty standing/walking., ToeIrritation, Ingrown Nail Medications Medication SIG (Take, Route, Frequency, Duration) Notes Start Date End Date Status Ammonium Lactate 12 % 1 application to affected area Externally to feet Twice a day for 30 days Not-Taking Walker 3 1000 MG 1 capsule Orally Onc [...] Ordered Date Performed Result Body Sit e 48021-SJLNGWO NAIL, 6 OR MORE 07/27/2024 N/A 32960-Cwrbjezq Plate 07/27/2024 N/A 57590-UVMF SKIN LESIONS, 2 TO 4 07/27/2024 N/A Encounters Encounter Location Date Provider Diagnosis [facility] [place] [address] [address] 07/27/2024 James Zuniga Pain in right toe(s) [...] INSTRUCTIONS.pdf) Pending Test Test Name Order Date 35360-DFGEOPY NAIL, 6 OR MORE 07/27/2024 78482-Qasgbsmb Plate 07/27/2024 78113-VKJZ SKIN LESIONS, 2 TO 4 07/27/20 24 Next Appt Details Follow Up: 2 Months, Reason: Provider Name:James Zuniga , 04/12/2025 03:45:00 PM, [address] , [address], [place], [address], Procedure Notes * Category Sub-Category Detail Notes [...] Motrin was recommended for pain or discomfort (15340) , DIABETES: Pt was advised as to [...] use of a nail nipper and/or dremel-type tankage grinder operator, to a more viable healthy nail plate or bed tissue 6-10. Silver nitrate used for any petechial bleeding as necessary. Definitive antifungal treatment options have been reviewed and discussed with the patient. The patient chooses, no pharmaceutical tx - 31470 Keratoma Treatment Parring or Cutting o f Benign Hyperkeratotic Lesion(s) (-56) 2-4 Lesions - The Benign hyperkeratotic lesions, as described above were pared, and/or cut utilizing a sterile 15 blade, tissue nippers, and/or dremel - 73056 Progress Notes * Terrie MADDEN MDOB:1939 (84 yo F)Acc No.[id number]:07/27/2024 Progress Note Patient:?Gabby MADDENdia Nafisa Provider:?James uZniga DPM :1940???Age:84 Y???Sex:Female D ate:07/27/2024 Address:[address] [place], [place] [phone] Pcp:Nafisa Walton Subjective: * Chief Complaints: * [...] ?Exercise: yes, walking. ?Marital status: . 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 * Medications:?TakingAspirin 8 1 MG Tablet [...] area Externally to feet Twice a day Walker 3 1000 MG Capsule 1 capsule Orally Once a day Medication List reviewed and reconciled with the patientNot-Taking/PRN Ammonium Lactate 12 % Cream 1 application to affected area Externally to feet Twice a day Not-Taking/PRN Walker 3 1000 MG Capsule 1 capsule Orally [...] , TA??? Plan: * Treatment: 2.?Tinea unguium?Procedure: 07846-KHPWSIT NAIL, 6 OR MORE 3.?Type 2 diabetes mellitus without complication?Procedure: 85486-ZNSM SKIN LESIONS, 2 TO 4 4.?Ingrown nail?Procedure: 15263-Vgigyxyw Plate * Procedures:?Debride Nail 6-10:?Nail debridement?Performance of this nail treatment by a nonprofessional would put this patients foot and overall health at risk. Therefore, nail debridement was performed extensively to reduce/remove overall nail length, girth, thickness, subungual debris, and necrotic tissue, by manual and/or electrical means through the use of a nail nipper and/or dremel-type tankage grinder operator, to a more viable healthy nail plate or bed tissue 6-10. Silver nitrate used for any petechial bleeding as necessary. Definitive antifungal treatment options have been reviewed and discussed with the patient. The patient chooses, no pharmaceutical tx - 37676.?Keratoma Treatment:?Parring or Cutting of Benign Hyperkeratotic Lesion(s)?(-56) 2-4 Lesions - The Benign hyperkeratotic lesions, as described above were pared, and/or cut utilizing a sterile 15 blade, tissue nippers, and/or dremel - 63276.?Nail Avulsion:?Location?Medial nail border?,?TA.?Anesthesia?was accomplished TOPICALLY with Lidocaine [...] Motrin was recommended for pain or discomfort (58258) , DIABETES: Pt was advised as to the risk of delayed or nonhealing due to diabetes. Pt is to call the office with any questions, concerns, or complications.? * Procedure Codes:?19919 DEBRI DE NAIL, 6 OR MORE, Modifiers: XS 29228 Avulsion Plate, Modifiers: XS , [id number] TRIM SKIN LESIONS, 2 TO 4, Modifiers: [...]
--- OUTSIDE RECORDS SUMMARY | 2025-03-18 07:42 | XMS_ITS | Patient Health Record ---
Author Organization [facility] Address [address] [place] [address] Care Team Providers Care Medical Office Technologist Name Role Phone Liban ROJAS, Nara Londono Primary Care Provider Un available James Zuniga Unavailable [phone] Allergies No Known Allergies Reason For Referral No Information Medications Medication SIG (Take, Route, Frequency, Duration) Notes Start Date End Date Status [place] 3 1000 MG 1 capsule Orally Onc [...] Problem Acquired hammer toe of right foot (73181633049827 05) Other hammer toe(s) (acquired), right foot (M20.41) Active confirmed Response to treatment,I mprovement Problem Acquired hammer toe of left foot (65268286493260 03) Other hammer toe(s) (acquired), left foot (M20.42) Active confirmed Response to treatment,I mprovement Problem Type 2 diabetes mellitus without complication (110715492) Type 2 diabetes mellitus without complication (E11.9) Active confirmed Vital Signs Blood pressure diastolic 80 mm Hg 10/24/2024 Height 5 ft 2 in in 10/24/2024 Blood pressure systolic 120 mm Hg 10/24/2024 Weight 128 lbs 10/24/2024 BMI 23.41 kg/m2 10/24/2024 Procedures Procedure Date Ordered Date Performed Result Body Sit e 06240-BRWXVXP NAIL, 6 OR MORE 03/28/2024 N/A 86225-Oibwkpvb Plate 03/28/2024 N/A 79831-WBTP SKIN LESIONS, 2 TO 4 03/28/2024 N/A 55065-LYVWQHF NAIL, 6 OR MORE 07/27/2024 N/A 77877-Czudpcrh Plate 07/27/2024 N/A 74467-ABDD SKIN LESIONS, 2 TO 4 07/27/2024 N/A 98253-VUGTMIX NAIL, 6 OR MORE 10/24/2024 N/A 09015-SIIT SKIN LESIONS, 2 TO 4 10/24/2024 N/A Encounters Encounter [facility] Date [facility] [address] [facility]/28[facility] Jameslewis RecinosNadia Pain in right toe(s) M79.674 ; Tinea unguium B35.1 ; Pain in left toe(s) M79.675 ; Type 2 diabetes mellitus without complication E11.9 and Ingrown nail L60.[address] [facility] [address] 07/27/2024 James Nadia Pain in right toe(s) M79.674 ; Tinea unguium B35.1 ; Pain in left toe(s) M79.675 ; Type 2 diabetes mellitus without complication E11.9 ; Other hammer toe(s) (acquired), left foot M20.42 ; Other hammer toe(s) (acquired), right foot M20.41 and Ingrown nail L60.0 [facility] [address] [facility] [address] [place] [address] 10/24/2024 James Nadia Pain in right toe(s) M79.674 ; Tinea unguium B35.1 ; Pain in left toe(s) M79.675 and Type 2 diabetes mellitus without complication E11.9 [facility] [address] [place] [address] 06/01/2024 James Zuniga Assessments Encounter Date Diagnosis [...] Treatment Pending Test Test Name Order Date 56707-DXIOPMO NAIL, 6 OR MORE 05/12/2019 84200-KWZTFMZ NAIL, 6 OR MORE 08/11/2019 50952-KJBBBRO NAIL, 6 OR MORE 11/24/2019 40274-NHPNTWY NAIL, 6 OR MORE 03/08/2020 31463-CGRRKYZ NAIL, 6 OR MORE 05/31/2020 71234-GOBXPBR NAIL, 6 OR MORE 08/15/2020 12261-OJTBIJU NAIL, 6 OR MORE 10/24/2020 76644-DSWXVAL NAIL, 6 OR MORE 01/09/2021 06907-UHWDKGU NAIL, 6 OR MORE 03/20/2021 09940-YILDZZD NAIL, 6 OR MORE 06/12/2021 12152-BIPWKES NAIL, 6 OR MORE 08/21/2021 96151-HKZHCQV NAIL, 6 OR MORE 10/31/2021 21267-LLBEFZV NAIL, 6 OR MORE 01/09/2022 88636-UMOXUIH NAIL, 6 OR MORE 03/20/2022 68487-DTATKBN NAIL, 6 OR MORE 05/29/2022 84229-BRUKSHT NAIL, 6 OR MORE 09/03/2022 95812-NPETCKY NAIL, 6 OR MORE 11/19/2022 79017-JEOTUAZ NAIL, 6 OR MORE 02/11/2023 34395-CCZKMSE NAIL, 6 OR MORE 04/22/2023 37322-WXBCVMB NAIL, 6 OR MORE 07/01/2023 05963-QLZYKOC NAIL, 6 OR MORE 09/10/2023 26675-XBFRKSD NAIL, 6 OR MORE 01/11/2024 14371-DDSMOTA NAIL, 6 OR MORE 03/28/2024 52346-LINBUTP NAIL, 6 OR MORE 07/27/2024 53585-QJXBAWQ NAIL, 6 OR MORE 10/24/2024 12109-Knfstgwb Plate 07/27/2024 00230-Bkgfybkq Plate 03/28/2024 35106-Cktfktgu Plate 09/03/2022 83543-Nulwfrdu Plate 01/11/2024 47073-Kcpknybx Plate 11/19/2022 82235-Bnltfhgn Plate 10/31/2021 68197-XERQ SKIN LESIONS, 2 TO 4 10/31/20 42473-XYWH SKIN LESIONS, 2 TO 4 08/21/20 10824-YOYH SKIN LESIONS, 2 TO 4 06/12/20 12655-FGMO SKIN LESIONS, 2 TO 4 03/20/20 95877-PDMG SKIN LESIONS, 2 TO 4 09/03/20 99244-OBRM SKIN LESIONS, 2 TO 4 05/29/20 99091-PWGT SKIN LESIONS, 2 TO 4 03/20/20 18361-CBSU SKIN LESIONS, 2 TO 4 01/09/20 26656-AIQT SKIN LESIONS, 2 TO 4 01/09/20 81032-MIOQ SKIN LESIONS, 2 TO 4 10/24/20 69368-EDIG SKIN LESIONS, 2 TO 4 08/15/20 26620-OAFO SKIN LESIONS, 2 TO 4 05/31/20 72430-XHND SKIN LESIONS, 2 TO 4 03/08/20 17944-ICNC SKIN LESIONS, 2 TO 4 11/24/19 87895-JQHA SKIN LESIONS, 2 TO 4 08/11/20 94297-HITN SKIN LESIONS, 2 TO 4 05/12/20 67161-XSOX SKIN LESIONS, 2 TO 4 11/19/19 00057-KJBY SKIN LESIONS, 2 TO 4 02/12/20 41114-LTUN SKIN LESIONS, 2 TO 4 07/01/20 31685-ULAW SKIN LESIONS, 2 TO 4 04/22/20 02486-JNHF SKIN LESIONS, 2 TO 4 01/11/20 55325-SXGN SKIN LESIONS, 2 TO 4 03/28/20 77210-ACLI SKIN LESIONS, 2 TO 4 07/27/20 73644-MCHV SKIN LESIONS, 2 TO 4 10/24/20 Next Appt Details Provider Name:James Zuniga , 04/12/2025 03:45:00 PM, [address] [facility], [address], [place], [address], Insurance Providers Payer Name Payer Address Payer Phone Subscriber Number Group Number Insured Name Patient Relationship to Insured Coverage Start Date Coverage End Date [facility] CCA SCO Claims [address] [place] [address] [phone] [id number] Terrie Noriega Self - patient is the insured Medical (General) History Medical History History ICD Code Arthritis Back,Hip,and Knee pain CAD (Cholesterol) Diabetic Osteoporosis Measles HTN Surgical History Surgery Date(Month/Year) cancer surgery right hip replacement 05/09/24 Hospitalization History Reason Date(Month/Year) [facility] Right hip replacement 05/09/24
[2025-03-18 12:48] LABS: Alanine Aminotransferase 10 U/L (0-31); Anion Gap 13 (12-20); Aspartate Amino Transferase 21 U/L (5-31); Blood Urea Nitrogen 13 mg/dL (9-16); Calcium 9.2 mg/dL (8.4-10.2); Carbon Dioxide 23 mmol/L (22-29); Chloride 108 mmol/L (96-108); Cholesterol 158 mg/dL (<200); Estimated Glomerular Filt Rate > 60; Glucose Fasting 197 mg/dL (60-99); HDL Cholesterol 60 mg/dL (>40); LDL Cholesterol Calculated 81 mg/dL (<100); Potassium 4.1 mmol/L (3.3-5.1); Sodium 140 mmol/L (135-145); Triglycerides 88 mg/dL (<150)
[2025-03-18 12:50] LABS: Estimated Average Glucose 189 mg/dL; Hemoglobin A1C 302.9367 umol/L; Hemoglobin A1c % 8.2 % (<6.0); Total Hemoglobin (HGBA1C) 4578.7707 umol/L
[2025-03-18 12:56] LABS: Creatinine Urine 144.24 mg/dL
== END 2025-03-18 07:40 | disposition home or self-care (01) ==
LOC: HO.HMGCLDS 07:39
PROVIDERS: PCP Internal Medicine; Visit Provider Internal Medicine
DX: M81.0 Age-related osteoporosis without current pathological fracture (principal); E78.5 Hyperlipidemia, unspecified; I10 Essential (primary) hypertension; E11.65 Type 2 diabetes mellitus with hyperglycemia; E11.3299 Type 2 diabetes mellitus with mild nonproliferative diabetic retinopathy without macular edema, unspecified eye
CPT/HCPCS: 36415; 80048; 80061; 82043; 82570; 83036; 84450; 84460

== ENCOUNTER 2025-03-23 13:53 | Outpatient (AMB) | payer OTHER, SELFPAY ==
--- OUTSIDE RECORDS SUMMARY | 2025-03-23 14:49 | XMS_ITS ---
Author Organization [facility] Address [address] [facility] [place] [address] Care Team Providers Care Family Consultant Name Role Phone Liban ROJAS, Nara Londono Primary Care Provider Un available James Zuniga Unavailable [phone] Encounters Encounter Location Date Provider Diagnosis [address] [address] 01/30/2025 James Zuniga Plan Of Treatment Next Appt Details Provider Name:James Zuniga , 04/12/2025 03:45:00 PM, [address] [place] [address], [address], Progress Notes * Terrie MADDEN MDOB:1939 (85 yo F)Acc No.[id number]:01/30/2025 Progress Note Patient:?Terrie MADDEN Provider:?James Zuniga DPM :1940???Age:84 Y???Sex:Female D ate:01/30/2025 Address:[address] [place] [address] [address] , [id number] Pcp:Nafisa Walton Subjective: * Chief Complaints: * [...] Generated for Juan Jose de la cruz/Brandon/Mini on:?03/23/2025 02:49 PM EDT
--- OUTSIDE RECORDS SUMMARY | 2025-03-23 14:49 | XMS_ITS | Patient Health Record ---
Author Organization [employer] [facility] Address [address] [facility] [address] [place] [address] Care Team Providers Care Shaper And Presser Name Role Phone ANNE-MARIE REYNOSO MD Primary Care Provider Unav ailable JAIMIE KIMBLE Unavailable [phone] Allergies No Known Allergies Reason For Referral [...] W/U Status Risk Notes Problem Age-related osteoporosis (503114683) Age-related osteoporosis without current pathological fracture (M81.0) Active confirmed Problem Essential hypertension (56497039) Essential (primary) hypertension (I10) Active confirmed Problem Malignant neoplasm of overlapping sites of right female breast (C50.811) Active confirmed Problem Type II diabetes mellitus without complication (241437555) Type 2 diabetes mellitus without complications (E11.9) Active confirmed Problem Hyperlipidemia (13035860) Hyperlipidemia, unspecified (E78.5) Active confirmed Problem Gastro-esophageal reflux disease with esophagitis (217598348) Gastro-esophagea l reflux disease with esophagitis (K21.0) Active confirmed Problem Osteoarthritis (697326970) Unspecified osteoarthritis, unspecified site (M19.90) Active confirmed Plan Of Treatment Pending Test Test Name Order Date Urinalysis 07/15/2022 MM Digital Screening Mammogram 3D 2021 Insurance Providers Payer Name Payer Address Payer Phone Subscriber Number Group Number Insured Name Patient Relationship to Insured Coverage Start Date Coverage End Date [facility] [address] [address] [place] [address] [id number] CHANDLER GARG Self - patient is the [...]
--- OUTSIDE RECORDS SUMMARY | 2025-03-23 14:49 | XMS_ITS | Encounter Summary ---
Author Organization [facility] Address [address] [place] [address] Care Team Providers Care Night Assistant Name Role Phone Nara Louie Md, MD Primary Care Provider Unavailable Encounter Details Date Type Department Care Team Description 01/31/2016 Business Doc Medical Records [address] [place] [address] Abstract, Provider Social History Tobacco Use Types [...] on filedocumented in this encounter Care Teams Night Assistant Relationship Specialty Start Date End Date Nara Louie MD, MD PCP - General Internal Medicine 10/26/15 documented as of this encounter
--- OUTSIDE RECORDS SUMMARY | 2025-03-23 14:49 | XMS_ITS | Encounter Summary ---
Author Organization [facility] Address [address] [place] [address] Care Team Providers Care Chainstitch Tunnel Elastic Operator Name Role Phone Nara Louie Md, MD Primary Care Provider Unavailable Encounter Details Date Type Department Care Team Description 02/01/2016 Transfer Records Medical Records [address] [place] [address] Abstract, Provider Social History Tobacco Use Types [...] on filedocumented in this encounter Care Teams Chainstitch Tunnel Elastic Operator Relationship Specialty Start Date End Date Nara Louie MD, MD PCP - General Internal Medicine 10/26/15 documented as of this encounter
--- OUTSIDE RECORDS SUMMARY | 2025-03-23 14:49 | XMS_ITS | Clinical Summary ---
Author Organization [employer] Address [address] [facility] 7t [place] [address] Care Team Providers Care Dial Equipment Engineer Name Role Phone Unavailable Primary Care [...]
--- OUTSIDE RECORDS SUMMARY | 2025-03-23 14:49 | XMS_ITS | Patient Health Record ---
Author Organization [facility] Address [address] [facility] [place] [address] Care Team Providers Care Railroad Emergency Services Manager Name Role Phone Liban ROJAS, Nara Londono Primary Care Provider Un available James Zuniga Unavailable [phone] Allergies No Known Allergies Reason For Referral No Information Medications Medication SIG (Take, Route, Frequency, Duration) Notes Start Date End Date Status [place] 3 1000 MG 1 capsule Orally Onc [...] Problem Acquired hammer toe of right foot (18341851744818 05) Other hammer toe(s) (acquired), right foot (M20.41) Active confirmed Response to treatment,I mprovement Problem Acquired hammer toe of left foot (82754687575848 03) Other hammer toe(s) (acquired), left foot (M20.42) Active confirmed Response to treatment,I mprovement Problem Type 2 diabetes mellitus without complication (005740724) Type 2 diabetes mellitus without complication (E11.9) Active confirmed Vital Signs Blood pressure diastolic 80 mm Hg 10/24/2024 Height 5 ft 2 in in 10/24/2024 Blood pressure systolic 120 mm Hg 10/24/2024 Weight 128 lbs 10/24/2024 BMI 23.41 kg/m2 10/24/2024 Procedures Procedure Date Ordered Date Performed Result Body Sit e 96220-TTHRHSC NAIL, 6 OR MORE 03/28/2024 N/A 70194-Dnmmstge Plate 03/28/2024 N/A 80978-WQOP SKIN LESIONS, 2 TO 4 03/28/2024 N/A 03481-EVMHGVK NAIL, 6 OR MORE 07/27/2024 N/A 39078-Xnswazlr Plate 07/27/2024 N/A 48578-EDHV SKIN LESIONS, 2 TO 4 07/27/2024 N/A 76976-BNUTSPR NAIL, 6 OR MORE 10/24/2024 N/A 55149-PXSE SKIN LESIONS, 2 TO 4 10/24/2024 N/A Encounters Encounter [facility] [address] [facility]/28/[facility] Jameslewis RecinosNadia Pain in right toe(s) M79.674 ; Tinea unguium B35.1 ; Pain in left toe(s) M79.675 ; Type 2 diabetes mellitus without complication E11.9 and Ingrown nail L60.[address] [facility] [address] 07/27/2024 James Nadia Pain in right toe(s) M79.674 ; Tinea unguium B35.1 ; Pain in left toe(s) M79.675 ; Type 2 diabetes mellitus without complication E11.9 ; Other hammer toe(s) (acquired), left foot M20.42 ; Other hammer toe(s) (acquired), right foot M20.41 and Ingrown nail L60.0 [facility] [address] [facility] [address] [place] [address] 10/24/2024 James Nadia Pain in right toe(s) M79.674 ; Tinea unguium B35.1 ; Pain in left toe(s) M79.675 and Type 2 diabetes mellitus without complication E11.9 [facility] [address] [place] [address] 06/01/2024 James Zuniga Assessments Encounter Date Diagnosis [...] Treatment Pending Test Test Name Order Date 29385-AIAUJHC NAIL, 6 OR MORE 05/12/2019 40392-FIYOULU NAIL, 6 OR MORE 08/11/2019 76098-MABVOCE NAIL, 6 OR MORE 11/24/2019 02415-LWSTBHR NAIL, 6 OR MORE 03/08/2020 47876-UVMPIIG NAIL, 6 OR MORE 05/31/2020 18215-OQMXZVU NAIL, 6 OR MORE 08/15/2020 52194-ESEOUNI NAIL, 6 OR MORE 10/24/2020 96256-GMWIPGI NAIL, 6 OR MORE 01/09/2021 24394-FDMGJTG NAIL, 6 OR MORE 03/20/2021 39143-BHCESQO NAIL, 6 OR MORE 06/12/2021 09579-TQQWXIR NAIL, 6 OR MORE 08/21/2021 27969-VJNMQZE NAIL, 6 OR MORE 10/31/2021 86311-MXNASUF NAIL, 6 OR MORE 01/09/2022 00394-DJOFJAC NAIL, 6 OR MORE 03/20/2022 65500-ZDCEOKN NAIL, 6 OR MORE 05/29/2022 05256-DNCUPJT NAIL, 6 OR MORE 09/03/2022 36689-CIENFNW NAIL, 6 OR MORE 11/19/2022 36757-YWLPRKC NAIL, 6 OR MORE 02/11/2023 76994-PXIHRDY NAIL, 6 OR MORE 04/22/2023 62785-CXMKMXE NAIL, 6 OR MORE 07/01/2023 35462-PPTSZVP NAIL, 6 OR MORE 09/10/2023 86932-FOIKLGY NAIL, 6 OR MORE 01/11/2024 60307-TKOKCVN NAIL, 6 OR MORE 03/28/2024 18068-RMYBFBX NAIL, 6 OR MORE 07/27/2024 24710-EWUZGGR NAIL, 6 OR MORE 10/24/2024 65632-Xsljldnp Plate 07/27/2024 71393-Dyreocft Plate 03/28/2024 99453-Ywklpfol Plate 09/03/2022 56056-Pxkduvnl Plate 01/11/2024 50401-Dpyommvm Plate 11/19/2022 15739-Dpjrdwgc Plate 10/31/2021 58163-QEOA SKIN LESIONS, 2 TO 4 10/31/20 47661-OMXW SKIN LESIONS, 2 TO 4 08/21/20 75925-TMKS SKIN LESIONS, 2 TO 4 06/12/20 89727-KMJN SKIN LESIONS, 2 TO 4 03/20/20 57762-VNNS SKIN LESIONS, 2 TO 4 09/03/20 68762-VGPA SKIN LESIONS, 2 TO 4 05/29/20 01004-PHAL SKIN LESIONS, 2 TO 4 03/20/20 22982-KQMR SKIN LESIONS, 2 TO 4 01/09/20 62358-DOWX SKIN LESIONS, 2 TO 4 01/09/20 76637-MZMH SKIN LESIONS, 2 TO 4 10/24/20 50359-CJTE SKIN LESIONS, 2 TO 4 08/15/20 46966-NORZ SKIN LESIONS, 2 TO 4 05/31/20 31264-JZSO SKIN LESIONS, 2 TO 4 03/08/20 73325-OVNH SKIN LESIONS, 2 TO 4 11/24/19 48313-ZPEZ SKIN LESIONS, 2 TO 4 08/11/20 99637-ZOVQ SKIN LESIONS, 2 TO 4 05/12/20 09930-TPAO SKIN LESIONS, 2 TO 4 11/19/19 07923-XGXN SKIN LESIONS, 2 TO 4 02/12/20 52237-CKNH SKIN LESIONS, 2 TO 4 07/01/20 06876-ZJXA SKIN LESIONS, 2 TO 4 04/22/20 94497-GMMJ SKIN LESIONS, 2 TO 4 01/11/20 04241-UUZV SKIN LESIONS, 2 TO 4 03/28/20 72622-MKQJ SKIN LESIONS, 2 TO 4 07/27/20 49760-NLJH SKIN LESIONS, 2 TO 4 10/24/20 Next Appt Details Provider Name:James Zuniga , 04/12/2025 03:45:00 PM, [address] [facility], [address], [place], [address], Insurance Providers Payer Name Payer Address Payer Phone Subscriber Number Group Number Insured Name Patient Relationship to Insured Coverage Start Date Coverage End Date [facility] [employer] S[employer] Claims [address] [place] [address] [phone] [id number] Terrie Noriega Self - patient is the insured Medical (General) History Medical History History ICD Code Arthritis Back,Hip,and Knee pain CAD (Cholesterol) Diabetic Osteoporosis Measles HTN Surgical History Surgery Date(Month/Year) cancer surgery right hip replacement 05/09/24 Hospitalization History Reason Date(Month/Year) [facility] Right hip replacement 05/09/24
--- OUTSIDE RECORDS SUMMARY | 2025-03-23 14:49 | XMS_ITS ---
Author Organization [facility] Address [address] [place] [address] Care Team Providers Care Knockout Man Name Role Phone Liban ROJAS, Nara Londono Primary Care Provider Un available James Zuniga Unavailable [phone] Allergies No Known Allergies REASON FOR VISIT [...] Metformin & Diet Manage Prod 1000MG Active [place] 3 1000 MG 1 capsule Orally Onc [...] Ordered Date Performed Result Body Sit e 26979-PCKWTEH NAIL, 6 OR MORE 10/24/2024 N/A 81361-GHFT SKIN LESIONS, 2 TO 4 10/24/2024 N/A Encounters Encounter Location Date Provider Diagnosis [facility] [place] [address] [place] [address] 10/24/2024 James Morganier Pain in right toe(s) [...] Treatment Pending Test Test Name Order Date 79062-QEUNSXM NAIL, 6 OR MORE 10/24/2024 07469-KHSF SKIN LESIONS, 2 TO 4 10/24/20 24 Next Appt Details Follow Up: 2 Months, Reason: Provider Name:James Zuniga , 04/12/2025 03:45:00 PM, [address] [facility], [place] [address], [place], [address], Procedure Notes * Category Sub-Category Detail Notes [...] use of a nail nipper and/or dremel-type regrinder operator, to a more viable healthy nail [...] to maintain effectiveness in symptomatic relief - 05780 Keratoma Treatment Parring or Cutting o f [...] tissue nippers, and/or power dremel instrumentation - 02090 Progress Notes * Terrie MADDEN MDOB:1939 (84 yo F)Acc No.[id number]:10/24/2024 Progress Note Patient:?Terrie MADDEN Provider:?James Zuniga DPM :1940???Age:84 Y???Sex:Female D ate:10/24/2024 Address:[address] [place], [place] [phone] Pcp:Nafisa Walton Subjective: * Chief Complaints: * [...] area Externally to feet Twice a day [place] 3 1000 MG Capsule 1 capsule Orally Once a day Medication List reviewed and reconciled with the patientNot-Taking/PRN Ammonium Lactate 12 % Cream 1 application to affected area Externally to feet Twice a day Not-Taking/PRN [place] 3 1000 MG Capsule 1 capsule Orally [...] Treatment: 2.?Type 2 diabetes mellitus without complication?Procedure: 63764-AELF SKIN LESIONS, 2 TO 4 * Procedures:?Debride [...] use of a nail nipper and/or dremel-type regrinder operator, to a more viable healthy nail [...] to maintain effectiveness in symptomatic relief - 51962.?Keratoma Treatment:?Parring or Cutting of Benign Hyperkeratotic Lesion(s)?(-56) [...] tissue nippers, and/or power dremel instrumentation - 99541.? * Procedure Codes:?71952 DEBRI DE NAIL, 6 OR MORE, Modifiers: XS 75249 TRIM SKIN LESIONS, 2 TO 4, Modifiers: XS * Follow Up:?2 Months * Images: * Sign off status: Completed true * Provider:?James Zuniga DPM Date:?2023 Generated for Juan Jose de la cruz/Brandon/Mini on:?03/23/2025 02:48 PM EDT History and Physical Notes * [...]
--- OUTSIDE RECORDS SUMMARY | 2025-03-23 14:49 | XMS_ITS | Encounter Summary ---
Author Organization [facility] Address [address] [facility] 7t [place] [address] Care Team Providers Care Technical Publications Manager Name Role Phone Unavailable Primary Care Provider Unavailabl e Encounter Details Date Type Department Care Team (Latest Contact Info) Description 08/22/2019 Abstract [facility] CONVERSIONS Dental, Provider, DDS Social History Tobacco [...]
--- OUTSIDE RECORDS SUMMARY | 2025-03-23 14:50 | XMS_ITS ---
Author Organization [facility] Address [address] [facility] [place] [address] Care Team Providers Care Coil Winding Supervisor Name Role Phone Liban ROJAS, Nara Londono Primary Care Provider Un available James Zuniga Unavailable [phone] REASON FOR VISIT At Risk Footcare, Painful Nail(s) aggrevated by shoes and causing difficulty standing/walking., ToeIrritation, Ingrown Nail Medications Medication SIG (Take, Route, Frequency, Duration) Notes Start Date End Date Status Ammonium Lactate 12 % 1 application to affected area Externally to feet Twice a day for 30 days Not-Taking [place] 3 1000 MG 1 capsule Orally Onc [...] Ordered Date Performed Result Body Sit e 89744-NGZMKPH NAIL, 6 OR MORE 07/27/2024 N/A 43631-Vjohvnwm Plate 07/27/2024 N/A 75106-BYHN SKIN LESIONS, 2 TO 4 07/27/2024 N/A Encounters Encounter Location Date Provider Diagnosis [facility] [place] [address] [address] 07/27/2024 James Zuniga Pain in right toe(s) [...] INSTRUCTIONS.pdf) Pending Test Test Name Order Date 83556-HNYPCFV NAIL, 6 OR MORE 07/27/2024 10401-Gnicyyvm Plate 07/27/2024 70835-NLNB SKIN LESIONS, 2 TO 4 07/27/20 24 Next Appt Details Follow Up: 2 Months, Reason: Provider Name:James Zuniga , 04/12/2025 03:45:00 PM, [address], [place], [address], Procedure Notes * Category Sub-Category Detail Notes [...] Motrin was recommended for pain or discomfort (00574) , DIABETES: Pt was advised as to [...] of a nail nipper and/or dremel-type tool grinder set up operator gear, to a more viable healthy nail plate or bed tissue 6-10. Silver nitrate used for any petechial bleeding as necessary. Definitive antifungal treatment options have been reviewed and discussed with the patient. The patient chooses, no pharmaceutical tx - [address]802 Keratoma Treatment Parring or Cutting o f Benign Hyperkeratotic Lesion(s) (-56) 2-4 Lesions - The Benign hyperkeratotic lesions, as described above were pared, and/or cut utilizing a sterile 15 blade, tissue nippers, and/or dremel - 92986 Progress Notes * Terrie MADDEN MDOB:1939 (84 yo F)Acc No.[id number]:07/27/2024 Progress Note Patient:?Gabby MADDENdia Nafisa Provider:?James Zuniga DPM :1940???Age:84 Y???Sex:Female D ate:07/27/2024 Address:[address] [place], [place] [phone] Pcp:Nafisa Walton Subjective: * Chief Complaints: * [...] ?Exercise: yes, walking. ?Marital status: . 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 * Medications:?TakingAspirin 8 1 MG Tablet Delayed [...] area Externally to feet Twice a day [place] 3 1000 MG Capsule 1 capsule Orally Once a day Medication List reviewed and reconciled with the patientNot-Taking/PRN Ammonium Lactate 12 % Cream 1 application to affected area Externally to feet Twice a day Not-Taking/PRN [place] 3 1000 MG Capsule 1 capsule Orally [...] , TA??? Plan: * Treatment: 2.?Tinea unguium?Procedure: 91027-PCHXLAS NAIL, 6 OR MORE 3.?Type 2 diabetes mellitus without complication?Procedure: 51884-UQAT SKIN LESIONS, 2 TO 4 4.?Ingrown nail?Procedure: 42073-Xwbhjzni Plate * Procedures:?Debride Nail 6-10:?Nail debridement?Performance of this nail treatment by a nonprofessional would put this patients foot and overall health at risk. Therefore, nail debridement was performed extensively to reduce/remove overall nail length, girth, thickness, subungual debris, and necrotic tissue, by manual and/or electrical means through the use of a nail nipper and/or dremel-type tool grinder set up operator gear, to a more viable healthy nail plate or bed tissue 6-10. Silver nitrate used for any petechial bleeding as necessary. Definitive antifungal treatment options have been reviewed and discussed with the patient. The patient chooses, no pharmaceutical tx - 92737.?Keratoma Treatment:?Parring or Cutting of Benign Hyperkeratotic Lesion(s)?(-56) 2-4 Lesions - The Benign hyperkeratotic lesions, as described above were pared, and/or cut utilizing a sterile 15 blade, tissue nippers, and/or dremel - 34135.?Nail Avulsion:?Location?Medial nail border?,?TA.?Anesthesia?was accomplished TOPICALLY with Lidocaine [...] Motrin was recommended for pain or discomfort (03513) , DIABETES: Pt was advised as to the risk of delayed or nonhealing due to diabetes. Pt is to call the office with any questions, concerns, or complications.? * Procedure Codes:?68363 DEBRI DE NAIL, 6 OR MORE, Modifiers: XS 22163 Avulsion Plate, Modifiers: XS , [id number] TRIM SKIN LESIONS, 2 TO 4, Modifiers: [...] de la cruz/Brandon/Mini on:?03/23/2025 02:49 PM EDT History and Physical Notes * [...]
--- NOTE | 2025-03-23 15:12 | A.OFFPC_ITS ---
Vital Signs 03/23/25 15:18 Height 4 ft 10.5 in Weight 120 lb BMI 24.7 BP 100/60 Blood Pressure Location Rt brachial Position Sitting Respiration 16 Pulse 83 Pulse Source Pulse Oximeter Temp 97.7 F Temp Source Oral Pulse Oximetry (%) 97 Oxygen Delivery Method Room Air Intake Visit Reasons: 4m follow up Intake Note: Pt is here today for her 4mo. f/u: Dtr is here with patient and would like to be referred to neurologist Accompanied by: Daughter Allergies No Known Allergies Allergy (Verified 03/23/25 15:43) Medication List - Last Reconciled 03/23/25 by Nara Louie MD acetaminophen (Tylenol Extra Strength) 500 mg PO Q6H PRN aspirin (Adult Aspirin Regimen) 81 mg PO DAILY atorvastatin 20 mg PO DAILY [baby wipes As directed] [basket for a walker As directed] blood sugar diagnostic As directed blood sugar diagnostic (FreeStyle Lite Strips) check fasting blood sugar 2 times a day; blood-glucose meter (FreeStyle Vidal Lite kit) As directed diaper,brief,adult,disposable Use as directed twice a day p.r.n. diclofenac sodium 1% 4 grams topical QID PRN disposable gloves Use As directed ibuprofen 400 mg PO Q12H PRN lancets check fasting blood sugar twice a day ac lisinopril 5 mg PO DAILY [Long shoe horn As directed] [Medium size Poise Pads Use twice a day ] [medminder machine As directed] metformin 1,000 mg PO BIDWMEAL 3 months miscellaneous medical supply (Blood Pressure Cuff) Take blood pressure once daily and as needed naproxen 500 mg PO BID PRN omega-3 acid ethyl esters 2 caps PO DAILY propylene glycol-glycerin 1-0.3 % 1 drp ophthalmic (eye) QID PRN [rollator walker As directed] romosozumab-aqqg (Evenity) 210 mg (2.34 mL) subcut .qmonthly [Soft loofah sponge with long handle As directed] [walker with seat As directed] Tobacco use date assessed: 03/23/25 Fall risk assessment: No Falls in past year Last assessed Fall Risk: 03/23/25 Dental Screening Dental Screen Date: 03/23/25 Did you have a dental visit in the last 12 months?: Yes Did you have a dental problem in the last 6 months where you did not have access to dental care?: No Was dental information given to patient?: Patient has dentist HPI 4m follow up HPI Details 85-year-old lady here today for follow-u p. She is accompanied today by her daughter who is concerned that patient is starting to be very forgetful. She lives by herself, and supplement sometimes forget to turn off the still when she is cooking. She also often misplaces things. They have ask the patient to live will them but she wants to leave on her own. Requesting for a referral to see a neurologist [facility] Medical History History of femur fracture History of adenomatous polyp of colon History of fracture of right hip Gait instability History of recent fall Right anterior knee pain Urinary incontinence Mild cognitive impairment Tubular adenoma of colon Breast cancer, right Hearing loss Osteoporosis Osteoarthritis GERD (gastroesophageal reflux disease) Dyslipidemia Essential hypertension Type 2 diabetes mellitus with microalbuminuria, without long-term current use of insulin Type 2 diabetes mellitus with hyperglycemia, without long-term current use of insulin Type 2 diabetes mellitus with mild nonproliferative diabetic retinopathy without macular edema Surgical History History of right hip hemiarthroplasty History of left hip replacement Hx of mastectomy Family History Father Colon cancer Mother Essential hypertension Sister Pancreatic cancer Son Mental health disorder Substance use disorder Social History Housing: Apartment Alcohol intake: never Patient Tobacco Use Status: Never used Tobacco e-Cigarette/Vaping Use: Never Used service: No Current occupational status: retired Cognitive needs: No Hearing needs: No Vision needs: Yes Questionnaire PHQ-9 Over the last 2 weeks, how often have you been bothered by any of the following problems? 1. Little interest or pleasure in doing things: not at all 2. Feeling down, depressed, or hopeless: not at all 3. Trouble falling or staying asleep, or sleeping too much: not at all 4. Feeling tired or having little energy: not at all 5. Poor appetite or overeating: not at all 6. Feeling bad about yourself - or that you are a failure or have let yourself or your family down: not at all 7. Trouble concentrating on things, such as reading the newspaper or watching television: not at all 8. Moving or speaking so slowly that other people could have noticed. Or the opposite - being so fidgety or restless that you have been moving around a lot more than usual: not at all 9. Thoughts that you would be better off or of hurting yourself in some way: not at all Total score: 0 Depression Screening Interpretation: Negative Depression Screening Done: Yes 41132 - PHQ-9 Billing: Yes Source: Developed by Drs. Devon Hatch, Kimi Corrales, Tin Dominguez and colleagues, with an educational darrius from [employer]. Thrive Questionnaire Date Thrive assessed: 03/23/25 I am a: Patient What is your living situation today?: I have a steady place to live Within the past 12 months, did the food you bought not last and you didn't have the money to get more?: I choose not to answer this question Within the past 12 months, did you worry whether your food would run out before you got money to buy more?: I choose not to answer this question Do you have trouble paying for medicines?: No Do you have trouble getting transportation to medical appointments?: No Do you have trouble paying your heating and electricity bill?: No Do you have trouble taking care of your child, family member or friend?: No Do you have trouble with day-to-day activities such as bathing, preparing meals, shopping, managing finances, etc.?: No Are you currently unemployed and looking for a job?: No Are you interested in more education?: No Please select the resources that you would like help with: None Currently or been in a relationship where the following occur: I choose not to answer THRIVE Score: 0 AUDIT C Alcohol Use Questionnaire (AUDIT-C) 1. How often do you have a drink containing alcohol?: Never Total Score: 0 CLARK-7 AMB Questionnaire CLARK-7 Date CLARK - 7 assessed: 03/23/25 Feeling nervous, anxious, or on edge: 0 = Not at all Not being able to stop or control worryin = Not at all Worrying too much about different things: 0 = Not at all Trouble relaxin = Not at all Being so restless that it is hard to sit still: 0 = Not at all Becoming easily annoyed or irritable: 0 = Not at all Feeling afraid as if something awful might happen: 0 = Not at all Total CLARK-7 score (0-4 normal; 5-9 mild; 10-14 moderate; 15-21 severe): 0 Source: Developed by Drs. Devon Hatch, Kimi Corrales, Tin Dominguez and colleagues, with an educational darrius from [employer]. CLARK-7 Assessment Billing CLARK-7 Assessment Tool: CLARK-7 Assessment 08572 Review of Systems Const Reports no additional complaints Eyes Reports no additional complaints ENT Reports no additional complaints Card Denies chest pain, Denies rapid heart rate and Denies dyspnea Resp Denies chest congestion, Denies cough and Denies dyspnea GI Denies abdominal pain, Denies melena, Denies bloating, Denies change in bowel habits, Denies GI cramping and Denies nausea Reports no additional complaints Musc Reports as per HPI, Reports arthralgias and Reports stiffness Skin/Breast Denies lesions and Denies rash Neuro Denies paresthesias Psych Reports no additional complaints Endo Reports no additional complaints Rashawn/Lymph Reports no additional complaints Aller/Immun Reports no additional complaints Physical exam (Primary Care) Vital Signs: Last Vital Signs Temp 97.7 F 03/23/25 15:18 Pulse 83 03/23/25 15:18 Resp 16 03/23/25 15:18 BP 100/60 03/23/25 15:18 Pulse Ox 97 03/23/25 15:18 Oxygen Delivery Method Room Air 03/23/25 15:18 BMI result Body Mass Index 24.7 Tobacco/Smoking Status: Tobacco use Status Tobacco use date assessed 03/23/25 03/23/25 15:21 Patient Tobacco Use Status Never used Tobacco 03/23/25 15:13 e-Cigarette/Vaping Use Never Used 03/23/25 15:13 PHQ-9: PHQ-9 Score PHQ-9: Total score 0 03/23/25 16:02 Depression Screening Interpretation: Negative Thrive Assessment: Date of Thrive Assessment Date Thrive assessed 03/23/25 03/23/25 15:21 Currently or been in a relationship where the following occur: I choose not to answer Const General: cooperative, comfortable, no acute distress and alert Nutritional Appearance: average body habitus Orientation/consciousness: patient oriented x3 HENMT Mouth: Normal oral and palatal mucosa present and moist mucous membranes Eyes General: appearance normal, both eyes and all related structures Neck Other: Supple no lymphadenopathy, thyroid gland nonpalpable, no carotid bruits Resp Effort & Inspection: normal respiratory effort and able to speak in complete sentences Auscultation: clear to auscultation bilaterally Cardio Other: S1-S2 present regular rate and rhythm GI Other: Normal bowel sounds, soft, nontender with no mass palpated no abdominal bruit Back/Spine/Pelvis Back: No back tenderness Skin General skin exam: no rashes or lesions noted Neuro Other: Mini-mental state exam done today scored General: patient oriented x3, moves all extremities, Normal light touch and pain sensation, no focal motor deficits, CN's II-XI intact bilaterally and normal sensation to monofilament Cognition (Neuro): normal cognition Gait exam (Neuro): Assisted gait required (Cane) Extrem General: Yes full ROM, Yes no joint enlargement and Yes no pedal edema Psych Appearance: grossly normal and well kempt Mental Status: mental status grossly normal Speech and movement: Normal speech and movement present Affect: normal affect Results Reviewed Results Reviewed: Name: Terrie Madden Age/Sex: 85/F : 1940 Unit#: [id number] Attend Dr: Nara Louie MD Re03/18/25 Status: DEP REF Location: [facility] Disch: SPEC : [id number] BOAZ: 03/18/25-075 STATUS: COMP REQ : [id number] RECD: 03/18/25-[address]: Nara Louie MD COMP: 03/18/25-1248 ENTERED: 03/18/25-[address]: ORDERED: Met Prof Fast, AST, ALT, Lipid Panel Test Result Flag Reference Sodium 140 135-145 mmol/L Potassium 4.1 3.3-5.1 mmol/L CL 108 96-108 mmol/L CO2 23 22-29 mmol/L Gap 13 12-20 BUN 13 9-16 mg/dL Creat 0.60 0.5-1.4 mg/dL eGFR > 60 Chronic Kidney Disease: Estimated GFR < 60 mL/min/1.73m2 Severe Kidney Disease: Estimated GFR < 15 mL/min/1.73m2 FBS 197 H 60-99 mg/dL A fasting glucose of 126 mg/dl or greater on more than one occasion is considered diagnostic of diabetes. CA 9.2 8.4-10.2 mg/dL AST (GOT) 21 5-31 U/L ALT (GPT) 10 0-31 U/L Triglyceride 88 <150 mg/dL Desirable Triglyceride: less than 150 mg/dL Borderline High Triglyceride 150-199 mg/dL High Triglyceride: 200-499 mg/dL Very High Triglyceride: greater than or equal to 5OO mg/dL Cholesterol 158 <200 mg/dL Desirable Cholesterol: less than 200 mg/dL Borderline High Cholesterol: 200-239 mg/dL High Cholesterol: greater than 239 mg/dL LDL Calculated 81 <100 mg/dL Desirable LDL: less than 100 mg/dL Near Optimal/Above Optimal LDL: 110-129 mg/dL Borderline High LDL: 130-159 mg/dL High LDL: 160-189 mg/dL Very High LDL: greater than or equal to 190 mg/dL HDL 60 >40 mg/dL Desirable HDL: greater than 40 mg/dL Note: This HDL assay may give artificially low results in patients with liver disease. Laboratory Tests 03/18/25 07:50 Estimat Average Glucose 189 Hemoglobin A1c % 8.2 H Coding Level of Care Code Est Pt Level 4 (89101) Complex EM visit Add On G2211 Diagnoses Type 2 diabetes mellitus with hyperglycemia, without long-term current use of insulin E11.65 Essential hypertension I10 Dyslipidemia E78.5 Mild cognitive impairment G31.84 Memory impairment R41.3 Additional Codes PHQ-9 - 61936 - PHQ-9 Billing: Yes ([id number]) CLARK-7 Assessment Billing - CLARK-7 Assessment Tool: CLARK-7 Assessment 89684 ([id number]) Assessment & Plan Assessment & Plan (1) Type 2 diabetes mellitus with hyperglycemia, without long-term current use of insulin: Code(s): E11.65 - Type 2 diabetes mellitus with hyperglycemia Category: Medical Plan: Diabetes mellitus not well controlled, with hemoglobin A1c now at 8.2%. Reinforced importance of following recommended diet and get taking medications as directed, reminded to be compliant with taking her medications, has a [employer] machine. will recheck again another hemoglobin A1c in 3 months (2) Essential hypertension: Code(s): I10 - Essential (primary) hypertension Category: Medical Plan: Blood pressure at goal of less than 130/80. Continue with current medication. Reinforced importance of following a low sodium diet, getting regular exercise, and lowering stress levels. (3) Dyslipidemia: Code(s): E78.5 - Hyperlipidemia, unspecified Category: Medical Plan: Reviewed recent fasting lipid profile with patient with levels within normal limits . Continue atorvastatin 20 mg per tablet daily , in addition to adherence to low-cholesterol diet and regular exercise, at least 30 minutes 3 to 4 times a week. Advised patient to make healthy food choices, eat more fruits, vegetables, whole grains, wild caught fish and low-fat dairy. Limit amount of meat and fried or fatty food products, as well as processed foods and fast foods. Follow-up scheduled with repeat fasting lipid panel in months. (4) Mild cognitive impairment: Comment: Code(s): G31.84 - Mild cognitive impairment of uncertain or unknown etiology Category: Medical Plan: patient scored 19/30 on the mini-mental status exam. encouraged to have patient engage in activities, do puzzles, get regular exercise at least do 15-20 minute walks twice a day. Advised to join the exercise program at the [facility] . Neurology consult ordered (5) Memory impairment: Code(s): R41.3 - Other amnesia Plan: Referred to neurology for further evaluation Orders: Orders Alanine Aminotransferase 07/17/25 E11.65 - Type 2 diabetes mellitus with hyperglycemia, E78.5 - Hyperlipidemia, unspecified, G31.84 - Mild cognitive impairment of uncertain or unknown etiology, I10 - Essential (primary) hypertension, M19.011 - Primary osteoarthritis, right shoulder, M81.0 - Age- related osteoporosis without current pathological fracture Vitamin B12 and Folate 07/17/25 E11.65 - Type 2 diabetes mellitus with hyperglycemia, E78.5 - Hyperlipidemia, unspecified, G31.84 - Mild cognitive impairment of uncertain or unknown etiology, I10 - Essential (primary) hypertension, M19.011 - Primary osteoarthritis, right shoulder, M81.0 - Age- related osteoporosis without current pathological fracture TSH reflex Free T4 07/17/25 E11.65 - Type 2 diabetes mellitus with hyperglycemia, E78.5 - Hyperlipidemia, unspecified, G31.84 - Mild cognitive impairment of uncertain or unknown etiology, I10 - Essential (primary) hypertension, M19.011 - Primary osteoarthritis, right shoulder, M81.0 - Age- related osteoporosis without current pathological fracture Lipid Panel 07/17/25 E11.65 - Type 2 diabetes mellitus with hyperglycemia, E78.5 - Hyperlipidemia, unspecified, G31.84 - Mild cognitive impairment of uncertain or unknown etiology, I10 - Essential (primary) hypertension, M19.011 - Primary osteoarthritis, right shoulder, M81.0 - Age-related osteoporosis without current pathological fracture Aspartate Amino Transferase 07/17/25 E11.65 - Type 2 diabetes mellitus with hyperglycemia, E78.5 - Hyperlipidemia, unspecified, G31.84 - Mild cognitive impairment of uncertain or unknown etiology, I10 - Essential (primary) hypertension, M19.011 - Primary osteoarthritis, right shoulder, M81.0 - Age- related osteoporosis without current pathological fracture Basic Metabolic Panel Fasting 07/17/25 E11.65 - Type 2 diabetes mellitus with hyperglycemia, E78.5 - Hyperlipidemia, unspecified, G31.84 - Mild cognitive impairment of uncertain or unknown etiology, I10 - Essential (primary) hypertension, M19.011 - Primary osteoarthritis, right shoulder, M81.0 - Age- related osteoporosis without current pathological fracture Vitamin D 25-OH Total 07/17/25 E11.65 - Type 2 diabetes mellitus with hyperglycemia, E78.5 - Hyperlipidemia, unspecified, G31.84 - Mild cognitive impairment of uncertain or unknown etiology, I10 - Essential (primary) hypertension, M19.011 - Primary osteoarthritis, right shoulder, M81.0 - Age- related osteoporosis without current pathological fracture Hemoglobin A1c 07/17/25 E11.65 - Type 2 diabetes mellitus with hyperglycemia, E78.5 - Hyperlipidemia, unspecified, G31.84 - Mild cognitive impairment of uncertain or unknown etiology, I10 - Essential (primary) hypertension, M19.011 - Primary osteoarthritis, right shoulder, M81.0 - Age-related osteoporosis without current pathological fracture Referrals Neurology Referral G31.84 - Mild cognitive impairment of uncertain or unknown etiology, R41.3 - Other amnesia
[2025-03-23 15:18] VITALS: BP 100/60; PULSE 83; RESP 16; TEMP 36.5; O2SAT 97; BMI 24.7
== END 2025-03-23 16:03 | disposition home or self-care (01) ==
LOC: HO.HMCC 13:54
PROVIDERS: PCP Internal Medicine; Visit Provider Internal Medicine
DX: E11.65 Type 2 diabetes mellitus with hyperglycemia (principal); I10 Essential (primary) hypertension; E78.5 Hyperlipidemia, unspecified; R41.3 Other amnesia

== ENCOUNTER → 2025-03-23 13:53 | Outpatient (BNVA) | payer OTHER, SELFPAY | PROVIDERS: PCP Internal Medicine; Visit Provider Internal Medicine | DX: E11.65 Type 2 diabetes mellitus with hyperglycemia (principal); I10 Essential (primary) hypertension; E78.5 Hyperlipidemia, unspecified; R41.3 Other amnesia | CPT/HCPCS: 96127; 99212 ==

== ENCOUNTER 2025-04-04 14:40 | Outpatient (AMB) | payer OTHER, SELFPAY ==
[2025-04-04 14:54] VITALS: BP 132/62; PULSE 73; O2SAT 96; BMI 24.7
--- NOTE | 2025-04-04 14:54 | MHC.OFFVIS ---
Vital Signs 04/04/25 14:54 Height 4 ft 10.86 in Weight 121 lb 14.65 oz BMI 24.7 BP 132/62 Blood Pressure Location Lt brachial Position Sitting Pulse 73 Pulse Source Pulse Oximeter Pulse Oximetry (%) 96 Oxygen Delivery Method Room Air Intake Visit Reasons: osteoporsis/evenity #5 Intake Note: Patient present today for age-related osteoporosis follow up visit. Grinding Wheel Operator Required: Yes Grinding Wheel Operator Language: Line Maintenance Technician Services: Grinding Wheel Operator Present Grinding Wheel Operator Name: Uvaldo BATES Information Interpreted: non-clinical & clinical Accompanied by: Daughter Allergies No Known Allergies Allergy (Verified 04/04/25 14:55) Medication List - Last Reconciled 04/04/25 by Devon Baltazar MD acetaminophen (Tylenol Extra Strength) 500 mg PO Q6H PRN aspirin (Adult Aspirin Regimen) 81 mg PO DAILY atorvastatin 20 mg PO DAILY [baby wipes As directed] [basket for a walker As directed] blood sugar diagnostic As directed blood sugar diagnostic (FreeStyle Lite Strips) check fasting blood sugar 2 times a day; blood-glucose meter (FreeStyle [place] Lite kit) As directed diaper,brief,adult,disposable Use as directed twice a day p.r.n. diclofenac sodium 1% 4 grams topical QID PRN disposable gloves Use As directed ibuprofen 400 mg PO Q12H PRN lancets check fasting blood sugar twice a day ac lisinopril 5 mg PO DAILY [Long shoe horn As directed] [Medium size Poise Pads Use twice a day ] [medminder machine As directed] metformin 1,000 mg PO BIDWMEAL 3 months miscellaneous medical supply (Blood Pressure Cuff) Take blood pressure once daily and as needed naproxen 500 mg PO BID PRN omega-3 acid ethyl esters 2 caps PO DAILY propylene glycol-glycerin 1-0.3 % 1 drp ophthalmic (eye) QID PRN [rollator walker As directed] romosozumab-aqqg (Evenity) 210 mg (2.34 mL) subcut .qmonthly [Soft loofah sponge with long handle As directed] [walker with seat As directed] HPI Comments Details: 85 YO Female is seen in consultation at the request of PCP for Osteoporosis. First diagnosed in last yr . Received treatment in the past with alendronate , from 6 mos to present . Tolerated treatment well without complication. history of pathologic fracture of hip right in 04/2024 Had a fall outside or [facility]. Has few servings of dietary calcium per day in the form of milk, salmon and ice cream . Takes Calcium supplement ? mg daily in divided doses. Takes ? IU of Vitamin D daily. Denies ever using PPI, anticoagulant, antiepileptic or glucocorticoid medication. Not Does weight bearing exercise Fracture history: As above Height loss: No [employer]OR [employer] history: Menarche at age 14 total hysterecomy at age 40- not taking ERT then Denies history of Kidney stones: Had RT for breast cancer in 1998 Denies family history of Osteoporosis or hip fracture. UTD on dental cleanings and sees dentist every 6 months. No planned upcoming dental work or extractions. DXA dated 01/29/24: T-score in the lumbar spine-3.7 Labs: Secondary workup negative Currently getting Evenity injection #5. Today The patient is an 85-year-old female presenting with osteoporosis management using Romosozumab (Evenity) therapy. The treatment commenced five months ago, and she has so far received five injections, tolerating them without complications. Assessing her bone density is complex due to previous differing testing sites, which complicates the comparison of results. There is an indication of a potential worsening in spinal bone density. However, due to the change in testing facilities, this remains inconclusive. To date, she reports no fractures since starting Evenity. Compliance with calcium and vitamin D supplements is noted, albeit not in detail. The future treatment strategy includes concluding the 12-month Evenity course with seven more injections and transitioning to Denosumab (Prolia) following that period. The possibility of continued care should she move to [place] was discussed, with encouragement for establishing connections with a local bone bone unit to ensure uninterrupted care. [facility] Medical History History of femur fracture History of adenomatous polyp of colon History of fracture of right hip Gait instability History of recent fall Right anterior knee pain Urinary incontinence Mild cognitive impairment Tubular adenoma of colon Breast cancer, right Hearing loss Osteoporosis Osteoarthritis GERD (gastroesophageal reflux disease) Dyslipidemia Essential hypertension Type 2 diabetes mellitus with microalbuminuria, without long-term current use of insulin Type 2 diabetes mellitus with hyperglycemia, without long-term current use of insulin Type 2 diabetes mellitus with mild nonproliferative diabetic retinopathy without macular edema Surgical History History of right hip hemiarthroplasty History of left hip replacement Hx of mastectomy Family History Father Colon cancer Mother Essential hypertension Sister Pancreatic cancer Son Mental health disorder Substance use disorder Social History Housing: Apartment Alcohol intake: never Patient Tobacco Use Status: Never used Tobacco e-Cigarette/Vaping Use: Never Used service: No Current occupational status: retired Cognitive needs: No Hearing needs: No Vision needs: Yes Physical Exam Vital Signs: Last Vital Signs Pulse 73 04/04/25 14:54 BP 132/62 04/04/25 14:54 Pulse Ox 96 04/04/25 14:54 Oxygen Delivery Method Room Air 04/04/25 14:54 BMI result Body Mass Index 24.7 Assessment & Plan Assessment & Plan (1) Osteoporosis: Code(s): M81.0 - Age-related osteoporosis without current pathological fracture Category: Medical Qualifiers: Osteoporosis type: age-related Presence of current pathological fracture: without current pathological fracture Qualified Code(s): M81.0 - Age-related osteoporosis without current pathological fracture Plan: This 85-year-old female with a history of severe osteoporosis and previous femur fracture. Secondary workup negative. Currently on a Evenity injection 5. Can not compare recent DEXA was done on different machine The plan is to continue the Evenity for full 12 months' time and then will transition to Prolia in 7 months. 1. Osteoporosis The patient is being managed with Romosozumab (Evenity), and no adverse effects have been observed. We will proceed with the complete 12-month dosing regimen. Transitioning to Denosumab (Prolia) therapy is planned subsequently to maintain bone health. The patient must ensure ongoing access and adherence to therapy, especially considering a potential future relocation. 2. Risk of fracture A focus on avoiding fractures includes continued calcium and vitamin D intake. Recommendations reinforce the importance of a safe home environment as part of the preventative strategy. I discussed with the patient the ongoing management of osteoporosis with Romosozumab, emphasizing the need to complete the 12-month dosing regimen. Areas covered included the potential for transitioning to Denosumab therapy thereafter. We addressed logistical challenges she may face if relocating and the importance of maintaining care continuity. Risks of bone density inconsistencies due to testing variations were highlighted, though no fractures have occurred, indicating treatment success thus far. I reiterated the importance of environmental safety measures and the benefit of continued calcium and vitamin D supplementation to mitigate fracture risk. Follow-ups and continued evaluation of bone health were outlined. - Continue current Romosozumab (Evenity) therapy as scheduled. - Take calcium and vitamin D supplements as prescribed. - Ensure home safety measures to prevent falls and potential fractures. - Plan for future Denosumab (Prolia) use after Evenity course. - Maintain communication about any potential relocation to [place] and establish care continuity with a local specialist. The patient had an opportunity to ask questions regarding treatment plan. The patient expressed understanding and agreement with the above treatment plan. Patient was informed and verbally consented to the use of an ambient scribe for clinic note documentation during this visit. Coding Level of Care Code Est Pt Level 3 (88931) Diagnoses Age-related osteoporosis without current pathological fracture M81.0 Osteoporosis type: age-related Presence of current pathological fracture: without current pathological fracture
--- OUTSIDE RECORDS SUMMARY | 2025-04-04 16:00 | XMS_ITS | Patient Health Record ---
Author Organization [employer] [facility] Address [address] [place] [address] Care Team Providers Care Network Security Officer Name Role Phone ANNE-MARIE REYNOSO MD Primary Care Provider Unav ailable JAIMIE KIMBLE Unavailable [phone] Allergies No Known Allergies Reason For Referral [...] W/U Status Risk Notes Problem Age-related osteoporosis (051680404) Age-related osteoporosis without current pathological fracture (M81.0) Active confirmed Problem Essential hypertension (84007708) Essential (primary) hypertension (I10) Active confirmed Problem Malignant neoplasm of overlapping sites of right female breast (C50.811) Active confirmed Problem Type II diabetes mellitus without complication (815323364) Type 2 diabetes mellitus without complications (E11.9) Active confirmed Problem Hyperlipidemia (66877290) Hyperlipidemia, unspecified (E78.5) Active confirmed Problem Gastro-esophageal reflux disease with esophagitis (983871526) Gastro-esophagea l reflux disease with esophagitis (K21.0) Active confirmed Problem Osteoarthritis (185752359) Unspecified osteoarthritis, unspecified site (M19.90) Active confirmed Plan Of Treatment Pending Test Test Name Order Date Urinalysis 07/15/2022 MM Digital Screening Mammogram 3D 2021 Insurance Providers Payer Name Payer Address Payer Phone Subscriber Number Group Number Insured Name Patient Relationship to Insured Coverage Start Date Coverage End Date [facility] [address] [address] [place] [phone] [id number] CHANDLER GARG Self - patient is the [...]
--- OUTSIDE RECORDS SUMMARY | 2025-04-04 16:01 | XMS_ITS | Clinical Summary ---
Author Organization [employer] Address [address] [place] [address] Care Team Providers Care Elevator Examiner Name Role Phone Unavailable Primary Care Provider [...] patient's age to complete this topic Meningococcal B Vaccine Aged Out No l onger eligible based on patient's age to complete [...]
--- OUTSIDE RECORDS SUMMARY | 2025-04-04 16:01 | XMS_ITS ---
Author Organization [facility] Address [address] [place] [address] Care Team Providers Care Manager Transition Name Role Phone Liban ROJAS, Nara Londono Primary Care Provider Un available James Zuniga Unavailable [phone] REASON FOR VISIT At Risk Footcare, Painful Nail(s) aggrevated by shoes and causing difficulty standing/walking., ToeIrritation, Ingrown Nail Medications Medication SIG (Take, Route, Frequency, Duration) Notes Start Date End Date Status Ammonium Lactate 12 % 1 application to affected area Externally to feet Twice a day for 30 days Not-Taking [place] 3 1000 MG 1 capsule Orally Onc [...] Ordered Date Performed Result Body Sit e 37319-VVMABFW NAIL, 6 OR MORE 07/27/2024 N/A 20324-Wahtgqwj Plate 07/27/2024 N/A 44741-HOVE SKIN LESIONS, 2 TO 4 07/27/2024 N/A Encounters Encounter Location Date Provider Diagnosis [facility] [place] [address] [address] 07/27/2024 James Zuniga Pain in right toe(s) [...] INSTRUCTIONS.pdf) Pending Test Test Name Order Date 99973-ZNDCQKD NAIL, 6 OR MORE 07/27/2024 46184-Hojutjbg Plate 07/27/2024 36034-FZVX SKIN LESIONS, 2 TO 4 07/27/20 24 Next Appt Details Follow Up: 2 Months, Reason: Provider Name:James Zuniga , 04/12/2025 03:45:00 PM, [address], [place], [address], Procedure Notes * Category Sub-Category Detail Notes [...] Motrin was recommended for pain or discomfort (06859) , DIABETES: Pt was advised as to [...] use of a nail nipper and/or dremel-type machine grinder, to a more viable healthy nail plate or bed tissue 6-10. Silver nitrate used for any petechial bleeding as necessary. Definitive antifungal treatment options have been reviewed and discussed with the patient. The patient chooses, no pharmaceutical tx - 09393 Keratoma Treatment Parring or Cutting o f Benign Hyperkeratotic Lesion(s) (-56) 2-4 Lesions - The Benign hyperkeratotic lesions, as described above were pared, and/or cut utilizing a sterile 15 blade, tissue nippers, and/or dremel - 70093 Progress Notes * Terrie MADDEN MDOB:1939 (84 yo F)Acc No.[id number]:07/27/2024 Progress Note Patient:?Gabby MADDENdia Nafisa Provider:?James Zuniga DPM :1940???Age:84 Y???Sex:Female D ate:07/27/2024 Address:[address] [place], [place] [id number] Pcp:Nafisa Walton Subjective: * Chief Complaints: * [...] ?Exercise: yes, walking. ?Marital status: . 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 * Medications:?TakingAspirin 8 1 MG Tablet [...] area Externally to feet Twice a day [place] 3 1000 MG Capsule 1 capsule Orally Once a day Medication List reviewed and reconciled with the patientNot-Taking/PRN Ammonium Lactate 12 % Cream 1 application to affected area Externally to feet Twice a day Not-Taking/PRN [place] 3 1000 MG Capsule 1 capsule Orally [...] , TA??? Plan: * Treatment: 2.?Tinea unguium?Procedure: 99022-VEVBNBN NAIL, 6 OR MORE 3.?Type 2 diabetes mellitus without complication?Procedure: 25771-HAXA SKIN LESIONS, 2 TO 4 4.?Ingrown nail?Procedure: 87429-Gehtqpyv Plate * Procedures:?Debride Nail 6-10:?Nail debridement?Performance of this nail treatment by a nonprofessional would put this patients foot and overall health at risk. Therefore, nail debridement was performed extensively to reduce/remove overall nail length, girth, thickness, subungual debris, and necrotic tissue, by manual and/or electrical means through the use of a nail nipper and/or dremel-type machine grinder, to a more viable healthy nail plate or bed tissue 6-10. Silver nitrate used for any petechial bleeding as necessary. Definitive antifungal treatment options have been reviewed and discussed with the patient. The patient chooses, no pharmaceutical tx - 74057.?Keratoma Treatment:?Parring or Cutting of Benign Hyperkeratotic Lesion(s)?(-56) 2-4 Lesions - The Benign hyperkeratotic lesions, as described above were pared, and/or cut utilizing a sterile 15 blade, tissue nippers, and/or dremel - 06767.?Nail Avulsion:?Location?Medial nail border?,?TA.?Anesthesia?was accomplished TOPICALLY with Lidocaine [...] Motrin was recommended for pain or discomfort (73519) , DIABETES: Pt was advised as to the risk of delayed or nonhealing due to diabetes. Pt is to call the office with any questions, concerns, or complications.? * Procedure Codes:?00060 DEBRI DE NAIL, 6 OR MORE, Modifiers: XS 97033 Avulsion Plate, Modifiers: XS , NW53655 TRIM SKIN LESIONS, 2 TO 4, Modifiers: [...] Generated for Juan Jose de la cruz/Brandon/Mini on:?04/04/2025 04:01 PM EDT History and Physical Notes * [...]
--- OUTSIDE RECORDS SUMMARY | 2025-04-04 16:01 | XMS_ITS ---
Author Organization [facility] Address [address] [place] [address] Care Team Providers Care Custodial Supervisor Name Role Phone Liban ROJAS, Nara Londono Primary Care Provider Un available James Zuniga Unavailable [phone] Allergies No Known Allergies REASON FOR VISIT [...] Metformin & Diet Manage Prod 1000MG Active [place] 3 1000 MG 1 capsule Orally Onc [...] Ordered Date Performed Result Body Sit e 26389-YMBWBRO NAIL, 6 OR MORE 10/24/2024 N/A 45141-CVUO SKIN LESIONS, 2 TO 4 10/24/2024 N/A Encounters Encounter Location Date Provider Diagnosis [facility] [place] [address] [place] [phone] 10/24/2024 James Morganier Pain in right toe(s) [...] Treatment Pending Test Test Name Order Date 95610-ZKZZNVU NAIL, 6 OR MORE 10/24/2024 58279-YTKC SKIN LESIONS, 2 TO 4 10/24/20 24 Next Appt Details Follow Up: 2 Months, Reason: Provider Name:James Zuniga , 04/12/2025 03:45:00 PM, [address] [place] [address], [place], [address], Procedure Notes * Category Sub-Category Detail Notes [...] use of a nail nipper and/or dremel-type facing grinder, to a more viable healthy nail [...] to maintain effectiveness in symptomatic relief - 81110 Keratoma Treatment Parring or Cutting o f [...] tissue nippers, and/or power dremel instrumentation - 89145 Progress Notes * Terrie MADDEN MDOB:1939 (84 yo F)Acc No.[id number]:10/24/2024 Progress Note Patient:?Terrie MADDEN Provider:?James Zuniga DPM :1940???Age:84 Y???Sex:Female D ate:10/24/2024 Address:[address] [place], [place] [phone] Pcp:Nafisa Walton Subjective: * Chief Complaints: * [...] area Externally to feet Twice a day [place] 3 1000 MG Capsule 1 capsule Orally Once a day Medication List reviewed and reconciled with the patientNot-Taking/PRN Ammonium Lactate 12 % Cream 1 application to affected area Externally to feet Twice a day Not-Taking/PRN [place] 3 1000 MG Capsule 1 capsule Orally [...] Treatment: 2.?Type 2 diabetes mellitus without complication?Procedure: 63859-WDYA SKIN LESIONS, 2 TO 4 * Procedures:?Debride [...] use of a nail nipper and/or dremel-type facing grinder, to a more viable healthy nail [...] to maintain effectiveness in symptomatic relief - 10387.?Keratoma Treatment:?Parring or Cutting of Benign Hyperkeratotic Lesion(s)?(-56) [...] tissue nippers, and/or power dremel instrumentation - 16979.? * Procedure Codes:?92851 DEBRI DE NAIL, 6 OR MORE, Modifiers: XS 27781 TRIM SKIN LESIONS, 2 TO 4, Modifiers: XS * Follow Up:?2 Months * Images: * Sign off status: Completed true * Provider:?James Zuniga DPM Date:?2023 Generated for Juan Jose de la cruz/Brandon/Mini on:?04/04/2025 04:00 PM EDT History and Physical Notes * [...]
--- OUTSIDE RECORDS SUMMARY | 2025-04-04 16:01 | XMS_ITS | Encounter Summary ---
Author Organization [facility] Address [address] [place] [address] Care Team Providers Care Statistician Name Role Phone Unavailable Primary Care Provider Unavailabl e Encounter Details Date Type Department Care Team (Latest Contact Info) Description 08/22/2019 Abstract [facility] CONVERSIONS Dental, Provider, DDS Social History Tobacco [...]
--- OUTSIDE RECORDS SUMMARY | 2025-04-04 16:01 | XMS_ITS | Patient Health Record ---
Author Organization [facility] Address [address] [place] [address] Care Team Providers Care Table Machine Operator Name Role Phone Liban ROJAS, Nara Londono Primary Care Provider Un available James Zuniga Unavailable [phone] Allergies No Known Allergies Reason For Referral No Information Medications Medication SIG (Take, Route, Frequency, Duration) Notes Start Date End Date Status [place] 3 1000 MG 1 capsule Orally Onc [...] Problem Acquired hammer toe of right foot (55971507291205 05) Other hammer toe(s) (acquired), right foot (M20.41) Active confirmed Response to treatment,I mprovement Problem Acquired hammer toe of left foot (62385855611079 03) Other hammer toe(s) (acquired), left foot (M20.42) Active confirmed Response to treatment,I mprovement Problem Type 2 diabetes mellitus without complication (337127773) Type 2 diabetes mellitus without complication (E11.9) Active confirmed Vital Signs Blood pressure diastolic 80 mm Hg 10/24/2024 Height 5 ft 2 in in 10/24/2024 Blood pressure systolic 120 mm Hg 10/24/2024 Weight 128 lbs 10/24/2024 BMI 23.41 kg/m2 10/24/2024 Procedures Procedure Date Ordered Date Performed Result Body Sit e 74327-MUCPXDO NAIL, 6 OR MORE 07/27/2024 N/A 73224-Eoabxyrt Plate 07/27/2024 N/A 44394-VDHI SKIN LESIONS, 2 TO 4 07/27/2024 N/A 93376-LMXGNLG NAIL, 6 OR MORE 10/24/2024 N/A 65465-VQSW SKIN LESIONS, 2 TO 4 10/24/2024 N/A Encounters Encounter Location Date Provider Diagnosis [facility] [address] 07/27/2024 James Nadia Pain in right toe(s) M79.674 ; Tinea unguium B35.1 ; Pain in left toe(s) M79.675 ; Type 2 diabetes mellitus without complication E11.9 ; Other hammer toe(s) (acquired), left foot M20.42 ; Other hammer toe(s) (acquired), right foot M20.41 and Ingrown nail L60.[address] [facility] [address] 10/24/2024 James Nadia Pain in right toe(s) M79.674 ; Tinea unguium B35.1 ; Pain in left toe(s) M79.675 and Type 2 diabetes mellitus without complication E11.9 [facility] [address] [address] 06/01/2024 James Recinosunier Assessments Encounter Date Diagnosis (ICD Code) Assessment Notes Treatment Notes Treatment Clinical Notes Section Notes 07/27/2024 Pain in right toe(s) (ICD-10 - M79.674) 10/24/2024 Tinea unguium (ICD-10 - B35.1) 10/24/2024 Pain in right toe(s) (ICD-10 - M79.674) 10/24/2024 Pain in left toe(s) (ICD-10 - M79.675) 07/27/2024 Tinea unguium (ICD-10 - B35.1) 07/27/2024 [...] Treatment Pending Test Test Name Order Date 26248-MTNARKK NAIL, 6 OR MORE 05/12/2019 63783-IOGRIAS NAIL, 6 OR MORE 08/11/2019 92564-CEXWNYS NAIL, 6 OR MORE 11/24/2019 55097-PNCDEKI NAIL, 6 OR MORE 03/08/2020 60119-JVSFYMC NAIL, 6 OR MORE 05/31/2020 48052-REMAHKQ NAIL, 6 OR MORE 08/15/2020 39558-ROMZSQO NAIL, 6 OR MORE 10/24/2020 92194-AJQFENZ NAIL, 6 OR MORE 01/09/2021 79487-HTZULFS NAIL, 6 OR MORE 03/20/2021 15338-WFODHCT NAIL, 6 OR MORE 06/12/2021 69734-RTWVRTF NAIL, 6 OR MORE 08/21/2021 90673-HVISUZC NAIL, 6 OR MORE 10/31/2021 28370-QJPQMHO NAIL, 6 OR MORE 01/09/2022 16393-IVFLLPU NAIL, 6 OR MORE 03/20/2022 70195-GJYFOMS NAIL, 6 OR MORE 05/29/2022 88464-FOXEZQI NAIL, 6 OR MORE 09/03/2022 82381-ZMPZLSU NAIL, 6 OR MORE 11/19/2022 53541-RHHDFXC NAIL, 6 OR MORE 02/11/2023 22366-TOTYEQS NAIL, 6 OR MORE 04/22/2023 64719-YZKMDHW NAIL, 6 OR MORE 07/01/2023 61492-LFVWDKR NAIL, 6 OR MORE 09/10/2023 22819-FDTBGQV NAIL, 6 OR MORE 01/11/2024 64263-BZWEBMY NAIL, 6 OR MORE 03/28/2024 09866-EWSWOOP NAIL, 6 OR MORE 07/27/2024 49015-GANHEIW NAIL, 6 OR MORE 10/24/2024 51129-Sxjgmekd Plate 07/27/2024 11501-Ywwfpcyq Plate 03/28/2024 75490-Svwyrljt Plate 09/03/2022 27315-Hwyvmfkh Plate 01/11/2024 09986-Lvxjcecv Plate 11/19/2022 36248-Evttevdr Plate 10/31/2021 73273-ASUQ SKIN LESIONS, 2 TO 4 10/31/20 30962-KFIJ SKIN LESIONS, 2 TO 4 08/21/20 87933-ZHNZ SKIN LESIONS, 2 TO 4 06/12/20 85041-NNYR SKIN LESIONS, 2 TO 4 03/20/20 97852-LZOA SKIN LESIONS, 2 TO 4 09/03/20 71841-VJSD SKIN LESIONS, 2 TO 4 05/29/20 50147-SYGK SKIN LESIONS, 2 TO 4 03/20/20 41064-QVSG SKIN LESIONS, 2 TO 4 01/09/20 79521-ZMDZ SKIN LESIONS, 2 TO 4 01/09/20 06712-YGBQ SKIN LESIONS, 2 TO 4 10/24/20 68297-IUMV SKIN LESIONS, 2 TO 4 08/15/20 24295-NHLL SKIN LESIONS, 2 TO 4 05/31/20 06452-FISD SKIN LESIONS, 2 TO 4 03/08/20 50578-ZMSD SKIN LESIONS, 2 TO 4 11/24/19 10075-LPIM SKIN LESIONS, 2 TO 4 08/11/20 05771-EDBI SKIN LESIONS, 2 TO 4 05/12/20 95796-XNKZ SKIN LESIONS, 2 TO 4 11/19/19 27403-DXXR SKIN LESIONS, 2 TO 4 02/12/20 32003-JRVL SKIN LESIONS, 2 TO 4 07/01/20 29014-NVUP SKIN LESIONS, 2 TO 4 04/22/20 53381-LXYC SKIN LESIONS, 2 TO 4 01/11/20 32536-LWHS SKIN LESIONS, 2 TO 4 03/28/20 28566-YTDM SKIN LESIONS, 2 TO 4 07/27/20 00042-ICHW SKIN LESIONS, 2 TO 4 10/24/20 Next Appt Details Provider Name:James Zuniga , 04/12/2025 03:45:00 PM, [address] [facility], [facility] [address], [place], [address], Insurance Providers Payer Name Payer Address Payer Phone Subscriber Number Group Number Insured Name Patient Relationship to Insured Coverage Start Date Coverage End Date [facility] [employer] Claims [address] [place] [id number] Terrie Noirega Self - patient is the insured Medical (General) History Medical History History ICD Code Arthritis Back,Hip,and Knee pain CAD (Cholesterol) Diabetic Osteoporosis Measles HTN Surgical History Surgery Date(Month/Year) cancer surgery right hip replacement 05/09/24 Hospitalization History Reason Date(Month/Year) [facility] Right hip replacement 05/09/24
--- OUTSIDE RECORDS SUMMARY | 2025-04-04 16:01 | XMS_ITS ---
Author Organization [facility] Address [address] [place] [address] Care Team Providers Care Paleology Teacher Name Role Phone Liban ROJAS, Nara Londono Primary Care Provider Un available James Zuniga Unavailable [phone] Encounters Encounter Location Date Provider Diagnosis [address] [address] 01/30/2025 James Zuniga Plan Of Treatment Next Appt Details Provider Name:James Zuniga , 04/12/2025 03:45:00 PM, [address] [place] [address], [phone], Progress Notes * Terrie MADDEN MDOB:1939 (85 yo F)Acc No.[id number]:01/30/2025 Progress Note Patient:?Terrie MADDEN Provider:?James Zuniga DPM :1940???Age:84 Y???Sex:Female D ate:01/30/2025 Address:[address] [place] [address] , [id number] Pcp:Nafisa Walton Subjective: * Chief Complaints: * [...]
== END 2025-04-04 15:22 | disposition home or self-care (01) ==
LOC: HO.ENCR 14:40
PROVIDERS: PCP Internal Medicine; Visit Provider Internal Medicine Endocrinology, Diabetes & Metabolism
DX: M81.0 Age-related osteoporosis without current pathological fracture (principal)
CPT/HCPCS: 99213

== ENCOUNTER → 2025-04-04 14:40 | Outpatient (BNVA) | payer OTHER, SELFPAY | PROVIDERS: PCP Internal Medicine; Visit Provider Internal Medicine Endocrinology, Diabetes & Metabolism | DX: M81.0 Age-related osteoporosis without current pathological fracture (principal) | CPT/HCPCS: 96372; 99212; J3111 ==

== ENCOUNTER → 2025-04-11 23:59 | Outpatient (BNV) | payer OTHER, SELFPAY | PROVIDERS: PCP Internal Medicine; Visit Provider Internal Medicine | DX: E11.9 Type 2 diabetes mellitus without complications (principal); R26.2 Difficulty in walking, not elsewhere classified; Z74.1 Need for assistance with personal care; E78.5 Hyperlipidemia, unspecified | CPT/HCPCS: G0179 ==

== ENCOUNTER 2025-05-02 14:30 | Outpatient (AMB) | payer OTHER, SELFPAY ==
--- NOTE | 2025-05-02 15:22 | AM.OFFVISNUR ---
Intake Visit Reasons: Evenity #6 Allergies No Known Allergies Allergy (Verified 04/04/25 14:55) Office Meds romosozumab-aqqg 210 mg/2.34 mL(105 mg/1.17 mL x2)subcutaneous syringe Performing Provider: Devon Baltazar MD Performing Location: [facility] Endocrinology Administered by: Nicki Birmingham RN on 05/02/25 15:22 Dose Route Admin Location Dispensed Lot Number Expiration Date [facility] Chief Unit Forester 210 mg subcut bilateral upper arms 2.34 mL [id number] 06/15/27 43287-875-94 [facility] Comments: Pt declined data reviewer. Visit interpreted by daughter. Pt tolerated injection well. No adverse reactions reported from previous injection. No further questions at this time. Assessment & Plan Assessment & Plan Orders: Orders AMB Romosozumab Injection Patient Supplied Today M81.0 - Age-related osteoporosis without current pathological fracture Medications: New romosozumab-aqqg 210 mg (2.34 mL) subcut ONCE 2.34 mL 0RF M81.0 - Age-related osteoporosis without current pathological fracture Coding
--- OUTSIDE RECORDS SUMMARY | 2025-05-02 16:49 | XMS_ITS | Patient Health Record ---
Author Organization [employer] [facility] Address [address] [facility] [address] [place] [address] Care Team Providers Care Wind Turbine Blade Repair Technician Name Role Phone ANNE-MARIE REYNOSO MD Primary Care Provider Unav ailable JAIMIE KIMBLE Unavailable [phone] Allergies No Known Allergies Reason For Referral [...] W/U Status Risk Notes Problem Age-related osteoporosis (643884733) Age-related osteoporosis without current pathological fracture (M81.0) Active confirmed Problem Essential hypertension (42712632) Essential (primary) hypertension (I10) Active confirmed Problem Malignant neoplasm of overlapping sites of right female breast (C50.811) Active confirmed Problem Type II diabetes mellitus without complication (881568372) Type 2 diabetes mellitus without complications (E11.9) Active confirmed Problem Hyperlipidemia (79662847) Hyperlipidemia, unspecified (E78.5) Active confirmed Problem Gastro-esophageal reflux disease with esophagitis (755029658) Gastro-esophagea l reflux disease with esophagitis (K21.0) Active confirmed Problem Osteoarthritis (494630905) Unspecified osteoarthritis, unspecified site (M19.90) Active confirmed Plan Of Treatment Pending Test Test Name Order Date Urinalysis 07/15/2022 MM Digital Screening Mammogram 3D 2021 Insurance Providers Payer Name Payer Address Payer Phone Subscriber Number Group Number Insured Name Patient Relationship to Insured Coverage Start Date Coverage End Date [facility] [address] [address] [place] [address] [id number] CHANDLER GARG Self - patient is the [...]
== END 2025-05-02 15:18 | disposition home or self-care (01) ==
LOC: HO.ENCR 14:31
PROVIDERS: PCP Internal Medicine; Visit Provider Internal Medicine Endocrinology, Diabetes & Metabolism
DX: M81.0 Age-related osteoporosis without current pathological fracture (principal)

== ENCOUNTER → 2025-05-02 14:30 | Outpatient (BNVA) | payer OTHER, SELFPAY | PROVIDERS: PCP Internal Medicine; Visit Provider Internal Medicine Endocrinology, Diabetes & Metabolism | DX: M81.0 Age-related osteoporosis without current pathological fracture (principal) | CPT/HCPCS: 96372; J3111 ==

== ENCOUNTER 2025-05-30 14:21 | Outpatient (AMB) | payer OTHER, SELFPAY ==
--- OUTSIDE RECORDS SUMMARY | 2025-01-30 06:45 | XMS_ITS ---
Author Organization [facility] Address [address] [facility] et [facility] [place] [address] Care Team Providers Care Prop Sawyer Name Role Phone Liban ROJAS, Nara Londono Primary Care Provider Un available James Zuniga Unavailable [phone] Encounters Encounter Location Date Provider Diagnosis [address] [address] 01/30/2025 James Zuniga Plan Of Treatment Next Appt Details Provider Name:James Zuniga , 07/03/2025 10:45:00 AM, [address] [place] [address], [address], Progress Notes * Terrie MADDEN MDOB:1939 (85 yo F)Acc No.[id number]:01/30/2025 Progress Note Patient: Peri GRACIA Terrie Skelton Provider: Severiano Zuniga DPM :1940 A ge:84 Y S ex:Female Date:01/30/2025 Address:[address] [place] [address] , [id number] Pcp:Nafisa Walton Subjective: * Chief Complaints: * [...] Generated for Juan Jose Escamilla on: 0 05/30/2025 03:36 PM EDT
--- NOTE | 2025-05-30 15:27 | AM.OFFVISNUR ---
Intake Visit Reasons: Evenity #7 Allergies No Known Allergies Allergy (Verified 04/04/25 14:55) Office Meds romosozumab-aqqg 210 mg/2.34 mL(105 mg/1.17 mL x2)subcutaneous syringe Performing Provider: Devon Baltazar MD Performing Location: [facility] Endocrinology Administered by: Ludivina Ba RN on 05/30/25 14:45 Dose Route Admin Location Dispensed Lot Number Expiration Date [facility] Driller Hand 210 mg subcut bilateral upper arms 2.34 mL [id number] 08/15/27 41435-641-65 [facility] Total Dispensed Waste 2.34 mL 0 % Comments: Patient accompanied by daughter Terrie who interpreted visit, patient declined window trimmer. Patient tolerated injection well and denies any problems with previous injections. Scheduled for evenity #8 in x4 weeks. Assessment & Plan Assessment & Plan Orders: Orders AMB Romosozumab Injection Patient Supplied Today M81.0 - Age-related osteoporosis without current pathological fracture Coding
--- OUTSIDE RECORDS SUMMARY | 2025-05-30 15:36 | XMS_ITS ---
Author Name [facility] Organization Unknown Problems Problem Status Onset Date Problem Type Date of Resoluti on Source Hyperlipidemia (disorder) active ProblemAct [facility] Hypertensive disorder, systemic arterial (disorder) active ProblemAct [facility] Diabetes mellitus type 2 (disorder) active ProblemAct [facility] Encounters Encounter Type Encounter Reason Primary Diagnosis Location Date Emergency [facility] 2023 Care Team Organization Name Specialty Phone Email Start Date End [facility] PCP Patient_Can't_Matias r Primary Care 11/14/2024
--- OUTSIDE RECORDS SUMMARY | 2025-05-30 15:36 | XMS_ITS | Patient Health Record ---
Author Organization [facility] [employer] [facility] Address [address] [facility] [address] [place] [address] Care Team Providers Care Chain Repairer Name Role Phone ANNE-MARIE REYNOSO MD Primary Care Provider Unav ailable JAIMIE KIMBLE Unavailable [phone] Allergies No Known Allergies Reason For Referral No Information Medications Medication SIG (Take, Route, Frequency, Duration) Notes Start Date End Date Status Clotrimazole-Betamethasone 1-0.05 % 1 application Externally Twice a day; Duration: 10 days 07/15/2022 Active Lisinopril 5 MG [...] W/U Status Risk Notes Problem Age-related osteoporosis (439389211) Age-related osteoporosis without current pathological fracture (M81.0) Active confirmed Problem Essential hypertension (18110476) Essential (primary) hypertension (I10) Active confirmed Problem Malignant neoplasm of overlapping sites of right female breast (C50.811) Active confirmed Problem Type II diabetes mellitus without complication (078460722) Type 2 diabetes mellitus without complications (E11.9) Active confirmed Problem Hyperlipidemia (60348243) Hyperlipidemia, unspecified (E78.5) Active confirmed Problem Gastro-esophageal reflux disease with esophagitis (195634588) Gastro-esophagea l reflux disease with esophagitis (K21.0) Active confirmed Problem Osteoarthritis (928322276) Unspecified osteoarthritis, unspecified site (M19.90) Active confirmed Plan Of Treatment Pending Test Test Name Order Date Urinalysis 07/15/2022 MM Digital Screening Mammogram 3D 2021 Insurance Providers Payer Name Payer Address Payer Phone Subscriber Number Group Number Insured Name Patient Relationship to Insured Coverage Start Date Coverage End Date [facility] [address] [address] [place] [address] [id number] CHANDLER GARG Self - patient is the [...]
--- OUTSIDE RECORDS SUMMARY | 2025-05-30 15:37 | XMS_ITS | Clinical Summary ---
Author Organization [employer] Address [address] [place] [address] Care Team Providers Care Truant Officer Name Role Phone Unavailable Primary Care Provider [...] 2023-2 5 season) 2024 Influenza Vaccine (#1) 2025 HIB Vaccines Aged Out No longer eligi [...]
--- OUTSIDE RECORDS SUMMARY | 2025-05-30 15:37 | XMS_ITS | Data Portability ---
Author Organization [facility] - [facility], [facility] Address [address] [place] [address] Care Team Providers Care Custom Grinder Name Role Phone NARA REYNOSO Primary Care Provider Assessment No assessment recorded. Plan of Treatment Reminders Order Date Submit Date Provider Last Modified By Organization Details Last Modified Time Details Appointments RECHECK 15 2024 02:15P M Zayra Shafer i, PA-C Not available Not available Not available Lab None recorded . Referral physical therapis t referral - WBAT right lower extremit y. Right hip michelle arthopla sty 05/09/24 ROM, strength ening, balance, gait training . 2023 024 [email or web address] Not available 08/02/2024 16:41:37 Procedures None recorded . Surgeries None recorded . Imaging XR, hip + pelvis, unilater al, 2 or 3 view - 317 ap pelvis, 2v rt hip 2024 025 [email or web address] [facility], [address], [place], [address], 12/21/2024 09:16:13 XR, knee, 4 or more view - rm 324- R 2023 024 [email or web address] [facility], [address], [address], [place], [address], 11/11/2024 12:38:07 XR, hip + pelvis, unilater al, 2 or 3 view - 305 ap pelvis, 2v rt hip global 2023 024 [email or web address] [facility], [address], [address], [place], [address], 08/02/2024 16:41:36 Medication Orders None recorded . Patient TargetsNo targets recorded. Patient InstructionsNo instructions recorded. 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 Right hip michelle arthoplasty 05/09/24ROM, strengthening, balance, gait training. Referring Physician: Arabella Milan, Orthopedic Surgery, [id number] Encounter Date: 08/02/2024 Results Created Date Observation Date Name Description Value Unit Range Abnormal Flag Note LastModifiedBy Organization Detail LastModifiedTime 08/02/2008/02/2024 XR, hip + pelvi s, unila teral , 2 or 3 view [email or web address] ?Encry pted=s hAaTro YD8dLq bEUv6g %2BXZw aYqtaq 0bqfl% 2Fg9IQ a4ajBk vP9nXo QUaueC m3YtLR FvZlgJ JJ8mAn HZtai3 4a7930 AC0Kqa niGU6G mKiQtr MwF INTERFACE [facility] [address], [place], [address], 08/02/2024 14:32:33 08/02/20 24 08/02/2024 XR, hip + pelvi s, unila teral , 2 or 3 view http:/ [email or web address] ?Encry pted=s hAaTro YD8dLq bEUv6g %2BXZw aYqtaq 0bqfl% 2Fg9IQ a4ajBk vP9nXo QUaueC m3YtLR FvZlgJ JJ8mAn HZtai3 4f0620 AC0Kqa niGU6G mKiQtr MwF INTERFACE [facility] [address], [place], [address], 08/02/2024 14:32:35 09/29/20 24 09/29/2024 XR, knee, 4 or more view [email or web address] ?Encry pted=s hAaTro YD8dLq bEUv6g %2BXZw aYqtaq 0bqfl% 2Fg9IQ a4ajBk vP9nXo QUaueC m3YtLR FvZlgJ JJ8mAn HZtai3 2x0212 AC0Kqa X2EVqG kKiQtr MwF INTERFACE [facility] [address], [place], [address], 09/29/2024 14:07:09 09/29/20 24 09/29/2024 XR, knee, 4 or more view [email or web address] ?Encry pted=s hAaTro YD8dLq bEUv6g %2BXZw aYqtaq 0bqfl% 2Fg9IQ a4ajBk vP9nXo QUaueC m3YtLR FvZl JJ8[place] HZtai3 9z2956 AC0Kqa X2EVqG kKiQtr MwF INTERFACE [facility] [address], [place], [address], 09/29/2024 14:07:11 12/08/19 25 12/08/2024 XR, hip + pelvi s, unila teral , 2 or 3 view http:/ [email or web address] ?Encry pted=s hAaTro YD8dLq bEUv6g %2BXZw aYqtaq 0bqfl% 2Fg9IQ a4ajBk vP9nXo QUaueC m3YtLR FvZl JJ8mAn HZtai3 9w9500 AC0Kqb 3WAU6a gKiQtr MwF INTERFACE [facility] [address], [place], [address], 12/08/2024 13:54:55 12/08/19 25 12/08/2024 XR, hip + pelvi s, unila teral , 2 or 3 view http:/ [email or web address] ?Encry pted=s hAaTro YD8dLq bEUv6g %2BXZw aYqtaq 0bqfl% 2Fg9IQ a4ajBk vP9nXo QUaueC m3YtLR FvZlgJ JJ8mAn HZtai3 8c9647 AC0Kqb 3WAU6a gKiQtr MwF INTERFACE [facility] [address], [place], [address], 12/08/2024 13:54:57 Result Notes Documentation Provider Name and Address Organization Details Recorded Time Xr, Hip + Pelvis, Unilateral, 2 Or 3 View : [email or web address] Encrypted=alLvXecIU3rGgmW Uv6g%9OVCtgZeccb0ccfb%2Fg 2VXs0kzEqrS8cPtUSdmgDe1Nl VTUvTwmRRC1xBfKXopn09n434 3GI2OwhpiDP8XdBtYasLsA Not Available [facility] 08/02/2024 14:32: 34 Xr, Hip + Pelvis, Unilateral, 2 Or 3 View : [email or web address] Encrypted=glPmBflJY0rTlxU Uv6g%3VPZdiZmaes0eztj%2Fg 2BAd3kjNhdD5bJyFUvcaRl8Oe TRLtBziJGR3uRnAJpsv93m353 8MG0ScwcmZF8CoRcPszNsR Not Available [facility] 08/02/2024 14:32: 36 Xr, Knee, 4 Or More View : [email or web address] Encrypted=uvQyNyhRO4zNpfB Uv6g%5CWUefGeycx8tjui%2Fg 5IUc3lhLuqL1cKwFAwptAe2Fk FDArIllQCB5iDaMOtgg55m274 1RC4DdfW8MRnRoRxTbgThM Not Available [facility] 09/29/2024 14:07: 10 Xr, Knee, 4 Or More View : [email or web address] Encrypted=iyNhCrmOY9hXdvR Uv6g%0ZKZfhUfejr7fwwu%2Fg 2PVn2syMtxC4kGgZBmkfYr5Xp MZPlIyaTEN3gObBHodh50n541 8ST8EilX7MUrOzJeOcwYqW Not Available [facility] 09/29/2024 14:07: 12 Xr, Hip + Pelvis, Unilateral, 2 Or 3 View : [email or web address] Encrypted=wwJfFytDB6pFtwC Uv6g%9NDQozIshug8yhkj%2Fg 4QUz2rhUivN1mHjFVqxvWd1Yx ZDWxDwhJOE9pQxGObwq59y871 8HH0Hkp6CLD3zyZrKphIwU Not Available [facility] 12/08/2024 13:54: 56 Xr, Hip + Pelvis, Unilateral, 2 Or 3 View : [email or web address] Encrypted=mfZgJxtEZ0sNiyE Uv6g%4XVOzrCtcub1dphf%2Fg 9LTb9dhGssM8mSnBQagiMs0Kw LLLiOqvZXO9gWmKVhhp73f204 0AG0Bpz7IQB5pkIyGfoViO Not Available [facility] 12/08/2024 13:54: 58 Problems Name Problem SNOMED Code Status Onset Date Resolution Date Notes Provider Name and Address Organization Details Recorded Time Pain of right knee joint 9412694816868 00 Active 2023 Zayra Shafer i, PA-C [address] [place], [place] [address] [address] [address] [facility] 10:17:36 Osteoarthri tis of right knee joint 4705435183173 00 Active 2023 Zayra Shafer i, PA-C [address], [place], [address], [facility] 14:43:04 Problem Notes None recorded. Procedures Surgical History Date Name Laterality Status Provider Name and Address Organization Details Recorded Time 05/05/2025 Sports Knee 4&1 completed Richard Kessler PA-C [address], [place], [address], [facility] 05/05/2025 10:18:32 01/27/2025 Sports Knee 4&1 completed Zayra Meade PA-C [address], [place], [address], [facility] 01/27/2025 14:47:34 12/29/2024 Sports Knee 4&1 cancelled Zayra Meade PA-C [address], [place], [address], [facility] 12/29/2024 09:28:04 09/29/2024 Sports Knee 4&1 completed Zayra Mcdonald PA-C [address], [place], [address], [facility] 09/29/2024 14:42:57 Imaging Results None recorded. Procedure Notes None recorded. Medical Equipment None Reported. Allergies No known drug allergies Medications Name Sig Start Date Stop Date Status Note LastModified by Organization Details LastModified Time amoxicillin 500 mg capsule TAKE 1 CAPSULE BY MOUTH TWICE A DAY FOR 10 DAYS ADULT STREPTOCO CCAL PHARYNGIT IS active Not Available Not Available No t Available metformin 500 mg tablet 08/02 completed Not Available Not Available Not Available atorvastati n 20 mg tablet TAKE 1 TABLET BY MOUTH EVERY DAY active Not Available Not Available No t Available azithromyci n 250 mg tablet TAKE 2 TABLETS BY MOUTH TODAY, THEN TAKE 1 TABLET DAILY FOR 4 DAYS DIRECTED active Not Available Not Available No t Available benzonatate 200 mg capsule TAKE 1 CAPSULE BY MOUTH THREE TIMES A DAY NEEDED FOR COUGH FOR 10 DAYS active Not Available Not Available No t Available FreeStyle Lancets 28 gauge CHECK FASTING BLOOD SUGAR TWICE A DAY ANTES DE LAS COMIDAS 08/02 completed Not Available Not Available Not Available famotidine 40 mg tablet TOME RAUL TABLETA POR V A ORAL DAILY NEEDED FOR HEARTBURN 08/02 completed Not Available Not Available Not Available alendronate 70 mg tablet TOME RAUL TABLETA POR V A ORAL PNCE PER WEEK FOR 3 MONTHS active Not Available Not Available No t Available tramadol 50 mg tablet TAKE 1 TABLET BY MOUTH AT BEDTIME NEEDED FOR MODERATE PAIN. ONLY 7 DAY SUPPLY PER INS 08/02 completed Not Available Not Available Not Available acetaminoph en 500 mg tablet TAKE 1 TABLET BY MOUTH EVERY 6 HOURS NEEDED FOR FEVER active Not Available Not Available No t Available famotidine 20 mg tablet active Not Available Not Available Not Available benzonatate 100 mg capsule TAKE 1 CAPSULE ORALLY 2 TIMES A DAY NEEDED FOR COUGH active Not Available Not Available No t Available metformin 1,000 mg tablet TOME 1 TABLETA POR V A ORAL DOS VECES AL D A WITH MEALS FOR 3 MONTHS active Not Available Not Available No t Available ibuprofen 400 mg tablet TAKE 1 TABLET EVERY 12 HOURS NEEDED FOR RIGHT SHOULDER PAIN 08/02 completed Not Available Not Available Not Available lisinopril 5 mg tablet TAKE 1 TABLET BY MOUTH EVERY DAY active Not Available Not Available No t Available naproxen 500 mg tablet TOME 1 TABLETA POR V A ORAL DOS VECES AL D A CUANDO SEA NECESARIO PARA EL DOLOR active Not Available Not Available No t Available omega-3 acid ethyl esters 1 gram capsule TOME 2 C PSULAS POR V A ORAL TODOS LOS D active Not Available Not Available No t Available FreeStyle Lite Strips CHECK FASTING BLOOD SUGAR 2 TIMES A DAY active Not Available Not Available No t Available Artificial Tears (glycerin-p eg) 1 %-0.3 % eye drops PLACE 1 DROP INTO BOTH EYES 4 TIMES A DAY NEEDED active Not Available Not Available No t Available diclofenac 1 % topical gel PLEASE SEE ATTACHED FOR DETAILED DIRECTION S active Not Available Not Available No t Available Evenity 210 mg/2.34 mL (105 mg/1.17 mL x 2) subcutaneou s syringe active Not Available Not Available No t Available Vitals Date Recorded Body height Body mass index (BMI) Body weight Provider Name and Address Organization Details Last Updated DateTime 12/08/2024 137.16 cm 28.9 kg/m2 94924.08 g Margy flanaganerd [facility] 12/08/2024 13:47:11 Date Recorded Body height Body temperature Systolic And Diastolic Provider Name and Address Organization Details Last Updated DateTime 01/27/2025 137.16 cm 97.5 [degF] 128/72 mm[Hg] Summer Moralez [facility] 01/27/2025 15:46:50 Date Recorded Body height Body mass index (BMI) Body weight Provider Name and Address Organization Details Last Updated DateTime 05/05/2025 137.16 cm 28.9 kg/m2 22787.08 g Stella Kim [facility] 05/05/2025 10:11:31 Date Recorded Body height Body mass index (BMI) Body weight Provider Name and Address Organization Details Last Updated DateTime 08/02/2024 137.16 cm 28.9 kg/m2 59080.08 g SOLA GARCIAYMOUR [facility] 08/02/2024 14:10:24 Date Recorded Body height Body mass index (BMI) Body weight Provider Name and Address Organization Details Last Updated DateTime 09/29/2024 137.16 cm 28.9 kg/m2 96523.08 g KENA Mckeon [facility] 09/29/2024 13:48:41 Social History None recorded. Functional Status Question Answer Note LastModified by Organizat ion Details LastModified Time Do you use any illicit or recreational drugs? No Information not available 09/29/2024 Do you or have you ever used any other forms of tobacco or nicotine? No Information not available 09/29/2024 What is your level of alcohol consumption? None [email or web address] Information not available 09/29/2024 Mental Status None recorded. Family History Nothing Reported. Medical History Condition Response Diabetes Y Acid Reflux (GERD) Y Arthritis Y Hypertension Y Cholesterol Y Gynecological HistoryNo gynecological history recorded. Obstetrics History GPAL:G 0 P 0 0 0 0 Past Encounters Encounter ID Performer Location Encounter Start Date Encounter Closed Date Diagnosis/Indication Diagnosis SNOMED-CT Code Diagnosis ICD10 Code Diagnosis Note [id number] Arabella Milan, HAZEL [facility] [address] [place] [address] 05/26/2024 16:01:49 06/13/2024 10:00:18 Postoperative care 781876259 Z48.89 s/p right hip hemiarthro plasty Closed fra cture of neck of femur 793423668 S72.001D s/p right hip hemiarthro plasty [id number] [facility], [employer] [facility] [address] [place] [address] 06/23/2024 13:57:27 07/20/2024 10:14:44 Postoperative care 882052502 Z48.89 s/p right hip hemiarthro plasty Closed fra cture of neck of femur 082919196 S72.001D s/p right hip hemiarthro plasty [id number] [facility], [employer] [facility] [address] [place] [address] 08/02/2024 14:00:24 08/02/2024 16:41:36 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 8324494175 896207 Z96.641 Postoperative care 83230 9007 Z48.89 s/p right hip hemiarthro plasty Closed fra cture of neck of femur 195545156 S72.001D s/p right hip hemiarthro plasty 05/09/[id number] Zayra Mcdonald PA-C [facility] [address] [place] [address] 09/29/2024 13:37:26 11/11/2024 12:38:07 Pain of right knee joint 0761502508 81672 M25.561 Osteoarthr itis of right knee joint 6000702470 23126 M17.11 [id number] [facility], [employer] [facility] [address] [place] [address] 12/08/2024 13:31:50 12/21/2024 09:16:13 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 4325437677 014404 Z96.641 Postoperative care 40580 9007 Z48.89 Closed fra cture of neck of femur 900934165 S72.001D [id number] [facility] [address] [place] [address] 01/27/2025 14:54:31 02/13/2025 09:49:36 Osteoarthritis of right knee joint 3497929889 76878 M17.11 [id number] Richard Kessler PA-C [facility] [address] [place] [address] 05/05/2025 10:01:12 05/23/2025 09:14:38 Osteoarthritis of right knee joint 5495678180 94469 M17.11 You have been provided with a cortisone injection in order to reduce the pain and inflammati on that you are experienci ng. The injection consists of two medication s. Cortisone (an anti-infla mmatory that will take 48-72 hours to take effect) and Lidocaine (a numbing agent that will last 2-3 hours). Please note that not everyone will have a lasting response following the injection. PATIENT INSTRUCTIO NSOnce the Lidocaine wears off, you may have an increase in your pain. I recommend icing the affected area for 20 minutes 3-4 times per day.It is recommende d that you refrain from any high level activities using the joint or limb that was injected for approximat aleksey 24-48 hours. Normal day-to-day activities are generally not a problem.PO SSIBLE SIDE EFFECTSInd ividuals with dark complexion s may experience some skin discolorat ion locally at the site of the injection. There is the possibilit y of an increase in discomfort within 48 hours following the injection. This is called a flare . To help minimize the chances of this, please see the post-injec tion instructio ns above.Ther e is a less than 1% chance of an infection. If you notice any signs of infection (redness, warmth, drainage, fever greater than 100 degrees) please call our office or contact us through the portal [facility]. Health Concerns Section Related Observation LastModified by Organization Detai ls LastModified Time None Recorded Concern Status LastModified by Organization Details LastModified Time None Recorded Advance Directives Directive None Recorded Payers Insurance Date Sequence Insurance Name Policy Number Policy Moore Covered Member ID Moore Member ID Guarantor Name 05/23/2025 1 [facility] - DOS ON OR AFTER 2023 - MEDICARE ADVANTAGE [place] (MEDICARE REPLACEMENT/ADV ANTAGE - PPO) Terrie esquivel [id number] Terrie Madden Notes Date Note Type Note Provider Name and Address Organization Details Recorded Time 08/02/2024 text/html Prydeinig only spe aking patient. Entire encounter was completed with the help of her daughter translating, declined applications support specialist, and took over 20 minutes. I am seeing the patient today under the supervision of Dr. Gibson who was available but who did not see the patient. Surgery: right hemiarthroplasty (treatment for femoral neck fracture)Date of surgery: 05/09/24Surgeon: Dr. Dorantes HPI: 84-year-old primarily italian speaking woman presents accompanied by her daughter, who interpreted. Patient is s/p above surgery. Overall doing well. Pain tolerable, occasionally taking tylenol. Denies paresthesias. WBAT RLE, transitioned to cane from walker at last visit. In-home physical therapy, needs renewal. Reporting right knee pain, possibly related to altered gait, unsure if history of arthritis. No interval trauma. Past family, medical, social history and review of symptoms have been reviewed, updated, and it is located in the patient's chart. PHYSICAL EXAM: right hip- Inspection:---- skin - surgical site healed well, benign without evidence of infection---- edema - none---- ecchymosis - none---- deformity - none- ROM:----Able to demonstrate hip flexion, abduction, adduction, quad raise against resistance. Slightly weaker quad raise compared to contralateral side. Able to tolerate passive hip flexion without discomfort, though some stiffness IR/ER compared to contralateral side.--- full ROM to knee, ankle, digits. Strong dorsi plantar flexion- Palpation:---- tenderness - none---- calves supple and non-tender- Vascularity---- 2+ pedal pulse- Neurological--- positive sensation to touch IMAGING: X-rays ordered, obtained, and independently reviewed at [facility] today. 3 views right hip show hemiarthroplasty in appropriate position without displacement. Continued bony remodeling compared to previous films. IMPRESSION: 84-year-old woman status post right hemiarthroplasty 05/09/24 after fracture from fall, recovering well PLAN: Findings and situation discussed with patient and daughter.1. Continue WBAT RLE with walker or cane prn. Renewed PT/OT for strengthening, gait training, balance, safety. Reviewed hip precautions, not as strict 3 months out, but still best to avoid certain movements, especially repetitively2. Good diabetes management and tight glycemic control to promote healing.3. Per DEXA scan 01/29/24 at [facility], patient has osteoporosis. Daughter reports patient is being treated, thinks it's fosamax. Will forward this note to her PCP Dr. Nara Reynoso4. Due to right knee pain, and knee appeared stiff and swollen, recommend evaluation with totals PA, possible OA. FOLLOW UP: 3 months Speech recognition custom seamstress software was used to create portions of this document. An attempt at proofreading has been made to minimize errors. Please call for corrections. Arabella Milan, [employer] [address], [place], [address], [facility] 08/02/2024 16:39:59 09/29/2024 text/html I am seeing the patient today under the supervision of Dr. Jin who was available but who did not see the patient. HPI: 84-year-old Prydeinig-speaking only, female patient presents today for right knee pain. 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 She reports this began years ago, no specific injury. She does report a fall 05-07-24 where she fractured her hip and underwent right hip hemiarthroplasty with Dr. Dorantes 05/09/24, using a cane or walker to ambulate. She reports her knee was bothering her prior to this fall. Localizes her pain diffusely about the knee and reports that sometimes the knee feels warm. Denies previous treatment for her knee. She is a diabetic. Past family, social history and review of systems has been reviewed, updated and is located in the patient s chart. 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 IMPRESSION: Right knee pseudogout, moderate osteoarthritis PLAN: Findings reviewed. Discussed conservative treatment as an appropriate initial option. She elected to proceed with right knee cortisone injection today. We discussed this may increase her sugars over the next few weeks, she will monitor this closely. I will fax my note to her primary care provider as there is evidence of pseudogout within her knee. She may use anti-inflammatories as needed and tolerated for pain relief. Discussed fall precautions and utilizing her cane. Will follow-up in 3 months for recheck. All of her concerns are addressed and she understands and agrees with the plan. Speech recognition custom seamstress software was used to create portions of this document. An attempt at proofreading has been made to minimize errors. Please call for corrections. Zayra Mcdonald PA-C [address] [place] [address] [address] [facility], [place], [address], [facility] [place] 09/29/2024 14:44:01 12/08/2024 text/html Prydeinig only spe aking patient. Entire encounter was completed with the help of her daughter translating, declined applications support specialist, and took over 20 minutes. I am seeing the patient today under the supervision of Dr. Ayala who was available but who did not see the patient. Surgery: right hemiarthroplasty (treatment for femoral neck fracture)Date of surgery: 05/09/24Surgeon: Dr. Dorantes HPI: 84-year-old woman recheck s/p above surgery. Overall doing well. She has transitioned to a cane. Completed physical therapy in September. No pain or paresthesias, no complaints today. No interval trauma. Past family, medical, social history and review of symptoms have been reviewed, updated, and it is located in the patient's chart. PHYSICAL EXAM: right hip- Inspection:---- skin - surgical site healed well, benign without evidence of infection---- edema - none---- ecchymosis - none---- deformity - none- ROM:----Able to demonstrate hip flexion, abduction, adduction, quad raise against resistance. Slightly weaker quad raise compared to contralateral side. Able to tolerate passive hip flexion and IR/ER without discomfort--- full ROM to knee, ankle, digits. Strong dorsi plantar flexion- Palpation:---- tenderness - none---- calves supple and non-tender- Vascularity---- 2+ pedal pulse- Neurological--- positive sensation to touch IMAGING: X-rays ordered, obtained, and independently reviewed at [facility] today. 3 views right hip show hemiarthroplasty in appropriate position without displacement. Good bony callus compared to previous films. IMPRESSION: 84-year-old woman status post right hemiarthroplasty 05/09/24 after fracture from fall, recovering well PLAN: Findings and situation discussed with patient and daughter.-Continue weightbearing as tolerated, cane as needed, posterior head precautions Osteoporosis receiving injections managed by her PCP Follow-up at 1 year postop and then as needed after that FOLLOW UP: April 2025 Speech recognition custom seamstress software was used to create portions of this document. An attempt at proofreading has been made to minimize errors. Please call for corrections. Arabella Milan, [employer] [address], [place], [address], [facility] 12/08/2024 14:33:54 01/27/2025 text/html I am seeing the patient today under the supervision of Dr. Baltazar who was available but who did not see the patient. CLINICAL UPDATE: 84-year-old Prydeinig-speaking only, female patient presents today for right knee recheck. Last cortisone injection right knee 09/29/24 provided excellent relief for 3 months. HPI: Presented 09/29/24 with right knee pain. 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 She reports this began years ago, no specific injury. She does report a fall 05-07-24 where she fractured her hip and underwent right hip hemiarthroplasty with Dr. Dorantes 05/09/24, using a cane or walker to ambulate. She reports her knee was bothering her prior to this fall. Localizes her pain diffusely about the knee and reports that sometimes the knee feels warm. Denies previous treatment for her knee. She is a diabetic. Past family, social history and review of systems has been reviewed, updated and is located in the patient s chart. 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 IMPRESSION: Right knee pseudogout, moderate osteoarthritis PLAN: Findings reviewed. Discussed conservative treatment as an appropriate ongoing option. She elected to proceed with right knee cortisone injection today. Discussed this may increase her sugars over the next few weeks, she will monitor this closely. She may use anti-inflammatories as needed and tolerated for pain relief. Discussed fall precautions and utilizing her cane. Will follow-up in 3 months for recheck. All of her concerns are addressed and she understands and agrees with the plan. Speech recognition custom seamstress software was used to create portions of this document. An attempt at proofreading has been made to minimize errors. Please call for corrections. Zayra Meade PA-C [address], [place], [address], [facility] 01/27/2025 15:54:38 05/05/2025 text/html I am seeing the patient today under the supervision of Dr. Baltazar who was available but who did not see the patient. HPI: Patient comes in for recheck of right knee pain. Has known osteoarthritis in the medial compartment of the knee(s). Been treated conservatively with cortisone injection to this point with 10 weeks relief of symptoms. No new injury or modalities. Past family, medical, social history and review of systems has been reviewed, updated and is located in the patient s chart. Examination:The patient is well appearing and in no apparent distress. Alert and oriented x3. Vital signs per intake sheet. Examination of the right knee reveals no effusion erythema or warmth. Decreased range of motion. Lower extremity varus deformity. Point tender over the medial joint line. Calf soft and nontender. 4+/5 strength of knee flexion extension. Impression: Osteoarthritis Plan: Nature of the diagnosis discussed with the patient today. Both surgical and nonsurgical options were reviewed. This point recommend a repeat cortisone injection. Patient agreed. anterior lateral portal was used. See Procedure note. Follow-up with us in 3 months for discussion of continued conservative management versus total joint arthroplasty. Richard Kessler PA-C [address], [place], [address], [facility] 05/05/2025 10:18:51 OBGyn Episode No OBEpisode recorded.
== END 2025-05-30 14:48 | disposition home or self-care (01) ==
LOC: HO.ENCR 14:22
PROVIDERS: PCP Internal Medicine; Visit Provider Internal Medicine Endocrinology, Diabetes & Metabolism
DX: M81.0 Age-related osteoporosis without current pathological fracture (principal)

== ENCOUNTER → 2025-05-30 14:21 | Outpatient (BNVA) | payer OTHER, SELFPAY | PROVIDERS: PCP Internal Medicine; Visit Provider Internal Medicine Endocrinology, Diabetes & Metabolism | DX: M81.0 Age-related osteoporosis without current pathological fracture (principal) | CPT/HCPCS: 96372; J3111 ==

== ENCOUNTER 2025-06-15 08:36 | Outpatient (AMB) | payer OTHER, SELFPAY ==
--- OUTSIDE RECORDS SUMMARY | 2025-01-30 06:45 | XMS_ITS ---
Author Organization [facility] Address [address] [facility] et [facility] [place] [address] Care Team Providers Care Roll Examiner Name Role Phone Liban ROJAS, Nara Londono Primary Care Provider Un available James Zuniga Unavailable [phone] Encounters Encounter Location Date Provider Diagnosis [address] [address] 01/30/2025 James Zuniga Plan Of Treatment Next Appt Details Provider Name:James Zuniga , 07/03/2025 10:45:00 AM, [address] [place] [address], [address], Progress Notes * Terrie MADDEN MDOB:1939 (85 yo F)Acc No.[id number]:01/30/2025 Progress Note Patient: Peri GRACIA Terrie Skelton Provider: Severiano Zuniga DPM :1940 A ge:84 Y S ex:Female Date:01/30/2025 Address:[address] [place] [address] , [place] [id number] Pcp:Nafisa Walton Subjective: * Chief Complaints: * [...] Generated for Juan Jose Escamilla on: 0 06/15/2025 08:45 AM EDT
--- OUTSIDE RECORDS SUMMARY | 2025-06-15 08:45 | XMS_ITS | Patient Health Record ---
Author Organization [employer] [facility] Address [address] [place] [address] Care Team Providers Care Combine Inspector Name Role Phone ANNE-MARIE REYNOSO MD Primary Care Provider Unav ailable JAIMIE KIMBLE Unavailable [phone] Allergies No Known Allergies Reason For Referral [...] W/U Status Risk Notes Problem Age-related osteoporosis (122742670) Age-related osteoporosis without current pathological fracture (M81.0) Active confirmed Problem Essential hypertension (21714603) Essential (primary) hypertension (I10) Active confirmed Problem Malignant neoplasm of overlapping sites of right female breast (C50.811) Active confirmed Problem Type II diabetes mellitus without complication (119210583) Type 2 diabetes mellitus without complications (E11.9) Active confirmed Problem Hyperlipidemia (61409547) Hyperlipidemia, unspecified (E78.5) Active confirmed Problem Gastro-esophageal reflux disease with esophagitis (809265300) Gastro-esophagea l reflux disease with esophagitis (K21.0) Active confirmed Problem Osteoarthritis (705971690) Unspecified osteoarthritis, unspecified site (M19.90) Active confirmed Plan Of Treatment Pending Test Test Name Order Date Urinalysis 07/15/2022 MM Digital Screening Mammogram 3D 2021 Insurance Providers Payer Name Payer Address Payer Phone Subscriber Number Group Number Insured Name Patient Relationship to Insured Coverage Start Date Coverage End Date [facility] [address] [address] [place] [phone] [id number] CHANDLER GARG Self - patient is the [...]
--- OUTSIDE RECORDS SUMMARY | 2025-06-15 08:46 | XMS_ITS | Clinical Summary ---
Author Organization [employer] Address [address] [place] [address] Care Team Providers Care School Laboratory Technician Name Role Phone Unavailable Primary Care Provider [...]
--- NOTE | 2025-06-15 09:02 | MHC.OFFVIS ---
Vital Signs 06/15/25 09:03 Height 4 ft 10.5 in Weight 122 lb 2.177 oz BMI 25.1 BP 128/62 Blood Pressure Location Lt brachial Position Sitting Pulse 79 Intake Visit Reasons: Colonoscopy Screening Intake Note: Terrie presents in office today for colonoscopy screening. CC: Patient states that she had a colonoscopy many years ago but does not remember exactly when. Denies having any GI symptoms or concerns. Household Appliance Repairer Required: Yes Household Appliance Repairer Language: Kosovan Allergies No Known Allergies Allergy (Verified 06/15/25 09:10) HPI HPI Colonoscopy Screening: Details: 85-year-old female here for preprocedural meeting to discuss a screening colonoscopy. She is referred by Nara Louie. PMX Mild cognitive impairment Hearing loss Hypertension High cholesterol Diabetes Osteoporosis History of tubular adenoma History of femur fraction History of right hip fracture History of breast cancer-right * SURGICAL HISTORY Right hip hemiarthroplasty Mastectomy Colonoscopy-Jacques 2019= negative study bunion surgery * ALLERGIES: NKDA * Shyp LABS: Laboratory Tests 03/18/25 07:50 Estimated GFR > 60 Hemoglobin A1c % 8.2 H AST 21 ALT 10 TODAY'S VISIT Kosovan # V Live She is here today with her daughter Terrie Lucas who just took over her care. Given her age and a negative study in 2019 I also offer them Cologuard and show them the video. However,she also is in generally good health, so if she wants a colonoscopy this is ok as well. They opt for colonoscopy. She was using too many laxatives in the past thinking she was cleaning herself out, and her dtr is stopping this. The pt does not eat much like a bird. NO N/V but she is diabetic so may have some delay in gastric emptying. NO card or resp problems. No anes or sed problems. No ID problems. [facility] Medical History (Updated 06/15/25 @ 09:19 by BRITTANEY Mota) History of femur fracture History of adenomatous polyp of colon History of fracture of right hip Gait instability History of recent fall Right anterior knee pain Urinary incontinence Mild cognitive impairment Tubular adenoma of colon Breast cancer, right Hearing loss Osteoporosis Osteoarthritis GERD (gastroesophageal reflux disease) Dyslipidemia Essential hypertension Type 2 diabetes mellitus with microalbuminuria, without long-term current use of insulin Type 2 diabetes mellitus with hyperglycemia, without long-term current use of insulin Type 2 diabetes mellitus with mild nonproliferative diabetic retinopathy without macular edema Surgical History H/O colonoscopy History of right hip hemiarthroplasty History of left hip replacement Hx of mastectomy Family History Father Colon cancer Mother Essential hypertension Sister Pancreatic cancer Son Mental health disorder Substance use disorder Social History Housing: Apartment Alcohol intake: never Patient Tobacco Use Status: Never used Tobacco e-Cigarette/Vaping Use: Never Used service: No Current occupational status: retired Cognitive needs: No Hearing needs: No Vision needs: Yes Review of Systems Const Denies fatigue, Denies fever(s), Denies night sweats, Denies poor appetite and Denies weight loss Eyes Details: glasses Reports requires corrective lenses ENT Reports Normal hearing present, Denies dysphagia, Denies odynophagia, Denies throat swelling and Denies tongue swelling Card Reports no additional complaints Resp Reports no additional complaints GI Details: Denies abdominal pain, Denies melena, Denies bloating, Denies hematochezia, Denies constipation, Denies GI cramping, Denies dysphagia, Denies excessive flatus, Denies early satiety, Denies heartburn, Denies diarrhea, Denies nausea, Denies odynophagia, Denies vomiting and Denies hematemesis Skin/Breast Denies pruritus, Denies lesions, Denies rash and Denies jaundice Neuro Reports Normal hearing present, Denies Abnormal speech present and Reports memory loss Psych Reports memory loss Endo Denies fatigue Aller/Immun Denies throat swelling and Denies tongue swelling Physical Exam Vital Signs: Last Vital Signs Pulse 79 06/15/25 09:03 BP 128/62 06/15/25 09:03 BMI result Body Mass Index 25.1 Const General: cooperative, no acute distress, well developed and well groomed Nutritional Appearance: well nourished Orientation/consciousness: oriented to person, oriented to place and oriented to time Limitations: language barrier and ambulation with cane HEENT Head: Yes normocephalic and Yes atraumatic Eyes General: appearance normal, both eyes and all related structures Pupils: Equal, round and reactive pupils present Neck Neck: Yes normal visual inspection and Yes no lymphadenopathy Thyroid: Thyroid normal Resp Effort & Inspection: normal respiratory effort and able to speak in complete sentences Auscultation: clear to auscultation bilaterally Cardio Rate: regular rate Rhythm: regular rhythm Heart sounds: Normal, physiologic split S2 sound present Peripheral pulses: radial pulses present and posterior tibial pulses present GI Inspection: No distended, No Abdominal panniculus present and Yes obesity Palpation (GI): Soft to palpation, nontender, no guarding, not rigid and No hepatosplenomegaly present Percussion: Yes normal to percussion Auscultation: normal bowel sounds Rectal Exam - Female: deferred Abdomen image:  1. surgical scar Skin General skin exam: no rashes or lesions noted, turgor normal, skin not dry, no jaundice, No spider nevi and no striae Rashes: no rashes Nails: normal Neuro General: oriented to person, oriented to place and oriented to time Cranial nerves: Yes Equal, round and reactive pupils present and Yes Normal hearing present Speech: No Abnormal speech present Extrem General: Yes normal to inspection, No clubbing, No cyanosis and No edema Psych Appearance: grossly normal and well kempt Mental Status: other Speech and movement: Normal speech and movement present Affect: normal affect Attitude: cooperative Thought process: Circumstantial thought process present and not confabulating Thought content: Normal thought content present Insight: Limited insight present (Psych) and Poor insight present (Psych) Judgement: Limited judgement present (Psych) and Poor judgement present (Psych) Assessment & Plan Assessment & Plan (1) Pre-op examination: Code(s): Z01.818 - Encounter for other preprocedural examination Category: Medical (2) History of adenomatous polyp of colon: Comment: 2016 scope= 1 TA, 2019 scope negative study Code(s): Z86.010 - Personal history of colon polyps Category: Medical (3) Family history of colon cancer: Code(s): Z80.0 - Family history of malignant neoplasm of digestive organs Category: Medical Plan Kosovan # V Live She is here today with her daughter Terrie Lucas who just took over her care. Given her age and a negative study in 2019 I also offer them Cologuard and show them the video. However,she also is in generally good health, so if she wants a colonoscopy this is ok as well. They opt for colonoscopy. She was using too many laxatives in the past thinking she was cleaning herself out, and her dtr is stopping this. The pt does not eat much like a bird. NO N/V but she is diabetic so may have some delay in gastric emptying. NO card or resp problems. No anes or sed problems. No ID problems. Orders: Orders Colonoscopy - GI Use Only Today Z86.010 - Personal history of colon polyps Medications: New bisacodyl (Dulcolax (bisacodyl)) 10 mg (2 x 5 mg) PO BEDTIME 4 tabs 0RF 2 days peg 3350-electrolytes 236-22.74-6.74 -5.86 gram (Golytely) until fecal effluent is clear; do not exceed a total volume of 2,000 mL 240 mL PO Q10M 4,000 mL 0RF 1 day Z12.11 - Encounter for screening for malignant neoplasm of colon Coding Level of Care Code New Pt Level 3 (74082) Diagnoses Pre-op examination Z01.818 History of adenomatous polyp of colon Z86.010 Family history of colon cancer Z80.0
[2025-06-15 09:03] VITALS: BP 128/62; PULSE 79; BMI 25.1
== END 2025-06-15 09:49 | disposition home or self-care (01) ==
LOC: HO.HGI 08:37
PROVIDERS: PCP Internal Medicine; Visit Provider Nurse Practitioner
DX: Z01.818 Encounter for other preprocedural examination (principal); Z86.0100 Personal history of colon polyps, unspecified; Z80.0 Family history of malignant neoplasm of digestive organs
CPT/HCPCS: 99024

== ENCOUNTER → 2025-06-15 08:36 | Outpatient (BNVA) | payer OTHER, SELFPAY | PROVIDERS: PCP Internal Medicine; Visit Provider Nurse Practitioner | DX: Z01.818 Encounter for other preprocedural examination (principal); Z86.0100 Personal history of colon polyps, unspecified; Z80.0 Family history of malignant neoplasm of digestive organs | CPT/HCPCS: 99212 ==

== ENCOUNTER 2025-06-27 13:36 | Outpatient (AMB) | payer OTHER, SELFPAY ==
--- OUTSIDE RECORDS SUMMARY | 2025-01-30 06:45 | XMS_ITS ---
Author Organization [facility] Address [address] [facility] et [facility] [place] [address] Care Team Providers Care Portfolio Strategist Name Role Phone Liban ROJAS, Nara Londono Primary Care Provider Un available James Zuniga Unavailable [phone] Encounters Encounter Location Date Provider Diagnosis [address] [address] 01/30/2025 James Zuniga Plan Of Treatment Next Appt Details Provider Name:James Zuniga , 07/03/2025 10:45:00 AM, [address] [place] [address], [address], Progress Notes * Terrie MADDEN MDOB:1939 (85 yo F)Acc No.[id number]:01/30/2025 Progress Note Patient: Peri GRACIA Terrie Skelton Provider: Severiano Zuniga DPM :1940 A ge:84 Y S ex:Female Date:01/30/2025 Address:[address] [place] [address] , [place] [id number] Pcp:Nafisa Walton Subjective: * Chief Complaints: * [...] 01/30/2025 Generated for Juan Jose Escamilla on: 0 06/27/2025 02:29 PM EDT
--- NOTE | 2025-06-27 14:27 | AM.OFFVISNUR ---
Intake Visit Reasons: Evenity #8 Allergies No Known Allergies Allergy (Verified 06/15/25 09:10) Office Meds romosozumab-aqqg 210 mg/2.34 mL(105 mg/1.17 mL x2)subcutaneous syringe Performing Provider: Devon Baltazar MD [place] [facility] [place] Administered by: Ludivina Ba RN on 06/27/25 14:15 Dose Route Admin Location Dispensed Lot Number Expiration Date [facility] [employer] 210 mg subcut bilateral upper arms 2.34 mL [id number] 08/15/27 86743-562-41 [employer] Total Dispensed Waste 2.34 mL 0 % Comments: Patient accompanied by daughter to appointment. Manager Van declined, visit interpreted by daughter Terrie. Patient tolerated well and denies adverse reactions to previous injections. Assessment & Plan Assessment & Plan Orders: Orders AMB Romosozumab Injection Patient Supplied Today M81.0 - Age-related osteoporosis without current pathological fracture Coding
--- OUTSIDE RECORDS SUMMARY | 2025-06-27 14:29 | XMS_ITS | Patient Health Record ---
Author Organization [employer] [facility] Address [address] [place] [address] Care Team Providers Care Bleach Liquor Maker Name Role Phone ANNE-MARIE REYNOSO MD Primary Care Provider Unav ailable JAIMIE KIMBLE Unavailable [phone] Allergies No Known Allergies Reason For Referral [...] W/U Status Risk Notes Problem Age-related osteoporosis (903861111) Age-related osteoporosis without current pathological fracture (M81.0) Active confirmed Problem Essential hypertension (77719267) Essential (primary) hypertension (I10) Active confirmed Problem Malignant neoplasm of overlapping sites of right female breast (C50.811) Active confirmed Problem Type II diabetes mellitus without complication (727727661) Type 2 diabetes mellitus without complications (E11.9) Active confirmed Problem Hyperlipidemia (84607103) Hyperlipidemia, unspecified (E78.5) Active confirmed Problem Gastro-esophageal reflux disease with esophagitis (944524805) Gastro-esophagea l reflux disease with esophagitis (K21.0) Active confirmed Problem Osteoarthritis (969505206) Unspecified osteoarthritis, unspecified site (M19.90) Active confirmed Plan Of Treatment Pending Test Test Name Order Date Urinalysis 07/15/2022 MM Digital Screening Mammogram 3D 2021 Insurance Providers Payer Name Payer Address Payer Phone Subscriber Number Group Number Insured Name Patient Relationship to Insured Coverage Start Date Coverage End Date [facility] [address] [address] [place] [phone] [id number] CHANDLER GARG Self - patient is the [...]
--- OUTSIDE RECORDS SUMMARY | 2025-06-27 14:29 | XMS_ITS | Clinical Summary ---
Author Organization [employer] Address [address] [place] [address] Care Team Providers Care Compliance Quality Performance Analyst Name Role Phone Unavailable Primary Care Provider [...]
== END 2025-06-27 14:26 | disposition home or self-care (01) ==
LOC: HO.ENCR 13:36
PROVIDERS: PCP Internal Medicine; Visit Provider Internal Medicine Endocrinology, Diabetes & Metabolism
DX: M81.0 Age-related osteoporosis without current pathological fracture (principal)

== ENCOUNTER → 2025-06-27 13:36 | Outpatient (BNVA) | payer OTHER, SELFPAY | PROVIDERS: PCP Internal Medicine; Visit Provider Internal Medicine Endocrinology, Diabetes & Metabolism | DX: M81.0 Age-related osteoporosis without current pathological fracture (principal) | CPT/HCPCS: 96372; J3111 ==

== ENCOUNTER 2025-07-25 14:00 | Outpatient (AMB) | payer OTHER, SELFPAY ==
--- NOTE | 2025-07-25 14:24 | AM.OFFVISNUR ---
Intake Visit Reasons: Evenity #9 Allergies No Known Allergies Allergy (Verified 06/15/25 09:10) Office Meds romosozumab-aqqg 210 mg/2.34 mL(105 mg/1.17 mL x2)subcutaneous syringe Performing Provider: Devon Baltazar MD Performing Location: [facility] [place] Administered by: Ludivina Ba RN on 07/25/25 14:24 Dose Route Admin Location Dispensed Lot Number Expiration Date [facility] [employer] 210 mg subcut bilateral upper arms 2.34 mL [id number] 10/15/27 41206-162-79 [employer] Total Dispensed Waste 2.34 mL 0 % Comments: Patient accompanied by daughter, Terrie. Machine Inker declined. Patient tolerated injections well and denies any adverse reactions to previous. Scheduled for next injection in x4 weeks. Assessment & Plan Assessment & Plan Orders: Orders AMB Romosozumab Injection Patient Supplied Today M81.0 - Age-related osteoporosis without current pathological fracture Coding
== END 2025-07-25 14:23 | disposition home or self-care (01) ==
LOC: HO.ENCR 14:01
PROVIDERS: PCP Internal Medicine; Visit Provider Internal Medicine Endocrinology, Diabetes & Metabolism
DX: M81.0 Age-related osteoporosis without current pathological fracture (principal)

== ENCOUNTER → 2025-07-25 14:00 | Outpatient (BNVA) | payer OTHER, SELFPAY | PROVIDERS: PCP Internal Medicine; Visit Provider Internal Medicine Endocrinology, Diabetes & Metabolism | DX: M81.0 Age-related osteoporosis without current pathological fracture (principal) | CPT/HCPCS: 96372; J3111 ==

== ENCOUNTER 2025-08-17 09:13 | Outpatient (AMB) | payer OTHER, SELFPAY ==
--- OUTSIDE RECORDS SUMMARY | 2025-01-30 06:45 | XMS_ITS ---
Author Organization [facility] Address [address] [facility] [place] [address] Care Team Providers Care Industrial Rehabilitation Consultant Name Role Phone Liban ROJAS, Nara Londono Primary Care Provider Un available James Zuniga Unavailable [phone] Encounters Encounter Location Date Provider Diagnosis [address] [address] 01/30/2025 James Zuniga Plan Of Treatment Next Appt Details Provider Name:James Zuniga , 10/16/2025 11:15:00 AM, [address] [place] [address], [phone], Progress Notes * Terrie MADDEN MDOB:1939 (85 yo F)Acc No.[id number]:01/30/2025 Progress Note Patient: Peri GRACIA Terrie Skelton Provider: Severiano Zuniga DPM :1940 A ge:84 Y S ex:Female Date:01/30/2025 Address:[address] [place] [address] , [id number] Pcp:Nafisa Walton Subjective: * Chief Complaints: * [...] 01/30/2025 Generated for Juan Jose Escamilla on: 1 10:03 AM EDT
--- NOTE | 2025-08-17 09:14 | MHC.OFFVIS ---
Vital Signs 08/17/25 09:15 Height 4 ft 10.5 in Weight 121 lb BMI 24.9 BP 120/68 Blood Pressure Location Rt brachial Position Sitting Pulse 82 Pulse Source Pulse Oximeter Pulse Oximetry (%) 98 Oxygen Delivery Method Room Air Intake Visit Reasons: INP-Mild Cog imp Intake Note: Mild Cognitive impairment Tinware Lithograph Press Operator Required: Yes Tinware Lithograph Press Operator Services: Tinware Lithograph Press Operator Offered & Declined Tinware Lithograph Press Operator Name: Tinware Lithograph Press Operator with MD per Daught Accompanied by: Daughter Allergies No Known Allergies Allergy (Verified 08/17/25 09:19) Medication List - Last Reconciled 08/17/25 by Georgia Chanel MD acetaminophen (Tylenol Extra Strength) 500 mg PO Q6H PRN amoxicillin 2,000 mg orally Take 4 capsules 1 hour before procedure; Take 4 capsules or 2000 mg amoxicillin 1 hour before dental procedure aspirin (Adult Aspirin Regimen) 81 mg PO DAILY atorvastatin 20 mg PO DAILY [baby wipes As directed] [basket for a walker As directed] blood sugar diagnostic As directed blood sugar diagnostic (FreeStyle Lite Strips) check fasting blood sugar 2 times a day; blood-glucose meter (FreeStyle Rio Lite kit) As directed calcium carbonate-vitamin D3 600 mg-5 mcg (200 unit) caps PO diaper,brief,adult,disposable Use as directed twice a day p.r.n. disposable gloves Use As directed lancets check fasting blood sugar twice a day ac lisinopril 5 mg PO DAILY [Long shoe horn As directed] [Medium size Poise Pads Use twice a day ] [medminder machine As directed] memantine 7 mg PO DAILY memantine 14 mg PO DAILY memantine 21 mg PO DAILY memantine 28 mg PO DAILY metformin 1,000 mg PO BID miscellaneous medical supply (Blood Pressure Cuff) Take blood pressure once daily and as needed omega-3 acid ethyl esters 2 caps PO DAILY propylene glycol-glycerin 1-0.3 % 1 drp ophthalmic (eye) QID PRN [rollator walker As directed] romosozumab-aqqg (Evenity) 210 mg (2.34 mL) subcut .qmonthly [Soft loofah sponge with long handle As directed] [walker with seat As directed] HPI Comments Details: 85y/o female comes for evaluation of memory issues. she is accompanied by her daughter who helps with history. She had fall last summer and needed ahip replacement and since then her daughter has been noticing difficulty with short term memory , she frequently repeats, misplaces things , forgets appointments conversations etc. she needs some supervision for ehr daily activities like cooking showering etc. she has trouble remembering to take meds- needs reminders.Mood is OK Sleep- sleeps a lot during day and stays awake at night.she is not active socially- stays in her house she had 10 brothers - most had dementia 13 sisters - many had dementia No head injury [facility] Medical History (Updated 08/17/25 @ 09:47 by Georgia Chanel MD) Dementia History of femur fracture History of adenomatous polyp of colon History of fracture of right hip Gait instability History of recent fall Right anterior knee pain Urinary incontinence Mild cognitive impairment Tubular adenoma of colon Breast cancer, right Hearing loss Osteoporosis Osteoarthritis GERD (gastroesophageal reflux disease) Dyslipidemia Essential hypertension Type 2 diabetes mellitus with microalbuminuria, without long-term current use of insulin Type 2 diabetes mellitus with hyperglycemia, without long-term current use of insulin Type 2 diabetes mellitus with mild nonproliferative diabetic retinopathy without macular edema Surgical History H/O colonoscopy History of right hip hemiarthroplasty History of left hip replacement Hx of mastectomy Family History Father Colon cancer Mother Essential hypertension Sister Pancreatic cancer Son Mental health disorder Substance use disorder Social History Housing: Apartment Alcohol intake: never Patient Tobacco Use Status: Never used Tobacco e-Cigarette/Vaping Use: Never Used service: No Current occupational status: retired Cognitive needs: No Hearing needs: No Vision needs: Yes Physical Exam Vital Signs: Last Vital Signs Pulse 82 08/17/25 09:15 BP 120/68 08/17/25 09:15 Pulse Ox 98 08/17/25 09:15 Oxygen Delivery Method Room Air 08/17/25 09:15 BMI result Body Mass Index 24.9 Const General: cooperative, healthy appearing, comfortable and no acute distress Nutritional Appearance: average body habitus Limitations: ambulation with cane Eyes Pupils: Equal, round and reactive pupils present Neuro General: tone normal, moves all extremities and no focal motor deficits Cranial nerves: Yes Facial sensation intact/muscles of mastication intact, Yes Equal, round and reactive pupils present, Yes Bilaterally intact EOM present, Yes Nystagmus not present, Yes Normal facial strength present, Yes Midline tongue present, Yes Symmetric palate elevation present and Yes Ability to bilaterally elevate shoulders present Cognition (Neuro): abnormal cognition Gait exam (Neuro): Antalgic gait present and Assistive device used Motor exam (neuro): 5/5 motor strength present throughout and Normal motor muscle tone present throughout Deep tendon reflexes (DTR's): Right triceps reflex intensity grade: 1+, Left triceps reflex intensity grade: 1+, Rt Biceps (C5, C6): 1+, Left biceps reflex intensity grade: 1+, Right brachioradialis reflex intensity grade: 1+, Left brachioradialis reflex intensity grade: 1+, Right patellar reflex intensity grade: 1+ and Left patellar reflex intensity grade: 1+ Coordination: [id number] test normal Orientation What is the (year) (season) (date) (day) (month)?: year, season, date, day and month Where are we (state) (pending sale to [facility]) (town or city) (hospital) (floor)?: state, town or city, hospital/clinic and floor Registration Name of 3 unrelated objects clearly and slowly, then ask patient to repeat all 3 of them. (1st repeat determines score. Make sure they can repeat all three): object 1, object 2 and object 3 Language Show patient a wristwatch & ask what it is. Repeat for pencil.: watch Ask the patient to repeat the phrase 'No ifs, ands, or buts' after you.: correct Ask the patient to 'take a piece of paper with their right hand' 'fold paper in half' 'place paper on floor': take paper in right hand and fold paper in half Print the sentence 'CLOSE YOUR EYES' on a piece. If patient actually closes eyes then score.: followed written direction Give patient a blank piece of paper & ask to write a sentence. Score if it contains a noun & verb.: sentence contains subject and verb Score Score: 18 Assessment & Plan Assessment & Plan (1) Dementia: Code(s): F03.90 - Unspecified dementia, unspecified severity, without behavioral disturbance, psychotic disturbance, mood disturbance, and anxiety Category: Medical Qualifiers: Dementia type: unspecified type Dementia severity: mild Dementia behavioral or psychological symptom: without behavioral, psychotic, or mood disturbance or anxiety Qualified Code(s): F03.A0 - Unspecified dementia, mild, without behavioral disturbance, psychotic disturbance, mood disturbance, and anxiety Plan MRI brain to r/o structural causes Labs- TSH B 12 ESR CBC CMP I will trial her on memantine XR 7 mg titrate upto 28mg qd Discussed about cognitive cativity at home and increasing social activity to slow progression. Orders: Orders Erythrocyte Sedimentation Rate Today F03.A0 - Unspecified dementia, mild, without behavioral disturbance, psychotic disturbance, mood disturbance, and anxiety MR head/brain wo con Today F03.A0 - Unspecified dementia, mild, without behavioral disturbance, psychotic disturbance, mood disturbance, and anxiety Complete Blood Count Auto Diff Today F03.A0 - Unspecified dementia, mild, without behavioral disturbance, psychotic disturbance, mood disturbance, and anxiety Medications: New memantine 7 mg PO DAILY 30 ea 0RF memantine after 30 day course of 7 mg 14 mg PO DAILY 30 ea 0RF memantine after 30 day course of 14 mg 21 mg PO DAILY 30 ea 0RF memantine after 30 day course of 21mg 28 mg PO DAILY 30 ea 6RF Coding Level of Care Code New Pt Level 4 (01505) Diagnoses Mild dementia without behavioral disturbance, psychotic disturbance, mood disturbance, or anxiety, unspecified dementia type F03.A0 Dementia type: unspecified type Dementia severity: mild Dementia behavioral or psychological symptom: without behavioral, psychotic, or mood disturbance or anxiety
[2025-08-17 09:15] VITALS: BP 120/68; PULSE 82; O2SAT 98; BMI 24.9
--- OUTSIDE RECORDS SUMMARY | 2025-08-17 10:03 | XMS_ITS | Encounter Summary ---
Author Organization [employer] [facility] Address [address] [place] [address] Care Team Providers Care Boatwright Name Role Phone Unavailable Primary Care Provider Unavailabl e Encounter Details Date Type Department Care Team (Latest Contact Info) Description 08/22/2019 Abstract [facility] CONVERSIONS Dental, Provider, DDS Social History [...]
--- OUTSIDE RECORDS SUMMARY | 2025-08-17 10:03 | XMS_ITS | Clinical Summary ---
Author Organization [employer] Address [address] [place] [address] Care Team Providers Care Mica Washer Gluer Name Role Phone Unavailable Primary Care Provider [...] COVID-19 Vaccine ( - 2023-2 5 season) 2025 Influenza Vaccine (#1) 2025 HIB Vaccines Aged [...]
--- OUTSIDE RECORDS SUMMARY | 2025-08-17 10:03 | XMS_ITS | Patient Health Record ---
Author Organization [employer] [facility] Address [address] [place] [address] Care Team Providers Care Chop Saw Operator Name Role Phone ANNE-MARIE REYNOSO MD Primary Care Provider Unav ailable JAIMIE KIMBLE Unavailable [phone] Allergies No Known Allergies Reason For Referral [...] W/U Status Risk Notes Problem Age-related osteoporosis (986704592) Age-related osteoporosis without current pathological fracture (M81.0) Active confirmed Problem Essential hypertension (19885567) Essential (primary) hypertension (I10) Active confirmed Problem Malignant neoplasm of overlapping sites of right female breast (C50.811) Active confirmed Problem Type II diabetes mellitus without complication (847654530) Type 2 diabetes mellitus without complications (E11.9) Active confirmed Problem Hyperlipidemia (73040241) Hyperlipidemia, unspecified (E78.5) Active confirmed Problem Gastro-esophageal reflux disease with esophagitis (624452569) Gastro-esophagea l reflux disease with esophagitis (K21.0) Active confirmed Problem Osteoarthritis (809585544) Unspecified osteoarthritis, unspecified site (M19.90) Active confirmed Plan Of Treatment Pending Test Test Name Order Date Urinalysis 07/15/2022 MM Digital Screening Mammogram 3D 2021 Insurance Providers Payer Name Payer Address Payer Phone Subscriber Number Group Number Insured Name Patient Relationship to Insured Coverage Start Date Coverage End Date [facility] [address] [address] [place] [address] [id number] CHANDLER GARG Self - patient is the [...]
--- OUTSIDE RECORDS SUMMARY | 2025-08-17 10:04 | XMS_ITS | Patient Health Record ---
Author Organization [facility] Address [address] [place] [address] Care Team Providers Care Irrigation Equipment Installer Name Role Phone Liban ROJAS, Nara Londono Primary Care Provider Un available Nadia, James Unavailable [phone] Allergies No Known Allergies Results Component Value Reference Range Notes HEMOGLOBIN A1C (GLYCOHEMOGLO BIN) Reviewed date:07/03/2025 10:55:21 AM Interpretation: Performing Lab: Notes/Report: HEMOGLOBIN A1C % (HH) 8.2 HEMOGLOBIN A1C (GLYCOHEMOGLO BIN) Reviewed date:04/13/2025 02:39:56 PM Interpretation: Performing Lab: Notes/Report: HEMOGLOBIN A1C % (HH) 8.2 Reason For Referral No Information Medications Medication SIG (Take, Route, Frequency, Duration) Notes Start Date End Date Status [place] 3 1000 MG 1 capsule Orally Onc e a day Not-Taking Ammonium Lactate 12 % 1 application to affected area Externally to feet Twice a day; Duration: 30 days Not-Taking Ranitidine & Diet Manage Prod Active Metformin & Diet Manage Prod 1000MG Active Extra Depth Orthopedic Shoes (1 Pair) with Customized Heat Molded Multidensity Innersoles (3 Pair) as directed Dx: NIDDM (E11.9), Hammertoe Foot Deformity (M20.41,M20.42), Preulcerative Skin Lesion(s) (L85.1) Active ibuprofen Active Aspirin 81 MG 1 tablet Orally Once a day Active Evenity 105 MG/1.17ML 2.34 mL Subcutaneous Active Lisinopril 5 MG 1 tablet Orally Once a day Active Atorvastatin Calcium 20 MG 1 tablet Orally Once a day Active Immunizations Vaccine Route Administration Date Status Comme nts Influenza Unknown 01/17/2019 Administered Influenza Unknown 11/16/2019 Administered Influenza Unknown 07/03/2025 Refused COVID-19 Pfizer BioNTech Vaccine Unknown 11/20/2020 Adm inistered COVID-19 Pfizer BioNTech Vaccine Unknown 12/11/2020 Adm inistered Social History Tobacco Use: Social History Observation Description Date Details (start date - stop date) Never Smoker NA - NA Alcohol Screen Question Answer Notes Did you have a drink containing alcohol in the p ast year? No Points 0 Interpretation Negative Tobacco use other than smoking: Question Answer Notes Are you an other tobacco user? No Tobacco Control (Standard) Question Answer Notes Tobacco use: Nonsmoker Additional Findings: Tobacco non-user Current no nsmoker AUDIT-C (Standard) Question Answer Notes Did you have a drink containing alcohol in the p ast year? No Points 0 Interpretation Negative Problems Problem Type SNOMED Code ICD Code Onset Dates Problem Status W/U Status Risk Notes Problem Acquired hammer toe of right foot (50051365329754 05) Other hammer toe(s) (acquired), right foot (M20.41) Active confirmed Response to treatment,I mprovement Problem Acquired hammer toe of left foot (00079766560164 03) Other hammer toe(s) (acquired), left foot (M20.42) Active confirmed Response to treatment,I mprovement Problem Type II diabetes mellitus without complication (209972859) Type 2 diabetes mellitus without complication (E11.9) Active confirmed Vital Signs Blood pressure diastolic 80 mm Hg 10/24/2024 Height 5 ft 2 in in 07/03/2025 Blood pressure systolic 120 mm Hg 10/24/2024 Weight 135 lbs 07/03/2025 BMI 24.69 kg/m2 07/03/2025 Procedures Procedure Date Ordered Date Performed Result Body Sit e 75115-TYRLLXV NAIL, 6 OR MORE 10/24/2024 N/A 28074-DLBE SKIN LESIONS, 2 TO 4 10/24/2024 N/A 77733-VNTDPPP NAIL, 6 OR MORE 04/12/2025 N/A 08350-YPKU SKIN LESIONS, 2 TO 4 04/12/2025 N/A 30786-FTJIFYS NAIL, 6 OR MORE 07/03/2025 N/A 43266-ABKO SKIN LESIONS, 2 TO 4 07/03/2025 N/A Encounters Encounter Location Date Provider Diagnosis [address] [address] 10/24/2024 Jameslewis Zuniga Pain in right toe(s) M79.674 ; Tinea unguium B35.1 ; Pain in left toe(s) M79.675 and Type 2 diabetes mellitus without complication E11.[address] [address] 04/12/2025 James Zuniga Tinea unguium B35.1 ; Other hammer toe(s) (acquired), right foot M20.41 ; Pain in right toe(s) M79.674 ; Pain in left toe(s) M79.675 ; Type 2 diabetes mellitus without complication E11.9 and Other hammer toe(s) (acquired), left foot M20.[address] [address] 07/03/2025 Jameslewis RecinosNadia Tinea unguium B35.1 ; Other hammer toe(s) (acquired), right foot M20.41 ; Pain in right toe(s) M79.674 ; Pain in left toe(s) M79.675 ; Type 2 diabetes mellitus without complication E11.9 and Other hammer toe(s) (acquired), left foot M20.42 Assessments Encounter Date Diagnosis (ICD Code) Assessment Notes Treatment Notes Treatment Clinical Notes Section Notes 10/24/2024 Tinea unguium (ICD-10 - B35.1) 10/24/2024 Pain in right toe(s) (ICD-10 - M79.674) 04/12/2025 Other hammer toe(s) (acquired), right foot (ICD-10 - M20.41) Patient Educated with: DIABETIC FOOT CARE INSTRUCTIONS.p df (DIABETIC FOOT CARE INSTRUCTIONS.p df) 04/12/2025 Tinea unguium (ICD-10 - B35.1) 07/03/2025 Other hammer toe(s) (acquired), right foot (ICD-10 - M20.41) 07/03/2025 Tinea unguium (ICD-10 - B35.1) 04/12/2025 Pain in right toe(s) (ICD-10 - M79.674) 10/24/2024 Pain in left toe(s) (ICD-10 - M79.675) 07/03/2025 Pain in right toe(s) (ICD-10 - M79.674) 10/24/2024 Type 2 diabetes mellitus without complication (ICD-10 - E11.9) 04/12/2025 Pain in left toe(s) (ICD-10 - M79.675) 07/03/2025 Pain in left toe(s) (ICD-10 - M79.675) 04/12/2025 Type 2 diabetes mellitus without complication (ICD-10 - E11.9) 07/03/2025 Type 2 diabetes mellitus without complication (ICD-10 - E11.9) 07/03/2025 Other hammer toe(s) (acquired), left foot (ICD-10 - M20.42) 04/12/2025 Other hammer toe(s) (acquired), left foot (ICD-10 - M20.42) 10/24/2024 Other Plan Of Treatment Pending Test Test Name Order Date 78824-MANOHHI NAIL, 6 OR MORE 05/12/2019 21255-IECNHPM NAIL, 6 OR MORE 08/11/2019 93160-BHWKFZZ NAIL, 6 OR MORE 11/24/2019 44644-MKLYQXQ NAIL, 6 OR MORE 03/08/2020 29126-NOMWHNC NAIL, 6 OR MORE 05/31/2020 64089-AVDCYIS NAIL, 6 OR MORE 08/15/2020 44288-UERJBAB NAIL, 6 OR MORE 10/24/2020 33758-UWMVVKU NAIL, 6 OR MORE 01/09/2021 74585-QLWHWTH NAIL, 6 OR MORE 03/20/2021 53069-KPBIGKE NAIL, 6 OR MORE 06/12/2021 43984-XIMVMXT NAIL, 6 OR MORE 08/21/2021 12822-FKECWIY NAIL, 6 OR MORE 10/31/2021 80163-QEATPAF NAIL, 6 OR MORE 01/09/2022 72467-LAAUSRJ NAIL, 6 OR MORE 03/20/2022 17495-UKQZOOG NAIL, 6 OR MORE 05/29/2022 84078-FFEKIZY NAIL, 6 OR MORE 09/03/2022 82005-CWVIYCP NAIL, 6 OR MORE 11/19/2022 62842-KYYSEAD NAIL, 6 OR MORE 02/11/2023 60858-DWCNOEG NAIL, 6 OR MORE 04/22/2023 19559-YBUOEOP NAIL, 6 OR MORE 07/01/2023 90484-THTGAIJ NAIL, 6 OR MORE 09/10/2023 67080-WDSXPRL NAIL, 6 OR MORE 01/11/2024 12937-DFSIGUQ NAIL, 6 OR MORE 03/28/2024 00074-HAEPMQE NAIL, 6 OR MORE 07/27/2024 64743-YASCYJN NAIL, 6 OR MORE 10/24/2024 04953-EDRBUQC NAIL, 6 OR MORE 04/12/2025 32080-GKSHCQQ NAIL, 6 OR MORE 07/03/2025 87976-Lkdutmvj Plate 07/27/2024 02705-Ktpukgmy Plate 03/28/2024 09793-Qnisgumf Plate 09/03/2022 40033-Ubcqtgri Plate 01/11/2024 78307-Meyyhhfs Plate 11/19/2022 30983-Kedwbplr Plate 10/31/2021 35351-STEE SKIN LESIONS, 2 TO 4 10/31/20 39821-WSWH SKIN LESIONS, 2 TO 4 08/21/20 74222-WTUV SKIN LESIONS, 2 TO 4 06/12/20 36893-JUKZ SKIN LESIONS, 2 TO 4 03/20/20 25142-WPPC SKIN LESIONS, 2 TO 4 09/03/20 75135-FDCG SKIN LESIONS, 2 TO 4 05/29/20 12544-CKYN SKIN LESIONS, 2 TO 4 03/20/20 03441-FRXU SKIN LESIONS, 2 TO 4 01/09/20 17196-UNAQ SKIN LESIONS, 2 TO 4 01/09/20 81972-JSQB SKIN LESIONS, 2 TO 4 10/24/20 65630-SRQW SKIN LESIONS, 2 TO 4 08/15/20 46391-KPQJ SKIN LESIONS, 2 TO 4 05/31/20 59471-FIMX SKIN LESIONS, 2 TO 4 03/08/20 31946-QQXZ SKIN LESIONS, 2 TO 4 11/24/19 92826-IRBC SKIN LESIONS, 2 TO 4 08/11/20 07564-LCKM SKIN LESIONS, 2 TO 4 05/12/20 19 00382-URDK SKIN LESIONS, 2 TO 4 11/19/19 23 28674-QHNV SKIN LESIONS, 2 TO 4 02/12/20 23 80530-INIY SKIN LESIONS, 2 TO 4 07/01/20 23 94111-UMCW SKIN LESIONS, 2 TO 4 04/22/20 23 51916-RRPF SKIN LESIONS, 2 TO 4 01/11/20 24 90368-CPCV SKIN LESIONS, 2 TO 4 03/28/20 24 32224-QBZV SKIN LESIONS, 2 TO 4 07/27/20 24 61049-XSWE SKIN LESIONS, 2 TO 4 07/03/20 25 92323-WZTQ SKIN LESIONS, 2 TO 4 04/12/20 25 67996-VZPZ SKIN LESIONS, 2 TO 4 10/24/20 Next Appt Details Provider Name:James Yisel Zuniga , 10/16/2025 11:15:00 AM, [address] [facility] [address], [place], [address], Insurance Providers Payer Name Payer Address Payer Phone Subscriber Number Group Number Insured Name Patient Relationship to Insured Coverage Start Date Coverage End Date [facility] [employer] Claims [address] [place] [address] [id number] Terrie Noriega Self - patient is the insured Medical (General) History Medical History History ICD Code Arthritis Back,Hip,and Knee pain CAD (Cholesterol) Diabetic Osteoporosis Measles HTN Surgical History Surgery Date(Month/Year) cancer surgery right hip replacement 05/09/24 Hospitalization History Reason Date(Month/Year) [facility] Right hip replacement 05/09/24
== END 2025-08-17 09:55 | disposition home or self-care (01) ==
LOC: HO.HSMS 09:13
PROVIDERS: PCP Internal Medicine; Visit Provider Psychiatry & Neurology Neurology
DX: F03.A0 Unspecified dementia, mild, without behavioral disturbance, psychotic disturbance, mood disturbance, and anxiety (principal)
CPT/HCPCS: 99204

== ENCOUNTER → 2025-08-17 09:13 | Outpatient (BNVA) | payer OTHER, SELFPAY | PROVIDERS: PCP Internal Medicine; Visit Provider Psychiatry & Neurology Neurology | DX: F03.A0 Unspecified dementia, mild, without behavioral disturbance, psychotic disturbance, mood disturbance, and anxiety (principal); Z81.8 Family history of other mental and behavioral disorders | CPT/HCPCS: 99202 ==

== ENCOUNTER 2025-08-19 08:00 | Outpatient (REF) | payer OTHER, SELFPAY ==
--- OUTSIDE RECORDS SUMMARY | 2025-01-30 06:45 | XMS_ITS ---
Author Organization [facility] Address [address] [facility] et [facility] [place] [address] Care Team Providers Care Heel Layer Name Role Phone Liban ROJAS, Nara Londono Primary Care Provider Un available James Zuniga Unavailable [phone] Encounters Encounter Location Date Provider Diagnosis [address] [address] 01/30/2025 James Zuniga Plan Of Treatment Next Appt Details Provider Name:James Zuniga , 10/16/2025 11:15:00 AM, [address] [place] [address], [address], Progress Notes * Terrie MADDEN MDOB:1939 (85 yo F)Acc No.[id number]:01/30/2025 Progress Note Patient: Peri GRACIA Terrie Skelton Provider: Severiano Zuniga DPM :1940 A ge:84 Y S ex:Female Date:01/30/2025 Address:[address] [place] [address] , [id number] Pcp:Nafisa Walton Subjective: * Chief Complaints: * [...] 01/30/2025 Generated for Juan Jose Escamilla on: 08:04 AM EDT
--- OUTSIDE RECORDS SUMMARY | 2025-08-19 08:04 | XMS_ITS | Patient Health Record ---
Author Organization [employer] [facility] [facility] Address [address] [place] [address] Care Team Providers Care Biopsychologist Name Role Phone ANNE-MARIE REYNOSO MD Primary Care Provider Unav ailable JAIMIE KIMBLE Unavailable [phone] Allergies No Known Allergies Reason For Referral [...] W/U Status Risk Notes Problem Age-related osteoporosis (598591049) Age-related osteoporosis without current pathological fracture (M81.0) Active confirmed Problem Essential hypertension (27317856) Essential (primary) hypertension (I10) Active confirmed Problem Malignant neoplasm of overlapping sites of right female breast (C50.811) Active confirmed Problem Type II diabetes mellitus without complication (810208304) Type 2 diabetes mellitus without complications (E11.9) Active confirmed Problem Hyperlipidemia (76012809) Hyperlipidemia, unspecified (E78.5) Active confirmed Problem Gastro-esophageal reflux disease with esophagitis (592473397) Gastro-esophagea l reflux disease with esophagitis (K21.0) Active confirmed Problem Osteoarthritis (992792434) Unspecified osteoarthritis, unspecified site (M19.90) Active confirmed Plan Of Treatment Pending Test Test Name Order Date Urinalysis 07/15/2022 MM Digital Screening Mammogram 3D 2021 Insurance Providers Payer Name Payer Address Payer Phone Subscriber Number Group Number Insured Name Patient Relationship to Insured Coverage Start Date Coverage End Date [facility] [address] [address] [place] [address] [id number] CHANDLER GARG Self - patient is the [...]
--- OUTSIDE RECORDS SUMMARY | 2025-08-19 08:05 | XMS_ITS | Clinical Summary ---
Author Organization [employer] Address [address] [place] [address] Care Team Providers Care Mash Filter Operator Name Role Phone Unavailable Primary Care [...]
--- OUTSIDE RECORDS SUMMARY | 2025-08-19 08:05 | XMS_ITS | Encounter Summary ---
Author Organization [employer] [facility] Address [address] [place] [address] Care Team Providers Care Motel Keeper Name Role Phone Unavailable Primary Care Provider Unavailabl e Encounter Details Date Type Department Care Team (Latest Contact Info) Description 08/22/2019 Abstract [facility] CONVERSIONS Dental, Provider, DDS Social [...]
--- OUTSIDE RECORDS SUMMARY | 2025-08-19 08:06 | XMS_ITS | Patient Health Record ---
Author Organization [facility] Address [address] [place] [address] Care Team Providers Care Loading Machine Tool Setter Name Role Phone Liban ROJAS, Nara Londono Primary Care Provider Un available Nadia, James Unavailable [phone] Allergies No Known Allergies Results Component Value Reference Range Notes HEMOGLOBIN A1C (GLYCOHEMOGLO BIN) Reviewed date:07/03/2025 10:55:21 AM Interpretation: Performing Lab: Notes/Report: HEMOGLOBIN A1C % (HH) 8.2 HEMOGLOBIN A1C (GLYCOHEMOGLO BIN) Reviewed date:04/13/2025 02:39:56 PM Interpretation: Performing Lab: Notes/Report: HEMOGLOBIN A1C % (HH) 8.2 Reason For Referral No Information Medications Medication SIG (Take, Route, Frequency, Duration) Notes Start Date End Date Status [place] 3 1000 MG 1 capsule Orally Onc [...] Problem Acquired hammer toe of right foot (34552465580322 05) Other hammer toe(s) (acquired), right foot (M20.41) Active confirmed Response to treatment,I mprovement Problem Acquired hammer toe of left foot (48576195493094 03) Other hammer toe(s) (acquired), left foot (M20.42) Active confirmed Response to treatment,I mprovement Problem Type II diabetes mellitus without complication (238501841) Type 2 diabetes mellitus without complication (E11.9) Active confirmed Vital Signs Blood pressure diastolic 80 mm Hg 10/24/2024 Height 5 ft 2 in in 07/03/2025 Blood pressure systolic 120 mm Hg 10/24/2024 Weight 135 lbs 07/03/2025 BMI 24.69 kg/m2 07/03/2025 Procedures Procedure Date Ordered Date Performed Result Body Sit e 32519-GRATMIT NAIL, 6 OR MORE 10/24/2024 N/A 00654-QQAZ SKIN LESIONS, 2 TO 4 10/24/2024 N/A 23194-SECXNDF NAIL, 6 OR MORE 04/12/2025 N/A 71516-YKPH SKIN LESIONS, 2 TO 4 04/12/2025 N/A 40049-RPFVZPW NAIL, 6 OR MORE 07/03/2025 N/A 12723-CCQG SKIN LESIONS, 2 TO 4 07/03/2025 N/A Encounters Encounter Location Date Provider Diagnosis [address] [address] 10/24/2024 Jameslewis Zuniga Pain in right toe(s) M79.674 ; Tinea unguium B35.1 ; Pain in left toe(s) M79.675 and Type 2 diabetes mellitus without complication E11.[address] [address] 04/12/2025 James Zuniga Tinea unguium B35.1 ; Other hammer toe(s) (acquired), right foot M20.41 ; Pain in right toe(s) M79.674 ; Pain in left toe(s) M79.675 ; Type 2 diabetes mellitus without complication E11.9 and Other hammer toe(s) (acquired), left foot M20.[address] [address] 07/03/2025 Jameslewis RecinosNadia Tinea unguium B35.1 ; [...] Treatment Pending Test Test Name Order Date 13816-CDSDBRB NAIL, 6 OR MORE 05/12/2019 21590-WFPDMSK NAIL, 6 OR MORE 08/11/2019 49489-LDXRWBR NAIL, 6 OR MORE 11/24/2019 83515-YTAVIUJ NAIL, 6 OR MORE 03/08/2020 98082-XFKUJDF NAIL, 6 OR MORE 05/31/2020 41695-NBVGJVP NAIL, 6 OR MORE 08/15/2020 96171-IGOXWTC NAIL, 6 OR MORE 10/24/2020 68120-UKUSCKM NAIL, 6 OR MORE 01/09/2021 02571-FTLZETP NAIL, 6 OR MORE 03/20/2021 56101-HEQVJDW NAIL, 6 OR MORE 06/12/2021 75212-XNALKPZ NAIL, 6 OR MORE 08/21/2021 86176-GJSQDFC NAIL, 6 OR MORE 10/31/2021 88729-HPCRGCQ NAIL, 6 OR MORE 01/09/2022 24971-ZQBYXQT NAIL, 6 OR MORE 03/20/2022 92022-IWXBCFI NAIL, 6 OR MORE 05/29/2022 46849-VGOKKKY NAIL, 6 OR MORE 09/03/2022 41749-TZYQVBA NAIL, 6 OR MORE 11/19/2022 34385-ZPUIYUL NAIL, 6 OR MORE 02/11/2023 78651-DBTLKII NAIL, 6 OR MORE 04/22/2023 18229-NJTQATN NAIL, 6 OR MORE 07/01/2023 36654-ULYCTRK NAIL, 6 OR MORE 09/10/2023 44694-DLEBLLV NAIL, 6 OR MORE 01/11/2024 46877-ASYLWTX NAIL, 6 OR MORE 03/28/2024 63011-NTFRCYQ NAIL, 6 OR MORE 07/27/2024 27710-QQZERWE NAIL, 6 OR MORE 10/24/2024 87295-SYVUVBG NAIL, 6 OR MORE 04/12/2025 17385-BNHOFTZ NAIL, 6 OR MORE 07/03/2025 42867-Hazxccfz Plate 07/27/2024 02872-Thllxfaz Plate 03/28/2024 26443-Eandysky Plate 09/03/2022 17412-Caytmnyn Plate 01/11/2024 73288-Hliftwoe Plate 11/19/2022 82682-Eggbqmno Plate 10/31/2021 34111-JBQG SKIN LESIONS, 2 TO 4 10/31/20 51242-WIVA SKIN LESIONS, 2 TO 4 08/21/20 14040-PTMZ SKIN LESIONS, 2 TO 4 06/12/20 85219-RFPV SKIN LESIONS, 2 TO 4 03/20/20 58437-EWUR SKIN LESIONS, 2 TO 4 09/03/20 84468-PJPS SKIN LESIONS, 2 TO 4 05/29/20 27438-ASWE SKIN LESIONS, 2 TO 4 03/20/20 70696-NVJN SKIN LESIONS, 2 TO 4 01/09/20 30933-YZCX SKIN LESIONS, 2 TO 4 01/09/20 49994-DHJZ SKIN LESIONS, 2 TO 4 10/24/20 75897-MUQA SKIN LESIONS, 2 TO 4 08/15/20 63262-ADHD SKIN LESIONS, 2 TO 4 05/31/20 52779-HIPC SKIN LESIONS, 2 TO 4 03/08/20 68715-QFBU SKIN LESIONS, 2 TO 4 11/24/19 72500-XDLV SKIN LESIONS, 2 TO 4 08/11/20 62538-CEBM SKIN LESIONS, 2 TO 4 05/12/20 19 61045-CAXC SKIN LESIONS, 2 TO 4 11/19/19 23 34650-FLGL SKIN LESIONS, 2 TO 4 02/12/20 23 63846-CZEM SKIN LESIONS, 2 TO 4 07/01/20 23 55480-KDES SKIN LESIONS, 2 TO 4 04/22/20 23 91304-OWJJ SKIN LESIONS, 2 TO 4 01/11/20 24 41575-ERRA SKIN LESIONS, 2 TO 4 03/28/20 24 36315-INGL SKIN LESIONS, 2 TO 4 07/27/20 24 53259-AQUJ SKIN LESIONS, 2 TO 4 07/03/20 25 06887-BNQV SKIN LESIONS, 2 TO 4 04/12/20 25 01991-QYFC SKIN LESIONS, 2 TO 4 10/24/20 Next Appt Details Provider Name:James Yisel Zuniga , 10/16/2025 11:15:00 AM, [address], [facility] [address], [place], [address], Insurance Providers Payer Name Payer Address Payer Phone Subscriber Number Group Number Insured Name Patient Relationship to Insured Coverage Start Date Coverage End Date [facility] [employer] Claims [address] [place] [address] [id number] Terrie Noriega Self - patient is the insured Medical (General) History Medical History History ICD Code Arthritis Back,Hip,and Knee pain CAD (Cholesterol) Diabetic Osteoporosis Measles HTN Surgical History Surgery Date(Month/Year) cancer surgery right hip replacement 05/09/24 Hospitalization History Reason Date(Month/Year) [facility] Right hip replacement 05/09/24
[2025-08-19 11:31] LABS: MANUAL DIFF FLAG NO
[2025-08-19 11:39] LABS: Hematocrit 39.8 % (37.0-47.0); Hemoglobin 13.4 g/dl (12.0-16.0); Imm Gran Abs Auto 0.05 X10*3/uL (0.00-0.03); Imm Gran Pct Auto 0.9 % (0.0-0.4); Lymphocytes Absolute Auto 1.4 X10*3/uL (1.2-4.9); Mean Corpuscular HGB Conc 33.7 g/dl (31.0-35.0); Mean Corpuscular Hemoglobin 30.7 pg (27.0-33.0); Mean Corpuscular Volume 91.3 fL (80.0-98.0); NRBC Abs Auto 0.000 X10*3/uL (0.0-0.012); NRBC Pct Auto 0.0 /100WBC (0.0-0.2); Platelet Count 229 X10*3/uL (160-400); Red Blood Count 4.36 X10*6/uL (4.20-5.50); White Blood Count 5.8 X10*3/uL (4.8-10.8)
[2025-08-19 11:47] LABS: Total Hemoglobin (HGBA1C) 3476.4882 umol/L
[2025-08-19 12:05] LABS: Alanine Aminotransferase 15 U/L (0-31); Anion Gap 11 (12-20); Aspartate Amino Transferase 22 U/L (5-31); Blood Urea Nitrogen 12 mg/dL (9-16); Calcium 9.4 mg/dL (8.4-10.2); Carbon Dioxide 27 mmol/L (22-29); Chloride 106 mmol/L (96-108); Cholesterol 170 mg/dL (<200); Estimated Glomerular Filt Rate > 60; HDL Cholesterol 60 mg/dL (>40); Potassium 4.7 mmol/L (3.3-5.1); Sodium 139 mmol/L (135-145); Triglycerides 103 mg/dL (<150)
[2025-08-19 12:29] LABS: Folate 7.9 ng/mL (> or = 4.0); Vitamin B12 284 pg/mL (200-900)
== END 2025-08-19 08:01 | disposition home or self-care (01) ==
LOC: HO.HMGCLDS 08:00
PROVIDERS: Psychiatry & Neurology Neurology; Absent Provider Internal Medicine Hypertension Specialist; PCP Internal Medicine; Visit Provider Internal Medicine
DX: I10 Essential (primary) hypertension (principal); E11.65 Type 2 diabetes mellitus with hyperglycemia; M81.0 Age-related osteoporosis without current pathological fracture; M19.011 Primary osteoarthritis, right shoulder; F03.A0 Unspecified dementia, mild, without behavioral disturbance, psychotic disturbance, mood disturbance, and anxiety; E78.5 Hyperlipidemia, unspecified
CPT/HCPCS: 36415; 80048; 80061; 82306; 82607; 82746; 83036; 84443; 84450; 84460; 85025; 85652

== ENCOUNTER 2025-08-22 14:09 | Outpatient (AMB) | payer OTHER, SELFPAY ==
--- OUTSIDE RECORDS SUMMARY | 2025-01-30 06:45 | XMS_ITS ---
Author Organization [facility] Address [address] [facility] et [facility] [place] [address] Care Team Providers Care Lean Manufacturing Engineer Name Role Phone Liban ROJAS, Nara Londono Primary Care Provider Un available James Zuniga Unavailable [phone] Encounters Encounter Location Date Provider Diagnosis [address] [address] 01/30/2025 James Zuniga Plan Of Treatment Next Appt Details Provider Name:James Zuniga , 10/16/2025 11:15:00 AM, [address] [place] [address], [address], Progress Notes * Terrie MADDEN MDOB:1939 (85 yo F)Acc No.[id number]:01/30/2025 Progress Note Patient: Peri GRACIA Terrie Skelton Provider: Severiano Zuniga DPM :1940 A ge:84 Y S ex:Female Date:01/30/2025 Address:[address] [place] [address] , [place] [id number] Pcp:Nafisa Walton Subjective: * Chief Complaints: * [...] Generated for Juan Jose Escamilla on: 1 05:21 PM EDT
--- NOTE | 2025-08-22 14:28 | AM.OFFVISNUR ---
Intake Visit Reasons: Evenity #10 Allergies No Known Allergies Allergy (Verified 08/17/25 09:19) Office Meds romosozumab-aqqg 210 mg/2.34 mL(105 mg/1.17 mL x2)subcutaneous syringe Performing Provider: Devon Baltazar MD [place] [facility] Administered by: Nicki Birmingham RN on 08/22/25 14:28 Dose Route Admin Location Dispensed Lot Number Expiration Date [employer] Optical Dispenser 210 mg subcut bilateral upper arms 2.34 mL [id number] 10/15/27 26627-257-90 [facility] Total Dispensed Waste 2.34 mL 0 % Comments: No adverse reactions reported from previous injection. Pt tolerated injection well. Pt scheduled in 4 weeks for next appt. No further questions at this time. Assessment & Plan Assessment & Plan Orders: Orders AMB Romosozumab Injection Patient Supplied Today M81.0 - Age-related osteoporosis without current pathological fracture Coding
--- OUTSIDE RECORDS SUMMARY | 2025-08-22 17:22 | XMS_ITS | Patient Health Record ---
Author Organization [facility] Address [address] [place] [address] Care Team Providers Care Configuration Management Manager Name Role Phone Liban ROJAS, Nara Londono Primary Care Provider Un available Nadia, James Unavailable [phone] Allergies No Known Allergies Results Component Value Reference Range Notes HEMOGLOBIN A1C (GLYCOHEMOGLO BIN) Reviewed date:07/03/2025 10:55:21 AM Interpretation: Performing Lab: Notes/Report: HEMOGLOBIN A1C % (HH) 8.2 HEMOGLOBIN A1C (GLYCOHEMOGLO BIN) Reviewed date:04/13/2025 02:39:56 PM Interpretation: Performing Lab: Notes/Report: HEMOGLOBIN A1C % (HH) 8.2 Reason For Referral No Information Medications Medication SIG (Take, Route, Frequency, Duration) Notes Start Date End Date Status [place] 3 1000 MG 1 capsule Orally Onc [...] Problem Acquired hammer toe of right foot (93621429240719 05) Other hammer toe(s) (acquired), right foot (M20.41) Active confirmed Response to treatment,I mprovement Problem Acquired hammer toe of left foot (03729155724672 03) Other hammer toe(s) (acquired), left foot (M20.42) Active confirmed Response to treatment,I mprovement Problem Type II diabetes mellitus without complication (484728854) Type 2 diabetes mellitus without complication (E11.9) Active confirmed Vital Signs Blood pressure diastolic 80 mm Hg 10/24/2024 Height 5 ft 2 in in 07/03/2025 Blood pressure systolic 120 mm Hg 10/24/2024 Weight 135 lbs 07/03/2025 BMI 24.69 kg/m2 07/03/2025 Procedures Procedure Date Ordered Date Performed Result Body Sit e 82856-LNNDTNC NAIL, 6 OR MORE 10/24/2024 N/A 79793-CXUR SKIN LESIONS, 2 TO 4 10/24/2024 N/A 84857-FHDVHAM NAIL, 6 OR MORE 04/12/2025 N/A 99740-HSYA SKIN LESIONS, 2 TO 4 04/12/2025 N/A 33820-VQLPVUS NAIL, 6 OR MORE 07/03/2025 N/A 10278-FASI SKIN LESIONS, 2 TO 4 07/03/2025 N/A Encounters Encounter Location Date Provider Diagnosis [address] [address] 10/24/2024 Jameslewis Zuniga Pain in right toe(s) M79.674 ; Tinea unguium B35.1 ; Pain in left toe(s) M79.675 and Type 2 diabetes mellitus without complication E11.[address] [address] 04/12/2025 James Zuniga Tinea unguium B35.1 ; Other hammer toe(s) (acquired), right foot M20.41 ; Pain in right toe(s) M79.674 ; Pain in left toe(s) M79.675 ; Type 2 diabetes mellitus without complication E11.9 and Other hammer toe(s) (acquired), left foot M20.[address] [address] 07/03/2025 Jameslewis RecinosNadia Tinea unguium B35.1 ; [...] Treatment Pending Test Test Name Order Date 89010-DCORIEA NAIL, 6 OR MORE 05/12/2019 42342-PUGQAIK NAIL, 6 OR MORE 08/11/2019 47448-AAVDNJU NAIL, 6 OR MORE 11/24/2019 47650-RXKBRDI NAIL, 6 OR MORE 03/08/2020 01317-ORBSKMT NAIL, 6 OR MORE 05/31/2020 97704-MAVODQH NAIL, 6 OR MORE 08/15/2020 70075-ZDGLGZL NAIL, 6 OR MORE 10/24/2020 08445-MFQJOZP NAIL, 6 OR MORE 01/09/2021 69856-KBGALAC NAIL, 6 OR MORE 03/20/2021 85326-AGAGKTE NAIL, 6 OR MORE 06/12/2021 27023-EUIBTYE NAIL, 6 OR MORE 08/21/2021 33108-ASKHOYV NAIL, 6 OR MORE 10/31/2021 55283-TKOXGTB NAIL, 6 OR MORE 01/09/2022 55522-ZPDGGBD NAIL, 6 OR MORE 03/20/2022 38798-SYZHTOI NAIL, 6 OR MORE 05/29/2022 94225-ZXMMPSR NAIL, 6 OR MORE 09/03/2022 62299-CTDVAMH NAIL, 6 OR MORE 11/19/2022 64313-BTKNZWM NAIL, 6 OR MORE 02/11/2023 11608-GDSCKQU NAIL, 6 OR MORE 04/22/2023 12421-JDTJDGG NAIL, 6 OR MORE 07/01/2023 13403-WLCOTWF NAIL, 6 OR MORE 09/10/2023 60263-LWLYUET NAIL, 6 OR MORE 01/11/2024 58553-GYKCLSQ NAIL, 6 OR MORE 03/28/2024 81657-IMHOGLP NAIL, 6 OR MORE 07/27/2024 34161-TNYAQQY NAIL, 6 OR MORE 10/24/2024 09297-UKGHIJA NAIL, 6 OR MORE 04/12/2025 77106-GFDCTXV NAIL, 6 OR MORE 07/03/2025 91301-Rkksjbsr Plate 07/27/2024 82311-Dsxbhsvz Plate 03/28/2024 21512-Gpigjyea Plate 09/03/2022 87877-Lvjnnjab Plate 01/11/2024 82601-Qejanifp Plate 11/19/2022 93317-Yezwwale Plate 10/31/2021 79658-IKMA SKIN LESIONS, 2 TO 4 10/31/20 01404-CDTO SKIN LESIONS, 2 TO 4 08/21/20 49783-RTSC SKIN LESIONS, 2 TO 4 06/12/20 74168-ALUT SKIN LESIONS, 2 TO 4 03/20/20 62281-GZBW SKIN LESIONS, 2 TO 4 09/03/20 04145-DYND SKIN LESIONS, 2 TO 4 05/29/20 86231-FNJO SKIN LESIONS, 2 TO 4 03/20/20 99523-MRNJ SKIN LESIONS, 2 TO 4 01/09/20 47555-NGRZ SKIN LESIONS, 2 TO 4 01/09/20 81193-DMKK SKIN LESIONS, 2 TO 4 10/24/20 72813-TUYT SKIN LESIONS, 2 TO 4 08/15/20 70889-ZAGJ SKIN LESIONS, 2 TO 4 05/31/20 33954-ZNHQ SKIN LESIONS, 2 TO 4 03/08/20 72813-GPWW SKIN LESIONS, 2 TO 4 11/24/19 50872-ICJM SKIN LESIONS, 2 TO 4 08/11/20 87783-UGCU SKIN LESIONS, 2 TO 4 05/12/20 19 15922-WMID SKIN LESIONS, 2 TO 4 11/19/19 23 71960-PEJA SKIN LESIONS, 2 TO 4 02/12/20 23 99364-LJEF SKIN LESIONS, 2 TO 4 07/01/20 23 87138-GSJH SKIN LESIONS, 2 TO 4 04/22/20 23 44969-WCIG SKIN LESIONS, 2 TO 4 01/11/20 24 13275-XHYS SKIN LESIONS, 2 TO 4 03/28/20 24 44331-WQIF SKIN LESIONS, 2 TO 4 07/27/20 24 26925-OSUD SKIN LESIONS, 2 TO 4 07/03/20 25 45319-YGQK SKIN LESIONS, 2 TO 4 04/12/20 25 01403-CMME SKIN LESIONS, 2 TO 4 10/24/20 Next Appt Details Provider Name:James Yisel Zuniga , 10/16/2025 11:15:00 AM, [address] [facility], [facility] [address], [place], [address], Insurance Providers Payer Name Payer Address Payer Phone Subscriber Number Group Number Insured Name Patient Relationship to Insured Coverage Start Date Coverage End Date [facility] [employer] Claims [address] [place] [address] [id number] Terrie Noriega Self - patient is the insured Medical (General) History Medical History History ICD Code Arthritis Back,Hip,and Knee pain CAD (Cholesterol) Diabetic Osteoporosis Measles HTN Surgical History Surgery Date(Month/Year) cancer surgery right hip replacement 05/09/24 Hospitalization History Reason Date(Month/Year) [facility] Right hip replacement 05/09/24
--- OUTSIDE RECORDS SUMMARY | 2025-08-22 17:22 | XMS_ITS | Patient Health Record ---
Author Organization [facility] Address [address] [place] [address] Care Team Providers Care Chief Mechanical Engineer Name Role Phone ANNE-MARIE REYNOSO MD Primary Care Provider Unav ailable JAIMIE KIMBLE Unavailable [phone] Allergies No Known Allergies Reason For Referral [...] W/U Status Risk Notes Problem Age-related osteoporosis (857003599) Age-related osteoporosis without current pathological fracture (M81.0) Active confirmed Problem Essential hypertension (16405325) Essential (primary) hypertension (I10) Active confirmed Problem Malignant neoplasm of overlapping sites of right female breast (C50.811) Active confirmed Problem Type II diabetes mellitus without complication (769030573) Type 2 diabetes mellitus without complications (E11.9) Active confirmed Problem Hyperlipidemia (61846975) Hyperlipidemia, unspecified (E78.5) Active confirmed Problem Gastro-esophageal reflux disease with esophagitis (895798485) Gastro-esophagea l reflux disease with esophagitis (K21.0) Active confirmed Problem Osteoarthritis (123105499) Unspecified osteoarthritis, unspecified site (M19.90) Active confirmed Plan Of Treatment Pending Test Test Name Order Date Urinalysis 07/15/2022 MM Digital Screening Mammogram 3D 2021 Insurance Providers Payer Name Payer Address Payer Phone Subscriber Number Group Number Insured Name Patient Relationship to Insured Coverage Start Date Coverage End Date [facility] [address] [address] [place] [address] [id number] CHANDLER GARG Self - patient is the [...]
--- OUTSIDE RECORDS SUMMARY | 2025-08-22 17:22 | XMS_ITS | Encounter Summary ---
Author Organization [facility] [facility] Address [address] [place] [address] Care Team Providers Care Macroeconomics Professor Name Role Phone Unavailable Primary Care Provider Unavailabl e Encounter Details Date Type Department Care Team (Latest Contact Info) Description 08/22/2019 Abstract [facility] CONVERSIONS Dental, Provider, DDS Social History [...]
--- OUTSIDE RECORDS SUMMARY | 2025-08-22 17:22 | XMS_ITS | Clinical Summary ---
Author Organization [email or web address] [facility] Address [address] [place] [address] Care Team Providers Care Copying Machine Mechanic Name Role Phone Unavailable Primary Care Provider [...]
== END 2025-08-22 14:28 | disposition home or self-care (01) ==
LOC: HO.ENCR 14:09
PROVIDERS: PCP Internal Medicine; Visit Provider Internal Medicine Endocrinology, Diabetes & Metabolism
DX: M81.0 Age-related osteoporosis without current pathological fracture (principal)

== ENCOUNTER → 2025-08-22 14:09 | Outpatient (BNVA) | payer OTHER, SELFPAY | PROVIDERS: PCP Internal Medicine; Visit Provider Internal Medicine Endocrinology, Diabetes & Metabolism | DX: M81.0 Age-related osteoporosis without current pathological fracture (principal) | CPT/HCPCS: 96372; J3111 ==

== ENCOUNTER 2025-08-24 07:26 | Outpatient (AMB) | payer OTHER, SELFPAY ==
--- NOTE | 2025-08-24 07:47 | A.OFFPC_ITS ---
Vital Signs 08/24/25 07:52 Height 4 ft 10.5 in Weight 122 lb BMI 25.1 BP 130/70 Blood Pressure Location Rt brachial Position Sitting Respiration 16 Pulse 81 Pulse Source Pulse Oximeter Temp 98.0 F Temp Source Oral Pulse Oximetry (%) 98 Oxygen Delivery Method Room Air Intake Visit Reasons: PE Intake Note: Pt is here today for her PE: Last mammogram 01/07/25, bone density scan 03/14/25 Allergies No Known Allergies Allergy (Verified 08/24/25 08:15) Medication List - Last Reconciled 08/24/25 by Nara Louie MD acetaminophen (Tylenol Extra Strength) 500 mg PO Q6H PRN amoxicillin 2,000 mg orally Take 4 capsules 1 hour before procedure; Take 4 capsules or 2000 mg amoxicillin 1 hour before dental procedure aspirin (Adult Aspirin Regimen) 81 mg PO DAILY atorvastatin 20 mg PO DAILY [baby wipes As directed] [basket for a walker As directed] blood sugar diagnostic As directed blood sugar diagnostic (FreeStyle Lite Strips) check fasting blood sugar 2 times a day; blood-glucose meter (FreeStyle [place] Lite kit) As directed calcium carbonate-vitamin D3 600 mg-5 mcg (200 unit) caps PO diaper,brief,adult,disposable Use as directed twice a day p.r.n. disposable gloves Use As directed lancets check fasting blood sugar twice a day ac lisinopril 5 mg PO DAILY [Long shoe horn As directed] [Medium size Poise Pads Use twice a day ] [medminder machine As directed] memantine 28 mg PO DAILY metformin 1,000 mg PO BID miscellaneous medical supply (Blood Pressure Cuff) Take blood pressure once daily and as needed omega-3 acid ethyl esters 2 caps PO DAILY propylene glycol-glycerin 1-0.3 % 1 drp ophthalmic (eye) QID PRN [rollator walker As directed] romosozumab-aqqg (Evenity) 210 mg (2.34 mL) subcut .qmonthly [Soft loofah sponge with long handle As directed] [walker with seat As directed] Tobacco use date assessed: 08/24/25 Fall risk assessment: No Falls in past year Last assessed Fall Risk: 08/24/25 Dental Screening Dental Screen Date: 08/24/25 Did you have a dental visit in the last 12 months?: Yes Did you have a dental problem in the last 6 months where you did not have access to dental care?: Yes Was dental information given to patient?: Patient has dentist PABLO MILLER HPI Details 85-year-old lady here today for follow-u p on her diabetes mellitus, and dyslipidemia. Currently only taking metformin a 1000 mg twice a day and atorvastatin 20 mg daily. Her recent labs showed some improvement in her diabet es control with hemoglobin A1c coming down from 8.2 to 7.9%. Fasting lipids however are within normal limits. Patient states that she has been compliant with taking her medications and follows recommended diet, but has not been able to exercise as much as she was doing in the past due to pain in her right knee joint. She is currently being followed at [facility] orthopedics for right knee osteoarthritis recently had a cortisone injection in right knee last 08/03/2025 which did not afford much relief of the pain. He has been taking Tylenol arthritis once a day which helps temporarily.. Patient states that she already received her flu vaccine from [facility] 2 weeks ago. Do not see it documented on the mass registry vaccine website [facility] Medical History (Updated 08/24/25 @ 08:42 by Nara Louie MD) Osteoarthritis of right knee Dementia History of femur fracture History of adenomatous polyp of colon History of fracture of right hip Gait instability History of recent fall Right anterior knee pain Urinary incontinence Mild cognitive impairment Tubular adenoma of colon Breast cancer, right Hearing loss Osteoporosis Osteoarthritis GERD (gastroesophageal reflux disease) Dyslipidemia Essential hypertension Type 2 diabetes mellitus with microalbuminuria, without long-term current use of insulin Type 2 diabetes mellitus with hyperglycemia, without long-term current use of insulin Type 2 diabetes mellitus with mild nonproliferative diabetic retinopathy without macular edema Surgical History H/O colonoscopy History of right hip hemiarthroplasty History of left hip replacement Hx of mastectomy Family History Father Colon cancer Mother Essential hypertension Sister Pancreatic cancer Son Mental health disorder Substance use disorder Social History Housing: Apartment Alcohol intake: never Patient Tobacco Use Status: Never used Tobacco e-Cigarette/Vaping Use: Never Used service: No Current occupational status: retired Cognitive needs: No Hearing needs: No Vision needs: Yes Questionnaire PHQ-9 Over the last 2 weeks, how often have you been bothered by any of the following problems? 1. Little interest or pleasure in doing things: not at all 2. Feeling down, depressed, or hopeless: not at all 3. Trouble falling or staying asleep, or sleeping too much: not at all 4. Feeling tired or having little energy: not at all 5. Poor appetite or overeating: not at all 6. Feeling bad about yourself - or that you are a failure or have let yourself or your family down: not at all 7. Trouble concentrating on things, such as reading the newspaper or watching television: not at all 8. Moving or speaking so slowly that other people could have noticed. Or the opposite - being so fidgety or restless that you have been moving around a lot more than usual: not at all 9. Thoughts that you would be better off or of hurting yourself in some way: not at all Total score: 0 Depression Screening Interpretation: Negative Depression Screening Done: Yes Source: Developed by Drs. Devon Hatch, Kimi Corrales, Tin Dominguez and colleagues, with an educational darrius from [employer]. Thrive Questionnaire Date Thrive assessed: 03/23/25 I am a: Patient What is your living situation today?: I have a steady place to live Within the past 12 months, did the food you bought not last and you didn't have the money to get more?: I choose not to answer this question Within the past 12 months, did you worry whether your food would run out before you got money to buy more?: I choose not to answer this question Do you have trouble paying for medicines?: No Do you have trouble getting transportation to medical appointments?: No Do you have trouble paying your heating and electricity bill?: No Do you have trouble taking care of your child, family member or friend?: No Do you have trouble with day-to-day activities such as bathing, preparing meals, shopping, managing finances, etc.?: No Are you currently unemployed and looking for a job?: No Are you interested in more education?: No Please select the resources that you would like help with: None Currently or been in a relationship where the following occur: I choose not to answer THRIVE Score: 0 AUDIT C Alcohol Use Questionnaire (AUDIT-C) 1. How often do you have a drink containing alcohol?: Never Total Score: 0 CLARK-7 AMB Questionnaire CLARK-7 Date CLARK - 7 assessed: 03/23/25 Trouble relaxin = Several days Being so restless that it is hard to sit still: 1 = Several days Becoming easily annoyed or irritable: 0 = Not at all Feeling afraid as if something awful might happen: 0 = Not at all Source: Developed by Drs. Devon Hatch, Kimi Corrales, Tin Dominguez and colleagues, with an educational darrius from [employer]. Review of Systems Const Reports no additional complaints Eyes Reports no additional complaints ENT Reports no additional complaints Card Denies chest pain, Denies rapid heart rate and Denies dyspnea Resp Denies chest congestion, Denies cough and Denies dyspnea GI Denies abdominal pain, Denies melena, Denies bloating, Denies change in bowel habits, Denies GI cramping and Denies nausea Reports no additional complaints Musc Reports as per HPI, Reports arthralgias and Reports stiffness Skin/Breast Denies lesions and Denies rash Neuro Denies paresthesias Psych Reports no additional complaints Endo Reports no additional complaints Rashawn/Lymph Reports no additional complaints Aller/Immun Reports no additional complaints Physical exam (Primary Care) Vital Signs: Last Vital Signs Temp 98.0 F 08/24/25 07:52 Pulse 81 08/24/25 07:52 Resp 16 08/24/25 07:52 BP 130/70 08/24/25 07:52 Pulse Ox 98 08/24/25 07:52 Oxygen Delivery Method Room Air 08/24/25 07:52 BMI result Body Mass Index 25.1 Tobacco/Smoking Status: Tobacco use Status Tobacco use date assessed 08/24/25 08/24/25 07:49 Patient Tobacco Use Status Never used Tobacco 08/24/25 07:49 e-Cigarette/Vaping Use Never Used 08/24/25 07:49 PHQ-9: PHQ-9 Score PHQ-9: Total score 0 08/24/25 07:49 Depression Screening Interpretation: Negative Thrive Assessment: Date of Thrive Assessment Date Thrive assessed 03/23/25 08/24/25 07:49 Currently or been in a relationship where the following occur: I choose not to answer Advance Care Planning discussion: Completed/Scanned Date of discussion: 08/24/25 Who was present: Patient and granulator Forms completed: Health Care Proxy Time spent: 16-45 minutes Actual minutes spent: 1 Const General: comfortable, no acute distress and alert Nutritional Appearance: average body habitus Orientation/consciousness: patient oriented x3 HENMT Mouth: Normal oral and palatal mucosa present and moist mucous membranes Eyes General: appearance normal, both eyes and all related structures Neck Other: Supple no lymphadenopathy, thyroid gland nonpalpable, no carotid bruits Resp Effort & Inspection: normal respiratory effort and able to speak in complete sentences Auscultation: clear to auscultation bilaterally Cardio Other: S1-S2 present regular rate and rhythm GI Other: Normal bowel sounds, soft, nontender with no mass palpated Back/Spine/Pelvis Back: No back tenderness Skin General skin exam: no rashes or lesions noted Neuro General: patient oriented x3, moves all extremities, Normal light touch and pain sensation, no focal motor deficits, CN's II-XI intact bilaterally and normal sensation to monofilament Cognition (Neuro): normal cognition Gait exam (Neuro): Assisted gait required (Cane) Extrem General: Yes full ROM, Yes no joint enlargement and Yes no pedal edema Right lower extremity: knee Details: tenderness Location: of the patella Results Reviewed Results Reviewed: Name: Terrie Madden Age/Sex: 85/F : 1940 Unit#: [id number] Attend Dr: Nara Louie MD Re08/19/25 Status: DEP REF Location: [facility] Disch: SPEC : [id number] BOAZ: 08/19/25 STATUS: COMP REQ : [id number] RECD: 08/19/[address]: Nara Louie MD COMP: 08/19/25 ENTERED: 08/19/[address]: ORDERED: Met Prof Fast, AST, ALT, Lipid Panel, Vitamin D 25-OH, TSH Rflx Test Result Flag Reference Sodium 139 135-145 mmol/L Potassium 4.7 3.3-5.1 mmol/L CL 106 96-108 mmol/L CO2 27 22-29 mmol/L Gap 11 L 12-20 BUN 12 9-16 mg/dL Creat 0.59 0.5-1.4 mg/dL eGFR > 60 Chronic Kidney Disease: Estimated GFR < 60 mL/min/1.73m2 Severe Kidney Disease: Estimated GFR < 15 mL/min/1.73m2 FBS 195 H 60-99 mg/dL A fasting glucose of 126 mg/dl or greater on more than one occasion is considered diagnostic of diabetes. CA 9.4 8.4-10.2 mg/dL AST (GOT) 22 5-31 U/L ALT (GPT) 15 0-31 U/L Triglyceride 103 <150 mg/dL Desirable Triglyceride: less than 150 mg/dL Borderline High Triglyceride 150-199 mg/dL High Triglyceride: 200-499 mg/dL Very High Triglyceride: greater than or equal to 5OO mg/dL Cholesterol 170 <200 mg/dL Desirable Cholesterol: less than 200 mg/dL Borderline High Cholesterol: 200-239 mg/dL High Cholesterol: greater than 239 mg/dL LDL Calculated 90 <100 mg/dL Desirable LDL: less than 100 mg/dL Near Optimal/Above Optimal LDL: 110-129 mg/dL Borderline High LDL: 130-159 mg/dL High LDL: 160-189 mg/dL Very High LDL: greater than or equal to 190 mg/dL HDL 60 >40 mg/dL Desirable HDL: greater than 40 mg/dL Note: This HDL assay may give artificially low results in patients with liver disease. Vitamin D 25-OH 108.1 >30 ng/mL Health Based Reference Values* < 20 ng/mL Deficient 20-30 ng/mL Insufficient > 30 ng/mL Sufficient *Josh ESCOBAR. N Engl J Med. 2007;357:266-280 There is no well-established upper level of normal vitamin D levels. Some laboratories use 50 ng/mL as an upper limit of normal. However, toxicity is patient-dependent and may occur at any level. Careful correlation with the patient's presentation is necessary and, if there is concern for vitamin D toxicity, treatment should be considered irrespective of the serum level. Care must be taken in interpreting Vitamin D results from different laboratories and methodologies. Published data demonstrated that results from patients undergoing hemodialysis may show a negative bias when tested with various automated 25-OH vitamin D assays when compared to LC-MS/MS. When testing samples from patients whose predominant form of Vitamin D is Vitamin D2, such as patients receiving Vitamin D2 supplementation, results that are subtherapeutic should be confirmed with another method such as LC-MS/MS. TSH 1.09 0.32-4.0 uIU/mL Laboratory Tests 03/18/25 08/19/25 07:50 08:27 Estimat Average Glucose 180 Hemoglobin A1c % 7.9 H Urine Creatinine 144.24 Urine Microalbumin 13.0 Microalb/Creat Ratio 9.0 Coding Level of Care Code Est Pt Level 4 (91057) Complex EM visit Add On G2211 Diagnoses Type 2 diabetes mellitus with mild nonproliferative diabetic retinopathy without macular edema E11.3299 Dyslipidemia E78.5 Essential hypertension I10 Primary osteoarthritis of right knee M17.11 Osteoarthritis type: primary Additional Codes Vital Signs *Quality* - Advance Care Planning discussion: Completed/Scanned ([id number]) Vital Signs *Quality* - Time spent: 16-45 minutes ([id number]) Assessment & Plan Assessment & Plan (1) Type 2 diabetes mellitus with mild nonproliferative diabetic retinopathy without macular edema: Code(s): E11.3299 - Type 2 diabetes mellitus with mild nonproliferative diabetic retinopathy without macular edema, unspecified eye Category: Medical Plan: Recent lab results reviewed with patient, with sugar and hemoglobin A1c stable improving but not at goal. continue to check fasting blood sugar at home, maintain log and bring to next appointment for review. Continued on metformin 1000 mg 1 tablet twice a day. Reinforced diabetic diet and regular exercise with patient. Counseled regarding importance of yearly diabetes retinopathy screening. Patient advised to inspect feet daily, for any signs of injury, callus or infection. Compliance with diet and regular exercise again stressed. Blood pressure goal is less than 130/80, goal LDL is less than 100 and goal hemoglobin A1c is less than 7% follow-up appointment made in-3--months, after fasting labs done. Patient states that she received her flu vaccine 2 weeks ago at [facility], up-to-date with her pneumonia vaccine, but does not want to get a COVID vaccine or shingles vaccination anymore (2) Dyslipidemia: Code(s): E78.5 - Hyperlipidemia, unspecified Category: Medical Plan: Fasting lipids are within normal limits , continue with atorvastatin 20 mg daily (3) Essential hypertension: Code(s): I10 - Essential (primary) hypertension Category: Medical Plan: Blood pressure at goal of less than 130/80. Continue with lisinopril 5 mg once a. Reinforced importance of following a low sodium diet, getting regular exercise, and lowering stress levels. (4) Osteoarthritis of right knee: Code(s): M17.11 - Unilateral primary osteoarthritis, right knee Category: Medical Qualifiers: Osteoarthritis type: primary Qualified Code(s): M17.11 - Unilateral primary osteoarthritis, right knee Plan: Received done cortisone injection in right need July at [facility], with minimal relief. Patient advised to try massaging Advil ointment to affected area in right knee joint once or twice a day as needed. Wash hands after use. May take an extra Tylenol arthritis 650 mg 1 tablet twice a day as needed for pain. Orders: Orders Alanine Aminotransferase 3 Months .3298 - Type 2 diabetes mellitus with mild nonproliferative diabetic retinopathy without macular edema, unspecified eye, E78.5 - Hyperlipidemia, unspecified, I10 - Essential (primary) hypertension Hemoglobin A1c 3 Months - Type 2 diabetes mellitus with mild nonproliferative diabetic retinopathy without macular edema, unspecified eye, E78.5 - Hyperlipidemia, unspecified, I10 - Essential (primary) hypertension Lipid Panel 3 Months .3298 - Type 2 diabetes mellitus with mild nonproliferative diabetic retinopathy without macular edema, unspecified eye, E78.5 - Hyperlipidemia, unspecified, I10 - Essential (primary) hypertension Microalbumin, Random (w Creat) 3 Months .3298 - Type 2 diabetes mellitus with mild nonproliferative diabetic retinopathy without macular edema, unspeci fied eye, E78.5 - Hyperlipidemia, unspecified, I10 - Essential (primary) hypertension Aspartate Amino Transferase 3 Months .3298 - Type 2 diabetes mellitus with mild nonproliferative diabetic retinopathy without macular edema, unspecified eye, E78.5 - Hyperlipidemia, unspecified, I10 - Essential (primary) hypertension Basic Metabolic Panel Fasting 3 Months .3298 - Type 2 diabetes mellitus with mild nonproliferative diabetic retinopathy without macular edema, unspecified eye, E78.5 - Hyperlipidemia, unspecified, I10 - Essential (primary) hypertension
[2025-08-24 07:52] VITALS: BP 130/70; PULSE 81; RESP 16; TEMP 36.7; O2SAT 98; BMI 25.1
== END 2025-08-24 09:15 | disposition home or self-care (01) ==
LOC: HO.HMCC 07:27
PROVIDERS: PCP Internal Medicine; Visit Provider Internal Medicine
DX: E11.3299 Type 2 diabetes mellitus with mild nonproliferative diabetic retinopathy without macular edema, unspecified eye (principal); E78.5 Hyperlipidemia, unspecified; I10 Essential (primary) hypertension; M17.11 Unilateral primary osteoarthritis, right knee; Z00.00 Encounter for general adult medical examination without abnormal findings

== ENCOUNTER → 2025-08-24 07:26 | Outpatient (BNVA) | payer OTHER, SELFPAY | PROVIDERS: PCP Internal Medicine; Visit Provider Internal Medicine | DX: E11.3299 Type 2 diabetes mellitus with mild nonproliferative diabetic retinopathy without macular edema, unspecified eye (principal); E78.5 Hyperlipidemia, unspecified; I10 Essential (primary) hypertension; M17.11 Unilateral primary osteoarthritis, right knee; Z79.84 Long term (current) use of oral hypoglycemic drugs; Z79.899 Other long term (current) drug therapy; Z13.31 Encounter for screening for depression | CPT/HCPCS: 96127; 99212; 99497 ==

== ENCOUNTER 2025-09-19 13:40 | Outpatient (AMB) | payer OTHER, SELFPAY ==
--- OUTSIDE RECORDS SUMMARY | 2024-06-06 09:30 | XMS_ITS ---
Author Organization [facility] Address [address] [facility] [address] Care Team Providers Care Manager [employer] Name Role Phone Liban ROJAS, Nara Londono Primary Care Provider Un available James Zuniga Unavailable [phone] Encounters Encounter Location Date Provider Diagnosis [address] [address] 06/06/2024 James Zuniga Plan Of Treatment Next Appt Details Provider Name:Carol panchal, 10/24/2025 02:45:00 PM, [address] [place] [address], [id number], Progress Notes * Terrie MADDEN MDOB:1939 (85 yo F)Acc No.[id number]:06/06/2024 Progress Note Patient: Peri GRACIA Terrie Skelton Provider: Severiano Zuniga DPM :1940 A ge:84 Y S ex:Female Date:06/06/2024 Address:[address] , [id number] Pcp:Nafisa Walton Subjective: * Chief Complaints: * * Medical History: Objective: * Vitals: Assessment: Plan: * Treatment: * Images: * The named appointment provid er may or may not be the originator of this progress note, and it is not deemed complete until electronically signed by the appointment provider. Sign off status: Pending * Provider: Severiano Zuniga DPM Date: 0 06/06/2024 Generated for Juan Jose Almonte/Miin on: 11/19/2024 04:49 PM EST
--- OUTSIDE RECORDS SUMMARY | 2025-01-30 05:45 | XMS_ITS ---
Author Organization [facility] Address [address] [facility] et [facility] [place] [address] Care Team Providers Care Campus Security Officer Name Role Phone Liban ROJAS, Nraa Londono Primary Care Provider Un available James Zuniga Unavailable [phone] Encounters Encounter Location Date Provider Diagnosis [address] [address] 01/30/2025 James Zuniga Plan Of Treatment Next Appt Details Provider Name:Carol panchal, 10/24/2025 02:45:00 PM, [address] [place] [address], [address], Progress Notes * Terrie MADDEN MDOB:1939 (85 yo F)Acc No.[id number]:01/30/2025 Progress Note Patient: Peri GRACIA Terrie Skelton Provider: Severiano Zuniga DPM :1940 A ge:84 Y S ex:Female Date:01/30/2025 Address:[address] [facility] [address] , [id number] Pcp:Nafisa Walton Subjective: * Chief Complaints: * * Medical History: Objective: * Vitals: Assessment: Plan: * Treatment: * Images: * The named appointment provid er may or may not be the originator of this progress note, and it is not deemed complete until electronically signed by the appointment provider. Sign off status: Pending * Provider: Severiano Zuniga DPM Date: 0 01/30/2025 Generated for Juan Jose Escamilla on: 11/19/2024 04:49 PM EST
--- NOTE | 2025-09-19 13:46 | MHC.OFFVIS ---
Vital Signs 09/19/25 13:49 Height 4 ft 10.5 in Weight 124 lb 5.451 oz BMI 25.5 BP 122/74 Blood Pressure Location Lt brachial Position Sitting Pulse 87 Pulse Source Pulse Oximeter Pulse Oximetry (%) 96 Oxygen Delivery Method Room Air Intake Visit Reasons: Osteoporosis/evenity #11 Intake Note: Patient present today for age-related Osteoporosis follow up visit. Radiographer Mammographer Required: Yes Radiographer Mammographer Language: Stretch Box Tender Services: Radiographer Mammographer Offered & Declined Information Interpreted: non-clinical & clinical Allergies No Known Allergies Allergy (Verified 09/19/25 13:51) Medication List - Last Reconciled 09/19/25 by Devon Baltazar MD acetaminophen (Tylenol Extra Strength) 500 mg PO Q6H PRN amoxicillin 2,000 mg orally Take 4 capsules 1 hour before procedure; Take 4 capsules or 2000 mg amoxicillin 1 hour before dental procedure aspirin (Adult Aspirin Regimen) 81 mg PO DAILY atorvastatin 20 mg PO DAILY [baby wipes As directed] [basket for a walker As directed] blood sugar diagnostic As directed blood sugar diagnostic (FreeStyle Lite Strips) check fasting blood sugar 2 times a day; blood-glucose meter (FreeStyle [place] Lite kit) As directed calcium carbonate-vitamin D3 600 mg-5 mcg (200 unit) caps PO diaper,brief,adult,disposable Use as directed twice a day p.r.n. disposable gloves Use As directed lancets check fasting blood sugar twice a day ac lisinopril 5 mg PO DAILY [Long shoe horn As directed] [Medium size Poise Pads Use twice a day ] [medminder machine As directed] memantine 28 mg PO DAILY metformin 1,000 mg PO BID miscellaneous medical supply (Blood Pressure Cuff) Take blood pressure once daily and as needed omega-3 acid ethyl esters 2 caps PO DAILY propylene glycol-glycerin 1-0.3 % 1 drp ophthalmic (eye) QID PRN [rollator walker As directed] romosozumab-aqqg (Evenity) 210 mg (2.34 mL) subcut .qmonthly [Soft loofah sponge with long handle As directed] [walker with seat As directed] HPI Comments Details: 85 YO Female is seen in consultation at the request of PCP for Osteoporosis. First diagnosed in last yr . Received treatment in the past with alendronate , from 6 mos to present . Tolerated treatment well without complication. history of pathologic fracture of hip right in 04/2024 Had a fall outside or [facility]. Has few servings of dietary calcium per day in the form of milk, salmon and ice cream . Takes Calcium supplement ? mg daily in divided doses. Takes ? IU of Vitamin D daily. Denies ever using PPI, anticoagulant, antiepileptic or glucocorticoid medication. Not Does weight bearing exercise Fracture history: As above Height loss: No [employer] history: Menarche at age 14 total hysterecomy at age 40- not taking ERT then Denies history of Kidney stones: Had RT for breast cancer in 1998 Denies family history of Osteoporosis or hip fracture. UTD on dental cleanings and sees dentist every 6 months. No planned upcoming dental work or extractions. DXA dated 01/29/24: T-score in the lumbar spine-3.7 Labs: Secondary workup negative Currently getting Evenity injection #11. Today To date, she reports no fractures since starting Evenity. Compliance with calcium and vitamin D supplements is noted, albeit not in detail. The future treatment strategy includes concluding the 12-month Evenity course with seven more injections and transitioning to Denosumab (Prolia) following that period. [facility] Medical History Osteoarthritis of right knee Dementia History of femur fracture History of adenomatous polyp of colon History of fracture of right hip Gait instability History of recent fall Right anterior knee pain Urinary incontinence Mild cognitive impairment Tubular adenoma of colon Breast cancer, right Hearing loss Osteoporosis Osteoarthritis GERD (gastroesophageal reflux disease) Dyslipidemia Essential hypertension Type 2 diabetes mellitus with microalbuminuria, without long-term current use of insulin Type 2 diabetes mellitus with hyperglycemia, without long-term current use of insulin Type 2 diabetes mellitus with mild nonproliferative diabetic retinopathy without macular edema Surgical History H/O colonoscopy History of right hip hemiarthroplasty History of left hip replacement Hx of mastectomy Family History Father Colon cancer Mother Essential hypertension Sister Pancreatic cancer Son Mental health disorder Substance use disorder Social History Housing: Apartment Alcohol intake: never Patient Tobacco Use Status: Never used Tobacco e-Cigarette/Vaping Use: Never Used service: No Current occupational status: retired Cognitive needs: No Hearing needs: No Vision needs: Yes Physical Exam Vital Signs: Last Vital Signs Pulse 87 09/19/25 13:49 BP 122/74 09/19/25 13:49 Pulse Ox 96 09/19/25 13:49 Oxygen Delivery Method Room Air 09/19/25 13:49 BMI result Body Mass Index 25.5 Assessment & Plan Assessment & Plan (1) Osteoporosis: Code(s): M81.0 - Age-related osteoporosis without current pathological fracture Category: Medical Qualifiers: Osteoporosis type: age-related Presence of current pathological fracture: without current pathological fracture Qualified Code(s): M81.0 - Age-related osteoporosis without current pathological fracture Plan: This 85-year-old female with a history of severe osteoporosis and previous femur fracture. Secondary workup negative. Currently on a Evenity injection 11. The plan is to continue the Evenity for full 12 months' time and then will transition to Prolia in 11/2025 Coding Level of Care Code Est Pt Level 3 (23611) Diagnoses Age-related osteoporosis without current pathological fracture M81.0 Osteoporosis type: age-related Presence of current pathological fracture: without current pathological fracture
[2025-09-19 13:49] VITALS: BP 122/74; PULSE 87; O2SAT 96; BMI 25.5
--- OUTSIDE RECORDS SUMMARY | 2025-09-19 16:49 | XMS_ITS | Clinical Summary ---
Author Organization [employer] Address [address] [place] [address] Care Team Providers Care Stock Replenisher Name Role Phone Unavailable Primary Care Provider [...]
--- OUTSIDE RECORDS SUMMARY | 2025-09-19 16:49 | XMS_ITS | Patient Health Record ---
Author Organization [employer] [facility] Address [address] [place] [address] Care Team Providers Care Audio Production Engineer Name Role Phone ANNE-MARIE REYNOSO MD Primary Care Provider Unav ailable JAIMIE KIMBLE Unavailable [phone] Allergies No Known Allergies Reason For Referral [...] W/U Status Risk Notes Problem Age-related osteoporosis (413315226) Age-related osteoporosis without current pathological fracture (M81.0) Active confirmed Problem Essential hypertension (46129690) Essential (primary) hypertension (I10) Active confirmed Problem Malignant neoplasm of overlapping sites of right female breast (C50.811) Active confirmed Problem Type II diabetes mellitus without complication (046780089) Type 2 diabetes mellitus without complications (E11.9) Active confirmed Problem Hyperlipidemia (32886533) Hyperlipidemia, unspecified (E78.5) Active confirmed Problem Gastro-esophageal reflux disease with esophagitis (674411639) Gastro-esophagea l reflux disease with esophagitis (K21.0) Active confirmed Problem Osteoarthritis (099125115) Unspecified osteoarthritis, unspecified site (M19.90) Active confirmed Plan Of Treatment Pending Test Test Name Order Date Urinalysis 07/15/2022 MM Digital Screening Mammogram 3D 2021 Insurance Providers Payer Name Payer Address Payer Phone Subscriber Number Group Number Insured Name Patient Relationship to Insured Coverage Start Date Coverage End Date [facility] [address] [address] [place] [address] [id number] CHANDLER GARG Self - patient is the [...]
--- OUTSIDE RECORDS SUMMARY | 2025-09-19 16:49 | XMS_ITS | Encounter Summary ---
Author Organization [employer] [facility] Address [address] [place] [address] Care Team Providers Care Combat Engineer Name Role Phone Unavailable Primary Care Provider Unavailabl e Encounter Details Date Type Department Care Team (Latest Contact Info) Description 08/22/2019 Abstract [facility] CONVERSIONS Dental, Provider, DDS Social [...]
--- OUTSIDE RECORDS SUMMARY | 2025-09-19 16:50 | XMS_ITS | Patient Health Record ---
Author Organization [facility] Address [address] [place] [address] Care Team Providers Care Department [employer] Name Role Phone Liban ROJAS, Nara Londono Primary Care Provider Un available Nadia, James Unavailable [phone] Allergies No Known Allergies Results Component Value Reference Range Notes HEMOGLOBIN A1C (GLYCOHEMOGLO BIN) Reviewed date:07/03/2025 10:55:21 AM Interpretation: Performing Lab: Notes/Report: HEMOGLOBIN A1C % (HH) 8.2 HEMOGLOBIN A1C (GLYCOHEMOGLO BIN) Reviewed date:04/13/2025 02:39:56 PM Interpretation: Performing Lab: Notes/Report: HEMOGLOBIN A1C % (HH) 8.2 Reason For Referral No Information Medications Medication SIG (Take, Route, Frequency, Duration) Notes Start Date End Date Status [place] 3 1000 MG 1 capsule Orally [...] Problem Acquired hammer toe of right foot (28978702798404 05) Other hammer toe(s) (acquired), right foot (M20.41) Active confirmed Response to treatment,I mprovement Problem Acquired hammer toe of left foot (18910661922227 03) Other hammer toe(s) (acquired), left foot (M20.42) Active confirmed Response to treatment,I mprovement Problem Type II diabetes mellitus without complication (847113165) Type 2 diabetes mellitus without complication (E11.9) Active confirmed Vital Signs Blood pressure diastolic 80 mm Hg 10/24/2024 Height 5 ft 2 in in 07/03/2025 Blood pressure systolic 120 mm Hg 10/24/2024 Weight 135 lbs 07/03/2025 BMI 24.69 kg/m2 07/03/2025 Procedures Procedure Date Ordered Date Performed Result Body Sit e 19247-STDEYGL NAIL, 6 OR MORE 10/24/2024 N/A 72117-EDFX SKIN LESIONS, 2 TO 4 10/24/2024 N/A 03552-JXLGYGO NAIL, 6 OR MORE 04/12/2025 N/A 78897-FWTF SKIN LESIONS, 2 TO 4 04/12/2025 N/A 72922-VLXTZZI NAIL, 6 OR MORE 07/03/2025 N/A 13842-ZGKV SKIN LESIONS, 2 TO 4 07/03/2025 N/A Encounters Encounter Location Date Provider Diagnosis [address] [address] 10/24/2024 James Zuniga Pain in right toe(s) M79.674 ; Tinea unguium B35.1 ; Pain in left toe(s) M79.675 and Type 2 diabetes mellitus without complication E11.[address] [address] 04/12/2025 James Zuniga Tinea unguium B35.1 ; Other hammer toe(s) (acquired), right foot M20.41 ; Pain in right toe(s) M79.674 ; Pain in left toe(s) M79.675 ; Type 2 diabetes mellitus without complication E11.9 and Other hammer toe(s) (acquired), left foot M20.[address] [address] 07/03/2025 James Zuniga Tinea unguium B35.1 ; Other hammer toe(s) (acquired), right foot M20.41 ; Pain in right toe(s) M79.674 ; Pain in left toe(s) M79.675 ; Type 2 diabetes mellitus without complication E11.9 and Other hammer toe(s) (acquired), left foot M20.[address] [address] 09/06/2025 James Zuniga Assessments Encounter Date Diagnosis (ICD [...] Treatment Pending Test Test Name Order Date 76055-CDPBMDH NAIL, 6 OR MORE 05/12/2019 83085-KKMPKOC NAIL, 6 OR MORE 08/11/2019 18274-CUKJYBJ NAIL, 6 OR MORE 11/24/2019 93351-PMIRLJM NAIL, 6 OR MORE 03/08/2020 10552-VHIGXWX NAIL, 6 OR MORE 05/31/2020 34278-CBXGLQB NAIL, 6 OR MORE 08/15/2020 26591-HAEAWYU NAIL, 6 OR MORE 10/24/2020 68095-QTDIIMU NAIL, 6 OR MORE 01/09/2021 91466-CVEIWUG NAIL, 6 OR MORE 03/20/2021 89287-YRGGMBC NAIL, 6 OR MORE 06/12/2021 92276-TGFJUGS NAIL, 6 OR MORE 08/21/2021 62363-HAJCSGZ NAIL, 6 OR MORE 10/31/2021 64010-KDMYJWQ NAIL, 6 OR MORE 01/09/2022 40270-XHEBCTS NAIL, 6 OR MORE 03/20/2022 60724-VCVSYPE NAIL, 6 OR MORE 05/29/2022 76459-EWXMKUG NAIL, 6 OR MORE 09/03/2022 88797-GZOEJMW NAIL, 6 OR MORE 11/19/2022 64490-VPYQASG NAIL, 6 OR MORE 02/11/2023 19111-VGHWCUR NAIL, 6 OR MORE 04/22/2023 42854-PJTJOIO NAIL, 6 OR MORE 07/01/2023 57982-JOMQVYW NAIL, 6 OR MORE 09/10/2023 15764-NYBDLQS NAIL, 6 OR MORE 01/11/2024 66319-AVYCGMJ NAIL, 6 OR MORE 03/28/2024 20679-JPGTOXQ NAIL, 6 OR MORE 07/27/2024 82042-OXBJZGQ NAIL, 6 OR MORE 10/24/2024 43969-OPAJFSZ NAIL, 6 OR MORE 04/12/2025 34851-FMZGHZM NAIL, 6 OR MORE 07/03/2025 54865-Scroeuxv Plate 07/27/2024 72868-Bvhfnyzv Plate 03/28/2024 11957-Ealsousn Plate 09/03/2022 05809-Pozplzfh Plate 01/11/2024 30462-Fgxhrxdf Plate 11/19/2022 53601-Oymammbi Plate 10/31/2021 09126-LCXO SKIN LESIONS, 2 TO 4 10/31/20 28258-EUEE SKIN LESIONS, 2 TO 4 08/21/20 96912-SZNC SKIN LESIONS, 2 TO 4 06/12/20 29718-IRPS SKIN LESIONS, 2 TO 4 03/20/20 98159-WTMM SKIN LESIONS, 2 TO 4 09/03/20 70079-SKSS SKIN LESIONS, 2 TO 4 05/29/20 95290-KDYJ SKIN LESIONS, 2 TO 4 03/20/20 98109-BUKP SKIN LESIONS, 2 TO 4 01/09/20 87563-BYAN SKIN LESIONS, 2 TO 4 01/09/20 77704-UAIE SKIN LESIONS, 2 TO 4 10/24/20 63618-IIOR SKIN LESIONS, 2 TO 4 08/15/20 20 87724-ZFDJ SKIN LESIONS, 2 TO 4 05/31/20 57191-AYHK SKIN LESIONS, 2 TO 4 03/08/20 50572-XNCE SKIN LESIONS, 2 TO 4 11/24/19 01248-LTMU SKIN LESIONS, 2 TO 4 08/11/20 73589-GAUX SKIN LESIONS, 2 TO 4 05/12/20 41736-NKKK SKIN LESIONS, 2 TO 4 11/19/19 88206-TIFH SKIN LESIONS, 2 TO 4 02/12/20 23 17365-EJKH SKIN LESIONS, 2 TO 4 07/01/20 08876-QTXO SKIN LESIONS, 2 TO 4 04/22/20 89116-UCMW SKIN LESIONS, 2 TO 4 01/11/20 13584-HBIT SKIN LESIONS, 2 TO 4 03/28/20 15015-QOKZ SKIN LESIONS, 2 TO 4 07/27/20 73335-TCNO SKIN LESIONS, 2 TO 4 07/03/20 07574-PYPF SKIN LESIONS, 2 TO 4 04/12/20 40853-DBRQ SKIN LESIONS, 2 TO 4 10/24/20 Next Appt Details Provider Name:Carol George ansley, 10/24/2025 02:45:00 PM, [facility] [address], [place], [address], Insurance Providers Payer Name Payer Address Payer Phone Subscriber Number Group Number Insured Name Patient Relationship to Insured Coverage Start Date Coverage End Date [facility] [employer] Claims [address] [place] [address] [id number] Terrie Noriega Self - patient is the insured Medical (General) History Medical History History ICD Code Arthritis Back,Hip,and Knee pain CAD (Cholesterol) Diabetic Osteoporosis Measles HTN Surgical History Surgery Date(Month/Year) cancer surgery right hip replacement 05/09/24 Hospitalization History Reason Date(Month/Year) [facility] Right hip replacement 05/09/24
== END 2025-09-19 14:41 | disposition home or self-care (01) ==
LOC: HO.ENCR 13:41
PROVIDERS: PCP Internal Medicine; Visit Provider Internal Medicine Endocrinology, Diabetes & Metabolism
DX: M81.0 Age-related osteoporosis without current pathological fracture (principal)
CPT/HCPCS: 99213

== ENCOUNTER → 2025-09-19 13:40 | Outpatient (BNVA) | payer OTHER, SELFPAY | PROVIDERS: PCP Internal Medicine; Visit Provider Internal Medicine Endocrinology, Diabetes & Metabolism | DX: M81.0 Age-related osteoporosis without current pathological fracture (principal); Z90.710 Acquired absence of both cervix and uterus; Z79.620 Long term (current) use of immunosuppressive biologic | CPT/HCPCS: 96372; 99212; J3111 ==

== ENCOUNTER 2025-10-27 08:47 | Outpatient (AMB) | payer OTHER, SELFPAY ==
--- NOTE | 2025-10-27 09:19 | AM.OFFVISNUR ---
Intake Visit Reasons: Evenity #12 Allergies No Known Allergies Allergy (Verified 09/19/25 13:51) Office Meds romosozumab-aqqg 210 mg/2.34 mL(105 mg/1.17 mL x2)subcutaneous syringe Performing Provider: Devon Baltazar MD Performing Location: [facility] [place] [place] Endocrinology Administered by: Nicki Birmingham RN on 10/27/25 09:05 Dose Route Admin Location Dispensed Lot Number Expiration Date NDC Ultrasound Supervisor 210 mg subcut bilateral upper arms 2.34 mL [id number] 02/14/28 38815-945-83 [employer] Total Dispensed Waste 2.34 mL 0 % Comments: Pt in today for her last Evenity injection. Pt accompanied by daughter who interpreted visit. Pt declined airbrush artist photography. No adverse reactions reported from previous injection. Pt tolerated injection well. Pt and pt's daughter informed that she will be receiving Prolia for the next appt. They confirmed understanding and had no further questions at this time. Assessment & Plan Assessment & Plan Orders: Orders AMB Romosozumab Injection Patient Supplied Today M81.0 - Age-related osteoporosis without current pathological fracture Coding
== END 2025-10-27 09:16 | disposition home or self-care (01) ==
LOC: HO.ENCR 08:48
PROVIDERS: PCP Internal Medicine; Visit Provider Internal Medicine Endocrinology, Diabetes & Metabolism
DX: M81.0 Age-related osteoporosis without current pathological fracture (principal)

== ENCOUNTER → 2025-10-27 08:47 | Outpatient (BNVA) | payer OTHER, SELFPAY | PROVIDERS: PCP Internal Medicine; Visit Provider Internal Medicine Endocrinology, Diabetes & Metabolism | DX: M81.0 Age-related osteoporosis without current pathological fracture (principal) | CPT/HCPCS: 96372; J3111 ==